=== PATIENT | female | born 1930 | race Caucasian/White ===

== ENCOUNTER 2017-02-02 17:44 | Inpatient (IN) | payer MEDICARE, OTHER ==
[~2017-02-02] VITALS: Ht 162.6 cm; Wt 68.2 kg
[~2017-02-02 17:44] MED LIST: ADV25050 INH; ALPR0.25 PO; AMLO5TAB4 PO; ATOR10TA65 PO; CHOL200035 PO; CITA20TA11 PO; CLON-379 PO; DIVA250T12 PO; EXEM25TA3 PO; HYDR-2086 PO; HYDR-762 PO; METO-448 PO; SIMV20TA2 PO; TIOT18CA IH
[2017-02-02] MEDS ORDERED: LORAZEPAM 1 MG TAB PO ONE (18:30)
[2017-02-02] MEDS ORDERED: IBUPROFEN 600 MG TAB PO ONE (18:30)
[2017-02-02] MEDS ORDERED: QUET50TA22 PO (19:27)
--- NOTE | 2017-02-02 19:38 | RADRPT ---
PROCEDURE: CT HEAD WITHOUT CONTRAST: CLINICAL INDICATION: 86-year-old female, altered mental status COMPARISON: CT head September 24, 2015 TECHNIQUE: CT of the head was performed without IV contrast. Dose information: The estimated radiation dose (CTDIvol mGy) for each series in this exam is 42 . The estimated cumulative dose (DLP mGy-cm) is 720 . FINDINGS: Parenchyma: There is chronic encephalomalacia in the left frontal lobe with ex vacuo dilatation of t he frontal horn of the left lateral ventricle that is unchanged from prior exam. Old right basal chan glia, right thalamic and cerebellar lacunar infarcts are unchanged. There are nonspecific patchy lo w density changes in the supratentorial deep white matter that are nonspecific that are unchanged fr om prior exam. Moderate diffuse cerebral tissue loss. Intracranial atherosclerosis. Negative for acu te intracranial hemorrhage, significant mass effect or midline shift. Ventricles and extra-axial spaces: Prominence of the ventricles proportionate to the sulci in keepin g with moderate cerebral tissue loss that is similar to prior exam. Visualized paranasal sinuses: Clear. Mastoid air cells: Clear. 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 There is also hyperostosis along the right greater sphenoid wing that is unchanged. Additional comment: Benign calcified scleral plaques bilateral orbits are unchanged. IMPRESSION: 1. No acute intracranial hemorrhage or significant mass effect. 2. Left frontal encephalomalacia is unchanged from prior head CT performed September 14, 2015. 3. 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 4. Severe chronic microvascular ischemic changes are again noted. If there is concern for recent is chemia consider MRI brain for further evaluation. 5. <Intracranial atherosclerosis. RPTAT: HCTS Jeffrey Lincoln Physician Date Time Electronically viewed and signed by Jeffrey Lincoln Physician on 02/02/2017 19:38 CS/
--- NOTE | 2017-02-02 20:07 | RADRPT ---
PROCEDURE: XR Femur. CLINICAL INDICATION: 89-year-old female. Fall.. TECHNIQUE: AP view of the right femur. COMPARISON: None available. FINDINGS: There is a noncemented right total hip replacement. Alignment is grossly anatomic on this portable A P view. There is a periprosthetic fracture of the proximal femoral shaft involving the lateral james ex extending to the prosthesis. There is a cemented right total knee replacement that is incomplete ly imaged but grossly unremarkable in the frontal projection. Vascular calcification. Negative for significant soft tissue swelling. IMPRESSION: Periprosthetic fracture proximal right femur extending to the femoral component of a right hip repla cement.. RPTAT: HCTS Physician Karla Date Time Electronically viewed and signed by Physician Karla on 02/02/2017 20:07 CS/
[2017-02-02] MEDS ORDERED: ONDANSETRON 4 MG INJ IV STA (20:46)
[2017-02-02] MEDS ORDERED: morphine 4 MG/ML VIAL IV STA (20:46)
--- NOTE | 2017-02-02 20:52 | RADRPT ---
PROCEDURE: XR Chest 1 View. CLINICAL INDICATION: Chest pain TECHNIQUE: AP view of the chest was obtained. COMPARISON: September 29, 2015 FINDINGS: The heart size is within normal limits. Calcified atherosclerosis is noted in the aorta. Median va rnotomy wires and surgical clips overlie the heart. Chronic mild interstitial prominence is seen thr oughout both lungs. No consolidations are identified. No pneumothorax is seen. The osseous structu res are osteopenic, but intact. Degenerative changes are seen in the shoulders. Surgical clips are identified in the bilateral axilla. IMPRESSION: Calcified atherosclerosis in the aorta. Chronic interstitial prominence in both lungs. RPTAT: AA .Paul Schmidt MD, MD Date Time Electronically viewed and signed by .Paul Schmidt MD, on 02/02/2017 20:51 .P/
--- NOTE | 2017-02-02 21:18 | ERA ---
ER Documentation Chief Complaint Date/Time DATE: 02/02/17 TIME: 21:14 Chief Complaint Fall with leg pain HPI Patient is a 6-year-old female with dementia who presents with a fall. She had a trip and fall today prior to arrival. The patient was complaining of right leg pain. Please note the history and physical exam is limited given the patient's dementia at baseline. Upon review of old medical records she has multiple visits to the ER since 2006. Her primary doctor is Dr. Torres. ROS All systems reviewed and are negative except as per history of present illness. Medications Home Meds Reported Medications Quetiapine Fumarate* (Quetiapine Fumarate*) 50 Mg Tablet, 50 MG PO HS, TAB 02/02/17 Atorvastatin Calcium (Atorvastatin Calcium) 10 Mg Tablet, 10 MG PO QHS, #30 TAB 09/24/15 Metoprolol Tartrate* (Lopressor*) 25 Mg Tab, 25 MG PO DAILY, TAB 02/06/15 Alprazolam* (Xanax*) 0.25 Mg Tablet, 0.25 MG PO BID Y for ANXIETY TAKE 2TAB-QAM AND 1 TAB-QHS 09/13/13 Citalopram Hydrobromide* (Celexa*) 20 Mg Tablet, 20 MG PO DAILY 09/13/13 Discontinued Reported Medications Divalproex Sodium* (Divalproex ER*) 250 Mg Tab.er.24h, 250 MG PO DAILY, #30 TAB.SA 09/24/15 Hydrocodone Bit-Acetaminophen* (Vicodin*) 5-300 Tab, 1 EACH PO Q4H Y for PAIN, TAB 02/06/15 Simvastatin (Simvastatin) 20 Mg Tablet, 20 MG PO DAILY 09/13/13 Cholecalciferol (Vitamin D3) 2,000 Unit Capsule, 2000 UNIT PO DAILY 09/13/13 Tiotropium Sallis* (Spiriva*) 18 Mcg Cap.w.dev, 18 MCG IH DAILY 09/13/13 Exemestane* (Aromasin*) 25 Mg Tablet, 25 MG PO DAILY 09/13/13 Salmeterol Xinaf/Fluticasone* (Advair*) 1 Inh Inha, 14 INH INH Y for SHORTNESS OF BREATH 09/13/13 Discontinued Scripts Hydrocodone Bit-Acetaminophen* ([place]*) 10-325 Mg Tablet, 1 TAB PO Q6 Y for PAIN , #10 TAB Prov:YUMIKO WHITEHEAD PA-C 11/22/15 Clonidine Hcl* (Clonidine Hcl*) 0.1 Mg Tab, 0.1 MG PO BID for 1 Day, TAB 1 Refill Prov:YADIRA TORRES MD 10/01/15 Amlodipine Besylate* (Norvasc*) 5 Mg Tab, 5 MG PO BID, #60 TAB Prov:YADIRA TORRES MD 10/01/15 Allergies Allergies: Coded Allergies: Penicillins (Verified Allergy, Severe, ANAPHYLAXIS, 02/02/17) ALSO SEVER amoxicillin (Verified Allergy, Severe, ANAPHYLAXIS, 02/02/17) donepezil (Verified Allergy, Intermediate, 02/02/17) rabeprazole (Verified Allergy, Unknown, 02/02/17) PMhx/Soc Positive for dementia Medical and Surgical Hx: Unable to obtain History of Surgery: No Anesthesia Reaction: No Hx Neurological Disorder: No Hx Respiratory Disorders: No Hx Cardiac Disorders: No Hx Psychiatric Problems: No Hx Miscellaneous Medical Probl: No Hx Alcohol Use: No Hx Substance Use: No Hx Tobacco Use: No Smoking Status: Unknown if ever smoked FmHx Unable to obtain Physical Exam Vitals Vital Signs Date Time Temp Pulse Resp B/P Pulse Ox O2 Delivery O2 Flow Rate FiO2 02/02/17 18:01 98.0 59 17 165/78 98 Physical Exam Const: Demented Head: Atraumatic Eyes: Normal Conjunctiva ENT: Normal External Ears, Nose and Mouth. Neck: Full range of motion..~ No meningismus. Resp: Clear to auscultation bilaterally Cardio: Regular rate and rhythm, no murmurs Abd: Soft, non tender, non distended. Normal bowel sounds Skin: No petechiae or rashes Back: No midline or flank tenderness Ext: Right hip pain with passive range of motion of the right leg Neur: Awake but demented at baseline Results 24 hrs Current Medications Medications (Trade) Dose Ordered Sig/Collin Route PRN Reason Start Time Stop Time Status Last Admin Dose Admin Ibuprofen (Motrin) 600 mg ONCE ONCE PO 02/02/17 18:30 02/02/17 18:31 DC 02/02/17 18:11 Lorazepam (Ativan) 1 mg ONCE ONCE PO 02/02/17 18:30 02/02/17 18:31 DC 02/02/17 18:11 Morphine Sulfate (morphine) 4 mg ONCE STAT IV 02/02/17 20:46 02/02/17 20:47 DC Ondansetron HCl (Zofran Inj) 4 mg ONCE STAT IV 02/02/17 20:46 02/02/17 20:47 DC Ondansetron HCl (Zofran Inj) 4 mg BRIDGE ORDER PRN IV NAUSEA AND/OR VOMITING 02/02/17 21:30 02/03/17 21:29 Acetaminophen (Tylenol Tab) 650 mg ER BRIDGE PRN PO MILD PAIN/FEVER 02/02/17 21:30 02/03/17 21:29 Procedures/MDM EKG read by me: Rate/Rhythm: Regular rate and rhythm at a rate of 65 Intervals: Normal Impression: No evidence of ischemia or arrhythmia Right femur x-ray shows a hip fracture per radiology with a previous hip replacement. CT scan of the brain shows no intracranial hemorrhage per radiology. Chest x-ray shows no pneumonia or pneumothorax per radiology. Patient is a 86-year-old female presents with a trip and fall. She has a right hip fracture. The patient will be admitted to the care of Dr. Torres her primary doctor. Dr. Torres will consult orthopedic surgery to see the patient for consultation. At this point I do not think she needs emergent surgery. Departure Diagnosis: Primary Impression: Hip fracture Qualified Code: S72.001A - Hip fracture, right, closed, initial encounter Additional Impression: Fall Qualified Code: W19.XXXA - Fall, initial encounter Condition: MALICK Robledo MD Feb 02, 2017 21:18
[2017-02-02 21:20] LABS: BASOPHILS % 0.2 % (0.0-2.0); EOSINOPHILS # 0.1 10^3/ul (0.0-0.5); EOSINOPHILS % 1.3 % (0.0-7.0); HEMATOCRIT 38.1 % (37.0-47.0); HEMOGLOBIN 12.2 g/dl (12.0-16.0); LYMPHOCYTES # 1.5 10^3/ul (0.8-2.9); LYMPHOCYTES % 17.1 % (15.0-51.0); MEAN CORPUSCULAR HEMOGLOBIN 28.1 pg (29.0-33.0); MEAN CORPUSCULAR VOLUME 87.8 fl (82.0-101.0); MEAN PLATELET VOLUME 10.2 fl (7.4-10.4); MONOCYTE # 0.6 10^3/ul (0.3-0.9); MONOCYTES % 7.3 % (0.0-11.0); NEUTROPHIL # 6.5 10^3/ul (1.6-7.5); NEUTROPHILS % 73.9 % (39.0-77.0); PLATELET COUNT 151 10^3/UL (140-415); RED BLOOD COUNT 4.34 10^6/ul (4.20-5.40); RED CELL DISTRIBUTION WIDTH 14.4 % (11.5-14.5); WHITE BLOOD COUNT 8.8 10^3/ul (4.8-10.8)
[2017-02-02] MEDS ORDERED: ONDANSETRON 4 MG INJ IV PRN ×2 (21:30→22:00)
[2017-02-02] MEDS ORDERED: ALPRAZOLAM 0.25 MG TAB PO PRN (21:30)
[2017-02-02] MEDS ORDERED: ACETAMINOPHEN 325 MG TAB PO PRN ×2 (21:30→22:00)
[2017-02-02 21:35] LABS: INR 0.93; PROTIME 12.5 Sec (12.2-14.2)
[2017-02-02 21:36] LABS: PARTIAL THROMBOPLASTIN TIME 31.3 Sec (25.0-35.0)
[2017-02-02 21:38] LABS: ANION GAP 16 (8-16); BLOOD UREA NITROGEN 16 mg/dl (7-20); CALCIUM 9.1 mg/dl (8.4-10.2); CARBON DIOXIDE 29 mmol/L (21-31); CHLORIDE 99 mmol/L (97-110); CREATININE 0.73 mg/dl (0.44-1.00); GLUCOSE 87 mg/dl (70-220); POTASSIUM 4.1 mmol/L (3.5-5.1); SODIUM 140 mmol/L (135-144)
[2017-02-02 21:51] LABS: TROPONIN-I < 0.012 ng/ml (0.00-0.12)
[2017-02-02] MEDS ORDERED: DOCUSATE SODIUM 100 MG CAP PO PRN (22:00)
[2017-02-02] MEDS ORDERED: NACL 0.9% 3 ML SYG IV SCH (22:00)
[2017-02-02] MEDS ORDERED: MAGNESIUM HYDROXIDE 30ML CUP PO PRN (22:00)
[2017-02-02] MEDS: SOD CHLORIDE 0.9% 1,000 ML IV SCH (23:12)
[2017-02-02] MEDS: QUETIAPINE 25 MG TAB PO SCH (23:37)
[2017-02-03] MEDS: morphine 2 MG INJ IV PRN (05:15)
[2017-02-03 05:38] VITALS: TEMP 98
[2017-02-03 06:04] LABS: BASOPHILS % 0.4 % (0.0-2.0); EOSINOPHILS # 0.2 10^3/ul (0.0-0.5); EOSINOPHILS % 3.2 % (0.0-7.0); HEMATOCRIT 36.9 % (37.0-47.0); HEMOGLOBIN 11.7 g/dl (12.0-16.0); LYMPHOCYTES # 1.3 10^3/ul (0.8-2.9); LYMPHOCYTES % 25.6 % (15.0-51.0); MEAN CORPUSCULAR HEMOGLOBIN 28.1 pg (29.0-33.0); MEAN CORPUSCULAR HGB CONC 31.7 g/dl (32.0-37.0); MEAN CORPUSCULAR VOLUME 88.7 fl (82.0-101.0); MONOCYTE # 0.5 10^3/ul (0.3-0.9); MONOCYTES % 9.1 % (0.0-11.0); NEUTROPHIL # 3.1 10^3/ul (1.6-7.5); NEUTROPHILS % 61.5 % (39.0-77.0); PLATELET COUNT 147 10^3/UL (140-415); RED BLOOD COUNT 4.16 10^6/ul (4.20-5.40); RED CELL DISTRIBUTION WIDTH 14.4 % (11.5-14.5)
[2017-02-03 06:50] LABS: ALBUMIN 3.4 g/dl (3.3-4.9); ALBUMIN/GLOBULIN RATIO 1.25; BILIRUBIN,INDIRECT 0.5 mg/dl (0-1.1); BILIRUBIN,TOTAL 0.5 mg/dl (0.2-1.3); CALCIUM 8.6 mg/dl (8.4-10.2); CREATININE 0.75 mg/dl (0.44-1.00); POTASSIUM 3.9 mmol/L (3.5-5.1); TOTAL PROTEIN 6.1 g/dl (6.1-8.1)
[2017-02-03 06:52] LABS: PHOSPHORUS 3.8 mg/dl (2.5-4.9)
[2017-02-03 07:38] VITALS: Ht 162.6 cm; Wt 68.2 kg
[2017-02-03 07:43] VITALS: BP 174/74; PULSE 62; RESP 20
[2017-02-03] MEDS ORDERED: METOPROLOL 25 MG TAB PO SCH (09:00)
--- NOTE | 2017-02-03 09:42 | HP ---
DATE OF ADMISSION: 02/03/2017 IDENTIFYING DATA: The patient is an 86-year-old female, admitted to the hospital after a fall approximately 12 hours ago resulted in a fracture of the right hip. HISTORICAL EVENTS: According to the patient's family, it was late last evening when she inadvertently turned rather quickly that she inadvertently lost balance, split against the wall, ultimately striking the ground with then notable pain involving her right hip. Importantly, there was no loss of consciousness. There was no antecedent shortness of breath, chest pain, nausea, vomiting, abdominal pain, or focal neurologic symptoms. She was brought to [facility] ER and a fracture of the right hip was noted. She presently denies cough, wheezing, shortness of breath, nausea, vomiting, abdominal or chest pain. Has moderate right hip pain. MEDICATIONS: Include Sinequan 50 mg at night. Xanax 0.25 b.i.d. p.r.n. Celexa 20 mg per day. Atorvastatin 10 mg per day. Metoprolol 25 mg per day. PAST MEDICAL HISTORY: Includes: 1. Repeat hospitalizations for pneumonia and/or bronchitis. 2. Surgery for melanoma involving the left leg, 1972. 3. History of breast cancer, left, having lumpectomy and radiation therapy, remote, with recurrent disease requiring a left modified radical mastectomy in April 2010, having been maintained on Aromasin for approximately 5 years. 4. History of arthroscopic knee surgery bilaterally with repeat left knee surgery in 2002 involving the left knee and right in 2005. 5. Hypertension. 6. Hyperlipidemia. 7. No history of [place], diabetes, or phlebitis. 8. History of sleep apnea, using CPAP device at home. 9. History of peptic ulcer disease. 10. Chronic obstructive pulmonary disease, having stopped smoking in 2001. 11. Known coronary disease, undergoing CABS x2 vessels at the [facility] in July 2010 with a large thoracic aneurysm, being followed by Cardiology. 12. Right hip replacement in 2008. 13. Resection of a thoracic aneurysm in July 2010 and aortic valve repair with aneurysm remaining as noted above. 14. 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 Venous studies at that time of the lower extremities were normal, having been maintained on Xarelto until she developed a left frontal hemorrhage in February 2015 without evidence of tumor or aneurysm, having modest aphagia postoperatively and IVC filter has been placed and it was thought that no continued anticoagulation therapy appropriate. 15. 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 ALLERGIES: INCLUDE PENICILLIN, ACIPHEX, AUGMENTIN, EXELON AND ARICEPT. 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 FAMILY HISTORY: Positive for colon cancer and hypertension. PHYSICAL EXAMINATION: GENERAL APPEARANCE: Reveals an elderly female, no acute distress. VITAL SIGNS: BP 116/80, pulse 70, respirations of 20, she was afebrile. HEENT: Eyes, extraocular muscles were full. Nose, mouth, and throat were normal. NECK: Supple without jugular venous distention, thyroid enlargement, adenopathy. LUNGS: Clear. HEART: Rhythm regular. 1/6 systolic murmur. No 3rd or 4th sound. ABDOMEN: Nontender. Liver and spleen were not palpable. No mass or tenderness were noted. EXTREMITIES: No edema. Calves nontender. Pulses reduced. There was tenderness. NEUROLOGIC: Revealed no lateralizing motor weakness. She was not oriented to person, place, and time, as well as to recent events, but clearly recognized me. MUSCULOSKELETAL: Revealed right hip tenderness. IMPRESSION: 1. Traumatic fracture of the right hip. 2. History of coronary disease and thoracic aneurysm. 3. Impaired cognition, chronic. PLAN: Ortho to see and make recommendation. Cardiology to see preoperatively. Aspirin can be used postoperatively. Calf pumps will be provided now given SAP MOBILITY [employer]CHIT[employer] hemorrhage. Lovenox or equivalent would again not be appropriate at this time. Dictated By: Chet Xiao MD /marianne/troy /Document#: [id number]
[2017-02-03] MEDS: CITALOPRAM 20 MG TAB PO SCH (09:45)
[2017-02-03] MEDS: FAMOTIDINE 20 MG TAB PO SCH ×2 (09:45→22:29)
[2017-02-03] MEDS: METOPROLOL 25 MG TAB PO SCH ×2 (09:47→22:29)
[2017-02-03] MEDS: AMLODIPINE 2.5 MG TAB PO SCH ×2 (09:47→21:00)
[2017-02-03] MEDS: HYDROCODONE/APAP (5/325) TAB PO PRN (09:48)
[2017-02-03 09:53] VITALS: BP 148/73; PULSE 62; RESP 20
--- NOTE | 2017-02-03 11:49 | RADRPT ---
PROCEDURE: CT right hip without contrast. CLINICAL INDICATION: Fall, evaluate right hip pain TECHNIQUE: CT scan of the right hip was performed on a multi -slice scanner. No IV contrast was a dministered. Coronal and sagittal reformatted images were obtained from the axial source images. T he total exam DLP equals 425 mGy-cm. The CDTI volume was 13 mGy. Images were reviewed on a high-reso [employer] PACS workstation. One or more of the following dose reduction techniques were used: Automated exposure control Adjustment of the mA and/or kV according to patient size. Use of iterative reconstruction technique. COMPARISON: Radiographs from 02/02/2017 FINDINGS: As seen on the prior radiographs, there is a minimally displaced fracture of the lateral proximal fe mur involving the greater trochanter and extending into the subtrochanteric region adjacent to the l ateral femoral component of the right total hip prosthesis. The fracture extends from the lateral/po sterolateral cortex along the greater trochanter/subtrochanteric region to the anterolateral cortex of the subtrochanteric region. It does not extend to the medial cortex or lesser trochanter. The n oncemented total hip prosthesis is otherwise intact. There is no evidence of loosening or dislocatio n. There is mild osseous spurring along the lateral acetabulum without a definite fracture. The bones are diffusely osteopenic. The metallic artifact limits evaluation for joint effusions although no s ignificant joint effusion is visualized. There is mild soft tissue stranding within the subcutaneous soft tissues of the lateral right hip/pr oximal femur. There is no large hematoma or fluid collection. There is thickening of the hamstring origin tendons with enthesophytes within the ischial tuberosity which may be from tendinosis. There is minimal fatty marbling of the muscles around the hip. The visualized right sacroiliac joint is intact with osseous spurring. There are several diverticula within the visualized sigmoid colon. RPTAT: ZZ IMPRESSION: 1. Minimally displaced periprosthetic fracture of the proximal femur involving the greater trochant er and lateral subtrochanteric region adjacent to the lateral femoral component of the total hip pro sthesis. 2. The hip prosthesis is otherwise intact. .Awilda Fuller MD, MD Date Time Electronically viewed and signed by .Awilda Fuller MD, MD on 02/03/2017 11:48 .T/
[2017-02-03] MEDS: SOD CHLORIDE 0.9% 1,000 ML IV SCH (12:24)
--- NOTE | 2017-02-03 12:37 | HP ---
DATE OF ADMISSION: 02/03/2017 REFERRING PHYSICIAN: Dr. Chet Xiao HISTORY OF PRESENT ILLNESS: The patient is an 86-year-old female who is well known to me. She has previously had a right hip and right knee replacement performed by me. Patient is very confused at the present time and I cannot get a very clear history from her. She took a fall at home yesterday, she was taken to [facility] Emergency room. X-rays of the right hip showed a "fractured hip." She was admitted during the night for further evaluation and treatment. The patient was seen briefly before obtaining further imaging. Her pain was restricted to the right groin. The pain is aggravated by movement of the right hip. Plain x-rays obtained in the emergency room overnight (1 view) showed what appeared to be a nondisplaced fracture around the proximal shaft of the femoral component of the right hip replacement. A CT scan obtained today shows that there is indeed a circular oblique fracture around the femur at about the junction of the middle and proximal thirds. The fracture is not displaced. DIAGNOSIS: Undisplaced periprosthetic fracture of the right hip. MANAGEMENT: The patient will be started on partial weightbearing ambulation tomorrow. No surgery is needed. I will contact the family to discuss this with them. She will be transferred to the acute rehab unit for full care for a week or 2. [address] scan was reviewed with the radiologist. All this was discussed on the phone with Dr. Chet Xiao. Dictated By: Alexander Peña MD /marianne/gaye /Document#: [id number]
[2017-02-03 13:53] VITALS: BP 146/83; PULSE 75; RESP 14
--- NOTE | 2017-02-03 16:47 | RADRPT ---
PROCEDURE: XR Hip. CLINICAL INDICATION: 86-year-old female . Prostatic hip fracture. TECHNIQUE: Two views of the right hip. COMPARISON: None available. FINDINGS: There is a noncemented right total hip replacement. There is a mildly displaced acute fracture thro ugh the lateral proximal right femur that extends to the femoral stem. Negative for abnormal soft t issue swelling. Bones are osteopenic. IMPRESSION: Acute mildly displaced periprosthetic fracture proximal right femur.. RPTAT: HCTS Physician Karla Date Time Electronically viewed and signed by Jeffrey Lincoln Physician on 02/03/2017 16:47 CS/
--- NOTE | 2017-02-03 16:50 | RADRPT ---
PROCEDURE: XR Knee. CLINICAL INDICATION: 86-year-old female . Anjelica-prosthetic distal femur fracture TECHNIQUE: 3 views of the right knee. COMPARISON: None available FINDINGS: There is a cemented total knee replacement with the expected appearance. Negative for evidence of a cute fracture. Normal alignment. Negative for joint effusion. Vascular calcification. IMPRESSION: Right total knee replacement without complications. Negative for evidence of acute fracture. RPTAT: HCTS Physician Karla Date Time Electronically viewed and signed by Physician Karla on 02/03/2017 16:49 CS/
[2017-02-03] MEDS ORDERED: ASPIRIN 81 MG TAB PO SCH (17:30)
[2017-02-03 17:50] VITALS: BP 115/56; RESP 18
[2017-02-03] MEDS: ASPIRIN (EC) 81 MG TAB PO SCH (19:49)
[2017-02-03 20:50] VITALS: BP 117/57; RESP 18
[2017-02-03] MEDS: QUETIAPINE 25 MG TAB PO SCH (22:29)
[2017-02-03] MEDS: ATORVASTATIN 10 MG TAB PO SCH (22:29)
--- NOTE | 2017-02-03 22:34 | CONS ---
Date/Time of Note Date/Time of Note DATE: 02/03/17 TIME: 22:19 Assessment/Plan Assessment/Plan Chief Complaint/Hosp Course - s/p fall with R hip fxr non displaced, - Preop cv exam- given hx pt is at least intermediate cardiac risk for intermediate risk ortho surgery. given no cardiac symptoms, ok to proceed to surgery if needed. however, per ortho medical mgmt at this time. 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 pt with residual proximal arch 5.8 cm pt evaluated for elective repair however given location of aneurysm, surgery was not recommended. - h/o of PE 2/2 hypercoag d/o previously on anticoag- now off /2 CVA/ICH 2014. s/p IVC filter, unable to removed / need for chronic angicoag - HTN- controlled - h/o of CAD stable, s/p CABG during surgery 2010. no cp - PVD - Dementia Recommendations - cont metoprolol 25mg po bid - cont asa/statin - cont amlodipine for bp control - surgery eval as above f/u as outpt Problems: Consultation Date/Type/Reason Admit Date/Time Feb 03, 2017 at 07:32 Date of Consultation: Feb 03, 2017 Type of Consultation: Cardiology Reason for Consultation Preop CV Exam Referring Provider: YADIRA TORRES MD Hx of Present Illness Ms. Spring is a 86 y.o. woman with h/o of CAD s/p CABG, TAA, PE with h/o IVC filter placement 2014, ICH on angicoag. Pt with accidental ground level fall. Fell on R hip now with non displaced fxr of L hip prosthesis. Pt evaluated by ortho, injury felt not to require surgery and will be medically managed. pt denies any cp/sob/palp/dizziness/syncope prior to fall, family is at bedside and witnessed fall, confirms accidental nature at baseline ambulatory without cp/sob dizziness. no other recent sig fall. denies pnd, orthop, edema. denies tearing chest pain or scapular/back pain. Constitutional: no complaints Eyes: no complaints ENT: no complaints Respiratory: no complaints Cardiovascular: no complaints Gastrointestinal: no complaints Genitourinary: no complaints Musculoskeletal: bone/joint pain Skin: no complaints Neurologic: no complaints Psychological: no complaints Immunologic: no complaints Past Medical History 3-vessel CAD (414.00) (I25.10) - CABG and Asc dissec repair 07/06.... poss occ CHAVEZ on CT of Chest in f/up of residual Transverse Aortic aneurysm. Intracranial hemorrahge on xarelto 01/2015 Aneurysm of thoracic aorta (441.2) (I71.2) - 5.[address] chest Aortic regurgitation (424.1) (I35.1) Breast cancer (174.9) (C50.919) - Lt lump and Rad '00 recurrenceLt mastectomy10 Carotid artery stenosis (433.10) (I65.29) - heavily calcified nonobstructive plaquing in bilateral common carotid arteries and proximal internal carotid arteries less than 50%, 50-99% external carotid artery plaquing and patent vertebral arteries bilaterally on duplex 05/08 and 07/10 Chronic obstructive pulmonary disease (496) (J44.9) Dementia (294.20) (F03.90) Essential hypertension (401.9) (I10) History of pulmonary embolism (V12.55) (Z86.711) 08/07 - no on anticoag given ICH Hypercholesterolemia (272.0) (E78.0) Obstructive sleep apnea (327.23) (G47.33) Osteoarthritis (715.90) (M19.90) Past Surgical History History of Asc Aortic Aneurysm Repair W/ Graft, Aortic Root Replacement -dissection with asc root graft and CABGx2 CHAVEZ-LAD SVG-OM 07/06 History of Breast Surgery Mastectomy History of Cataract Surgery History of Hip Replacement History of Knee Replacement Family History Significant Family History: other (no sig heart disease) Social History Alcohol Use: none Smoking Status: Former smoker Drug Use: none Smoking Status: Never smoker Exam/Review of Systems Vital Signs Vitals Vital Signs Date Time Temp Pulse Resp B/P Pulse Ox O2 Delivery O2 Flow Rate FiO2 02/03/17 20:50 99.7 72 18 117/57 97 02/03/17 18:00 Nasal Cannula 2.0 02/03/17 03:00 28 Exam Constitutional: alert, oriented, other (dementia) Psych: no complaints Head: normocephalic Eyes: nl conjunctiva ENMT: nl external ears & nose Neck: supple, non-tender, No jvd Respiratory: clear in all jimenez Cardiovascular: regular rate and rhythm, nl pulses, systolic murmur, No S3, No S4 Gastrointestinal: soft, non-tender Musculoskeletal: legs in imobilizer Extremities: normal pulses Neurological: SOCIAL WORK THERAPIST II-XII intact Skin: nl turgor Results Result Diagram: 02/03/17 0543 02/03/17 0543 Results 24 hrs Laboratory Tests Test 02/03/17 05:43 White Blood Count 5.0 # Red Blood Count 4.16 L Hemoglobin 11.7 L Hematocrit 36.9 L Mean Corpuscular Volume 88.7 Mean Corpuscular Hemoglobin 28.1 L Mean Corpuscular Hemoglobin Concent 31.7 L Red Cell Distribution Width 14.4 Platelet Count 147 Mean Platelet Volume 10.0 Neutrophils % 61.5 Lymphocytes % 25.6 Monocytes % 9.1 Eosinophils % 3.2 Basophils % 0.4 Nucleated Red Blood Cells % 0.0 Neutrophils # 3.1 Lymphocytes # 1.3 Monocytes # 0.5 Eosinophils # 0.2 Basophils # 0.0 Nucleated Red Blood Cells # 0.0 Sodium Level 142 Potassium Level 3.9 Chloride Level 101 Carbon Dioxide Level 30 Anion Gap 15 Blood Urea Nitrogen 14 Creatinine 0.75 Glucose Level 71 Calcium Level 8.6 Phosphorus Level 3.8 Magnesium Level 2.0 Total Bilirubin 0.5 Direct Bilirubin 0.00 Indirect Bilirubin 0.5 Aspartate Amino Transf (AST/SGOT) 16 Alanine Aminotransferase (ALT/SGPT) 28 Alkaline Phosphatase 58 Total Protein 6.1 Albumin 3.4 Globulin 2.70 Albumin/Globulin Ratio 1.25 Medications Medications Current Medications Atorvastatin Calcium (Lipitor) 10 mg QHS PO ; Start 02/03/17 at 21:00 Citalopram Hydrobromide (Celexa) 20 mg DAILY PO Last administered on 02/03/17 09:45; Admin Dose 20 MG; Start 02/03/17 at 09:00 Quetiapine Fumarate 50 mg 50 mg QHS PO Last administered on 02/02/17 23:37; Admin Dose 50 MG; Start 02/02/17 at 22:30 Sodium Chloride (NS) 1,000 ml @ 70 mls/hr [id number] IV Last administered on 02/03 12:24; Admin Dose 70 MLS/HR; Start 02/02/17 at 21:36 Ondansetron HCl (Zofran Inj) 4 mg Q6H PRN IV NAUSEA AND/OR VOMITING Last administered on 02/03/17 05:14; Admin Dose 4 MG; Start 02/02/17 at 22:00 Acetaminophen (Tylenol Tab) 650 mg Q6H PRN PO PAIN LEVEL 1-3 OR FEVER; Start at 22:00 Acetaminophen/ Hydrocodone Bitart ([place] (5/325)) 1 tab Q6H PRN PO MODERATE PAIN LEVEL 4-6 Last administered on 02/03/17 09:48; Admin Dose 1 TAB; Start 04/11 at 22:00 Morphine Sulfate (morphine) 1 mg Q6H PRN IV SEVERE PAIN LEVEL 7-10 Last administered on 02/03/17 05:15; Admin Dose 1 MG; Start 02/02/17 at 22:00 Docusate Sodium (Colace) 100 mg Q12H PRN PO CONSTIPATION; Start 02/02/17 at 22: 00 Magnesium Hydroxide (Milk Of Mag) 30 ml DAILY PRN PO CONSTIPATION; Start at 22:00 Famotidine (Pepcid) 20 mg QHS PO Last administered on 02/03/17 09:45; Admin Dose 20 MG; Start 02/03/17 at 09:00 Metoprolol Tartrate (Lopressor) 25 mg BID PO Last administered on 02/03/17 09: 47; Admin Dose 25 MG; Start 02/03/17 at 09:00 Amlodipine Besylate (Norvasc) 2.5 mg BID PO Last administered on 02/03/17 09: 47; Admin Dose 2.5 MG; Start 02/03/17 at 09:00 Alprazolam (Xanax) 0.25 mg TID PRN PO ANXIETY; Start 02/03/17 at 21:00 Aspirin (Halfprin) 81 mg DAILY PO Last administered on 02/03/17 19:49; Admin Dose 81 MG; Start 02/03/17 at 17:30 MIGUEL SIN Feb 03, 2017 22:30
--- NOTE | 2017-02-03 22:38 | RADRPT ---
Echocardiogram Report Patient Name: COREEN GUAN Gender: Female Date: 1930 Study Date: 03-Feb-2017 [place] Department Worker: Koki Willoughby [facility] Location: 3301 Ref. Physician: BYRON ARMSTRONG Quality: Adequate Procedures: Transthoracic echocardiogram with complete 2D, M-Mode, and doppler examination. Indications: Pre-op. 2D/M Mode Doppler Measurement Value Normal Ranges Measurement Value Normal Ranges LVIDd 2D 3.9 3.5 - 5.6 cm AV Peak Pablo 1.4 m/sec LVIDs 2D 2.5 2.1 - 4.1 cm AV Peak PG 8.0 mmHg FS 2D 37.6 % AI Peak PG 45.0 mmHg LVPWd 2D 1.4 0.6 - 1.1 cm AI Peak Pablo 3.3 m/sec IVSd 2D 1.6 0.6 - 1.1 cm AI PHT 512.0 msec IVS/LVPW 2D 1.1 LVOT Peak Pablo 1.0 m/sec AoR Diam 2D 3.2 2.0 - 3.7 cm LVOT Peak PG 4.0 mmHg LA/Ao 2D 1 0 - 1 MV E Peak Pablo 0.7 m/sec EDV 2D 61.2 cm3 MV A Peak Pablo 1.0 m/sec ESV 2D 14.9 cm3 MV E/A 0.7 LA Dimen 2D 4.2 2.3 - 4.0 cm MV Decel Time 250 msec MV E/A 0.7 TR Peak Pablo 2.0 m/sec TR Peak PG 16.0 mmHg RVSP 19.0 mmHg Findings Left Ventricle: Normal left ventricular systolic function. Normal left ventricular cavity size. Moderate asymmetric septal hypertrophy. Mild concentric left ventricular hypertrophy. Ejection fraction is visually estimated at 60 %. Tissue Doppler/Mitral Doppler indices are consistent with impaired relaxation (Stage I diastolic dysfunction). These segments of the LV are hypokinetic inferior base segment. Right Ventricle: Normal right ventricular size. Normal right ventricular systolic function. Left Atrium: There is mild enlargement of left atrium. Right Atrium: The right atrium is normal in size. Mitral Valve: Moderate mitral annular calcification. Trace mitral regurgitation. Aortic Valve: No hemodynamically significant aortic stenosis by doppler. Aortic cusps appear mildly calcified. Trileaflet aortic valve. Mild aortic valve regurgitation. Tricuspid Valve: Tricuspid valve not well visualized. Unable to obtain RVSP due to minimal presence of tricuspid regurgitation. There is trace tricuspid regurgitation. Pulmonic Valve: Pulmonic valve not well visualized. Pericardium: Normal pericardium with no significant pericardial effusion. Aorta: Normal aortic root. IVC: Normal size and no respiratory collapse consistent with elevated right atrial pressure. Conclusions Normal left ventricular systolic function. Normal left ventricular cavity size. Moderate asymmetric septal hypertrophy. Mild concentric left ventricular hypertrophy. Ejection fraction is visually estimated at 60 %. Tissue Doppler/Mitral Doppler indices are consistent with impaired relaxation (Stage I diastolic dysfunction). These segments of the LV are hypokinetic inferior base segment. Normal right ventricular size. Normal right ventricular systolic function. There is mild enlargement of left atrium. Tricuspid valve not well visualized. Unable to obtain RVSP due to minimal presence of tricuspid regurgitation. There is trace tricuspid regurgitation. No hemodynamically significant aortic stenosis by doppler. Aortic cusps appear mildly calcified. Trileaflet aortic valve. Mild aortic valve regurgitation. Normal size and no respiratory collapse consistent with elevated right atrial pressure. Normal pericardium with no significant pericardial effusion. No Vegetation, masses, or thrombi seen. Electronically Signed By: Byron Armstrong 03-Feb-2017 22:38:21 -0700 Patient Name: COREEN GUAN Study Date: 03-Feb-[id number]
[2017-02-04] MEDS: SOD CHLORIDE 0.9% 1,000 ML IV SCH ×2 (00:49→14:33)
[2017-02-04] MEDS ORDERED: LORAZEPAM 2 MG INJ IV ONE (01:00)
[2017-02-04 03:00] VITALS: BP 116/58; PULSE 62; RESP 20
[2017-02-04 07:36] VITALS: BP 125/59; RESP 20
[2017-02-04] MEDS: AMLODIPINE 2.5 MG TAB PO SCH ×2 (08:10→20:32)
[2017-02-04] MEDS: METOPROLOL 25 MG TAB PO SCH ×2 (08:33→20:32)
[2017-02-04] MEDS: ASPIRIN (EC) 81 MG TAB PO SCH (08:33)
[2017-02-04] MEDS: CITALOPRAM 20 MG TAB PO SCH (08:33)
[2017-02-04 09:55] LABS: BASOPHILS % 0.3 % (0.0-2.0); EOSINOPHILS # 0.2 10^3/ul (0.0-0.5); EOSINOPHILS % 3.2 % (0.0-7.0); HEMATOCRIT 32.9 % (37.0-47.0); HEMOGLOBIN 10.3 g/dl (12.0-16.0); LYMPHOCYTES % 17.4 % (15.0-51.0); MEAN CORPUSCULAR HEMOGLOBIN 28.1 pg (29.0-33.0); MEAN CORPUSCULAR HGB CONC 31.3 g/dl (32.0-37.0); MEAN CORPUSCULAR VOLUME 89.6 fl (82.0-101.0); MEAN PLATELET VOLUME 10.6 fl (7.4-10.4); MONOCYTE # 0.6 10^3/ul (0.3-0.9); MONOCYTES % 9.4 % (0.0-11.0); NEUTROPHIL # 4.1 10^3/ul (1.6-7.5); NEUTROPHILS % 69.4 % (39.0-77.0); PLATELET COUNT 130 10^3/UL (140-415); RED BLOOD COUNT 3.67 10^6/ul (4.20-5.40); RED CELL DISTRIBUTION WIDTH 14.7 % (11.5-14.5); WHITE BLOOD COUNT 5.9 10^3/ul (4.8-10.8)
[2017-02-04 10:15] LABS: CALCIUM 8.1 mg/dl (8.4-10.2); CREATININE 0.72 mg/dl (0.44-1.00); PHOSPHORUS 2.9 mg/dl (2.5-4.9)
--- NOTE | 2017-02-04 13:10 | PN ---
Date/Time of Note Date/Time of Note DATE: 02/04/17 TIME: 13:08 Assessment/Plan VTE Prophylaxis VTE Prophylaxis Intervention: anti-embolic stocking Lines/Catheters IV Catheter Type (from Nrsg): Peripheral IV Urinary Cath still in place: Yes Reason Cath still needed: terminal illness/intractable pain Assessment/Plan Chief Complaint/Hosp Course 1. Traumatic fracture of the right hip; no displaced, no operable -will need rehab PT, recommend SNF for continued rehab, consider [facility] bone healing 2. History of coronary disease and thoracic aneurysm. 3. Impaired cognition, chronic.- pleasantly confused coverage for Dr. Xiao Problems: Subjective 24 Hr Interval Summary Constitutional: no complaints Respiratory: no complaints Cardiovascular: no complaints Musculoskeletal: bone/joint pain Exam/Review of Systems Vital Signs Vitals Vital Signs Date Time Temp Pulse Resp B/P Pulse Ox O2 Delivery O2 Flow Rate FiO2 02/04/17 09:00 Nasal Cannula 3.0 02/04/17 07:36 98.2 65 20 125/59 96 02/03/17 03:00 28 Intake and Output 02/03/17 02/03/17 02/04/17 14:59 22:59 06:59 Intake Total 450 ml 1480 ml Output Total 1000 ml 800 ml Balance -550 ml 680 ml Exam Constitutional: alert, No oriented Psych: no complaints Head: atraumatic, normocephalic Respiratory: clear to auscultation Cardiovascular: regular rate and rhythm Gastrointestinal: nl liver, spleen, non-tender, soft Neurological: MIXED SIGNAL DESIGN ENGINEER II-XII intact Skin: nl turgor Results Result Diagram: 02/04/1740 02/04/17 0940 Results 24 hrs Laboratory Tests Test 02/04/17 09:40 White Blood Count 5.9 Red Blood Count 3.67 L Hemoglobin 10.3 L Hematocrit 32.9 L Mean Corpuscular Volume 89.6 Mean Corpuscular Hemoglobin 28.1 L Mean Corpuscular Hemoglobin Concent 31.3 L Red Cell Distribution Width 14.7 H Platelet Count 130 L Mean Platelet Volume 10.6 H Neutrophils % 69.4 Lymphocytes % 17.4 Monocytes % 9.4 Eosinophils % 3.2 Basophils % 0.3 Nucleated Red Blood Cells % 0.0 Neutrophils # 4.1 Lymphocytes # 1.0 Monocytes # 0.6 Eosinophils # 0.2 Basophils # 0.0 Nucleated Red Blood Cells # 0.0 Sodium Level 138 Potassium Level 4.0 Chloride Level 106 Carbon Dioxide Level 26 Anion Gap 10 # Blood Urea Nitrogen 15 Creatinine 0.72 Glucose Level 92 Calcium Level 8.1 L Phosphorus Level 2.9 Magnesium Level 2.0 Medications Medications Current Medications Atorvastatin Calcium (Lipitor) 10 mg QHS PO Last administered on 02/03/17 22: 29; Admin Dose 10 MG; Start 02/03/17 at 21:00 Citalopram Hydrobromide (Celexa) 20 mg DAILY PO Last administered on 02/04/17 08:33; Admin Dose 20 MG; Start 02/03/17 at 09:00 Quetiapine Fumarate 50 mg 50 mg QHS PO Last administered on 02/03/17 22:29; Admin Dose 50 MG; Start 02/02/17 at 22:30 Sodium Chloride (NS) 1,000 ml @ 70 mls/hr [id number] IV Last administered on 02/04 00:49; Admin Dose 70 MLS/HR; Start 02/02/17 at 21:36 Ondansetron HCl (Zofran Inj) 4 mg Q6H PRN IV NAUSEA AND/OR VOMITING Last administered on 02/03/17 05:14; Admin Dose 4 MG; Start 02/02/17 at 22:00 Acetaminophen (Tylenol Tab) 650 mg Q6H PRN PO PAIN LEVEL 1-3 OR FEVER; Start at 22:00 Acetaminophen/ Hydrocodone Bitart ([place] (5/325)) 1 tab Q6H PRN PO MODERATE PAIN LEVEL 4-6 Last administered on 02/03/17 09:48; Admin Dose 1 TAB; Start 04/11 at 22:00 Morphine Sulfate (morphine) 1 mg Q6H PRN IV SEVERE PAIN LEVEL 7-10 Last administered on 02/03/17 05:15; Admin Dose 1 MG; Start 02/02/17 at 22:00 Docusate Sodium (Colace) 100 mg Q12H PRN PO CONSTIPATION; Start 02/02/17 at 22: 00 Magnesium Hydroxide (Milk Of Mag) 30 ml DAILY PRN PO CONSTIPATION; Start at 22:00 Famotidine (Pepcid) 20 mg QHS PO Last administered on 02/03/17 22:29; Admin Dose 20 MG; Start 02/03/17 at 09:00 Metoprolol Tartrate (Lopressor) 25 mg BID PO Last administered on 02/04/17 08: 33; Admin Dose 25 MG; Start 02/03/17 at 09:00 Amlodipine Besylate (Norvasc) 2.5 mg BID PO Last administered on 02/03/17 09: 47; Admin Dose 2.5 MG; Start 02/03/17 at 09:00 Alprazolam (Xanax) 0.25 mg TID PRN PO ANXIETY; Start 02/03/17 at 21:00 Aspirin (Halfprin) 81 mg DAILY PO Last administered on 02/04/17 08:33; Admin Dose 81 MG; Start 02/03/17 at 17:30 HECTOR CHERRY MD Feb 04, 2017 13:10
[2017-02-04] MEDS: HYDROCODONE/APAP (5/325) TAB PO PRN (14:50)
[2017-02-04] MEDS: ALPRAZOLAM 0.25 MG TAB PO PRN (15:55)
[2017-02-04 15:58] VITALS: RESP 20
[2017-02-04] MEDS ORDERED: ALPRAZOLAM 0.25 MG TAB PO STA (17:08)
[2017-02-04] MEDS ORDERED: traMADol 50 MG TAB NGT PRN (17:30)
[2017-02-04] MEDS: FAMOTIDINE 20 MG TAB PO SCH (20:31)
[2017-02-04] MEDS: ATORVASTATIN 10 MG TAB PO SCH (20:31)
[2017-02-04] MEDS: QUETIAPINE 25 MG TAB PO SCH (20:31)
[2017-02-04 21:05] VITALS: BP 121/61; RESP 16
[2017-02-05 03:02] VITALS: BP 123/63; RESP 16
[2017-02-05] MEDS: SOD CHLORIDE 0.9% 1,000 ML IV SCH ×2 (05:04→17:27)
[2017-02-05] MEDS: ALPRAZOLAM 0.25 MG TAB PO PRN ×3 (05:07→19:30)
[2017-02-05] MEDS: traMADol 50 MG TAB PO PRN ×2 (06:08→19:31)
[2017-02-05] MEDS: AMLODIPINE 2.5 MG TAB PO SCH ×2 (08:00→20:44)
[2017-02-05 08:08] VITALS: BP 118/58; RESP 20
[2017-02-05] MEDS: ASPIRIN (EC) 81 MG TAB PO SCH (08:11)
[2017-02-05] MEDS: CITALOPRAM 20 MG TAB PO SCH (08:12)
[2017-02-05] MEDS: METOPROLOL 25 MG TAB PO SCH ×2 (08:12→20:44)
--- NOTE | 2017-02-05 13:10 | PN ---
Date/Time of Note Date/Time of Note DATE: 02/05/17 TIME: 13:06 Assessment/Plan VTE Prophylaxis VTE Prophylaxis Intervention: LMWH Lines/Catheters IV Catheter Type (from Nrsg): Peripheral IV Urinary Cath still in place: Yes Reason Cath still needed: urinary retention, other (indicate) (limited mobility ) Assessment/Plan Chief Complaint/Hosp Course 1. Traumatic fracture of the right hip; no displaced, no operable -will need rehab PT, recommend SNF for continued rehab, consider [facility] bone healing -continue current rehab evaluation 2. History of coronary disease and thoracic aneurysm. 3. Impaired cognition, chronic.- pleasantly confused coverage for Dr. Xiao Problems: Subjective 24 Hr Interval Summary Constitutional: improved, No no complaints ENT: no complaints Respiratory: no complaints Cardiovascular: No chest pain, No lightheadedness Gastrointestinal: pain Psychological: anxiety Exam/Review of Systems Vital Signs Vitals Vital Signs Date Time Temp Pulse Resp B/P Pulse Ox O2 Delivery O2 Flow Rate FiO2 02/05/17 08:08 98.5 90 20 118/58 97 02/05/17 07:24 Nasal Cannula 3.0 02/03/17 03:00 28 Intake and Output 02/04/17 02/04/17 02/05/17 14:59 22:59 06:59 Intake Total 720 ml 1595 ml 520 ml Output Total 500 ml 600 ml Balance 720 ml 1095 ml -80 ml Exam Constitutional: alert, oriented Head: normocephalic Eyes: nl conjunctiva Neck: non-tender, supple Respiratory: clear to auscultation, normal air movement Cardiovascular: regular rate and rhythm Gastrointestinal: nl liver, spleen, soft Neurological: SPACE AND MISSILE DEFENSE OPERATIONS II-XII intact, nl mental status Skin: nl turgor Results Result Diagram: 02/04/1740 02/04/17 0940 Medications Medications Current Medications Atorvastatin Calcium (Lipitor) 10 mg QHS PO Last administered on 02/04/17 20: 31; Admin Dose 10 MG; Start 02/03/17 at 21:00 Citalopram Hydrobromide (Celexa) 20 mg DAILY PO Last administered on 02/05/17 08:12; Admin Dose 20 MG; Start 02/03/17 at 09:00 Quetiapine Fumarate 50 mg 50 mg QHS PO Last administered on 02/04/17 20:31; Admin Dose 50 MG; Start 02/02/17 at 22:30 Sodium Chloride (NS) 1,000 ml @ 70 mls/hr [id number] IV Last administered on 02/05 05:04; Admin Dose 70 MLS/HR; Start 02/02/17 at 21:36 Ondansetron HCl (Zofran Inj) 4 mg Q6H PRN IV NAUSEA AND/OR VOMITING Last administered on 02/03/17 05:14; Admin Dose 4 MG; Start 02/02/17 at 22:00 Acetaminophen (Tylenol Tab) 650 mg Q6H PRN PO PAIN LEVEL 1-3 OR FEVER; Start at 22:00 Morphine Sulfate (morphine) 1 mg Q6H PRN IV SEVERE PAIN LEVEL 7-10 Last administered on 02/03/17 05:15; Admin Dose 1 MG; Start 02/02/17 at 22:00 Docusate Sodium (Colace) 100 mg Q12H PRN PO CONSTIPATION; Start 02/02/17 at 22: 00 Magnesium Hydroxide (Milk Of Mag) 30 ml DAILY PRN PO CONSTIPATION; Start at 22:00 Famotidine (Pepcid) 20 mg QHS PO Last administered on 02/04/17 20:31; Admin Dose 20 MG; Start 02/03/17 at 09:00 Metoprolol Tartrate (Lopressor) 25 mg BID PO Last administered on 02/05/17 08: 12; Admin Dose 25 MG; Start 02/03/17 at 09:00 Amlodipine Besylate (Norvasc) 2.5 mg BID PO Last administered on 02/04/17 20: 32; Admin Dose 2.5 MG; Start 02/03/17 at 09:00 Alprazolam (Xanax) 0.25 mg TID PRN PO ANXIETY Last administered on 02/05/17 11 :35; Admin Dose 0.25 MG; Start 02/03/17 at 21:00 Aspirin (Halfprin) 81 mg DAILY PO Last administered on 02/05/17 08:11; Admin Dose 81 MG; Start 02/03/17 at 17:30 Tramadol HCl (Ultram) 50 mg Q6H PRN PO PAIN Last administered on 02/05/17 06: 08; Admin Dose 50 MG; Start 02/04/17 at 17:30 HECTOR CHERRY MD Feb 05, 2017 13:10
[2017-02-05] MEDS ORDERED: ENOXAPARIN 40 MG/0.4 ML SYG SC SCH (13:30)
[2017-02-05] MEDS: QUETIAPINE 25 MG TAB PO SCH ×2 (14:32→20:44)
[2017-02-05 14:53] VITALS: BP 132/82; RESP 18
[2017-02-05 19:44] VITALS: BP 141/65; RESP 18
[2017-02-05] MEDS: ATORVASTATIN 10 MG TAB PO SCH (20:43)
[2017-02-05] MEDS: FAMOTIDINE 20 MG TAB PO SCH (20:44)
[2017-02-06] MEDS: traMADol 50 MG TAB PO PRN (06:26)
[2017-02-06] MEDS: ALPRAZOLAM 0.25 MG TAB PO PRN ×2 (06:35→10:36)
--- NOTE | 2017-02-06 07:28 | PN ---
Date/Time of Note Date/Time of Note DATE: 02/06/17 TIME: 07:22 Assessment/Plan VTE Prophylaxis VTE Prophylaxis Intervention: ambulation, LMWH Lines/Catheters IV Catheter Type (from Nrs): Peripheral IV Urinary Cath still in place: Yes Reason Cath still needed: other (indicate) (We will defer to home care manager in regards to catheter placement.) Assessment/Plan Assessment/Plan * Continue ongoing monitoring with Dr. Xiao * Continue physical therapy to the right hip. Goal is to have patient partially weightbearing with use of front wheeled walker. * From an orthopedic standpoint, she will likely undergo transfer to acute rehabilitation unit * Patient does appear to be slightly confused on exam. Subjective 24 Hr Interval Summary Free Text/Dictation 86-year-old female was on her third day as inpatient after periprosthetic fracture to the right hip. Hip is nonoperable, per Dr. Peña due to stability. She denies any pain to the right hip. Has been undergoing physical therapy but she has been having trouble with weightbearing. Difficulty with touchdown weightbearing as well as partial weightbearing with front wheeled walker. Denies any calf pain, chest tightness or chest pain. Currently resting comfortably in bed. Important to note, while obtaining history that does seem to be slight confusion. She does respond to questions and response is adequate to the question that is being asked. Exam/Review of Systems Vital Signs Vitals Vital Signs Date Time Temp Pulse Resp B/P Pulse Ox O2 Delivery O2 Flow Rate FiO2 02/05/17 19:44 98.9 57 18 141/65 97 02/05/17 07:24 Nasal Cannula 3.0 02/03/17 03:00 28 Intake and Output 02/05/17 02/05/17 02/06/17 15:00 23:00 07:00 Intake Total 1210 ml 1340 ml Output Total 360 ml 900 ml Balance 850 ml 440 ml Exam * No tenderness to palpation around region of periprosthetic fracture as well as to the rest of the right lower extremity. * Normal sensory examination to light touch on exam. * Negative Homans sign. * Toes freely movable. * 2+ pedal pulses. * Difficulty and patient performing flexion/range of motion while in bed. * Patient does appear to be slightly confused. Constitutional: alert, frail Results Result Diagram: 02/04/17 0940 02/04/17 0940 Medications Medications Current Medications Atorvastatin Calcium (Lipitor) 10 mg QHS PO Last administered on 02/05/17 20: 43; Admin Dose 10 MG; Start 02/03/17 at 21:00 Citalopram Hydrobromide (Celexa) 20 mg DAILY PO Last administered on 02/05/17 08:12; Admin Dose 20 MG; Start 02/03/17 at 09:00 Quetiapine Fumarate 50 mg 50 mg QHS PO Last administered on 02/05/17 20:44; Admin Dose 50 MG; Start 02/02/17 at 22:30 Sodium Chloride (NS) 1,000 ml @ 70 mls/hr [id number] IV Last administered on 02/05 17:27; Admin Dose 70 MLS/HR; Start 02/02/17 at 21:36 Ondansetron HCl (Zofran Inj) 4 mg Q6H PRN IV NAUSEA AND/OR VOMITING Last administered on 02/03/17 05:14; Admin Dose 4 MG; Start 02/02/17 at 22:00 Acetaminophen (Tylenol Tab) 650 mg Q6H PRN PO PAIN LEVEL 1-3 OR FEVER; Start at 22:00 Morphine Sulfate (morphine) 1 mg Q6H PRN IV SEVERE PAIN LEVEL 7-10 Last administered on 02/03/17 05:15; Admin Dose 1 MG; Start 02/02/17 at 22:00 Docusate Sodium (Colace) 100 mg Q12H PRN PO CONSTIPATION; Start 02/02/17 at 22: 00 Magnesium Hydroxide (Milk Of Mag) 30 ml DAILY PRN PO CONSTIPATION; Start at 22:00 Famotidine (Pepcid) 20 mg QHS PO Last administered on 02/05/17 20:44; Admin Dose 20 MG; Start 02/03/17 at 09:00 Metoprolol Tartrate (Lopressor) 25 mg BID PO Last administered on 02/05/17 20: 44; Admin Dose 25 MG; Start 02/03/17 at 09:00 Amlodipine Besylate (Norvasc) 2.5 mg BID PO Last administered on 02/05/17 20: 44; Admin Dose 2.5 MG; Start 02/03/17 at 09:00 Alprazolam (Xanax) 0.25 mg TID PRN PO ANXIETY Last administered on 02/06/17 06 :35; Admin Dose 0.25 MG; Start 02/03/17 at 21:00 Aspirin (Halfprin) 81 mg DAILY PO Last administered on 02/05/17 08:11; Admin Dose 81 MG; Start 02/03/17 at 17:30 Tramadol HCl (Ultram) 50 mg Q6H PRN PO PAIN Last administered on 02/06/17 06: 26; Admin Dose 50 MG; Start 02/04/17 at 17:30 Enoxaparin Sodium (Lovenox) 40 mg DAILY SC Last administered on 02/05/17 14:37 ; Admin Dose 40 MG; Start 02/05/17 at 13:30 Quetiapine Fumarate (Seroquel) 12.5 mg DAILY PO Last administered on 02/05/17 14:32; Admin Dose 12.5 MG; Start 02/05/17 at 13:30 BEN MERCADO PA-C Feb 06, 2017 07:28
[2017-02-06] MEDS ORDERED: HYDROCODONE/APAP (5/325) TAB PO PRN (08:00)
--- NOTE | 2017-02-06 08:20 | PN ---
Date/Time of Note Date/Time of Note DATE: 02/06/17 TIME: : Assessment/Plan VTE Prophylaxis VTE Prophylaxis Intervention: other Lines/Catheters IV Catheter Type (from Nrs): Peripheral IV Urinary Cath still in place: Yes Reason Cath still needed: urinary retention Assessment/Plan Assessment/Plan 1. Non-dispalced right hip rx not requiring surgery but will need PT, aware Case management eval and rec 2. Hx PE and [employer] bleed, will dc lovenox, IVC filter is in place, cont ASA and eval for DVT. 3. Inability to void related to bed rest, will leave weathers in place for now, urine cult ordered. 4. HBP, controlled. 5. Known CAD and Aortic Valve replacement, stable. Subjective 24 Hr Interval Summary Cardiovascular: No chest pain Gastrointestinal: no complaints Genitourinary: no complaints Musculoskeletal: no complaints Neurologic: other (confused regarding recent events) Exam/Review of Systems Vital Signs Vitals Vital Signs Date Time Temp Pulse Resp B/P Pulse Ox O2 Delivery O2 Flow Rate FiO2 02/05/17 19:44 98.9 57 18 141/65 97 02/05/17 07:24 Nasal Cannula 3.0 02/03/17 03:00 28 Intake and Output 02/05/17 02/05/17 02/06/17 15:00 23:00 07:00 Intake Total 1210 ml 1340 ml Output Total 360 ml 900 ml Balance 850 ml 440 ml Exam Neck: No jvd Respiratory: clear to auscultation Cardiovascular: regular rate and rhythm Gastrointestinal: soft Extremities: No edema (and no calf tend) Results Result Diagram: 02/04/17 0940 02/04/17 0940 Medications Medications Current Medications Atorvastatin Calcium (Lipitor) 10 mg QHS PO Last administered on 02/05/17 20: 43; Admin Dose 10 MG; Start 02/03/17 at 21:00 Citalopram Hydrobromide (Celexa) 20 mg DAILY PO Last administered on 02/05/17 08:12; Admin Dose 20 MG; Start 02/03/17 at 09:00 Quetiapine Fumarate 50 mg 50 mg QHS PO Last administered on 02/05/17 20:44; Admin Dose 50 MG; Start 02/02/17 at 22:30 Sodium Chloride (NS) 1,000 ml @ 70 mls/hr [id number] IV Last administered on 02/05 17:27; Admin Dose 70 MLS/HR; Start 02/02/17 at 21:36 Ondansetron HCl (Zofran Inj) 4 mg Q6H PRN IV NAUSEA AND/OR VOMITING Last administered on 02/03/17 05:14; Admin Dose 4 MG; Start 02/02/17 at 22:00 Acetaminophen (Tylenol Tab) 650 mg Q6H PRN PO PAIN LEVEL 1-3 OR FEVER; Start at 22:00 Morphine Sulfate (morphine) 1 mg Q6H PRN IV SEVERE PAIN LEVEL 7-10 Last administered on 02/03/17 05:15; Admin Dose 1 MG; Start 02/02/17 at 22:00 Docusate Sodium (Colace) 100 mg Q12H PRN PO CONSTIPATION; Start 02/02/17 at 22: 00 Magnesium Hydroxide (Milk Of Mag) 30 ml DAILY PRN PO CONSTIPATION; Start at 22:00 Famotidine (Pepcid) 20 mg QHS PO Last administered on 02/05/17 20:44; Admin Dose 20 MG; Start 02/03/17 at 09:00 Metoprolol Tartrate (Lopressor) 25 mg BID PO Last administered on 02/05/17 20: 44; Admin Dose 25 MG; Start 02/03/17 at 09:00 Amlodipine Besylate (Norvasc) 2.5 mg BID PO Last administered on 02/05/17 20: 44; Admin Dose 2.5 MG; Start 02/03/17 at 09:00 Alprazolam (Xanax) 0.25 mg TID PRN PO ANXIETY Last administered on 02/06/17 06 :35; Admin Dose 0.25 MG; Start 02/03/17 at 21:00 Aspirin (Halfprin) 81 mg DAILY PO Last administered on 02/05/17 08:11; Admin Dose 81 MG; Start 02/03/17 at 17:30 Tramadol HCl (Ultram) 50 mg Q6H PRN PO PAIN Last administered on 02/06/17 06: 26; Admin Dose 50 MG; Start 02/04/17 at 17:30 Enoxaparin Sodium (Lovenox) 40 mg DAILY SC Last administered on 02/05/17 14:37 ; Admin Dose 40 MG; Start 02/05/17 at 13:30 Quetiapine Fumarate (Seroquel) 12.5 mg DAILY PO Last administered on 02/05/17 14:32; Admin Dose 12.5 MG; Start 02/05/17 at 13:30 YADIRA TORRES MD Feb 06, 2017 08:20
[2017-02-06 08:37] VITALS: BP 143/67; RESP 16
--- NOTE | 2017-02-06 09:41 | RADRPT ---
PROCEDURE: Ultrasound of the bilateral lower extremity venous system. CLINICAL INDICATION: History of a right hip fracture. TECHNIQUE: Stern scale with and without compression, color doppler, spectral doppler of the venous system of the bilateral lower extremities was performed. Venous augmentation maneuvers were utilized . COMPARISON: No prior studies are available for comparison. FINDINGS: RIGHT: Common femoral vein:Patent and compressible. Femoral vein:Patent and compressible. Popliteal vein:Patent and compressible. Visualized calf veins:Patent and compressible. Soft tissues:Normal LEFT: Common femoral vein:Patent and compressible. Femoral vein:Patent and compressible. Popliteal vein:Patent and compressible. Visualized calf veins:Patent and compressible. Soft tissues:Normal IMPRESSION: 1. No evidence of deep vein thrombosis. RPTAT: [facility] Physician Humera Date Time Electronically viewed and signed by Physician Humera on 02/06/2017 09:41 /
[2017-02-06] MEDS: QUETIAPINE 25 MG TAB PO SCH ×2 (09:50→20:28)
[2017-02-06] MEDS: CITALOPRAM 20 MG TAB PO SCH (09:53)
[2017-02-06] MEDS: ASPIRIN (EC) 81 MG TAB PO SCH (09:53)
[2017-02-06] MEDS: AMLODIPINE 2.5 MG TAB PO SCH ×2 (09:54→20:28)
[2017-02-06] MEDS: METOPROLOL 25 MG TAB PO SCH ×2 (09:54→20:29)
[2017-02-06 10:53] LABS: ADD UMIC YES; UR ASCORBIC ACID NEGATIVE (NEGATIVE); UR BILIRUBIN (Dip) NEGATIVE (NEGATIVE); UR BLOOD (Dip) 2+ mg/dL (NEGATIVE); UR CLARITY CLEAR (CLEAR); UR COLOR YELLOW (YELLOW); UR GLUCOSE (Dip) NEGATIVE (NEGATIVE); UR KETONES (Dip) NEGATIVE (NEGATIVE); UR LEUKOCYTE ESTERASE (Dip) TRACE Leu/ul (NEGATIVE); UR MUCUS FEW /HPF (NONE SEEN); UR NITRITE (Dip) NEGATIVE (NEGATIVE); UR RBC 7 /HPF (0-5); UR SPECIFIC GRAVITY (Dip) 1.008 (1.003-1.030); UR TOTAL PROTEIN (Dip) NEGATIVE (NEGATIVE); UR UROBILINOGEN (Dip) NEGATIVE (NEGATIVE)
[2017-02-06 11:53] LABS: BASOPHILS % 0.7 % (0.0-2.0); EOSINOPHILS # 0.2 10^3/ul (0.0-0.5); EOSINOPHILS % 4.3 % (0.0-7.0); HEMATOCRIT 34.7 % (37.0-47.0); HEMOGLOBIN 10.8 g/dl (12.0-16.0); LYMPHOCYTES # 1.1 10^3/ul (0.8-2.9); LYMPHOCYTES % 19.4 % (15.0-51.0); MEAN CORPUSCULAR HEMOGLOBIN 27.9 pg (29.0-33.0); MEAN CORPUSCULAR HGB CONC 31.1 g/dl (32.0-37.0); MEAN CORPUSCULAR VOLUME 89.7 fl (82.0-101.0); MEAN PLATELET VOLUME 10.6 fl (7.4-10.4); MONOCYTE # 0.5 10^3/ul (0.3-0.9); MONOCYTES % 9.2 % (0.0-11.0); NEUTROPHIL # 3.7 10^3/ul (1.6-7.5); PLATELET COUNT 141 10^3/UL (140-415); RED BLOOD COUNT 3.87 10^6/ul (4.20-5.40); RED CELL DISTRIBUTION WIDTH 14.6 % (11.5-14.5); WHITE BLOOD COUNT 5.6 10^3/ul (4.8-10.8)
[2017-02-06 12:17] LABS: ALBUMIN 2.9 g/dl (3.3-4.9); ALBUMIN/GLOBULIN RATIO 1.07; BILIRUBIN,INDIRECT 0.5 mg/dl (0-1.1); BILIRUBIN,TOTAL 0.5 mg/dl (0.2-1.3); CALCIUM 8.2 mg/dl (8.4-10.2); CREATININE 0.56 mg/dl (0.44-1.00); PHOSPHORUS 2.9 mg/dl (2.5-4.9); TOTAL PROTEIN 5.6 g/dl (6.1-8.1)
[2017-02-06 20:19] VITALS: BP 147/71; RESP 16
[2017-02-06] MEDS: FAMOTIDINE 20 MG TAB PO SCH (20:28)
[2017-02-06] MEDS: ATORVASTATIN 10 MG TAB PO SCH (20:28)
[2017-02-07] MEDS: ALPRAZOLAM 0.25 MG TAB PO PRN ×2 (00:15→13:15)
[2017-02-07 02:10] VITALS: BP 152/67; RESP 16
[2017-02-07] MEDS: morphine 2 MG INJ IV PRN (03:18)
--- NOTE | 2017-02-07 07:10 | PN ---
Date/Time of Note Date/Time of Note DATE: 02/07/17 TIME: 07:05 Assessment/Plan VTE Prophylaxis VTE Prophylaxis Intervention: ambulation, LMWH Lines/Catheters IV Catheter Type (from Nrsg): Saline Lock Urinary Cath still in place: Yes Reason Cath still needed: urinary retention Assessment/Plan Assessment/Plan * Discussed with Dr. Peña and she is cleared to be transferred to ARU from ortho standpoint. Focus in ARU is weightbearing as tolerated with gait training and improved ROM * Continue monitoring with [employer] as she has slight confusion and weathers catheter is still in place. * Pain meds prn. Subjective 24 Hr Interval Summary Free Text/Dictation 86 y/o female with right periprosthetic fx of the right hip. Denies any pain to the right hip. Continues to work with PT but has difficulty with weight bearing. Continues with confusion but does not seem to be worsening. Exam/Review of Systems Vital Signs Vitals Vital Signs Date Time Temp Pulse Resp B/P Pulse Ox O2 Delivery O2 Flow Rate FiO2 02/07/17 02:10 98.0 56 16 152/67 93 02/06/17 20:00 Nasal Cannula 3.0 Intake and Output 02/06/17 02/06/17 02/07/17 15:00 23:00 07:00 Intake Total 200 ml 650 ml 400 ml Output Total 1150 ml 1800 ml Balance 200 ml -500 ml -1400 ml Exam No tenderness to palpation. Limited active ROM. No pain response with passive ROM. Results Result Diagram: 02/06/17 1055 02/06/17 1055 Results 24 hrs Laboratory Tests Test 02/06/17 10:15 02/06/17 10:55 Urine Color YELLOW Urine Clarity CLEAR Urine pH 5.0 Urine Specific [place] 1.008 Urine Ketones NEGATIVE Urine Nitrite NEGATIVE Urine Bilirubin NEGATIVE Urine Urobilinogen NEGATIVE Urine Leukocyte Esterase TRACE A Urine Microscopic RBC 7 H Urine Microscopic WBC 2 Urine Mucus FEW A Urine Hemoglobin 2+ H Urine Glucose NEGATIVE Urine Total Protein NEGATIVE White Blood Count 5.6 Red Blood Count 3.87 L Hemoglobin 10.8 L Hematocrit 34.7 L Mean Corpuscular Volume 89.7 Mean Corpuscular Hemoglobin 27.9 L Mean Corpuscular Hemoglobin Concent 31.1 L Red Cell Distribution Width 14.6 H Platelet Count 141 Mean Platelet Volume 10.6 H Neutrophils % 66.0 Lymphocytes % 19.4 Monocytes % 9.2 Eosinophils % 4.3 Basophils % 0.7 Nucleated Red Blood Cells % 0.0 Neutrophils # 3.7 Lymphocytes # 1.1 Monocytes # 0.5 Eosinophils # 0.2 Basophils # 0.0 Nucleated Red Blood Cells # 0.0 Sodium Level 140 Potassium Level 4.0 Chloride Level 104 Carbon Dioxide Level 27 Anion Gap 13 Blood Urea Nitrogen 11 Creatinine 0.56 Glucose Level 81 Calcium Level 8.2 L Phosphorus Level 2.9 Magnesium Level 2.0 Total Bilirubin 0.5 Direct Bilirubin 0.00 Indirect Bilirubin 0.5 Aspartate Amino Transf (AST/SGOT) 14 L Alanine Aminotransferase (ALT/SGPT) 29 Alkaline Phosphatase 53 B-Type Natriuretic Peptide 3580 H Total Protein 5.6 L Albumin 2.9 L Globulin 2.70 Albumin/Globulin Ratio 1.07 Medications Medications Current Medications Atorvastatin Calcium (Lipitor) 10 mg QHS PO Last administered on 02/06/17 20: 28; Admin Dose 10 MG; Start 02/03/17 at 21:00 Citalopram Hydrobromide (Celexa) 20 mg DAILY PO Last administered on 02/06/17 09:53; Admin Dose 20 MG; Start 02/03/17 at 09:00 Quetiapine Fumarate (Seroquel) 50 mg QHS PO Last administered on 02/06/17 20: 28; Admin Dose 50 MG; Start 02/02/17 at 22:30 Ondansetron HCl (Zofran Inj) 4 mg Q6H PRN IV NAUSEA AND/OR VOMITING Last administered on 02/03/17 05:14; Admin Dose 4 MG; Start 02/02/17 at 22:00 Acetaminophen (Tylenol Tab) 650 mg Q6H PRN PO PAIN LEVEL 1-3 OR FEVER; Start at 22:00 Morphine Sulfate (morphine) 1 mg Q6H PRN IV SEVERE PAIN LEVEL 7-10 Last administered on 02/07/17 03:18; Admin Dose 1 MG; Start 02/02/17 at 22:00 Docusate Sodium (Colace) 100 mg Q12H PRN PO CONSTIPATION; Start 02/02/17 at 22: 00 Magnesium Hydroxide (Milk Of Mag) 30 ml DAILY PRN PO CONSTIPATION; Start at 22:00 Famotidine (Pepcid) 20 mg QHS PO Last administered on 02/06/17 20:28; Admin Dose 20 MG; Start 02/03/17 at 09:00 Metoprolol Tartrate (Lopressor) 25 mg BID PO Last administered on 02/06/17 20: 29; Admin Dose 25 MG; Start 02/03/17 at 09:00 Amlodipine Besylate (Norvasc) 2.5 mg BID PO Last administered on 02/06/17 20: 28; Admin Dose 2.5 MG; Start 02/03/17 at 09:00 Aspirin (Halfprin) 81 mg DAILY PO Last administered on 02/06/17 09:53; Admin Dose 81 MG; Start 02/03/17 at 17:30 Tramadol HCl (Ultram) 50 mg Q6H PRN PO PAIN Last administered on 02/06/17 06: 26; Admin Dose 50 MG; Start 02/04/17 at 17:30 Quetiapine Fumarate (Seroquel) 12.5 mg DAILY PO Last administered on 02/06/17 09:50; Admin Dose 12.5 MG; Start 02/05/17 at 13:30 Acetaminophen/ Hydrocodone Bitart ([place] (5/325)) 1 tab TID PRN PO PAIN LEVEL 1 -5; Start 02/06/17 at 08:00 Alprazolam (Xanax) 0.25 mg Q6H PRN PO ANXIETY Last administered on 02/07/17 00 :15; Admin Dose 0.25 MG; Start 02/06/17 at 16:00 BEN MERCADO PA-C Feb 07, 2017 07:10
--- NOTE | 2017-02-07 08:03 | PN ---
Date/Time of Note Date/Time of Note DATE: 02/07/17 TIME: 07:57 Assessment/Plan VTE Prophylaxis VTE Prophylaxis Intervention: other Lines/Catheters IV [facility] Saline Lock Urinary Cath still in place: Yes Reason Cath still needed: urinary retention Assessment/Plan Assessment/Plan 1. Status post fall related to right hip fracture that is nondisplaced. 2. Known coronary disease and aortic valve replacement stable. 3. Await case management evaluation for hopeful transfer to acute rehab at [facility]. 4. 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 5. Known coagulopathy, status post placement of a IVC filter, having continued only aspirin therapy as the as the intracerebral bleed occurred while she was on Xarelto. Number 6. I plan to remove the Chang catheter once the patient is more ambulatory, urine culture is pending. Subjective 24 Hr Interval Summary Free Text/Dictation The patient denies shortness of breath or chest pain. She denies nausea vomiting or abdominal pain. At rest she denies right hip pain. Exam/Review of Systems Vital Signs Vitals Vital Signs Date Time Temp Pulse Resp B/P Pulse Ox O2 Delivery O2 Flow Rate FiO2 02/07/17 02:10 98.0 56 16 152/67 93 02/06/17 20:00 Nasal Cannula 3.0 Intake and Output 02/06/17 02/06/17 02/07/17 15:00 23:00 07:00 Intake Total 200 ml 650 ml 400 ml Output Total 1150 ml 1800 ml Balance 200 ml -500 ml -1400 ml Exam Neck: No jvd Respiratory: clear to auscultation Cardiovascular: regular rate and rhythm Gastrointestinal: soft Extremities: No edema, No tenderness (bilateral) Results Result Diagram: 02/06/17 1055 02/06/17 1055 Results 24 hrs Laboratory Tests Test 02/06/17 10:15 02/06/17 10:55 Urine Color YELLOW Urine Clarity CLEAR Urine pH 5.0 Urine Specific [place] 1.008 Urine Ketones NEGATIVE Urine Nitrite NEGATIVE Urine Bilirubin NEGATIVE Urine Urobilinogen NEGATIVE Urine Leukocyte Esterase TRACE A Urine Microscopic RBC 7 H Urine Microscopic WBC 2 Urine Mucus FEW A Urine Hemoglobin 2+ H Urine Glucose NEGATIVE Urine Total Protein NEGATIVE White Blood Count 5.6 Red Blood Count 3.87 L Hemoglobin 10.8 L Hematocrit 34.7 L Mean Corpuscular Volume 89.7 Mean Corpuscular Hemoglobin 27.9 L Mean Corpuscular Hemoglobin Concent 31.1 L Red Cell Distribution Width 14.6 H Platelet Count 141 Mean Platelet Volume 10.6 H Neutrophils % 66.0 Lymphocytes % 19.4 Monocytes % 9.2 Eosinophils % 4.3 Basophils % 0.7 Nucleated Red Blood Cells % 0.0 Neutrophils # 3.7 Lymphocytes # 1.1 Monocytes # 0.5 Eosinophils # 0.2 Basophils # 0.0 Nucleated Red Blood Cells # 0.0 Sodium Level 140 Potassium Level 4.0 Chloride Level 104 Carbon Dioxide Level 27 Anion Gap 13 Blood Urea Nitrogen 11 Creatinine 0.56 Glucose Level 81 Calcium Level 8.2 L Phosphorus Level 2.9 Magnesium Level 2.0 Total Bilirubin 0.5 Direct Bilirubin 0.00 Indirect Bilirubin 0.5 Aspartate Amino Transf (AST/SGOT) 14 L Alanine Aminotransferase (ALT/SGPT) 29 Alkaline Phosphatase 53 B-Type Natriuretic Peptide 3580 H Total Protein 5.6 L Albumin 2.9 L Globulin 2.70 Albumin/Globulin Ratio 1.07 Medications Medications Current Medications Atorvastatin Calcium (Lipitor) 10 mg QHS PO Last administered on 02/06/17 20: 28; Admin Dose 10 MG; Start 02/03/17 at 21:00 Citalopram Hydrobromide (Celexa) 20 mg DAILY PO Last administered on 02/06/17 09:53; Admin Dose 20 MG; Start 02/03/17 at 09:00 Quetiapine Fumarate (Seroquel) 50 mg QHS PO Last administered on 02/06/17 20: 28; Admin Dose 50 MG; Start 02/02/17 at 22:30 Ondansetron HCl (Zofran Inj) 4 mg Q6H PRN IV NAUSEA AND/OR VOMITING Last administered on 02/03/17 05:14; Admin Dose 4 MG; Start 02/02/17 at 22:00 Acetaminophen (Tylenol Tab) 650 mg Q6H PRN PO PAIN LEVEL 1-3 OR FEVER; Start at 22:00 Morphine Sulfate (morphine) 1 mg Q6H PRN IV SEVERE PAIN LEVEL 7-10 Last administered on 02/07/17 03:18; Admin Dose 1 MG; Start 02/02/17 at 22:00 Docusate Sodium (Colace) 100 mg Q12H PRN PO CONSTIPATION; Start 02/02/17 at 22: 00 Magnesium Hydroxide (Milk Of Mag) 30 ml DAILY PRN PO CONSTIPATION; Start at 22:00 Famotidine (Pepcid) 20 mg QHS PO Last administered on 02/06/17 20:28; Admin Dose 20 MG; Start 02/03/17 at 09:00 Metoprolol Tartrate (Lopressor) 25 mg BID PO Last administered on 02/06/17 20: 29; Admin Dose 25 MG; Start 02/03/17 at 09:00 Amlodipine Besylate (Norvasc) 2.5 mg BID PO Last administered on 02/06/17 20: 28; Admin Dose 2.5 MG; Start 02/03/17 at 09:00 Aspirin (Halfprin) 81 mg DAILY PO Last administered on 02/06/17 09:53; Admin Dose 81 MG; Start 02/03/17 at 17:30 Tramadol HCl (Ultram) 50 mg Q6H PRN PO PAIN Last administered on 02/06/17 06: 26; Admin Dose 50 MG; Start 02/04/17 at 17:30 Quetiapine Fumarate (Seroquel) 12.5 mg DAILY PO Last administered on 02/06/17 09:50; Admin Dose 12.5 MG; Start 02/05/17 at 13:30 Acetaminophen/ Hydrocodone Bitart ([place] (5/325)) 1 tab TID PRN PO PAIN LEVEL 1 -5; Start 02/06/17 at 08:00 Alprazolam (Xanax) 0.25 mg Q6H PRN PO ANXIETY Last administered on 02/07/17 00 :15; Admin Dose 0.25 MG; Start 02/06/17 at 16:00 YADIRA TORRES MD Feb 07, 2017 08:03
[2017-02-07 08:17] VITALS: BP 136/94; RESP 18
[2017-02-07] MEDS: AMLODIPINE 2.5 MG TAB PO SCH (08:26)
[2017-02-07] MEDS: CITALOPRAM 20 MG TAB PO SCH (08:26)
[2017-02-07] MEDS: ASPIRIN (EC) 81 MG TAB PO SCH (08:26)
[2017-02-07] MEDS: METOPROLOL 25 MG TAB PO SCH (08:27)
[2017-02-07] MEDS: QUETIAPINE 25 MG TAB PO SCH (08:28)
[2017-02-07 16:12] VITALS: BP 148/70; RESP 16
[2017-02-08 08:10] VITALS: BP 150/70; RESP 20
== END 2017-02-07 19:15 | DRG 560 ==
LOC: E/R 17:44 → MS3 02-03 07:32 → MS1 02-03 17:34 → UNDODISIN 02-07 19:00
PROVIDERS: ADMIT Internal Medicine; ATTEND Internal Medicine
DX: M97.01XA Periprosthetic fracture around internal prosthetic right hip joint, initial encounter (principal); D68.9 Coagulation defect, unspecified; F03.90 Unspecified dementia, unspecified severity, without behavioral disturbance, psychotic disturbance, mood disturbance, and anxiety; J44.9 Chronic obstructive pulmonary disease, unspecified; I71.2 Thoracic aortic aneurysm, without rupture; E78.00 Pure hypercholesterolemia, unspecified; G47.33 Obstructive sleep apnea (adult) (pediatric); I25.10 Atherosclerotic heart disease of native coronary artery without angina pectoris; I73.9 Peripheral vascular disease, unspecified; I10 Essential (primary) hypertension; Z88.0 Allergy status to penicillin; Z85.820 Personal history of malignant melanoma of skin; Z85.3 Personal history of malignant neoplasm of breast; Z92.3 Personal history of irradiation; Z95.2 Presence of prosthetic heart valve; Z90.12 Acquired absence of left breast and nipple; Z87.891 Personal history of nicotine dependence; Z95.1 Presence of aortocoronary bypass graft; Z96.641 Presence of right artificial hip joint; Z86.711 Personal history of pulmonary embolism; Z96.651 Presence of right artificial knee joint; W18.39XA Other fall on same level, initial encounter; Y92.009 Unspecified place in unspecified non-institutional (private) residence as the place of occurrence of the external cause
CPT/HCPCS: 36415; 70450; 71010; 73510; 73550; 73560; 73700; 80048; 80053; 81001; 83735; 83880; 84100; 84484; 85025; 85610; 85730; 87086; 93005; 93306; 93970; 96374; 96375; 96376; 97110; 97164; 97530; J1650; J2060; J2270; J2405; J7030

== ENCOUNTER 2017-02-07 17:22 | Inpatient (IN) | payer MEDICARE, OTHER ==
[~2017-02-07] VITALS: Ht 162.6 cm; Wt 68.0 kg
[~2017-02-07 17:22] MED LIST changes: -ADV25050 INH; -AMLO5TAB4 PO; -CHOL200035 PO; -CLON-379 PO; -DIVA250T12 PO; -EXEM25TA3 PO; -HYDR-2086 PO; -HYDR-762 PO; +QUET50TA22 PO; -SIMV20TA2 PO; -TIOT18CA IH
[2017-02-07 20:00] VITALS: BP 157/67; RESP 18
[2017-02-07] MEDS ORDERED: NACL 0.9% 3 ML SYG IV SCH (21:00)
[2017-02-07] MEDS ORDERED: ONDANSETRON 4 MG INJ IV PRN (21:00)
[2017-02-07] MEDS ORDERED: AMLODIPINE 2.5 MG TAB PO SCH (21:00)
[2017-02-07] MEDS ORDERED: DOCUSATE SODIUM 100 MG CAP PO PRN (21:00)
[2017-02-07] MEDS ORDERED: morphine 2 MG INJ IV PRN (21:00)
[2017-02-07] MEDS: QUETIAPINE 25 MG TAB PO SCH (22:57)
[2017-02-07] MEDS: ALPRAZOLAM 0.25 MG TAB PO PRN (22:57)
[2017-02-07] MEDS: FAMOTIDINE 20 MG TAB PO SCH (22:58)
[2017-02-07] MEDS: ATORVASTATIN 10 MG TAB PO SCH (22:58)
[2017-02-07] MEDS: METOPROLOL 25 MG TAB PO SCH (22:58)
[2017-02-07 23:06] LABS: ADD UMIC YES; UR ASCORBIC ACID NEGATIVE (NEGATIVE); UR BILIRUBIN (Dip) NEGATIVE (NEGATIVE); UR BLOOD (Dip) 3+ mg/dL (NEGATIVE); UR CLARITY CLEAR (CLEAR); UR COLOR YELLOW (YELLOW); UR GLUCOSE (Dip) NEGATIVE (NEGATIVE); UR KETONES (Dip) NEGATIVE (NEGATIVE); UR LEUKOCYTE ESTERASE (Dip) NEGATIVE Leu/ul (NEGATIVE); UR MUCUS FEW /HPF (NONE SEEN); UR NITRITE (Dip) NEGATIVE (NEGATIVE); UR RBC > 182 /HPF (0-5); UR SPECIFIC GRAVITY (Dip) 1.013 (1.003-1.030); UR SQUAMOUS EPITHELIAL CELL FEW /HPF (FEW); UR TOTAL PROTEIN (Dip) 1+ mg/dl (NEGATIVE); UR UROBILINOGEN (Dip) NEGATIVE (NEGATIVE)
[2017-02-08 01:06] VITALS: Ht 162.6 cm; Wt 68.0 kg
[2017-02-08 02:00] VITALS: BP 136/68; RESP 18
[2017-02-08] MEDS: MAGNESIUM HYDROXIDE 30ML CUP PO PRN (06:12)
[2017-02-08 06:56] LABS: BASOPHILS % 0.7 % (0.0-2.0); EOSINOPHILS # 0.2 10^3/ul (0.0-0.5); EOSINOPHILS % 5.2 % (0.0-7.0); HEMATOCRIT 32.6 % (37.0-47.0); HEMOGLOBIN 10.8 g/dl (12.0-16.0); LYMPHOCYTES # 1.2 10^3/ul (0.8-2.9); LYMPHOCYTES % 26.7 % (15.0-51.0); MEAN CORPUSCULAR HEMOGLOBIN 28.7 pg (29.0-33.0); MEAN CORPUSCULAR HGB CONC 33.1 g/dl (32.0-37.0); MEAN CORPUSCULAR VOLUME 86.7 fl (82.0-101.0); MEAN PLATELET VOLUME 10.3 fl (7.4-10.4); MONOCYTE # 0.6 10^3/ul (0.3-0.9); MONOCYTES % 12.8 % (0.0-11.0); NEUTROPHILS % 54.4 % (39.0-77.0); PLATELET COUNT 168 10^3/UL (140-415); RED BLOOD COUNT 3.76 10^6/ul (4.20-5.40); RED CELL DISTRIBUTION WIDTH 14.2 % (11.5-14.5); WHITE BLOOD COUNT 4.5 10^3/ul (4.8-10.8)
[2017-02-08 07:27] LABS: ALBUMIN/GLOBULIN RATIO 1.2; BILIRUBIN,INDIRECT 0.5 mg/dl (0-1.1); BILIRUBIN,TOTAL 0.5 mg/dl (0.2-1.3); CALCIUM 8.4 mg/dl (8.4-10.2); CREATININE 0.61 mg/dl (0.44-1.00); POTASSIUM 3.5 mmol/L (3.5-5.1); TOTAL PROTEIN 5.5 g/dl (6.1-8.1)
[2017-02-08 07:29] VITALS: BP 164/72; RESP 18
[2017-02-08] MEDS: CITALOPRAM 20 MG TAB PO SCH (08:11)
[2017-02-08] MEDS: ASPIRIN (EC) 81 MG TAB PO SCH (08:11)
[2017-02-08] MEDS: METOPROLOL 25 MG TAB PO SCH ×2 (08:11→20:31)
[2017-02-08] MEDS: DOCUSATE SODIUM 100 MG CAP PO SCH ×2 (08:12→20:31)
[2017-02-08] MEDS: HYDROCODONE/APAP (5/325) TAB PO PRN ×2 (08:12→20:33)
--- NOTE | 2017-02-08 08:17 | CONS ---
Date/Time of Note Date/Time of Note DATE: 02/08/17 TIME: 08:12 Assessment/Plan Assessment/Plan Additional Assessment/Plan 1. Status post fall related right hip fracture that is nondisplaced not requiring surgery now in acute rehab and will undergo aggressive physical therapy and occupational therapy. 2. History of hypertension with BP slightly elevated today we will increase amlodipine to 5 mg twice daily. 3. Known coagulopathy with a history of intracerebral bleed having having been maintained on aspirin only for DVT prophylaxis and a calf compression pumps. 4. Known coronary disease presently asymptomatic as well as repair of aortic valve also asymptomatic. 5. 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 6. Difficulty voiding on admission requiring Chang catheter once patient is more ambulatory will DC Chang catheter. Urine culture is negative. Consultation Date/Type/Reason Admit Date/Time Feb 07, 2017 at 19:57 Initial Consult Date 24 HR Interval Summary Free Text/Dictation The patient denies cough shortness of breath nausea vomiting or abdominal pain. She denies any right hip or inguinal pain. She denies substernal chest pain radiating neck arm or jaw discomfort. Exam/Review of Systems Vital Signs Vitals Vital Signs Date Time Temp Pulse Resp B/P Pulse Ox O2 Delivery O2 Flow Rate FiO2 02/08/17 07:29 98.0 62 18 164/72 96 02/08/17 01:32 Nasal Cannula 2.0 Intake and Output 02/07/17 02/07/17 02/08/17 15:00 23:00 07:00 Intake Total 300 ml Balance 300 ml Exam Neck: No jvd Respiratory: clear to auscultation Cardiovascular: regular rate and rhythm Gastrointestinal: soft Extremities: No edema (and no calf tend bilat) Results Result Diagram: 02/08/17 0619 02/08/17618 Results 24 hrs Laboratory Tests Test 02/07/17 21:45 02/08/17 06:19 Urine Color YELLOW Urine Clarity CLEAR Urine pH 6.0 Urine Specific [place] 1.013 Urine Ketones NEGATIVE Urine Nitrite NEGATIVE Urine Bilirubin NEGATIVE Urine Urobilinogen NEGATIVE Urine Leukocyte Esterase NEGATIVE Urine Microscopic RBC > 182 H Urine Microscopic WBC 4 Urine Squamous Epithelial Cells FEW Urine Mucus FEW A Urine Hemoglobin 3+ H Urine Glucose NEGATIVE Urine Total Protein 1+ H White Blood Count 4.5 L Red Blood Count 3.76 L Hemoglobin 10.8 L Hematocrit 32.6 L Mean Corpuscular Volume 86.7 Mean Corpuscular Hemoglobin 28.7 L Mean Corpuscular Hemoglobin Concent 33.1 Red Cell Distribution Width 14.2 Platelet Count 168 Mean Platelet Volume 10.3 Neutrophils % 54.4 Lymphocytes % 26.7 Monocytes % 12.8 H Eosinophils % 5.2 Basophils % 0.7 Nucleated Red Blood Cells % 0.0 Neutrophils # (Manual) 2.4 Lymphocytes # 1.2 Monocytes # 0.6 Eosinophils # 0.2 Basophils # 0.0 Nucleated Red Blood Cells # 0.0 Sodium Level 140 Potassium Level 3.5 Chloride Level 107 Carbon Dioxide Level 28 Anion Gap 9 Blood Urea Nitrogen 10 Creatinine 0.61 Glucose Level 79 Calcium Level 8.4 Total Bilirubin 0.5 Direct Bilirubin 0.00 Indirect Bilirubin 0.5 Aspartate Amino Transf (AST/SGOT) 12 L Alanine Aminotransferase (ALT/SGPT) 26 Alkaline Phosphatase 54 Total Protein 5.5 L Albumin 3.0 L Globulin 2.50 Albumin/Globulin Ratio 1.20 Medications Medications Current Medications Acetaminophen (Tylenol Tab) 650 mg Q6H PRN PO PAIN LEVEL 1-3 OR FEVER; Start at 21:00 Alprazolam (Xanax) 0.25 mg Q6H PRN PO ANXIETY Last administered on 02/07/17 22 :57; Admin Dose 0.25 MG; Start 02/07/17 at 21:00 Amlodipine Besylate (Norvasc) 2.5 mg BID PO Last administered on 02/07/17 22: 57; Admin Dose 2.5 MG; Start 02/07/17 at 21:00 Aspirin (Halfprin) 81 mg DAILY PO ; Start 02/08/17 at 09:00 Atorvastatin Calcium (Lipitor) 10 mg QHS PO Last administered on 02/07/17 22: 58; Admin Dose 10 MG; Start 02/07/17 at 21:00 Citalopram Hydrobromide (Celexa) 20 mg DAILY PO ; Start 02/08/17 at 09:00 Docusate Sodium (Colace) 100 mg Q12H PRN PO CONSTIPATION; Start 02/07/17 at 21: 00 Famotidine (Pepcid) 20 mg QHS PO Last administered on 02/07/17 22:58; Admin Dose 20 MG; Start 02/07/17 at 21:00 Acetaminophen/ Hydrocodone Bitart ([place] (5/325)) 1 tab TID PRN PO PAIN LEVEL 1 -5; Start 02/07/17 at 21:00 Magnesium Hydroxide (Milk Of Mag) 30 ml DAILY PRN PO CONSTIPATION Last administered on 02/08/17 06:12; Admin Dose 30 ML; Start 02/07/17 at 21:00 Metoprolol Tartrate (Lopressor) 25 mg BID PO Last administered on 02/07/17 22: 58; Admin Dose 25 MG; Start 02/07/17 at 21:00 Morphine Sulfate (morphine) 1 mg Q6H PRN IV SEVERE PAIN LEVEL 7-10; Start 02/07 at 21:00 Ondansetron HCl (Zofran Inj) 4 mg Q6H PRN IV NAUSEA AND/OR VOMITING; Start at 21:00 Quetiapine Fumarate (Seroquel) 50 mg QHS PO Last administered on 02/07/17 22: 57; Admin Dose 50 MG; Start 02/07/17 at 21:00 Quetiapine Fumarate (Seroquel) 12.5 mg DAILY PO ; Start 02/08/17 at 09:00 Tramadol HCl (Ultram) 50 mg Q6H PRN PO PAIN; Start 02/07/17 at 21:00 Docusate Sodium (Colace) 100 mg BID PO ; Start 02/08/17 at 09:00 Senna (Senokot) 1 tab HS PO ; Start 02/08/17 at 21:00 Bisacodyl (Dulcolax Supp) 10 mg DAILY PRN [place] CONSTIPATION; Start 02/07/17 at 21 :30 YADIRA TORRES MD Feb 08, 2017 08:17
[2017-02-08] MEDS ORDERED: POTASSIUM CHLORIDE (SR) 10 MEQ TAB PO ONE (08:30)
[2017-02-08] MEDS ORDERED: AMLODIPINE 2.5 MG TAB PO SCH (09:00)
[2017-02-08] MEDS ORDERED: QUETIAPINE 25 MG TAB PO SCH (09:00)
[2017-02-08] MEDS: AMLODIPINE 5 MG TAB PO SCH ×2 (09:39→20:31)
[2017-02-08] MEDS: BISACODYL 10 MG SUPP PR PRN (14:22)
[2017-02-08] MEDS: ALPRAZOLAM 0.25 MG TAB PO PRN ×2 (15:13→21:10)
[2017-02-08 20:00] VITALS: BP 139/63; RESP 18
[2017-02-08] MEDS: ATORVASTATIN 10 MG TAB PO SCH (20:31)
[2017-02-08] MEDS: FAMOTIDINE 20 MG TAB PO SCH (20:31)
[2017-02-08] MEDS: QUETIAPINE 25 MG TAB PO SCH (20:32)
[2017-02-08] MEDS: SENNA TAB PO SCH (20:33)
[2017-02-09 02:00] VITALS: BP 135/70; RESP 18
[2017-02-09 07:30] VITALS: BP 151/70; RESP 20
--- NOTE | 2017-02-09 07:59 | CONS ---
Date/Time of Note Date/Time of Note DATE: 02/09/17 TIME: 07:57 Assessment/Plan Assessment/Plan Additional Assessment/Plan 1. Status post fall related right hip fracture that is nondisplaced not requiring surgery now in acute rehab and will undergo aggressive physical therapy and occupational therapy. 2. History of hypertension with BP slightly elevated today we will increase amlodipine to 5 mg twice daily, with now excellent control 3. Known coagulopathy with a history of intracerebral bleed having having been maintained on aspirin only for DVT prophylaxis and a calf compression pumps. 4. Known coronary disease presently asymptomatic as well as repair of aortic valve also asymptomatic. 5. 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 6. Difficulty voiding on admission requiring Weathers catheter once patient is more ambulatory will DC Weathers catheter. Urine culture was negative prior to transfer to rehab and and will repeat and dc weathers as per rehab staff pt is more mobile. 7. Labs will be obtained tom Consultation Date/Type/Reason Admit Date/Time Feb 07, 2017 at 19:57 Detailed Summary Respiratory: No cough, No shortness of breath Cardiovascular: No chest pain Gastrointestinal: no complaints Genitourinary: other (wetahers is in place) Musculoskeletal: bone/joint pain (has no right hip pain) Exam/Review of Systems Vital Signs Vitals Vital Signs Date Time Temp Pulse Resp B/P Pulse Ox O2 Delivery O2 Flow Rate FiO2 02/09/17 02:00 98.5 69 18 135/70 97 02/08/17 22:14 Nasal Cannula 2.0 Intake and Output 02/08/17 02/08/17 02/09/17 15:00 23:00 07:00 Intake Total 800 ml 980 ml Output Total 1400 ml Balance -600 ml 980 ml Exam Neck: No jvd Respiratory: clear to auscultation Cardiovascular: regular rate and rhythm Gastrointestinal: soft Extremities: No edema (and no calf tend) Results Result Diagram: 02/08/1719 02/08/17618 Medications Medications Current Medications Acetaminophen (Tylenol Tab) 650 mg Q6H PRN PO PAIN LEVEL 1-3 OR FEVER; Start at 21:00 Alprazolam (Xanax) 0.25 mg Q6H PRN PO ANXIETY Last administered on 02/08/17t 21 :10; Admin Dose 0.25 MG; Start 02/07/17 at 21:00 Aspirin (Halfprin) 81 mg DAILY PO Last administered on 02/08/17 08:11; Admin Dose 81 MG; Start 02/08/17 at 09:00 Atorvastatin Calcium (Lipitor) 10 mg QHS PO Last administered on 02/08/17 20: 31; Admin Dose 10 MG; Start 02/07/17 at 21:00 Citalopram Hydrobromide (Celexa) 20 mg DAILY PO Last administered on 02/08/17 08:11; Admin Dose 20 MG; Start 02/08/17 at 09:00 Docusate Sodium (Colace) 100 mg Q12H PRN PO CONSTIPATION; Start 02/07/17 at 21: 00 Famotidine (Pepcid) 20 mg QHS PO Last administered on 02/08/17 20:31; Admin Dose 20 MG; Start 02/07/17 at 21:00 Acetaminophen/ Hydrocodone Bitart ([place] (5/325)) 1 tab TID PRN PO PAIN LEVEL 1 -5 Last administered on 02/08/17 20:33; Admin Dose 1 TAB; Start 02/07/17 at 21: 00 Magnesium Hydroxide (Milk Of Mag) 30 ml DAILY PRN PO CONSTIPATION Last administered on 02/08/17 06:12; Admin Dose 30 ML; Start 02/07/17 at 21:00 Metoprolol Tartrate (Lopressor) 25 mg BID PO Last administered on 02/08/17 20: 31; Admin Dose 25 MG; Start 02/07/17 at 21:00 Morphine Sulfate (morphine) 1 mg Q6H PRN IV SEVERE PAIN LEVEL 7-10; Start 02/07 at 21:00 Ondansetron HCl (Zofran Inj) 4 mg Q6H PRN IV NAUSEA AND/OR VOMITING; Start at 21:00 Quetiapine Fumarate (Seroquel) 50 mg QHS PO Last administered on 02/08/17 20: 32; Admin Dose 50 MG; Start 02/07/17 at 21:00 Tramadol HCl (Ultram) 50 mg Q6H PRN PO PAIN; Start 02/07/17 at 21:00 Docusate Sodium (Colace) 100 mg BID PO Last administered on 8/16/17at 20:31; Admin Dose 100 MG; Start 02/08/17 at 09:00 Senna (Senokot) 1 tab HS PO Last administered on 02/08/17 20:33; Admin Dose 1 TAB; Start 02/08/17 at 21:00 Bisacodyl (Dulcolax Supp) 10 mg DAILY PRN [place] CONSTIPATION Last administered on 02/08/17 14:22; Admin Dose 10 MG; Start 02/07/17 at 21:30 Amlodipine Besylate (Norvasc) 5 mg BID PO Last administered on 02/08/17 20:31 ; Admin Dose 5 MG; Start 02/08/17 at 09:00 YADIRA TORRES MD Feb 09, 2017 07:59
[2017-02-09] MEDS: HYDROCODONE/APAP (5/325) TAB PO PRN ×2 (08:29→18:12)
[2017-02-09] MEDS: DOCUSATE SODIUM 100 MG CAP PO SCH ×2 (08:29→21:31)
[2017-02-09] MEDS: ASPIRIN (EC) 81 MG TAB PO SCH (08:29)
[2017-02-09] MEDS: METOPROLOL 25 MG TAB PO SCH ×2 (08:29→21:31)
[2017-02-09] MEDS: CITALOPRAM 20 MG TAB PO SCH (08:29)
[2017-02-09] MEDS: ALPRAZOLAM 0.25 MG TAB PO PRN ×2 (08:30→18:12)
[2017-02-09] MEDS: AMLODIPINE 5 MG TAB PO SCH ×2 (08:30→21:31)
--- NOTE | 2017-02-09 09:57 | CONS ---
DATE OF ADMISSION: 02/07/2017 DATE OF CONSULTATION: 02/08/2017 REHABILITATION POST ADMISSION PHYSICIAN EVALUATION REHABILITATION IMPAIRMENT CATEGORY: Right periprosthetic femoral fracture. ACTIVE COMORBIDITIES: 1. Acute pain syndrome. 2. Osteoarthritis with decreased range of motion in the shoulders. 3. Coronary artery disease. 4. History of AVR. 5. History of coagulopathy. 6. History of IVC filter placement. 7. History of intracerebral hemorrhage with good functional recovery. 8. Hypercholesterolemia. 9. Sleep apnea. 10. Impairments in self-care, mobility and cognition. HISTORY OF PRESENT ILLNESS: Patient is a pleasant 86-year-old female with a history of multiple medical comorbidities who is status post a mechanical fall with resultant right hip pain. Workup did reveal a right periprosthetic proximal femoral fracture. She was evaluated by Orthopedic Surgery and felt to not require surgery at this time. Patient was made partial weightbearing to the right lower extremity. Patient has significant impairments in self-care and mobility as compared to baseline and has been cleared to transfer to the rehabilitation unit for comprehensive interdisciplinary rehab care. FUNCTIONAL HISTORY: Prior to recent events, patient was supervised to min assist for self-care and mobility tasks. Currently patient requires maximal assist for self-care and mobility tasks. I have reviewed the preadmission screen, and patient's current functional status is consistent with the preadmission screen. PAST MEDICAL HISTORY: 1. Osteoarthritis affecting multiple joints. 2. Coronary artery disease. 3. Aortic valve replacement. 4. History of intracerebral hemorrhage. 5. History of aortic aneurysm with repair. 6. History of breast cancer. 7. History of pulmonary embolism and IVC filter placement. 8. History of hypercholesterolemia. 9. History of sleep apnea. CURRENT MEDICATIONS: 1. Xanax 0.25 mg p.o. q.6 hours p.r.n. 2. Norvasc 2.5 mg p.o. b.i.d. 3. Aspirin 81 mg p.o. q. day. 4. Lipitor 10 mg p.o. nightly. 5. Celexa 20 mg p.o. q. day. 6. Colace 100 mg p.o. b.i.d. 7. Pepcid 20 mg p.o. nightly. 8. [place] p.r.n. 9. Lopressor 25 mg p.o. b.i.d. 10. Seroquel q. day. 11. Ultram 50 mg p.o. q.6 hours p.r.n. ALLERGIES: PENICILLIN. AMOXICILLIN. ARICEPT. PHYSICAL EXAMINATION: VITAL SIGNS: Patient is currently afebrile with stable vital signs. HEENT: Extraocular motion intact. Oropharynx clear. NECK: Supple. LUNGS: Clear anteriorly. CARDIAC: S1, S2. ABDOMEN: Soft, nontender. Positive bowel sounds. NEUROLOGIC: She is awake and alert. She is oriented to person only. She demonstrates good distal upper extremity strength. She does have decreased range of motion in shoulders with decreased forward flexion and abduction. She has antigravity strength in the left lower extremity. PLAN: Patient has been admitted for comprehensive interdisciplinary acute rehab and is anticipated to tolerate 3 hours of daily therapy in divided doses for at least 5 out of 7 days a week. The treatment plan will include: 1. Physical therapy to focus on bed mobility, transfers and wheelchair mobility with goal to have patient reach standby assist level. 2. Occupational therapy to focus on hygiene, grooming, dressing, bathing and toileting activities with goal to have patient reach min assist level. 3. Rehabilitation nursing for carryover of therapeutic interventions with goal of continent of bowel and bladder and the goal of patient and family education with regards to the aforementioned issues. 4. Speech therapy for full cognitive assessment and retraining in additional to dysphagia assessment with the goal of having patient return to baseline cognition and meet nutritional needs by mouth. ESTIMATED LENGTH OF STAY: Of 14 days. DISPOSITION GOAL: Home. REHABILITATION BARRIER: Pain INTERVENTION TO BARRIER: Interdisciplinary rehab I acknowledge I performed a full physical examination on this patient within 24 hours of admission to the rehabilitation unit and believe the patient is a good candidate for comprehensive interdisciplinary rehab care and is anticipate to make reasonable goals in a reasonable period of time as outlined above. Dictated By: Jayden Lawrence MD /[email or web address]/[email or web address] /Document#: [id number] ISIDRO
[2017-02-09 10:42] LABS: ADD UMIC YES; UR ASCORBIC ACID NEGATIVE (NEGATIVE); UR BILIRUBIN (Dip) NEGATIVE (NEGATIVE); UR BLOOD (Dip) 1+ mg/dL (NEGATIVE); UR CLARITY CLEAR (CLEAR); UR COLOR STRAW (YELLOW); UR GLUCOSE (Dip) NEGATIVE (NEGATIVE); UR KETONES (Dip) NEGATIVE (NEGATIVE); UR LEUKOCYTE ESTERASE (Dip) NEGATIVE Leu/ul (NEGATIVE); UR NITRITE (Dip) NEGATIVE (NEGATIVE); UR RBC 8 /HPF (0-5); UR TOTAL PROTEIN (Dip) NEGATIVE (NEGATIVE); UR UROBILINOGEN (Dip) NEGATIVE (NEGATIVE)
--- NOTE | 2017-02-09 13:21 | CONS ---
Date/Time of Note Date/Time of Note DATE: 02/09/17 TIME: 13:21 Consult Date/Type/Reason Admit Date/Time Feb 07, 2017 at 19:57 Initial Consult Date Subjective Still with pain Objective pulm-ct abd-soft mod/max Vital Signs Date Time Temp Pulse Resp B/P Pulse Ox O2 Delivery O2 Flow Rate FiO2 02/09/17 07:30 97.7 59 20 151/70 98 02/08/17 22:14 Nasal Cannula 2.0 Intake and Output 02/08/17 02/08/17 02/09/17 15:00 23:00 07:00 Intake Total 800 ml 980 ml Output Total 1400 ml Balance -600 ml 980 ml Results/Medications Result Diagram: 02/08/1761802/08/17618 Results 24 hrs Laboratory Tests Test 02/09/17 09:00 Urine Color STRAW Urine Clarity CLEAR Urine pH 8.0 Urine Specific [place] 1.010 Urine Ketones NEGATIVE Urine Nitrite NEGATIVE Urine Bilirubin NEGATIVE Urine Urobilinogen NEGATIVE Urine Leukocyte Esterase NEGATIVE Urine Microscopic RBC 8 H Urine Microscopic WBC 0 Urine Hemoglobin 1+ H Urine Glucose NEGATIVE Urine Total Protein NEGATIVE Medications Current Medications Acetaminophen (Tylenol Tab) 650 mg Q6H PRN PO PAIN LEVEL 1-3 OR FEVER; Start at 21:00 Alprazolam (Xanax) 0.25 mg Q6H PRN PO ANXIETY Last administered on 02/09/17 08 :30; Admin Dose 0.25 MG; Start 02/07/17 at 21:00 Aspirin (Halfprin) 81 mg DAILY PO Last administered on 02/09/17 08:29; Admin Dose 81 MG; Start 02/08/17 at 09:00 Atorvastatin Calcium (Lipitor) 10 mg QHS PO Last administered on 02/08/17 20: 31; Admin Dose 10 MG; Start 02/07/17 at 21:00 Citalopram Hydrobromide (Celexa) 20 mg DAILY PO Last administered on 02/09/17 08:29; Admin Dose 20 MG; Start 02/08/17 at 09:00 Docusate Sodium (Colace) 100 mg Q12H PRN PO CONSTIPATION; Start 02/07/17 at 21: 00 Famotidine (Pepcid) 20 mg QHS PO Last administered on 02/08/17 20:31; Admin Dose 20 MG; Start 02/07/17 at 21:00 Acetaminophen/ Hydrocodone Bitart ([place] (5/325)) 1 tab TID PRN PO PAIN LEVEL 1 -5 Last administered on 02/09/17 08:29; Admin Dose 1 TAB; Start 02/07/17 at 21: 00 Magnesium Hydroxide (Milk Of Mag) 30 ml DAILY PRN PO CONSTIPATION Last administered on 02/08/17 06:12; Admin Dose 30 ML; Start 02/07/17 at 21:00 Metoprolol Tartrate (Lopressor) 25 mg BID PO Last administered on 02/09/17 08: 29; Admin Dose 25 MG; Start 02/07/17 at 21:00 Morphine Sulfate (morphine) 1 mg Q6H PRN IV SEVERE PAIN LEVEL 7-10; Start 02/07 at 21:00 Ondansetron HCl (Zofran Inj) 4 mg Q6H PRN IV NAUSEA AND/OR VOMITING; Start at 21:00 Quetiapine Fumarate (Seroquel) 50 mg QHS PO Last administered on 02/08/17 20: 32; Admin Dose 50 MG; Start 02/07/17 at 21:00 Tramadol HCl (Ultram) 50 mg Q6H PRN PO PAIN; Start 02/07/17 at 21:00 Docusate Sodium (Colace) 100 mg BID PO Last administered on 02/09/17 08:29; Admin Dose 100 MG; Start 02/08/17 at 09:00 Senna (Senokot) 1 tab HS PO Last administered on 02/08/17 20:33; Admin Dose 1 TAB; Start 02/08/17 at 21:00 Bisacodyl (Dulcolax Supp) 10 mg DAILY PRN [place] CONSTIPATION Last administered on 02/08/17 14:22; Admin Dose 10 MG; Start 02/07/17 at 21:30 Amlodipine Besylate (Norvasc) 5 mg BID PO Last administered on 02/09/17 08:30 ; Admin Dose 5 MG; Start 02/08/17 at 09:00 Assessment/Plan Additional Assessment/Plan Rehab- Right periprosthetic femoral fracture; Osteoarthritis with decreased range of motion in the shoulders. Increase activiites as tolerated Acute pain syndrome-continue current management Coronary artery disease. History of AVR. History of coagulopathy. History of IVC filter placement. History of intracerebral hemorrhage Hypercholesterolemia. Sleep apnea. MIKEL LEDEZMA MD Feb 09, 2017 13:21
[2017-02-09 14:00] VITALS: BP 125/60; RESP 20
[2017-02-09 19:28] VITALS: BP 155/72; RESP 20
[2017-02-09] MEDS: FAMOTIDINE 20 MG TAB PO SCH (21:31)
[2017-02-09] MEDS: SENNA TAB PO SCH (21:31)
[2017-02-09] MEDS: QUETIAPINE 25 MG TAB PO SCH (21:31)
[2017-02-09] MEDS: ATORVASTATIN 10 MG TAB PO SCH (21:31)
[2017-02-10 01:58] VITALS: BP 165/73; RESP 20
[2017-02-10 06:52] LABS: CALCIUM 8.8 mg/dl (8.4-10.2); CREATININE 0.63 mg/dl (0.44-1.00); MAGNESIUM 2.2 mg/dl (1.7-2.5); PHOSPHORUS 3.9 mg/dl (2.5-4.9); POTASSIUM 4.2 mmol/L (3.5-5.1)
[2017-02-10 07:30] VITALS: BP 140/70; RESP 20
[2017-02-10 07:35] LABS: BASOPHILS % 0.4 % (0.0-2.0); EOSINOPHILS # 0.3 10^3/ul (0.0-0.5); EOSINOPHILS % 5.3 % (0.0-7.0); HEMOGLOBIN 12.4 g/dl (12.0-16.0); LYMPHOCYTES # 1.5 10^3/ul (0.8-2.9); LYMPHOCYTES % 29.4 % (15.0-51.0); MEAN CORPUSCULAR HGB CONC 31.8 g/dl (32.0-37.0); MEAN PLATELET VOLUME 11.2 fl (7.4-10.4); MONOCYTE # 0.5 10^3/ul (0.3-0.9); MONOCYTES % 9.7 % (0.0-11.0); NEUTROPHILS % 54.8 % (39.0-77.0); PLATELET COUNT 205 10^3/UL (140-415); RED BLOOD COUNT 4.43 10^6/ul (4.20-5.40); RED CELL DISTRIBUTION WIDTH 14.5 % (11.5-14.5); WHITE BLOOD COUNT 5.2 10^3/ul (4.8-10.8)
[2017-02-10] MEDS: traMADol 50 MG TAB PO PRN (07:47)
[2017-02-10] MEDS: CITALOPRAM 20 MG TAB PO SCH (08:34)
[2017-02-10] MEDS: ASPIRIN (EC) 81 MG TAB PO SCH (08:35)
[2017-02-10] MEDS: DOCUSATE SODIUM 100 MG CAP PO SCH ×2 (08:35→20:18)
[2017-02-10] MEDS: METOPROLOL 25 MG TAB PO SCH ×2 (08:35→20:17)
[2017-02-10] MEDS: AMLODIPINE 5 MG TAB PO SCH ×2 (08:35→20:17)
--- NOTE | 2017-02-10 09:26 | CONS ---
Date/Time of Note Date/Time of Note DATE: 02/10/17 TIME: 09:23 Consult Date/Type/Reason Admit Date/Time Feb 07, 2017 at 19:57 Subjective Follows commands Objective pulm-cta mod/max assist Vital Signs Date Time Temp Pulse Resp B/P Pulse Ox O2 Delivery O2 Flow Rate FiO2 02/10/17 07:30 97.9 65 20 140/70 96 02/09/17 20:18 Nasal Cannula 2.0 Intake and Output 02/09/17 02/09/17 02/10/17 15:00 23:00 07:00 Intake Total 450 ml 560 ml 240 ml Output Total 400 ml 1000 ml Balance 450 ml 160 ml -760 ml Results/Medications Result Diagram: 02/10/17 0557 02/10/17 0557 Results 24 hrs Laboratory Tests Test 02/10/17 05:57 White Blood Count 5.2 Red Blood Count 4.43 Hemoglobin 12.4 Hematocrit 39.0 Mean Corpuscular Volume 88.0 Mean Corpuscular Hemoglobin 28.0 L Mean Corpuscular Hemoglobin Concent 31.8 L Red Cell Distribution Width 14.5 Platelet Count 205 # Mean Platelet Volume 11.2 H Neutrophils % 54.8 Lymphocytes % 29.4 Monocytes % 9.7 Eosinophils % 5.3 Basophils % 0.4 Nucleated Red Blood Cells % 0.0 Neutrophils # (Manual) 3 Lymphocytes # 1.5 Monocytes # 0.5 Eosinophils # 0.3 Basophils # 0.0 Nucleated Red Blood Cells # 0.0 Sodium Level 140 Potassium Level 4.2 Chloride Level 103 Carbon Dioxide Level 30 Anion Gap 11 Blood Urea Nitrogen 13 Creatinine 0.63 Glucose Level 78 Calcium Level 8.8 Phosphorus Level 3.9 Magnesium Level 2.2 Medications Current Medications Acetaminophen (Tylenol Tab) 650 mg Q6H PRN PO PAIN LEVEL 1-3 OR FEVER; Start at 21:00 Alprazolam (Xanax) 0.25 mg Q6H PRN PO ANXIETY Last administered on 02/09/17 18 :12; Admin Dose 0.25 MG; Start 02/07/17 at 21:00 Aspirin (Halfprin) 81 mg DAILY PO Last administered on 02/10/17 08:35; Admin Dose 81 MG; Start 02/08/17 at 09:00 Atorvastatin Calcium (Lipitor) 10 mg QHS PO Last administered on 02/09/17 21: 31; Admin Dose 10 MG; Start 02/07/17 at 21:00 Citalopram Hydrobromide (Celexa) 20 mg DAILY PO Last administered on 02/10/17 08:34; Admin Dose 20 MG; Start 02/08/17 at 09:00 Docusate Sodium (Colace) 100 mg Q12H PRN PO CONSTIPATION; Start 02/07/17 at 21: 00 Famotidine (Pepcid) 20 mg QHS PO Last administered on 02/09/17 21:31; Admin Dose 20 MG; Start 02/07/17 at 21:00 Acetaminophen/ Hydrocodone Bitart ([place] (5/325)) 1 tab TID PRN PO PAIN LEVEL 1 -5 Last administered on 02/09/17 18:12; Admin Dose 1 TAB; Start 02/07/17 at 21: 00 Magnesium Hydroxide (Milk Of Mag) 30 ml DAILY PRN PO CONSTIPATION Last administered on 02/08/17 06:12; Admin Dose 30 ML; Start 02/07/17 at 21:00 Metoprolol Tartrate (Lopressor) 25 mg BID PO Last administered on 02/10/17 08: 35; Admin Dose 25 MG; Start 02/07/17 at 21:00 Morphine Sulfate (morphine) 1 mg Q6H PRN IV SEVERE PAIN LEVEL 7-10; Start 02/07 at 21:00 Ondansetron HCl (Zofran Inj) 4 mg Q6H PRN IV NAUSEA AND/OR VOMITING; Start at 21:00 Quetiapine Fumarate (Seroquel) 50 mg QHS PO Last administered on 02/09/17 21: 31; Admin Dose 50 MG; Start 02/07/17 at 21:00 Tramadol HCl (Ultram) 50 mg Q6H PRN PO PAIN Last administered on 02/10/17 07: 47; Admin Dose 50 MG; Start 02/07/17 at 21:00 Docusate Sodium (Colace) 100 mg BID PO Last administered on 02/10/17 08:35; Admin Dose 100 MG; Start 02/08/17 at 09:00 Senna (Senokot) 1 tab HS PO Last administered on 02/09/17 21:31; Admin Dose 1 TAB; Start 02/08/17 at 21:00 Bisacodyl (Dulcolax Supp) 10 mg DAILY PRN [place] CONSTIPATION Last administered on 02/08/17 14:22; Admin Dose 10 MG; Start 02/07/17 at 21:30 Amlodipine Besylate (Norvasc) 5 mg BID PO Last administered on 02/10/17 08:35 ; Admin Dose 5 MG; Start 02/08/17 at 09:00 Assessment/Plan Additional Assessment/Plan Rehab- Right periprosthetic femoral fracture; Osteoarthritis with decreased range of motion in the shoulders. Continue rehab program Acute pain syndrome-continue current management Coronary artery disease. History of AVR. History of coagulopathy. History of IVC filter placement. History of intracerebral hemorrhage Hypercholesterolemia. Sleep apnea. MIKEL LEDEZMA MD Feb 10, 2017 09:26
--- NOTE | 2017-02-10 10:04 | CONS ---
Date/Time of Note Date/Time of Note DATE: 02/10/17 TIME: 10:00 Assessment/Plan Assessment/Plan Chief Complaint/Hosp Course 1. Status post fall related right hip fracture that is nondisplaced not requiring surgery now in acute rehab and will undergo aggressive physical therapy and occupational therapy. She is now on the Acute Rehab Unit . 2. History of hypertension with BP slightly elevated today we will increase amlodipine to 5 mg twice daily, with now excellent control 3. Known coagulopathy with a history of intracerebral bleed having having been maintained on aspirin only for DVT prophylaxis and a calf compression pumps. 4. Known coronary disease presently asymptomatic as well as repair of aortic valve also asymptomatic. 5. 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 6. Difficulty voiding on admission requiring Weather[place] catheter once patient is more ambulatory will DC Weather[place] catheter. Urine culture was negative prior to transfer to rehab and and will repeat and dc weathers as per rehab staff pt is more mobile. 7. Labs for today are acceptable . Problems: Consultation Date/Type/Reason Admit Date/Time Feb 07, 2017 at 19:57 Initial Consult Date 24 HR Interval Summary Free Text/Dictation She is sitting up in a wheelchair . She does recognize me . Constitutional: no complaints Exam/Review of Systems Vital Signs Vitals Vital Signs Date Time Temp Pulse Resp B/P Pulse Ox O2 Delivery O2 Flow Rate FiO2 02/10/17 07:30 97.9 65 20 140/70 96 02/09/17 20:18 Nasal Cannula 2.0 Intake and Output 02/09/17 02/09/17 02/10/17 15:00 23:00 07:00 Intake Total 450 ml 560 ml 240 ml Output Total 400 ml 1000 ml Balance 450 ml 160 ml -760 ml Exam Constitutional: alert Psych: confusion Respiratory: clear to auscultation, normal air movement Cardiovascular: regular rate and rhythm Gastrointestinal: non-tender, soft Musculoskeletal: nl extremities to inspection Results Result Diagram: 02/10/17 0557 02/10/17 0557 Results 24 hrs Laboratory Tests Test 02/10/17 05:57 White Blood Count 5.2 Red Blood Count 4.43 Hemoglobin 12.4 Hematocrit 39.0 Mean Corpuscular Volume 88.0 Mean Corpuscular Hemoglobin 28.0 L Mean Corpuscular Hemoglobin Concent 31.8 L Red Cell Distribution Width 14.5 Platelet Count 205 # Mean Platelet Volume 11.2 H Neutrophils % 54.8 Lymphocytes % 29.4 Monocytes % 9.7 Eosinophils % 5.3 Basophils % 0.4 Nucleated Red Blood Cells % 0.0 Neutrophils # (Manual) 3 Lymphocytes # 1.5 Monocytes # 0.5 Eosinophils # 0.3 Basophils # 0.0 Nucleated Red Blood Cells # 0.0 Sodium Level 140 Potassium Level 4.2 Chloride Level 103 Carbon Dioxide Level 30 Anion Gap 11 Blood Urea Nitrogen 13 Creatinine 0.63 Glucose Level 78 Calcium Level 8.8 Phosphorus Level 3.9 Magnesium Level 2.2 Medications Medications Current Medications Acetaminophen (Tylenol Tab) 650 mg Q6H PRN PO PAIN LEVEL 1-3 OR FEVER; Start at 21:00 Alprazolam (Xanax) 0.25 mg Q6H PRN PO ANXIETY Last administered on 02/09/17 18 :12; Admin Dose 0.25 MG; Start 02/07/17 at 21:00 Aspirin (Halfprin) 81 mg DAILY PO Last administered on 02/10/17 08:35; Admin Dose 81 MG; Start 02/08/17 at 09:00 Atorvastatin Calcium (Lipitor) 10 mg QHS PO Last administered on 02/09/17 21: 31; Admin Dose 10 MG; Start 02/07/17 at 21:00 Citalopram Hydrobromide (Celexa) 20 mg DAILY PO Last administered on 02/10/17 08:34; Admin Dose 20 MG; Start 02/08/17 at 09:00 Docusate Sodium (Colace) 100 mg Q12H PRN PO CONSTIPATION; Start 02/07/17 at 21: 00 Famotidine (Pepcid) 20 mg QHS PO Last administered on 02/09/17 21:31; Admin Dose 20 MG; Start 02/07/17 at 21:00 Acetaminophen/ Hydrocodone Bitart ([place] (5/325)) 1 tab TID PRN PO PAIN LEVEL 1 -5 Last administered on 02/09/17 18:12; Admin Dose 1 TAB; Start 02/07/17 at 21: 00 Magnesium Hydroxide (Milk Of Mag) 30 ml DAILY PRN PO CONSTIPATION Last administered on 02/08/17 06:12; Admin Dose 30 ML; Start 02/07/17 at 21:00 Metoprolol Tartrate (Lopressor) 25 mg BID PO Last administered on 02/10/17 08: 35; Admin Dose 25 MG; Start 02/07/17 at 21:00 Morphine Sulfate (morphine) 1 mg Q6H PRN IV SEVERE PAIN LEVEL 7-10; Start 02/07 at 21:00 Ondansetron HCl (Zofran Inj) 4 mg Q6H PRN IV NAUSEA AND/OR VOMITING; Start at 21:00 Quetiapine Fumarate (Seroquel) 50 mg QHS PO Last administered on 02/09/17 21: 31; Admin Dose 50 MG; Start 02/07/17 at 21:00 Tramadol HCl (Ultram) 50 mg Q6H PRN PO PAIN Last administered on 02/10/17 07: 47; Admin Dose 50 MG; Start 02/07/17 at 21:00 Docusate Sodium (Colace) 100 mg BID PO Last administered on 02/10/17 08:35; Admin Dose 100 MG; Start 02/08/17 at 09:00 Senna (Senokot) 1 tab HS PO Last administered on 02/09/17 21:31; Admin Dose 1 TAB; Start 02/08/17 at 21:00 Bisacodyl (Dulcolax Supp) 10 mg DAILY PRN [place] CONSTIPATION Last administered on 02/08/17 14:22; Admin Dose 10 MG; Start 02/07/17 at 21:30 Amlodipine Besylate (Norvasc) 5 mg BID PO Last administered on 02/10/17 08:35 ; Admin Dose 5 MG; Start 02/08/17 at 09:00 MINI CANTU MD Feb 10, 2017 10:04
[2017-02-10 14:00] VITALS: BP 115/57; RESP 20
[2017-02-10] MEDS: ALPRAZOLAM 0.25 MG TAB PO PRN (14:35)
[2017-02-10] MEDS: ACETAMINOPHEN 325 MG TAB PO PRN (18:46)
[2017-02-10] MEDS ORDERED: VITAMIN A & D 5 GM OINT PACKET TOP ONE (19:01)
[2017-02-10 19:59] VITALS: BP 117/63; RESP 19
[2017-02-10] MEDS: QUETIAPINE 25 MG TAB PO SCH (20:17)
[2017-02-10] MEDS: FAMOTIDINE 20 MG TAB PO SCH (20:18)
[2017-02-10] MEDS: SENNA TAB PO SCH (20:18)
[2017-02-10] MEDS: ATORVASTATIN 10 MG TAB PO SCH (20:18)
[2017-02-11 02:00] VITALS: BP 134/72; RESP 18
[2017-02-11 03:45] VITALS: BP 134/72
[2017-02-11 08:00] VITALS: BP 160/75; RESP 18
[2017-02-11] MEDS: HYDROCODONE/APAP (5/325) TAB PO PRN ×2 (08:32→17:10)
[2017-02-11] MEDS: DOCUSATE SODIUM 100 MG CAP PO SCH ×2 (08:33→20:29)
[2017-02-11] MEDS: METOPROLOL 25 MG TAB PO SCH ×2 (08:33→20:29)
[2017-02-11] MEDS: ASPIRIN (EC) 81 MG TAB PO SCH (08:33)
[2017-02-11] MEDS: AMLODIPINE 5 MG TAB PO SCH ×2 (08:34→20:28)
[2017-02-11] MEDS: CITALOPRAM 20 MG TAB PO SCH ×2 (08:34→13:55)
[2017-02-11 08:36] VITALS: BP 159/65; PULSE 66; RESP 16
--- NOTE | 2017-02-11 11:17 | CONS ---
Date/Time of Note Date/Time of Note DATE: 02/11/17 TIME: 11:16 Consult Date/Type/Reason Admit Date/Time Feb 07, 2017 at 19:57 Subjective Comfortable Objective pulm-cta abd-soft Vital Signs Date Time Temp Pulse Resp B/P Pulse Ox O2 Delivery O2 Flow Rate FiO2 02/11/17 08:36 66 16 159/65 95 Nasal Cannula 2.0 02/11/17 08:00 98.3 Intake and Output 02/10/17 02/10/17 02/11/17 15:00 23:00 07:00 Intake Total 380 ml 240 ml Output Total 400 ml 700 ml Balance -20 ml -460 ml Results/Medications Result Diagram: 02/10/17 0557 02/10/17 0557 Medications Current Medications Acetaminophen (Tylenol Tab) 650 mg Q6H PRN PO PAIN LEVEL 1-3 OR FEVER Last administered on 02/10/17 18:46; Admin Dose 650 MG; Start 02/07/17 at 21:00 Alprazolam (Xanax) 0.25 mg Q6H PRN PO ANXIETY Last administered on 02/10/17 14 :35; Admin Dose 0.25 MG; Start 02/07/17 at 21:00 Aspirin (Halfprin) 81 mg DAILY PO Last administered on 02/11/17 08:33; Admin Dose 81 MG; Start 02/08/17 at 09:00 Atorvastatin Calcium (Lipitor) 10 mg QHS PO Last administered on 02/10/17 20: 18; Admin Dose 10 MG; Start 02/07/17 at 21:00 Citalopram Hydrobromide (Celexa) 20 mg DAILY PO Last administered on 02/10/17 08:34; Admin Dose 20 MG; Start 02/08/17 at 09:00 Docusate Sodium (Colace) 100 mg Q12H PRN PO CONSTIPATION; Start 02/07/17 at 21: 00 Famotidine (Pepcid) 20 mg QHS PO Last administered on 02/10/17 20:18; Admin Dose 20 MG; Start 02/07/17 at 21:00 Acetaminophen/ Hydrocodone Bitart ([place] (5/325)) 1 tab TID PRN PO PAIN LEVEL 1 -5 Last administered on 02/11/17 08:32; Admin Dose 1 TAB; Start 02/07/17 at 21: 00 Magnesium Hydroxide (Milk Of Mag) 30 ml DAILY PRN PO CONSTIPATION Last administered on 02/08/17 06:12; Admin Dose 30 ML; Start 02/07/17 at 21:00 Metoprolol Tartrate (Lopressor) 25 mg BID PO Last administered on 02/11/17 08: 33; Admin Dose 25 MG; Start 02/07/17 at 21:00 Morphine Sulfate (morphine) 1 mg Q6H PRN IV SEVERE PAIN LEVEL 7-10; Start 02/07 at 21:00 Ondansetron HCl (Zofran Inj) 4 mg Q6H PRN IV NAUSEA AND/OR VOMITING; Start at 21:00 Quetiapine Fumarate (Seroquel) 50 mg QHS PO Last administered on 02/10/17 20: 17; Admin Dose 50 MG; Start 02/07/17 at 21:00 Tramadol HCl (Ultram) 50 mg Q6H PRN PO PAIN Last administered on 02/10/17 07: 47; Admin Dose 50 MG; Start 02/07/17 at 21:00 Docusate Sodium (Colace) 100 mg BID PO Last administered on 02/11/17 08:33; Admin Dose 100 MG; Start 02/08/17 at 09:00 Senna (Senokot) 1 tab HS PO Last administered on 02/10/17 20:18; Admin Dose 1 TAB; Start 02/08/17 at 21:00 Bisacodyl (Dulcolax Supp) 10 mg DAILY PRN [place] CONSTIPATION Last administered on 02/08/17 14:22; Admin Dose 10 MG; Start 02/07/17 at 21:30 Amlodipine Besylate (Norvasc) 5 mg BID PO Last administered on 02/11/17 08:34 ; Admin Dose 5 MG; Start 02/08/17 at 09:00 Assessment/Plan Additional Assessment/Plan Rehab- Right periprosthetic femoral fracture; Osteoarthritis with decreased range of motion in the shoulders. Continue rehab therapies Acute pain syndrome-continue current management Coronary artery disease. History of AVR. History of coagulopathy. History of IVC filter placement. History of intracerebral hemorrhage Hypercholesterolemia. Sleep apnea. MIKEL LEDEZMA MD Feb 11, 2017 11:17
--- NOTE | 2017-02-11 14:08 | CONS ---
Date/Time of Note Date/Time of Note DATE: 02/11/17 TIME: 14:05 Assessment/Plan Assessment/Plan Chief Complaint/Hosp Course 1. Status post fall related right hip fracture that is nondisplaced not requiring surgery now in acute rehab and will undergo aggressive physical therapy and occupational therapy. She is now on the Acute Rehab Unit . 2. History of hypertension with BP slightly elevated today we will increase amlodipine to 5 mg twice daily, with now excellent control 3. Known coagulopathy with a history of intracerebral bleed having having been maintained on aspirin only for DVT prophylaxis and a calf compression pumps. 4. Known coronary disease presently asymptomatic as well as repair of aortic valve also asymptomatic. 5. 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 6. Difficulty voiding on admission requiring Weathers catheter once patient is more ambulatory will DC Weathers catheter. Urine culture was negative prior to transfer to rehab and and will repeat and dc weathers as per rehab staff pt is more mobile. Her latest urine culture is growing coag negative staph aureus greater than 100,000 colonies sensitive to doxycycline. I will treat her with a short course of doxycycline. 7. Labs for today are acceptable . Problems: Consultation Date/Type/Reason Admit Date/Time Feb 07, 2017 at 19:57 24 HR Interval Summary Free Text/Dictation She is sitting up in a chair. She seems comfortable. She is not complaining of any pain. Constitutional: no complaints Exam/Review of Systems Vital Signs Vitals Vital Signs Date Time Temp Pulse Resp B/P Pulse Ox O2 Delivery O2 Flow Rate FiO2 02/11/17 08:36 66 16 159/65 95 Nasal Cannula 2.0 02/11/17 08:00 98.3 Intake and Output 02/10/17 02/10/17 02/11/17 15:00 23:00 07:00 Intake Total 380 ml 240 ml Output Total 400 ml 700 ml Balance -20 ml -460 ml Exam Constitutional: alert, frail Psych: confusion Respiratory: clear to auscultation, diminished breath sounds Cardiovascular: regular rate and rhythm Gastrointestinal: soft Musculoskeletal: nl extremities to inspection Results Result Diagram: 02/10/17 0557 02/10/17 0557 Medications Medications Current Medications Acetaminophen (Tylenol Tab) 650 mg Q6H PRN PO PAIN LEVEL 1-3 OR FEVER Last administered on 02/10/17 18:46; Admin Dose 650 MG; Start 02/07/17 at 21:00 Alprazolam (Xanax) 0.25 mg Q6H PRN PO ANXIETY Last administered on 02/10/17 14 :35; Admin Dose 0.25 MG; Start 02/07/17 at 21:00 Aspirin (Halfprin) 81 mg DAILY PO Last administered on 02/11/17 08:33; Admin Dose 81 MG; Start 02/08/17 at 09:00 Atorvastatin Calcium (Lipitor) 10 mg QHS PO Last administered on 02/10/17 20: 18; Admin Dose 10 MG; Start 02/07/17 at 21:00 Citalopram Hydrobromide (Celexa) 20 mg DAILY PO Last administered on 02/11/17 13:55; Admin Dose 20 MG; Start 02/08/17 at 09:00 Docusate Sodium (Colace) 100 mg Q12H PRN PO CONSTIPATION; Start 02/07/17 at 21: 00 Famotidine (Pepcid) 20 mg QHS PO Last administered on 02/10/17 20:18; Admin Dose 20 MG; Start 02/07/17 at 21:00 Acetaminophen/ Hydrocodone Bitart ([place] (5/325)) 1 tab TID PRN PO PAIN LEVEL 1 -5 Last administered on 02/11/17 08:32; Admin Dose 1 TAB; Start 02/07/17 at 21: 00 Magnesium Hydroxide (Milk Of Mag) 30 ml DAILY PRN PO CONSTIPATION Last administered on 02/08/17 06:12; Admin Dose 30 ML; Start 02/07/17 at 21:00 Metoprolol Tartrate (Lopressor) 25 mg BID PO Last administered on 02/11/17 08: 33; Admin Dose 25 MG; Start 02/07/17 at 21:00 Morphine Sulfate (morphine) 1 mg Q6H PRN IV SEVERE PAIN LEVEL 7-10; Start 02/07 at 21:00 Ondansetron HCl (Zofran Inj) 4 mg Q6H PRN IV NAUSEA AND/OR VOMITING; Start at 21:00 Quetiapine Fumarate (Seroquel) 50 mg QHS PO Last administered on 02/10/17 20: 17; Admin Dose 50 MG; Start 02/07/17 at 21:00 Tramadol HCl (Ultram) 50 mg Q6H PRN PO PAIN Last administered on 02/10/17 07: 47; Admin Dose 50 MG; Start 02/07/17 at 21:00 Docusate Sodium (Colace) 100 mg BID PO Last administered on 02/11/17 08:33; Admin Dose 100 MG; Start 02/08/17 at 09:00 Senna (Senokot) 1 tab HS PO Last administered on 02/10/17 20:18; Admin Dose 1 TAB; Start 02/08/17 at 21:00 Bisacodyl (Dulcolax Supp) 10 mg DAILY PRN [place] CONSTIPATION Last administered on 02/08/17 14:22; Admin Dose 10 MG; Start 02/07/17 at 21:30 Amlodipine Besylate (Norvasc) 5 mg BID PO Last administered on 02/11/17 08:34 ; Admin Dose 5 MG; Start 02/08/17 at 09:00 MINI CANTU MD Feb 11, 2017 14:07
[2017-02-11] MEDS: ALPRAZOLAM 0.25 MG TAB PO PRN (15:25)
[2017-02-11] MEDS: DOXYCYCLINE 100 MG TAB PO SCH ×2 (15:25→22:54)
[2017-02-11 20:00] VITALS: BP 140/65; RESP 18
[2017-02-11] MEDS: ATORVASTATIN 10 MG TAB PO SCH (20:28)
[2017-02-11] MEDS: FAMOTIDINE 20 MG TAB PO SCH (20:29)
[2017-02-11] MEDS: SENNA TAB PO SCH (20:29)
[2017-02-11] MEDS: QUETIAPINE 25 MG TAB PO SCH (20:29)
[2017-02-12 02:00] VITALS: BP 148/69; RESP 18
[2017-02-12 07:45] VITALS: BP 142/67; PULSE 72; RESP 18
[2017-02-12] MEDS: DOXYCYCLINE 100 MG TAB PO SCH ×2 (08:40→20:39)
[2017-02-12] MEDS: ASPIRIN (EC) 81 MG TAB PO SCH (08:40)
[2017-02-12] MEDS: DOCUSATE SODIUM 100 MG CAP PO SCH ×2 (08:40→20:39)
[2017-02-12] MEDS: CITALOPRAM 20 MG TAB PO SCH (08:40)
[2017-02-12] MEDS: METOPROLOL 25 MG TAB PO SCH ×2 (08:41→20:44)
[2017-02-12] MEDS: ALPRAZOLAM 0.25 MG TAB PO PRN ×2 (08:41→18:26)
[2017-02-12] MEDS: AMLODIPINE 5 MG TAB PO SCH ×2 (08:41→20:44)
[2017-02-12] MEDS: QUETIAPINE 25 MG TAB PO SCH ×2 (09:41→20:40)
--- NOTE | 2017-02-12 13:14 | CONS ---
Date/Time of Note Date/Time of Note DATE: 02/12/17 TIME: 13:11 Assessment/Plan Assessment/Plan Chief Complaint/Hosp Course 1. Status post fall related right hip fracture that is nondisplaced not requiring surgery now in acute rehab and will undergo aggressive physical therapy and occupational therapy. She is now on the Acute Rehab Unit . She has dementia and is intermittently confused. She was agitated this morning and received the medication and now is much calmer. 2. History of hypertension with BP slightly elevated today we will increase amlodipine to 5 mg twice daily, with now excellent control 3. Known coagulopathy with a history of intracerebral bleed having having been maintained on aspirin only for DVT prophylaxis and a calf compression pumps. 4. Known coronary disease presently asymptomatic as well as repair of aortic valve also asymptomatic. 5. 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 6. Difficulty voiding on admission requiring Weathers catheter once patient is more ambulatory will DC Weathers catheter. Urine culture was negative prior to transfer to rehab and and will repeat and dc weathers as per rehab staff pt is more mobile. Her latest urine culture is growing coag negative staph aureus greater than 100,000 colonies sensitive to doxycycline. I will treat her with a short course of doxycycline. 7. COPD. Problems: Consultation Date/Type/Reason Admit Date/Time Feb 07, 2017 at 19:57 24 HR Interval Summary Free Text/Dictation She was agitated earlier this morning and did receive Xanax and Seroquel. She is now in bed resting. She does arouse easily to verbal stimuli. She complains of some burning when she passes her water. Exam/Review of Systems Vital Signs Vitals Vital Signs Date Time Temp Pulse Resp B/P Pulse Ox O2 Delivery O2 Flow Rate FiO2 02/12/17 02:00 98.7 70 18 148/69 97 02/11/17 22:26 Nasal Cannula 2.0 Intake and Output 02/11/17 02/11/17 02/12/17 15:00 23:00 07:00 Intake Total 1350 ml 500 ml 1240 ml Output Total 800 ml 250 ml 950 ml Balance 550 ml 250 ml 290 ml Exam Constitutional: alert Psych: confusion Respiratory: clear to auscultation, normal air movement Cardiovascular: regular rate and rhythm Gastrointestinal: soft Musculoskeletal: nl extremities to inspection Results Result Diagram: 02/10/17 0557 02/10/17 0557 Medications Medications Current Medications Acetaminophen (Tylenol Tab) 650 mg Q6H PRN PO PAIN LEVEL 1-3 OR FEVER Last administered on 02/10/17 18:46; Admin Dose 650 MG; Start 02/07/17 at 21:00 Alprazolam (Xanax) 0.25 mg Q6H PRN PO ANXIETY Last administered on 02/12/17 08 :41; Admin Dose 0.25 MG; Start 02/07/17 at 21:00 Aspirin (Halfprin) 81 mg DAILY PO Last administered on 02/12/17 08:40; Admin Dose 81 MG; Start 02/08/17 at 09:00 Atorvastatin Calcium (Lipitor) 10 mg QHS PO Last administered on 02/11/17 20: 28; Admin Dose 10 MG; Start 02/07/17 at 21:00 Citalopram Hydrobromide (Celexa) 20 mg DAILY PO Last administered on 02/12/17 08:40; Admin Dose 20 MG; Start 02/08/17 at 09:00 Docusate Sodium (Colace) 100 mg Q12H PRN PO CONSTIPATION; Start 02/07/17 at 21: 00 Famotidine (Pepcid) 20 mg QHS PO Last administered on 02/11/17 20:29; Admin Dose 20 MG; Start 02/07/17 at 21:00 Acetaminophen/ Hydrocodone Bitart ([place] (5/325)) 1 tab TID PRN PO PAIN LEVEL 1 -5 Last administered on 02/11/17 17:10; Admin Dose 1 TAB; Start 02/07/17 at 21: 00 Magnesium Hydroxide (Milk Of Mag) 30 ml DAILY PRN PO CONSTIPATION Last administered on 02/08/17 06:12; Admin Dose 30 ML; Start 02/07/17 at 21:00 Metoprolol Tartrate (Lopressor) 25 mg BID PO Last administered on 02/12/17 08: 41; Admin Dose 25 MG; Start 02/07/17 at 21:00 Morphine Sulfate (morphine) 1 mg Q6H PRN IV SEVERE PAIN LEVEL 7-10; Start 02/07 at 21:00 Ondansetron HCl (Zofran Inj) 4 mg Q6H PRN IV NAUSEA AND/OR VOMITING; Start at 21:00 Quetiapine Fumarate (Seroquel) 50 mg QHS PO Last administered on 02/11/17 20: 29; Admin Dose 50 MG; Start 02/07/17 at 21:00 Tramadol HCl (Ultram) 50 mg Q6H PRN PO PAIN Last administered on 02/10/17 07: 47; Admin Dose 50 MG; Start 02/07/17 at 21:00 Docusate Sodium (Colace) 100 mg BID PO Last administered on 02/12/17 08:40; Admin Dose 100 MG; Start 02/08/17 at 09:00 Senna (Senokot) 1 tab HS PO Last administered on 02/11/17 20:29; Admin Dose 1 TAB; Start 02/08/17 at 21:00 Bisacodyl (Dulcolax Supp) 10 mg DAILY PRN [place] CONSTIPATION Last administered on 02/08/17 14:22; Admin Dose 10 MG; Start 02/07/17 at 21:30 Amlodipine Besylate (Norvasc) 5 mg BID PO Last administered on 02/12/17 08:41 ; Admin Dose 5 MG; Start 02/08/17 at 09:00 Doxycycline Hyclate (Vibramycin) 100 mg BID PO Last administered on 02/12/17 08:40; Admin Dose 100 MG; Start 02/11/17 at 15:00; Stop 02/16/17 at 14:59 Quetiapine Fumarate (Seroquel) 25 mg DAILY PO Last administered on 02/12/17 09 :41; Admin Dose 25 MG; Start 02/12/17 at 09:30 MINI CANTU MD Feb 12, 2017 13:13
[2017-02-12 14:05] VITALS: BP 141/66; PULSE 76; RESP 18
[2017-02-12 20:00] VITALS: BP 163/71; RESP 18
[2017-02-12] MEDS: SENNA TAB PO SCH (20:39)
[2017-02-12] MEDS: FAMOTIDINE 20 MG TAB PO SCH (20:39)
[2017-02-12] MEDS: ATORVASTATIN 10 MG TAB PO SCH (20:39)
[2017-02-12] MEDS: HYDROCODONE/APAP (5/325) TAB PO PRN (20:49)
[2017-02-13 02:00] VITALS: BP 126/61; RESP 18
[2017-02-13] MEDS: MAGNESIUM HYDROXIDE 30ML CUP PO PRN (07:22)
[2017-02-13 07:30] VITALS: BP 168/74; RESP 20
--- NOTE | 2017-02-13 09:21 | CONS ---
Date/Time of Note Date/Time of Note DATE: 02/13/17 TIME: :21 Consult Date/Type/Reason Admit Date/Time Feb 07, 2017 at 19:57 Objective Vital Signs Date Time Temp Pulse Resp B/P Pulse Ox O2 Delivery O2 Flow Rate FiO2 02/13/17 08:58 Nasal Cannula 2.0 02/13/17 07:30 97.7 71 20 168/74 94 Intake and Output 02/12/17 02/12/17 02/13/17 15:00 23:00 07:00 Intake Total 300 ml 300 ml Output Total 400 ml 450 ml Balance -100 ml -150 ml Exam INTERDISCIPLINARY TEAM CONFERENCE BOWEL- Cont BLADDER-Cont SKIN- intact OT- DRESSING-minimal assist BATHING-minimal assist TOILETING-minimal assist PT- BED MOBILITY-min mod TRANSFERS-min mod AMBULATION-min mod 20 feet SPEECH- COGNITION-maximal assist A/P- Interdisciplinary team conference held today. Please see interdisciplinary sheet. Working toward d.c. on 02/17 with post discharge follow up of physical therapy, occupational therapy. Results/Medications Result Diagram: 02/10/17 0557 02/10/17 0557 Medications Current Medications Acetaminophen (Tylenol Tab) 650 mg Q6H PRN PO PAIN LEVEL 1-3 OR FEVER Last administered on 02/10/17 18:46; Admin Dose 650 MG; Start 02/07/17 at 21:00 Alprazolam (Xanax) 0.25 mg Q6H PRN PO ANXIETY Last administered on 02/12/17 18 :26; Admin Dose 0.25 MG; Start 02/07/17 at 21:00 Aspirin (Halfprin) 81 mg DAILY PO Last administered on 02/12/17 08:40; Admin Dose 81 MG; Start 02/08/17 at 09:00 Atorvastatin Calcium (Lipitor) 10 mg QHS PO Last administered on 02/12/17 20: 39; Admin Dose 10 MG; Start 02/07/17 at 21:00 Citalopram Hydrobromide (Celexa) 20 mg DAILY PO Last administered on 02/12/17 08:40; Admin Dose 20 MG; Start 02/08/17 at 09:00 Docusate Sodium (Colace) 100 mg Q12H PRN PO CONSTIPATION; Start 02/07/17 at 21: 00 Famotidine (Pepcid) 20 mg QHS PO Last administered on 02/12/17 20:39; Admin Dose 20 MG; Start 02/07/17 at 21:00 Acetaminophen/ Hydrocodone Bitart ([place] (5/325)) 1 tab TID PRN PO PAIN LEVEL 1 -5 Last administered on 02/12/17 20:49; Admin Dose 1 TAB; Start 02/07/17 at 21: 00 Magnesium Hydroxide (Milk Of Mag) 30 ml DAILY PRN PO CONSTIPATION Last administered on 02/13/17 07:22; Admin Dose 30 ML; Start 02/07/17 at 21:00 Metoprolol Tartrate (Lopressor) 25 mg BID PO Last administered on 02/12/17 20: 44; Admin Dose 25 MG; Start 02/07/17 at 21:00 Morphine Sulfate (morphine) 1 mg Q6H PRN IV SEVERE PAIN LEVEL 7-10; Start 02/07 at 21:00 Ondansetron HCl (Zofran Inj) 4 mg Q6H PRN IV NAUSEA AND/OR VOMITING; Start at 21:00 Quetiapine Fumarate (Seroquel) 50 mg QHS PO Last administered on 02/12/17 20: 40; Admin Dose 50 MG; Start 02/07/17 at 21:00 Tramadol HCl (Ultram) 50 mg Q6H PRN PO PAIN Last administered on 02/10/17 07: 47; Admin Dose 50 MG; Start 02/07/17 at 21:00 Docusate Sodium (Colace) 100 mg BID PO Last administered on 02/12/17 20:39; Admin Dose 100 MG; Start 02/08/17 at 09:00 Senna (Senokot) 1 tab HS PO Last administered on 02/12/17 20:39; Admin Dose 1 TAB; Start 02/08/17 at 21:00 Bisacodyl (Dulcolax Supp) 10 mg DAILY PRN [place] CONSTIPATION Last administered on 02/08/17 14:22; Admin Dose 10 MG; Start 02/07/17 at 21:30 Amlodipine Besylate (Norvasc) 5 mg BID PO Last administered on 02/12/17 20:44 ; Admin Dose 5 MG; Start 02/08/17 at 09:00 Doxycycline Hyclate (Vibramycin) 100 mg BID PO Last administered on 02/12/17 20:39; Admin Dose 100 MG; Start 02/11/17 at 15:00; Stop 02/16/17 at 14:59 Quetiapine Fumarate (Seroquel) 25 mg DAILY PO Last administered on 02/12/17 09 :41; Admin Dose 25 MG; Start 02/12/17 at 09:30 MIKEL LEDEZMA MD Feb 13, 2017 09:21
[2017-02-13] MEDS: DOXYCYCLINE 100 MG TAB PO SCH ×2 (09:23→20:32)
[2017-02-13] MEDS: AMLODIPINE 5 MG TAB PO SCH ×2 (09:23→20:35)
[2017-02-13] MEDS: DOCUSATE SODIUM 100 MG CAP PO SCH ×2 (09:23→20:32)
[2017-02-13] MEDS: CITALOPRAM 20 MG TAB PO SCH (09:23)
[2017-02-13] MEDS: QUETIAPINE 25 MG TAB PO SCH ×2 (09:23→20:34)
[2017-02-13] MEDS: METOPROLOL 25 MG TAB PO SCH ×2 (09:24→20:34)
[2017-02-13] MEDS: ASPIRIN (EC) 81 MG TAB PO SCH (09:27)
[2017-02-13] MEDS: ALPRAZOLAM 0.25 MG TAB PO PRN ×2 (09:56→19:13)
--- NOTE | 2017-02-13 11:06 | CONS ---
Date/Time of Note Date/Time of Note DATE: 02/13/17 TIME: 11:04 Assessment/Plan Assessment/Plan Chief Complaint/Hosp Course 1. Status post fall related right hip fracture that is nondisplaced not requiring surgery now in acute rehab and will undergo aggressive physical therapy and occupational therapy. She is now on the Acute Rehab Unit . She has dementia and is intermittently confused. She is less agitated today. She seems more comfortable at this time. 2. History of hypertension with BP slightly elevated today we will increase amlodipine to 5 mg twice daily . 3. Known coagulopathy with a history of intracerebral bleed having having been maintained on aspirin only for DVT prophylaxis and a calf compression pumps. 4. Known coronary disease presently asymptomatic as well as repair of aortic valve also asymptomatic. 5. 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 6. Difficulty voiding on admission requiring Weathers catheter once patient is more ambulatory will DC Weathers catheter. Urine culture was negative prior to transfer to rehab and and will repeat and dc weathers as per rehab staff pt is more mobile. Her latest urine culture is growing coag negative staph aureus greater than 100,000 colonies sensitive to doxycycline. I will treat her with a short course of doxycycline. She is not complaining of any urinary symptoms at this time. 7. COPD. This seems adequately compensated. Problems: Consultation Date/Type/Reason Admit Date/Time Feb 07, 2017 at 19:57 24 HR Interval Summary Free Text/Dictation She is sitting up in a wheelchair in the hallway. She has no complaints. She says that she is not having pain. Constitutional: improved, no complaints Exam/Review of Systems Vital Signs Vitals Vital Signs Date Time Temp Pulse Resp B/P Pulse Ox O2 Delivery O2 Flow Rate FiO2 02/13/17 08:58 Nasal Cannula 2.0 02/13/17 07:30 97.7 71 20 168/74 94 Intake and Output 02/12/17 02/12/17 02/13/17 15:00 23:00 07:00 Intake Total 300 ml 300 ml Output Total 400 ml 450 ml Balance -100 ml -150 ml Exam Constitutional: alert, frail Psych: confusion Respiratory: clear to auscultation, normal air movement Cardiovascular: regular rate and rhythm Musculoskeletal: nl extremities to inspection Results Result Diagram: 02/10/17 0557 02/10/17 0557 Medications Medications Current Medications Acetaminophen (Tylenol Tab) 650 mg Q6H PRN PO PAIN LEVEL 1-3 OR FEVER Last administered on 02/10/17 18:46; Admin Dose 650 MG; Start 02/07/17 at 21:00 Alprazolam (Xanax) 0.25 mg Q6H PRN PO ANXIETY Last administered on 02/13/17 09 :56; Admin Dose 0.25 MG; Start 02/07/17 at 21:00 Aspirin (Halfprin) 81 mg DAILY PO Last administered on 02/13/17 09:27; Admin Dose 81 MG; Start 02/08/17 at 09:00 Atorvastatin Calcium (Lipitor) 10 mg QHS PO Last administered on 02/12/17 20: 39; Admin Dose 10 MG; Start 02/07/17 at 21:00 Citalopram Hydrobromide (Celexa) 20 mg DAILY PO Last administered on 02/13/17 09:23; Admin Dose 20 MG; Start 02/08/17 at 09:00 Docusate Sodium (Colace) 100 mg Q12H PRN PO CONSTIPATION; Start 02/07/17 at 21: 00 Famotidine (Pepcid) 20 mg QHS PO Last administered on 02/12/17 20:39; Admin Dose 20 MG; Start 02/07/17 at 21:00 Acetaminophen/ Hydrocodone Bitart ([place] (5/325)) 1 tab TID PRN PO PAIN LEVEL 1 -5 Last administered on 02/12/17 20:49; Admin Dose 1 TAB; Start 02/07/17 at 21: 00 Magnesium Hydroxide (Milk Of Mag) 30 ml DAILY PRN PO CONSTIPATION Last administered on 02/13/17 07:22; Admin Dose 30 ML; Start 02/07/17 at 21:00 Metoprolol Tartrate (Lopressor) 25 mg BID PO Last administered on 02/13/17 09: 24; Admin Dose 25 MG; Start 02/07/17 at 21:00 Morphine Sulfate (morphine) 1 mg Q6H PRN IV SEVERE PAIN LEVEL 7-10; Start 02/07 at 21:00 Ondansetron HCl (Zofran Inj) 4 mg Q6H PRN IV NAUSEA AND/OR VOMITING; Start at 21:00 Quetiapine Fumarate (Seroquel) 50 mg QHS PO Last administered on 02/12/17 20: 40; Admin Dose 50 MG; Start 02/07/17 at 21:00 Tramadol HCl (Ultram) 50 mg Q6H PRN PO PAIN Last administered on 02/10/17 07: 47; Admin Dose 50 MG; Start 02/07/17 at 21:00 Docusate Sodium (Colace) 100 mg BID PO Last administered on 02/13/17 09:23; Admin Dose 100 MG; Start 02/08/17 at 09:00 Senna (Senokot) 1 tab HS PO Last administered on 02/12/17 20:39; Admin Dose 1 TAB; Start 02/08/17 at 21:00 Bisacodyl (Dulcolax Supp) 10 mg DAILY PRN [place] CONSTIPATION Last administered on 02/08/17 14:22; Admin Dose 10 MG; Start 02/07/17 at 21:30 Amlodipine Besylate (Norvasc) 5 mg BID PO Last administered on 02/13/17 09:23 ; Admin Dose 5 MG; Start 02/08/17 at 09:00 Doxycycline Hyclate (Vibramycin) 100 mg BID PO Last administered on 02/13/17 09:23; Admin Dose 100 MG; Start 02/11/17 at 15:00; Stop 02/16/17 at 14:59 Quetiapine Fumarate (Seroquel) 25 mg DAILY PO Last administered on 02/13/17 09 :23; Admin Dose 25 MG; Start 02/12/17 at 09:30 MINI CANTU MD Feb 13, 2017 11:06
[2017-02-13 14:00] VITALS: BP 141/65; RESP 18
[2017-02-13] MEDS: HYDROCODONE/APAP (5/325) TAB PO PRN (19:13)
[2017-02-13 20:00] VITALS: BP 157/67; RESP 18
[2017-02-13] MEDS: SENNA TAB PO SCH (20:34)
[2017-02-13] MEDS: FAMOTIDINE 20 MG TAB PO SCH (20:34)
[2017-02-13] MEDS: ATORVASTATIN 10 MG TAB PO SCH (20:35)
[2017-02-14 02:00] VITALS: BP 142/70; RESP 18
[2017-02-14] MEDS: ALPRAZOLAM 0.25 MG TAB PO PRN ×2 (07:53→12:50)
[2017-02-14] MEDS: HYDROCODONE/APAP (5/325) TAB PO PRN ×3 (08:01→18:21)
[2017-02-14 08:03] LABS: BASOPHILS % 0.4 % (0.0-2.0); EOSINOPHILS # 0.2 10^3/ul (0.0-0.5); EOSINOPHILS % 4.3 % (0.0-7.0); HEMATOCRIT 34.1 % (37.0-47.0); HEMOGLOBIN 11.1 g/dl (12.0-16.0); LYMPHOCYTES # 1.7 10^3/ul (0.8-2.9); LYMPHOCYTES % 30.5 % (15.0-51.0); MEAN CORPUSCULAR HEMOGLOBIN 28.7 pg (29.0-33.0); MEAN CORPUSCULAR HGB CONC 32.6 g/dl (32.0-37.0); MEAN CORPUSCULAR VOLUME 88.1 fl (82.0-101.0); MONOCYTE # 0.7 10^3/ul (0.3-0.9); MONOCYTES % 12.7 % (0.0-11.0); NEUTROPHILS % 51.7 % (39.0-77.0); PLATELET COUNT 257 10^3/UL (140-415); RED BLOOD COUNT 3.87 10^6/ul (4.20-5.40); RED CELL DISTRIBUTION WIDTH 14.5 % (11.5-14.5); WHITE BLOOD COUNT 5.6 10^3/ul (4.8-10.8)
--- NOTE | 2017-02-14 08:21 | CONS ---
Date/Time of Note Date/Time of Note DATE: 02/14/17 TIME: 08:18 Assessment/Plan Assessment/Plan Additional Assessment/Plan 1. Non-displaced right hip fx, PT and OT in progress. 2. Variable post void increased residuals part at night, as much as 900cc, will stop abx as likley organism is not a pathogen and will urology to see. 3. BP sl inc, will add valsartan. 4. Chronic impaired cognition sec to antecedent stroke, small vessel dz, [employer] hemorrhage while on xarelto. 5. Labs rev Consultation Date/Type/Reason Admit Date/Time Feb 07, 2017 at 19:57 Detailed Summary Respiratory: No shortness of breath Cardiovascular: No chest pain, No lightheadedness Gastrointestinal: no complaints Genitourinary: no complaints Musculoskeletal: bone/joint pain (right hip pain, mild, intermittent) Exam/Review of Systems Vital Signs Vitals Vital Signs Date Time Temp Pulse Resp B/P Pulse Ox O2 Delivery O2 Flow Rate FiO2 02/14/17 02:00 98.3 68 18 142/70 95 02/13/17 19:32 Nasal Cannula 2.0 Intake and Output 02/13/17 02/13/17 02/14/17 15:00 23:00 07:00 Intake Total 300 ml Output Total 379 ml 400 ml Balance -379 ml -100 ml Exam Neck: No jvd Respiratory: clear to auscultation Cardiovascular: regular rate and rhythm Gastrointestinal: soft Extremities: No edema (and no calf tend) Neurological: other (confused to recent events) Results Result Diagram: 02/14/17 0640 02/10/17 0557 Results 24 hrs Laboratory Tests Test 02/14/17 06:40 White Blood Count 5.6 Red Blood Count 3.87 L Hemoglobin 11.1 L Hematocrit 34.1 L Mean Corpuscular Volume 88.1 Mean Corpuscular Hemoglobin 28.7 L Mean Corpuscular Hemoglobin Concent 32.6 Red Cell Distribution Width 14.5 Platelet Count 257 # Mean Platelet Volume 10.0 Neutrophils % 51.7 Lymphocytes % 30.5 Monocytes % 12.7 H Eosinophils % 4.3 Basophils % 0.4 Nucleated Red Blood Cells % 0.0 Neutrophils # (Manual) 3 Lymphocytes # 1.7 Monocytes # 0.7 Eosinophils # 0.2 Basophils # 0.0 Nucleated Red Blood Cells # 0.0 Medications Medications Current Medications Acetaminophen (Tylenol Tab) 650 mg Q6H PRN PO PAIN LEVEL 1-3 OR FEVER Last administered on 02/10/17 18:46; Admin Dose 650 MG; Start 02/07/17 at 21:00 Alprazolam (Xanax) 0.25 mg Q6H PRN PO ANXIETY Last administered on 02/14/17 07 :53; Admin Dose 0.25 MG; Start 02/07/17 at 21:00 Aspirin (Halfprin) 81 mg DAILY PO Last administered on 02/13/17 09:27; Admin Dose 81 MG; Start 02/08/17 at 09:00 Atorvastatin Calcium (Lipitor) 10 mg QHS PO Last administered on 02/13/17 20: 35; Admin Dose 10 MG; Start 02/07/17 at 21:00 Citalopram Hydrobromide (Celexa) 20 mg DAILY PO Last administered on 02/13/17 09:23; Admin Dose 20 MG; Start 02/08/17 at 09:00 Docusate Sodium (Colace) 100 mg Q12H PRN PO CONSTIPATION; Start 02/07/17 at 21: 00 Famotidine (Pepcid) 20 mg QHS PO Last administered on 02/13/17 20:34; Admin Dose 20 MG; Start 02/07/17 at 21:00 Acetaminophen/ Hydrocodone Bitart ([place] (5/325)) 1 tab TID PRN PO PAIN LEVEL 1 -5 Last administered on 02/14/17 08:01; Admin Dose 1 TAB; Start 02/07/17 at 21: 00 Magnesium Hydroxide (Milk Of Mag) 30 ml DAILY PRN PO CONSTIPATION Last administered on 02/13/17 07:22; Admin Dose 30 ML; Start 02/07/17 at 21:00 Metoprolol Tartrate (Lopressor) 25 mg BID PO Last administered on 02/13/17 20: 34; Admin Dose 25 MG; Start 02/07/17 at 21:00 Morphine Sulfate (morphine) 1 mg Q6H PRN IV SEVERE PAIN LEVEL 7-10; Start 02/07 at 21:00 Ondansetron HCl (Zofran Inj) 4 mg Q6H PRN IV NAUSEA AND/OR VOMITING; Start at 21:00 Quetiapine Fumarate (Seroquel) 50 mg QHS PO Last administered on 02/13/17 20: 34; Admin Dose 50 MG; Start 02/07/17 at 21:00 Tramadol HCl (Ultram) 50 mg Q6H PRN PO PAIN Last administered on 02/10/17 07: 47; Admin Dose 50 MG; Start 02/07/17 at 21:00 Docusate Sodium (Colace) 100 mg BID PO Last administered on 02/13/17 20:32; Admin Dose 100 MG; Start 02/08/17 at 09:00 Senna (Senokot) 1 tab HS PO Last administered on 02/13/17 20:34; Admin Dose 1 TAB; Start 02/08/17 at 21:00 Bisacodyl (Dulcolax Supp) 10 mg DAILY PRN [place] CONSTIPATION Last administered on 02/08/17 14:22; Admin Dose 10 MG; Start 02/07/17 at 21:30 Amlodipine Besylate (Norvasc) 5 mg BID PO Last administered on 02/13/17 20:35 ; Admin Dose 5 MG; Start 02/08/17 at 09:00 Doxycycline Hyclate (Vibramycin) 100 mg BID PO Last administered on 02/13/17 20:32; Admin Dose 100 MG; Start 02/11/17 at 15:00; Stop 02/16/17 at 14:59 Quetiapine Fumarate (Seroquel) 25 mg DAILY PO Last administered on 02/13/17 09 :23; Admin Dose 25 MG; Start 02/12/17 at 09:30 YADIRA TORRES MD Feb 14, 2017 08:20
[2017-02-14 08:25] LABS: ALBUMIN 3.2 g/dl (3.3-4.9); ALBUMIN/GLOBULIN RATIO 1.33; BILIRUBIN,INDIRECT 0.2 mg/dl (0-1.1); BILIRUBIN,TOTAL 0.2 mg/dl (0.2-1.3); CALCIUM 9.1 mg/dl (8.4-10.2); CREATININE 0.66 mg/dl (0.44-1.00); MAGNESIUM 2.2 mg/dl (1.7-2.5); PHOSPHORUS 4.2 mg/dl (2.5-4.9); POTASSIUM 4.3 mmol/L (3.5-5.1); TOTAL PROTEIN 5.6 g/dl (6.1-8.1)
[2017-02-14] MEDS: AMLODIPINE 5 MG TAB PO SCH ×2 (08:33→21:00)
[2017-02-14] MEDS: DOCUSATE SODIUM 100 MG CAP PO SCH ×2 (08:33→21:05)
[2017-02-14] MEDS: ASPIRIN (EC) 81 MG TAB PO SCH (08:34)
[2017-02-14] MEDS: CITALOPRAM 20 MG TAB PO SCH (08:34)
[2017-02-14] MEDS: QUETIAPINE 25 MG TAB PO SCH (08:34)
[2017-02-14] MEDS: METOPROLOL 25 MG TAB PO SCH ×2 (08:39→21:00)
[2017-02-14] MEDS: VALSARTAN 80 MG TAB PO SCH (08:39)
--- NOTE | 2017-02-14 11:55 | CONS ---
Date/Time of Note Date/Time of Note DATE: 02/14/17 TIME: 11:55 Consult Date/Type/Reason Admit Date/Time Feb 07, 2017 at 19:57 Subjective Calm her today Objective Lungs clear abdomen soft Minimal assist ambulation Vital Signs Date Time Temp Pulse Resp B/P Pulse Ox O2 Delivery O2 Flow Rate FiO2 02/14/17 08:00 Nasal Cannula 2.0 02/14/17 02:00 98.3 68 18 142/70 95 Intake and Output 02/13/17 02/13/17 02/14/17 15:00 23:00 07:00 Intake Total 300 ml Output Total 379 ml 400 ml Balance -379 ml -100 ml Results/Medications Result Diagram: 02/14/17 0640 02/14/17 0639 Results 24 hrs Laboratory Tests Test 02/14/17 06:39 02/14/17 06:40 Sodium Level 144 Potassium Level 4.3 Chloride Level 103 Carbon Dioxide Level 29 Anion Gap 16 Blood Urea Nitrogen 21 H Creatinine 0.66 Glucose Level 72 Calcium Level 9.1 Phosphorus Level 4.2 Magnesium Level 2.2 Total Bilirubin 0.2 Direct Bilirubin 0.00 Indirect Bilirubin 0.2 Aspartate Amino Transf (AST/SGOT) 16 Alanine Aminotransferase (ALT/SGPT) 29 Alkaline Phosphatase 74 Total Protein 5.6 L Albumin 3.2 L Globulin 2.40 Albumin/Globulin Ratio 1.33 White Blood Count 5.6 Red Blood Count 3.87 L Hemoglobin 11.1 L Hematocrit 34.1 L Mean Corpuscular Volume 88.1 Mean Corpuscular Hemoglobin 28.7 L Mean Corpuscular Hemoglobin Concent 32.6 Red Cell Distribution Width 14.5 Platelet Count 257 # Mean Platelet Volume 10.0 Neutrophils % 51.7 Lymphocytes % 30.5 Monocytes % 12.7 H Eosinophils % 4.3 Basophils % 0.4 Nucleated Red Blood Cells % 0.0 Neutrophils # (Manual) 3 Lymphocytes # 1.7 Monocytes # 0.7 Eosinophils # 0.2 Basophils # 0.0 Nucleated Red Blood Cells # 0.0 Medications Current Medications Acetaminophen (Tylenol Tab) 650 mg Q6H PRN PO PAIN LEVEL 1-3 OR FEVER Last administered on 02/10/17t 18:46; Admin Dose 650 MG; Start 02/07/17 at 21:00 Alprazolam (Xanax) 0.25 mg Q6H PRN PO ANXIETY Last administered on 02/14/17 07 :53; Admin Dose 0.25 MG; Start 02/07/17 at 21:00; Stop 02/14/17 at 15:00 Aspirin (Halfprin) 81 mg DAILY PO Last administered on 02/14/17 08:34; Admin Dose 81 MG; Start 02/08/17 at 09:00 Atorvastatin Calcium (Lipitor) 10 mg QHS PO Last administered on 02/13/17 20: 35; Admin Dose 10 MG; Start 02/07/17 at 21:00 Citalopram Hydrobromide (Celexa) 20 mg DAILY PO Last administered on 02/14/17 08:34; Admin Dose 20 MG; Start 02/08/17 at 09:00 Docusate Sodium (Colace) 100 mg Q12H PRN PO CONSTIPATION; Start 02/07/17 at 21: 00 Famotidine (Pepcid) 20 mg QHS PO Last administered on 02/13/17 20:34; Admin Dose 20 MG; Start 02/07/17 at 21:00 Acetaminophen/ Hydrocodone Bitart ([place] (5/325)) 1 tab TID PRN PO PAIN LEVEL 1 -5 Last administered on 02/14/17 08:01; Admin Dose 1 TAB; Start 02/07/17 at 21: 00 Magnesium Hydroxide (Milk Of Mag) 30 ml DAILY PRN PO CONSTIPATION Last administered on 02/13/17 07:22; Admin Dose 30 ML; Start 02/07/17 at 21:00 Metoprolol Tartrate (Lopressor) 25 mg BID PO Last administered on 02/13/17 20: 34; Admin Dose 25 MG; Start 02/07/17 at 21:00 Morphine Sulfate (morphine) 1 mg Q6H PRN IV SEVERE PAIN LEVEL 7-10; Start 02/07 at 21:00 Ondansetron HCl (Zofran Inj) 4 mg Q6H PRN IV NAUSEA AND/OR VOMITING; Start at 21:00 Quetiapine Fumarate (Seroquel) 50 mg QHS PO Last administered on 02/13/17 20: 34; Admin Dose 50 MG; Start 02/07/17 at 21:00 Tramadol HCl (Ultram) 50 mg Q6H PRN PO PAIN Last administered on 02/10/17 07: 47; Admin Dose 50 MG; Start 02/07/17 at 21:00 Docusate Sodium (Colace) 100 mg BID PO Last administered on 02/14/17 08:33; Admin Dose 100 MG; Start 02/08/17 at 09:00 Senna (Senokot) 1 tab HS PO Last administered on 02/13/17 20:34; Admin Dose 1 TAB; Start 02/08/17 at 21:00 Bisacodyl (Dulcolax Supp) 10 mg DAILY PRN [place] CONSTIPATION Last administered on 02/08/17 14:22; Admin Dose 10 MG; Start 02/07/17 at 21:30 Amlodipine Besylate (Norvasc) 5 mg BID PO Last administered on 02/14/17 08:33 ; Admin Dose 5 MG; Start 02/08/17 at 09:00 Quetiapine Fumarate (Seroquel) 25 mg DAILY PO Last administered on 02/14/17 08 :34; Admin Dose 25 MG; Start 02/12/17 at 09:30 Valsartan (Diovan) 80 mg DAILY PO ; Start 02/14/17 at 09:00 Alprazolam (Xanax) 0.25 mg Q6H PO ; Start 02/14/17 at 15:00 Assessment/Plan Additional Assessment/Plan Rehab- Right periprosthetic femoral fracture; Osteoarthritis with decreased range of motion in the shoulders. Continue rehab therapies, and family training with goal of discharge home at the end of the week Acute pain syndrome-continue current management Coronary artery disease. History of AVR. History of coagulopathy. History of IVC filter placement. History of intracerebral hemorrhage Hypercholesterolemia. Sleep apnea. MIKEL LEDEZMA MD Feb 14, 2017 11:55
[2017-02-14] MEDS: ALPRAZOLAM 0.25 MG TAB PO SCH ×2 (15:00→21:06)
--- NOTE | 2017-02-14 18:49 | CONS ---
Date/Time of Note Date/Time of Note DATE: 02/14/17 TIME: 18:31 Assessment/Plan Assessment/Plan Chief Complaint/Hosp Course 86-year-old female status post undisplaced fracture of the right hip that did not require any surgical intervention. The patient has been having difficulty urinating mostly at night, however during the day as she is ambulating and taken to the bathroom she has been able to urinate with a small postvoid residual The patient has dementia and confusion. Her medication list have been reviewed she is getting 50 mg of Seroquel at bedtime and that may be making her more sleepy and may be contributing to her retention at night. Therefore we could try to stop it and see if she does void and we may continue her daily dose of 25 mg. Also the nurses will try to get her up to the bathroom during the night and see if that helps as well Problems: Consultation Date/Type/Reason Admit Date/Time Feb 07, 2017 at 19:57 Date of Consultation: Feb 14, 2017 Type of Consultation: Urology Reason for Consultation Urinary retention Referring Provider: YADIRA TORRES MD Hx of Present Illness 86-year-old female status post fracture of the right hip, fracture was not displaced and therefore she did not need any surgery. At the time of admission there was difficulty inserting a Chang catheter but eventually the nurse was able to insert the catheter for her. Patient was transferred to the rehab unit for rehabilitation. It appears that during the day when the patient is ambulating and taken to the bathroom she is able to urinate on her own. However at night she seems to have retention and not able to urinate therefore a urological consultation was requested. Subjective hx not possible: other (Patient has dementia) Constitutional: improved, no complaints Eyes: no complaints ENT: no complaints Respiratory: no complaints, No shortness of breath Cardiovascular: No chest pain, No lightheadedness Gastrointestinal: no complaints Genitourinary: no complaints, other (Urinary retention at night) Musculoskeletal: bone/joint pain (right hip pain, mild, intermittent), no complaints Endocrine: no complaints Lymphatic: no complaints Psychological: anxiety, confusion Past Medical History 1. Repeat hospitalizations for pneumonia and/or bronchitis. 2. Hypertension. 3. Hyperlipidemia. 4. No history of VT, diabetes, or phlebitis. 5. History of sleep apnea, using CPAP device at home. 6. History of peptic ulcer disease. 7. Chronic obstructive pulmonary disease, having stopped smoking in 2001. 8. Known coronary disease, undergoing CABS x2 vessels at the [facility] in July 2010 with a large thoracic aneurysm, being followed by Cardiology. 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 Venous studies at that time of the lower extremities were normal, having been maintained on Xarelto until she developed a left frontal hemorrhage in February 2015 without evidence of tumor or aneurysm, having modest aphagia postoperatively and IVC filter has been placed and it was thought that no continued anticoagulation therapy appropriate. 10. 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 Past Surgical History 1. Surgery for melanoma involving the left leg, 1972. 2. History of breast cancer, left, having lumpectomy and radiation therapy, remote, with recurrent disease requiring a left modified radical mastectomy in April 2010, having been maintained on Aromasin for approximately 5 years. 3. History of arthroscopic knee surgery bilaterally with repeat left knee surgery in 2002 involving the left knee and right in 2005. 4. Known coronary disease, undergoing CABS x2 vessels at the [facility] in July 2010 with a large thoracic aneurysm, being followed by Cardiology. 5. Right hip replacement in 2008. 6. Resection of a thoracic aneurysm in July 2010 and aortic valve repair with aneurysm remaining as noted above. 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 Venous studies at that time of the lower extremities were normal, having been maintained on Xarelto until she developed a left frontal hemorrhage in February 2015 without evidence of tumor or aneurysm, having modest aphagia postoperatively and IVC filter has been placed and it was thought that no continued anticoagulation therapy appropriate. Family History Significant Family History: no pertinent family hx Social History Smoking Status: Former smoker Exam/Review of Systems Vital Signs Vitals Vital Signs Date Time Temp Pulse Resp B/P Pulse Ox O2 Delivery O2 Flow Rate FiO2 02/14/17 08:00 Nasal Cannula 2.0 02/14/17 02:00 98.3 68 18 142/70 95 Intake and Output 02/13/17 02/13/17 02/14/17 15:00 23:00 07:00 Intake Total 300 ml Output Total 379 ml 400 ml Balance -379 ml -100 ml Exam Constitutional: alert, No oriented Psych: anxiety, confusion Head: normocephalic Eyes: nl conjunctiva ENMT: nl external ears & nose Neck: supple Respiratory: normal air movement Cardiovascular: No edema Gastrointestinal: soft, No mass, No tender Genitourinary - Female: No CVA tenderness Extremities: other (Scars on both knees and right hip fracture undisplaced) Skin: nl turgor Results Result Diagram: 02/14/17 0640 02/14/17 0639 Results 24 hrs Laboratory Tests Test 02/14/17 06:39 02/14/17 06:40 Sodium Level 144 Potassium Level 4.3 Chloride Level 103 Carbon Dioxide Level 29 Anion Gap 16 Blood Urea Nitrogen 21 H Creatinine 0.66 Glucose Level 72 Calcium Level 9.1 Phosphorus Level 4.2 Magnesium Level 2.2 Total Bilirubin 0.2 Direct Bilirubin 0.00 Indirect Bilirubin 0.2 Aspartate Amino Transf (AST/SGOT) 16 Alanine Aminotransferase (ALT/SGPT) 29 Alkaline Phosphatase 74 Total Protein 5.6 L Albumin 3.2 L Globulin 2.40 Albumin/Globulin Ratio 1.33 White Blood Count 5.6 Red Blood Count 3.87 L Hemoglobin 11.1 L Hematocrit 34.1 L Mean Corpuscular Volume 88.1 Mean Corpuscular Hemoglobin 28.7 L Mean Corpuscular Hemoglobin Concent 32.6 Red Cell Distribution Width 14.5 Platelet Count 257 # Mean Platelet Volume 10.0 Neutrophils % 51.7 Lymphocytes % 30.5 Monocytes % 12.7 H Eosinophils % 4.3 Basophils % 0.4 Nucleated Red Blood Cells % 0.0 Neutrophils # (Manual) 3 Lymphocytes # 1.7 Monocytes # 0.7 Eosinophils # 0.2 Basophils # 0.0 Nucleated Red Blood Cells # 0.0 Medications Medications Current Medications Acetaminophen (Tylenol Tab) 650 mg Q6H PRN PO PAIN LEVEL 1-3 OR FEVER Last administered on 02/10/17 18:46; Admin Dose 650 MG; Start 02/07/17 at 21:00 Aspirin (Halfprin) 81 mg DAILY PO Last administered on 02/14/17 08:34; Admin Dose 81 MG; Start 02/08/17 at 09:00 Atorvastatin Calcium (Lipitor) 10 mg QHS PO Last administered on 02/13/17 20: 35; Admin Dose 10 MG; Start 02/07/17 at 21:00 Citalopram Hydrobromide (Celexa) 20 mg DAILY PO Last administered on 02/14/17 08:34; Admin Dose 20 MG; Start 02/08/17 at 09:00 Docusate Sodium (Colace) 100 mg Q12H PRN PO CONSTIPATION; Start 02/07/17 at 21: 00 Famotidine (Pepcid) 20 mg QHS PO Last administered on 02/13/17 20:34; Admin Dose 20 MG; Start 02/07/17 at 21:00 Acetaminophen/ Hydrocodone Bitart ([place] (5/325)) 1 tab TID PRN PO PAIN LEVEL 1 -5 Last administered on 02/14/17 18:21; Admin Dose 1 TAB; Start 02/07/17 at 21: 00 Magnesium Hydroxide (Milk Of Mag) 30 ml DAILY PRN PO CONSTIPATION Last administered on 02/13/17 07:22; Admin Dose 30 ML; Start 02/07/17 at 21:00 Metoprolol Tartrate (Lopressor) 25 mg BID PO Last administered on 02/13/17 20: 34; Admin Dose 25 MG; Start 02/07/17 at 21:00 Morphine Sulfate (morphine) 1 mg Q6H PRN IV SEVERE PAIN LEVEL 7-10; Start 02/07 at 21:00 Ondansetron HCl (Zofran Inj) 4 mg Q6H PRN IV NAUSEA AND/OR VOMITING; Start at 21:00 Tramadol HCl (Ultram) 50 mg Q6H PRN PO PAIN Last administered on 02/10/17 07: 47; Admin Dose 50 MG; Start 02/07/17 at 21:00 Docusate Sodium (Colace) 100 mg BID PO Last administered on 02/14/17 08:33; Admin Dose 100 MG; Start 02/08/17 at 09:00 Senna (Senokot) 1 tab HS PO Last administered on 02/13/17 20:34; Admin Dose 1 TAB; Start 02/08/17 at 21:00 Bisacodyl (Dulcolax Supp) 10 mg DAILY PRN [place] CONSTIPATION Last administered on 02/08/17 14:22; Admin Dose 10 MG; Start 02/07/17 at 21:30 Amlodipine Besylate (Norvasc) 5 mg BID PO Last administered on 02/14/17 08:33 ; Admin Dose 5 MG; Start 02/08/17 at 09:00 Quetiapine Fumarate (Seroquel) 25 mg DAILY PO Last administered on 02/14/17t 08 :34; Admin Dose 25 MG; Start 02/12/17 at 09:30 Valsartan (Diovan) 80 mg DAILY PO ; Start 02/14/17 at 09:00 Alprazolam (Xanax) 0.25 mg Q6H PO ; Start 02/14/17 at 15:00 CHARANJIT MILLARD MD Feb 14, 2017 18:43
[2017-02-14 20:00] VITALS: BP 107/53; RESP 20
[2017-02-14] MEDS: SENNA TAB PO SCH (21:05)
[2017-02-14] MEDS: FAMOTIDINE 20 MG TAB PO SCH (21:05)
[2017-02-14] MEDS: ATORVASTATIN 10 MG TAB PO SCH (21:05)
[2017-02-15 02:00] VITALS: BP 126/70; RESP 18
[2017-02-15] MEDS: ALPRAZOLAM 0.25 MG TAB PO SCH ×3 (03:00→20:22)
[2017-02-15] MEDS ORDERED: ALPRAZOLAM 0.25 MG TAB PO SCH ×2 (06:00→09:00)
[2017-02-15 08:00] VITALS: BP 152/65; RESP 18
[2017-02-15] MEDS: VALSARTAN 80 MG TAB PO SCH (08:22)
[2017-02-15] MEDS: ASPIRIN (EC) 81 MG TAB PO SCH (08:23)
[2017-02-15] MEDS: AMLODIPINE 5 MG TAB PO SCH ×2 (08:23→20:23)
[2017-02-15] MEDS: DOCUSATE SODIUM 100 MG CAP PO SCH ×2 (08:23→20:21)
[2017-02-15] MEDS: CITALOPRAM 20 MG TAB PO SCH (08:23)
[2017-02-15] MEDS: QUETIAPINE 25 MG TAB PO SCH (08:23)
[2017-02-15] MEDS: METOPROLOL 25 MG TAB PO SCH ×2 (08:23→20:23)
--- NOTE | 2017-02-15 08:28 | CONS ---
Date/Time of Note Date/Time of Note DATE: 02/15/17 TIME: 08:24 Assessment/Plan Assessment/Plan Additional Assessment/Plan 1. Status post right hip fracture that is nondisplaced and that did not require surgery. 2. Post void residual at times in excess of 400 undergoing urologic evaluation by Dr. Mcqueen. He thought oversedation at night might be contributing to significant post void residuals at night and reduced Seroquel to 25 mg daily. Additionally recently reduced her Xanax from 4 times daily to 3 times daily. 3. Blood pressure remains still slightly elevated will observe for 1 more day and if continued to be elevated will increase Diovan. 4. Will continue aggressive physical therapy and Occupational Therapy. Consultation Date/Type/Reason Admit Date/Time Feb 07, 2017 at 19:57 Type of Consultation: Urology Referring Provider: YADIRA TORRES MD 24 HR Interval Summary Free Text/Dictation The patient denies shortness of breath or chest pain. She denies nausea vomiting or abdominal pain. She has some mild right hip pain when attempting to get out of bed and walking. She denies dysuria flank pain fever chills or blood in her urine. Exam/Review of Systems Vital Signs Vitals Vital Signs Date Time Temp Pulse Resp B/P Pulse Ox O2 Delivery O2 Flow Rate FiO2 02/15/17 08:00 97.9 73 18 152/65 96 02/14/17 19:38 Nasal Cannula 2.0 Intake and Output 02/14/17 02/14/17 02/15/17 15:00 23:00 07:00 Intake Total 800 ml 500 ml 320 ml Output Total 1150 ml 500 ml 600 ml Balance -350 ml 0 ml -280 ml Exam Exam Neck there is no jugular venous distention. Lungs are clear to auscultation and percussion. Heart rhythm is regular there is a 1/6 systolic murmur. Abdomen liver and spleen not enlarged there is no tenderness. Extremities there is no edema or calf tenderness. Neurologic reveals no lateralizing motor weakness. Results Result Diagram: 02/14/17 0640 02/14/17 0639 Medications Medications Current Medications Acetaminophen (Tylenol Tab) 650 mg Q6H PRN PO PAIN LEVEL 1-3 OR FEVER Last administered on 02/10/17t 18:46; Admin Dose 650 MG; Start 02/07/17 at 21:00 Aspirin (Halfprin) 81 mg DAILY PO Last administered on 02/14/17 08:34; Admin Dose 81 MG; Start 02/08/17 at 09:00 Atorvastatin Calcium (Lipitor) 10 mg QHS PO Last administered on 02/14/17 21: 05; Admin Dose 10 MG; Start 02/07/17 at 21:00 Citalopram Hydrobromide (Celexa) 20 mg DAILY PO Last administered on 02/14/17 08:34; Admin Dose 20 MG; Start 02/08/17 at 09:00 Docusate Sodium (Colace) 100 mg Q12H PRN PO CONSTIPATION; Start 02/07/17 at 21: 00 Famotidine (Pepcid) 20 mg QHS PO Last administered on 02/14/17 21:05; Admin Dose 20 MG; Start 02/07/17 at 21:00 Acetaminophen/ Hydrocodone Bitart ([place] (5/325)) 1 tab TID PRN PO PAIN LEVEL 1 -5 Last administered on 02/14/17 18:21; Admin Dose 1 TAB; Start 02/07/17 at 21: 00 Magnesium Hydroxide (Milk Of Mag) 30 ml DAILY PRN PO CONSTIPATION Last administered on 02/13/17 07:22; Admin Dose 30 ML; Start 02/07/17 at 21:00 Metoprolol Tartrate (Lopressor) 25 mg BID PO Last administered on 02/13/17 20: 34; Admin Dose 25 MG; Start 02/07/17 at 21:00 Morphine Sulfate (morphine) 1 mg Q6H PRN IV SEVERE PAIN LEVEL 7-10; Start 02/07 at 21:00 Ondansetron HCl (Zofran Inj) 4 mg Q6H PRN IV NAUSEA AND/OR VOMITING; Start at 21:00 Tramadol HCl (Ultram) 50 mg Q6H PRN PO PAIN Last administered on 02/10/17 07: 47; Admin Dose 50 MG; Start 02/07/17 at 21:00 Docusate Sodium (Colace) 100 mg BID PO Last administered on 02/14/17 21:05; Admin Dose 100 MG; Start 02/08/17 at 09:00 Senna (Senokot) 1 tab HS PO Last administered on 02/14/17 21:05; Admin Dose 1 TAB; Start 02/08/17 at 21:00 Bisacodyl (Dulcolax Supp) 10 mg DAILY PRN [place] CONSTIPATION Last administered on 02/08/17 14:22; Admin Dose 10 MG; Start 02/07/17 at 21:30 Amlodipine Besylate (Norvasc) 5 mg BID PO Last administered on 02/14/17 08:33 ; Admin Dose 5 MG; Start 02/08/17 at 09:00 Quetiapine Fumarate (Seroquel) 25 mg DAILY PO Last administered on 02/14/17 08 :34; Admin Dose 25 MG; Start 02/12/17 at 09:30 Valsartan (Diovan) 80 mg DAILY PO ; Start 02/14/17 at 09:00 Alprazolam (Xanax) 0.25 mg Q6H PO Last administered on 02/15/17 05:37; Admin Dose 0.25 MG; Start 02/15/17 at 06:00 YADIRA TORRES MD Feb 15, 2017 08:27
--- NOTE | 2017-02-15 12:19 | CONS ---
Date/Time of Note Date/Time of Note DATE: 02/15/17 TIME: 12:19 Consult Date/Type/Reason Admit Date/Time Feb 07, 2017 at 19:57 Type of Consultation: Urology Ordering Provider: YADIRA TORRES MD Subjective Comfortable Objective Lungs clear Abdomen soft Min assist 30 feet Vital Signs Date Time Temp Pulse Resp B/P Pulse Ox O2 Delivery O2 Flow Rate FiO2 02/15/17 08:10 Nasal Cannula 2.0 02/15/17 08:00 97.9 73 18 152/65 96 Intake and Output 02/14/17 02/14/17 02/15/17 15:00 23:00 07:00 Intake Total 800 ml 500 ml 320 ml Output Total 1150 ml 500 ml 600 ml Balance -350 ml 0 ml -280 ml Results/Medications Result Diagram: 02/14/17 0640 02/14/17 0639 Medications Current Medications Acetaminophen (Tylenol Tab) 650 mg Q6H PRN PO PAIN LEVEL 1-3 OR FEVER Last administered on 02/10/17 18:46; Admin Dose 650 MG; Start 02/07/17 at 21:00 Aspirin (Halfprin) 81 mg DAILY PO Last administered on 02/15/17 08:23; Admin Dose 81 MG; Start 02/08/17 at 09:00 Atorvastatin Calcium (Lipitor) 10 mg QHS PO Last administered on 02/14/17 21: 05; Admin Dose 10 MG; Start 02/07/17 at 21:00 Citalopram Hydrobromide (Celexa) 20 mg DAILY PO Last administered on 02/15/17 08:23; Admin Dose 20 MG; Start 02/08/17 at 09:00 Docusate Sodium (Colace) 100 mg Q12H PRN PO CONSTIPATION; Start 02/07/17 at 21: 00 Famotidine (Pepcid) 20 mg QHS PO Last administered on 02/14/17 21:05; Admin Dose 20 MG; Start 02/07/17 at 21:00 Acetaminophen/ Hydrocodone Bitart ([place] (5/325)) 1 tab TID PRN PO PAIN LEVEL 1 -5 Last administered on 02/14/17 18:21; Admin Dose 1 TAB; Start 02/07/17 at 21: 00 Magnesium Hydroxide (Milk Of Mag) 30 ml DAILY PRN PO CONSTIPATION Last administered on 02/13/17 07:22; Admin Dose 30 ML; Start 02/07/17 at 21:00 Metoprolol Tartrate (Lopressor) 25 mg BID PO Last administered on 02/15/17 08: 23; Admin Dose 25 MG; Start 02/07/17 at 21:00 Morphine Sulfate (morphine) 1 mg Q6H PRN IV SEVERE PAIN LEVEL 7-10; Start 02/07 at 21:00 Ondansetron HCl (Zofran Inj) 4 mg Q6H PRN IV NAUSEA AND/OR VOMITING; Start at 21:00 Tramadol HCl (Ultram) 50 mg Q6H PRN PO PAIN Last administered on 02/10/17 07: 47; Admin Dose 50 MG; Start 02/07/17 at 21:00 Docusate Sodium (Colace) 100 mg BID PO Last administered on 02/15/17 08:23; Admin Dose 100 MG; Start 02/08/17 at 09:00 Senna (Senokot) 1 tab HS PO Last administered on 02/14/17 21:05; Admin Dose 1 TAB; Start 02/08/17 at 21:00 Bisacodyl (Dulcolax Supp) 10 mg DAILY PRN [place] CONSTIPATION Last administered on 02/08/17 14:22; Admin Dose 10 MG; Start 02/07/17 at 21:30 Amlodipine Besylate (Norvasc) 5 mg BID PO Last administered on 02/15/17 08:23 ; Admin Dose 5 MG; Start 02/08/17 at 09:00 Quetiapine Fumarate (Seroquel) 25 mg DAILY PO Last administered on 02/15/17 08 :23; Admin Dose 25 MG; Start 02/12/17 at 09:30 Valsartan (Diovan) 80 mg DAILY PO Last administered on 02/15/17 08:22; Admin Dose 80 MG; Start 02/14/17 at 09:00 Alprazolam (Xanax) 0.25 mg TID PO ; Start 02/15/17 at 13:00 Assessment/Plan Additional Assessment/Plan Rehab- Right periprosthetic femoral fracture; Osteoarthritis with decreased range of motion in the shoulders. Continue current treatment plan Acute pain syndrome-continue current management Coronary artery disease. History of AVR. History of coagulopathy. History of IVC filter placement. History of intracerebral hemorrhage Hypercholesterolemia. Sleep apnea. MIKEL LEDEZMA MD Feb 15, 2017 12:19
[2017-02-15 13:01] VITALS: BP 132/62; PULSE 68
--- NOTE | 2017-02-15 18:09 | PN ---
Date/Time of Note Date/Time of Note DATE: 02/15/17 TIME: 18:03 Assessment/Plan VTE Prophylaxis VTE Prophylaxis Intervention: ambulation Lines/Catheters IV Catheter Type (from [facility]): Sal[facility] Urinary Cath still in place: No Assessment/Plan Chief Complaint/Hosp Course 86-year-old female status post undisplaced fracture of the right hip that did not require any surgical intervention. The patient has been having difficulty urinating mostly at night, however during the day as she is ambulating and taken to the bathroom she has been able to urinate with a small postvoid residual The patient has dementia and confusion. she was getting 50 mg of Seroquel at bedtime and that may have been making her more sleepy and may be contributing to her retention at night. Therefore I stopped it yesterday and since then she has been voiding and have more postvoid residual. Since then she has been voiding well and has small postvoid residual. Will continue to monitor her postvoid residual and keep her off the Seroquel the evening. Problems: Subjective 24 Hr Interval Summary Constitutional: no complaints Eyes: no complaints ENT: no complaints Respiratory: no complaints Cardiovascular: no complaints Gastrointestinal: passing stool, No nausea, No vomiting Genitourinary: other (Has been voiding since yesterday night she did 700 mL then 400 and later this afternoon 50 and she is on the toilet right now trying to urinate) Musculoskeletal: bone/joint pain Skin: no complaints Neurologic: no complaints Endocrine: no complaints Psychological: confusion, no complaints Exam/Review of Systems Vital Signs Vitals Vital Signs Date Time Temp Pulse Resp B/P Pulse Ox O2 Delivery O2 Flow Rate FiO2 02/15/17 13:01 68 132/62 02/15/17 08:10 Nasal Cannula 2.0 02/15/17 08:00 97.9 18 96 Intake and Output 02/14/17 02/14/17 02/15/17 15:00 23:00 07:00 Intake Total 800 ml 500 ml 320 ml Output Total 1150 ml 500 ml 600 ml Balance -350 ml 0 ml -280 ml Exam Constitutional: alert Psych: confusion Head: normocephalic Eyes: nl conjunctiva ENMT: nl external ears & nose Neck: supple Respiratory: normal air movement Cardiovascular: No edema Gastrointestinal: soft Genitourinary - Female: other (Voiding on her own especially when she is taken to the bathroom and sitting on the toilet her postvoid residual has been 96 mL, 70 mL, and 30 mL), No CVA tenderness Musculoskeletal: nl extremities to inspection Extremities: No calf tenderness, No edema Results Result Diagram: 02/14/1740 02/14/17 0639 Medications Medications Current Medications Acetaminophen (Tylenol Tab) 650 mg Q6H PRN PO PAIN LEVEL 1-3 OR FEVER Last administered on 02/10/17 18:46; Admin Dose 650 MG; Start 02/07/17 at 21:00 Aspirin (Halfprin) 81 mg DAILY PO Last administered on 02/15/17 08:23; Admin Dose 81 MG; Start 02/08/17 at 09:00 Atorvastatin Calcium (Lipitor) 10 mg QHS PO Last administered on 02/14/17 21: 05; Admin Dose 10 MG; Start 02/07/17 at 21:00 Citalopram Hydrobromide (Celexa) 20 mg DAILY PO Last administered on 02/15/17 08:23; Admin Dose 20 MG; Start 02/08/17 at 09:00 Docusate Sodium (Colace) 100 mg Q12H PRN PO CONSTIPATION; Start 02/07/17 at 21: 00 Famotidine (Pepcid) 20 mg QHS PO Last administered on 02/14/17 21:05; Admin Dose 20 MG; Start 02/07/17 at 21:00 Acetaminophen/ Hydrocodone Bitart ([place] (5/325)) 1 tab TID PRN PO PAIN LEVEL 1 -5 Last administered on 02/14/17 18:21; Admin Dose 1 TAB; Start 02/07/17 at 21: 00 Magnesium Hydroxide (Milk Of Mag) 30 ml DAILY PRN PO CONSTIPATION Last administered on 02/13/17 07:22; Admin Dose 30 ML; Start 02/07/17 at 21:00 Metoprolol Tartrate (Lopressor) 25 mg BID PO Last administered on 02/15/17 08: 23; Admin Dose 25 MG; Start 02/07/17 at 21:00 Morphine Sulfate (morphine) 1 mg Q6H PRN IV SEVERE PAIN LEVEL 7-10; Start 02/07 at 21:00 Ondansetron HCl (Zofran Inj) 4 mg Q6H PRN IV NAUSEA AND/OR VOMITING; Start at 21:00 Tramadol HCl (Ultram) 50 mg Q6H PRN PO PAIN Last administered on 02/10/17 07: 47; Admin Dose 50 MG; Start 02/07/17 at 21:00 Docusate Sodium (Colace) 100 mg BID PO Last administered on 02/15/17 08:23; Admin Dose 100 MG; Start 02/08/17 at 09:00 Senna (Senokot) 1 tab HS PO Last administered on 02/14/17 21:05; Admin Dose 1 TAB; Start 02/08/17 at 21:00 Bisacodyl (Dulcolax Supp) 10 mg DAILY PRN [place] CONSTIPATION Last administered on 02/08/17 14:22; Admin Dose 10 MG; Start 02/07/17 at 21:30 Amlodipine Besylate (Norvasc) 5 mg BID PO Last administered on 02/15/17 08:23 ; Admin Dose 5 MG; Start 02/08/17 at 09:00 Quetiapine Fumarate (Seroquel) 25 mg DAILY PO Last administered on 02/15/17 08 :23; Admin Dose 25 MG; Start 02/12/17 at 09:30 Valsartan (Diovan) 80 mg DAILY PO Last administered on 02/15/17 08:22; Admin Dose 80 MG; Start 02/14/17 at 09:00 Alprazolam (Xanax) 0.25 mg TID PO Last administered on 02/15/17 12:57; Admin Dose 0.25 MG; Start 02/15/17 at 13:00 CHARANJIT MILLARD MD Feb 15, 2017 18:09
[2017-02-15] MEDS: HYDROCODONE/APAP (5/325) TAB PO PRN (18:42)
[2017-02-15] MEDS: SENNA TAB PO SCH (20:21)
[2017-02-15] MEDS: FAMOTIDINE 20 MG TAB PO SCH (20:21)
[2017-02-15] MEDS: ATORVASTATIN 10 MG TAB PO SCH (20:22)
[2017-02-15 21:51] VITALS: BP 110/58; RESP 18
[2017-02-16 02:00] VITALS: BP 124/68; RESP 18
[2017-02-16 07:30] VITALS: BP 152/69; RESP 20
--- NOTE | 2017-02-16 07:42 | CONS ---
Date/Time of Note Date/Time of Note DATE: 02/16/17 TIME: 07:39 Assessment/Plan Assessment/Plan Additional Assessment/Plan 1. She is not ambulating very much, unclear if this is related to pain, will ask ortho to reeval. 2. Post void residuals are less than 150, and asx 3. BP control is better, labs ordered tomm. 4. Known COPD, will check room air oxygen sat at rest and with ambulation. Will not add bronchodilators yet. Consultation Date/Type/Reason Admit Date/Time Feb 07, 2017 at 19:57 Type of Consultation: Urology Referring Provider: YADIRA TORRES MD Detailed Summary Respiratory: No cough, No shortness of breath Cardiovascular: chest pain Gastrointestinal: no complaints Genitourinary: no complaints Musculoskeletal: bone/joint pain (right hip pain) Exam/Review of Systems Vital Signs Vitals Vital Signs Date Time Temp Pulse Resp B/P Pulse Ox O2 Delivery O2 Flow Rate FiO2 02/16/17 02:00 98.7 68 18 124/68 93 02/15/17 19:56 Nasal Cannula 2.0 Intake and Output 02/15/17 02/15/17 02/16/17 15:00 23:00 07:00 Intake Total 800 ml 400 ml 790 ml Output Total 1150 ml 550 ml Balance -350 ml -150 ml 790 ml Exam Neck: No jvd Respiratory: clear to auscultation Cardiovascular: regular rate and rhythm Gastrointestinal: soft Extremities: No edema (and no calf tend bilat) Results Result Diagram: 02/14/17 0640 02/14/17 0639 Medications Medications Current Medications Acetaminophen (Tylenol Tab) 650 mg Q6H PRN PO PAIN LEVEL 1-3 OR FEVER Last administered on 02/10/17 18:46; Admin Dose 650 MG; Start 02/07/17 at 21:00 Aspirin (Halfprin) 81 mg DAILY PO Last administered on 02/15/17 08:23; Admin Dose 81 MG; Start 02/08/17 at 09:00 Atorvastatin Calcium (Lipitor) 10 mg QHS PO Last administered on 02/15/17 20: 22; Admin Dose 10 MG; Start 02/07/17 at 21:00 Citalopram Hydrobromide (Celexa) 20 mg DAILY PO Last administered on 02/15/17 08:23; Admin Dose 20 MG; Start 02/08/17 at 09:00 Docusate Sodium (Colace) 100 mg Q12H PRN PO CONSTIPATION; Start 02/07/17 at 21: 00 Famotidine (Pepcid) 20 mg QHS PO Last administered on 02/15/17 20:21; Admin Dose 20 MG; Start 02/07/17 at 21:00 Acetaminophen/ Hydrocodone Bitart ([place] (5/325)) 1 tab TID PRN PO PAIN LEVEL 1 -5 Last administered on 02/15/17 18:42; Admin Dose 1 TAB; Start 02/07/17 at 21: 00 Magnesium Hydroxide (Milk Of Mag) 30 ml DAILY PRN PO CONSTIPATION Last administered on 02/13/17 07:22; Admin Dose 30 ML; Start 02/07/17 at 21:00 Metoprolol Tartrate (Lopressor) 25 mg BID PO Last administered on 02/15/17 20: 23; Admin Dose 25 MG; Start 02/07/17 at 21:00 Morphine Sulfate (morphine) 1 mg Q6H PRN IV SEVERE PAIN LEVEL 7-10; Start 02/07 at 21:00 Ondansetron HCl (Zofran Inj) 4 mg Q6H PRN IV NAUSEA AND/OR VOMITING; Start at 21:00 Tramadol HCl (Ultram) 50 mg Q6H PRN PO PAIN Last administered on 02/10/17 07: 47; Admin Dose 50 MG; Start 02/07/17 at 21:00 Docusate Sodium (Colace) 100 mg BID PO Last administered on 02/15/17 20:21; Admin Dose 100 MG; Start 02/08/17 at 09:00 Senna (Senokot) 1 tab HS PO Last administered on 02/15/17 20:21; Admin Dose 1 TAB; Start 02/08/17 at 21:00 Bisacodyl (Dulcolax Supp) 10 mg DAILY PRN [place] CONSTIPATION Last administered on 02/08/17 14:22; Admin Dose 10 MG; Start 02/07/17 at 21:30 Amlodipine Besylate (Norvasc) 5 mg BID PO Last administered on 02/15/17 08:23 ; Admin Dose 5 MG; Start 02/08/17 at 09:00 Quetiapine Fumarate (Seroquel) 25 mg DAILY PO Last administered on 02/15/17 08 :23; Admin Dose 25 MG; Start 02/12/17 at 09:30 Valsartan (Diovan) 80 mg DAILY PO Last administered on 02/15/17 08:22; Admin Dose 80 MG; Start 02/14/17 at 09:00 Alprazolam (Xanax) 0.25 mg TID PO Last administered on 02/15/17 20:22; Admin Dose 0.25 MG; Start 02/15/17 at 13:00 YADIRA TORRES MD Feb 16, 2017 07:41
[2017-02-16] MEDS: ALPRAZOLAM 0.25 MG TAB PO SCH ×3 (08:13→19:44)
[2017-02-16] MEDS: QUETIAPINE 25 MG TAB PO SCH (08:15)
[2017-02-16] MEDS: METOPROLOL 25 MG TAB PO SCH ×2 (08:15→19:49)
[2017-02-16] MEDS: AMLODIPINE 5 MG TAB PO SCH ×2 (08:16→19:44)
[2017-02-16] MEDS: CITALOPRAM 20 MG TAB PO SCH (08:17)
[2017-02-16] MEDS: VALSARTAN 80 MG TAB PO SCH (08:17)
[2017-02-16] MEDS: ASPIRIN (EC) 81 MG TAB PO SCH (08:18)
[2017-02-16] MEDS: DOCUSATE SODIUM 100 MG CAP PO SCH ×2 (08:18→19:43)
--- NOTE | 2017-02-16 12:40 | CONS ---
Date/Time of Note Date/Time of Note DATE: 02/16/17 TIME: 12:39 Consult Date/Type/Reason Admit Date/Time Feb 07, 2017 at 19:57 Type of Consultation: Urology Ordering Provider: YADIRA TORRES MD Objective Lungs clear abdomen soft Min assist 35 feet Vital Signs Date Time Temp Pulse Resp B/P Pulse Ox O2 Delivery O2 Flow Rate FiO2 02/16/17 08:00 Nasal Cannula 2.0 02/16/17 07:30 97.8 55 20 152/69 94 Intake and Output 02/15/17 02/15/17 02/16/17 15:00 23:00 07:00 Intake Total 800 ml 400 ml 790 ml Output Total 1150 ml 550 ml Balance -350 ml -150 ml 790 ml Results/Medications Result Diagram: 02/14/17 0640 02/14/17 0639 Medications Current Medications Acetaminophen (Tylenol Tab) 650 mg Q6H PRN PO PAIN LEVEL 1-3 OR FEVER Last administered on 02/10/17 18:46; Admin Dose 650 MG; Start 02/07/17 at 21:00 Aspirin (Halfprin) 81 mg DAILY PO Last administered on 02/16/17 08:18; Admin Dose 81 MG; Start 02/08/17 at 09:00 Atorvastatin Calcium (Lipitor) 10 mg QHS PO Last administered on 02/15/17 20: 22; Admin Dose 10 MG; Start 02/07/17 at 21:00 Citalopram Hydrobromide (Celexa) 20 mg DAILY PO Last administered on 02/16/17 08:17; Admin Dose 20 MG; Start 02/08/17 at 09:00 Docusate Sodium (Colace) 100 mg Q12H PRN PO CONSTIPATION; Start 02/07/17 at 21: 00 Famotidine (Pepcid) 20 mg QHS PO Last administered on 02/15/17 20:21; Admin Dose 20 MG; Start 02/07/17 at 21:00 Acetaminophen/ Hydrocodone Bitart ([place] (5/325)) 1 tab TID PRN PO PAIN LEVEL 1 -5 Last administered on 02/15/17 18:42; Admin Dose 1 TAB; Start 02/07/17 at 21: 00 Magnesium Hydroxide (Milk Of Mag) 30 ml DAILY PRN PO CONSTIPATION Last administered on 02/13/17 07:22; Admin Dose 30 ML; Start 02/07/17 at 21:00 Metoprolol Tartrate (Lopressor) 25 mg BID PO Last administered on 02/16/17 08: 15; Admin Dose 25 MG; Start 02/07/17 at 21:00 Morphine Sulfate (morphine) 1 mg Q6H PRN IV SEVERE PAIN LEVEL 7-10; Start 02/07 at 21:00 Ondansetron HCl (Zofran Inj) 4 mg Q6H PRN IV NAUSEA AND/OR VOMITING; Start at 21:00 Tramadol HCl (Ultram) 50 mg Q6H PRN PO PAIN Last administered on 02/10/17 07: 47; Admin Dose 50 MG; Start 02/07/17 at 21:00 Docusate Sodium (Colace) 100 mg BID PO Last administered on 02/16/17 08:18; Admin Dose 100 MG; Start 02/08/17 at 09:00 Senna (Senokot) 1 tab HS PO Last administered on 02/15/17 20:21; Admin Dose 1 TAB; Start 02/08/17 at 21:00 Bisacodyl (Dulcolax Supp) 10 mg DAILY PRN [place] CONSTIPATION Last administered on 02/08/17 14:22; Admin Dose 10 MG; Start 02/07/17 at 21:30 Amlodipine Besylate (Norvasc) 5 mg BID PO Last administered on 02/16/17 08:16 ; Admin Dose 5 MG; Start 02/08/17 at 09:00 Quetiapine Fumarate (Seroquel) 25 mg DAILY PO Last administered on 02/16/17 08 :15; Admin Dose 25 MG; Start 02/12/17 at 09:30 Valsartan (Diovan) 80 mg DAILY PO Last administered on 02/16/17 08:17; Admin Dose 80 MG; Start 02/14/17 at 09:00 Alprazolam (Xanax) 0.25 mg TID PO Last administered on 02/16/17 12:37; Admin Dose 0.25 MG; Start 02/15/17 at 13:00 Assessment/Plan Additional Assessment/Plan Rehab- Right periprosthetic femoral fracture; Osteoarthritis with decreased range of motion in the shoulders. Patient is made excellent functional gains. Anticipate discharge home tomorrow with family Acute pain syndrome-continue current management Coronary artery disease. History of AVR. History of coagulopathy. History of IVC filter placement. History of intracerebral hemorrhage Hypercholesterolemia. Sleep apnea. MIKEL LEDEZMA MD Feb 16, 2017 12:40
--- NOTE | 2017-02-16 15:55 | PN ---
Date/Time of Note Date/Time of Note DATE: 02/16/17 TIME: 15:50 Assessment/Plan VTE Prophylaxis VTE Prophylaxis Intervention: ambulation Lines/Catheters [facility] Saline Lock Urinary Cath still in place: No Assessment/Plan Problems: (1) Periprosthetic fracture around internal prosthetic hip joint Assessment/Plan * Patient is pretty coherent during exam today. Answer to questions that are asked to make sense in her applicable. No signs of confusion on today's exam. * Patient was made aware that she will be discharged home after approval from momd teacher. When she is discharged it was discussed there be no prolonged weightbearing but weightbearing is allowed for transfer and going to the bathroom. Other than that it is recommended no weightbearing for an additional 6 weeks making it a total of 8 weeks status post injury. After 8 weeks, patient continues to do well with no discomfort she may weight-bear as tolerated likely with front wheeled walker. Precautions are had in regards to limited weightbearing secondary to patient's ongoing confusion, age with significant weakness to avoid potential repeat injury in regards to fall. Patient states understanding today and actually repeats the precautions back to me on exam. * From an orthopedic standpoint, patient is cleared to be discharged home with home health with weightbearing instructions. Weightbearing instructions were also discussed with physical therapist directly. Subjective 24 Hr Interval Summary Free Text/Dictation 86-year-old female who experienced a fall and suffered periprosthetic fracture to the right hip. After CT scan fracture is stable with no compromise to prosthesis. Consultation was had with orthopedic surgeon, Dr. Peña and surgery was not indicated at this time given presentation of fracture without complication. Patient has been in acute rehab unit since 02/07/2017 and continues to progress. She does have ongoing confusion secondary to dementia. Patient has been weightbearing with monitoring using front wheeled walker while performing physical therapy. Likely patient will be discharged from acute rehab facility soon. Exam/Review of Systems Vital Signs Vitals Vital Signs Date Time Temp Pulse Resp B/P Pulse Ox O2 Delivery O2 Flow Rate FiO2 02/16/17 08:00 Nasal Cannula 2.0 02/16/17 07:30 97.8 55 20 152/69 94 Intake and Output 02/15/17 02/15/17 02/16/17 15:00 23:00 07:00 Intake Total 800 ml 400 ml 790 ml Output Total 1150 ml 550 ml Balance -350 ml -150 ml 790 ml Exam * Patient is experiencing mild tenderness to palpation to the right hip. * Patient can fully extend and actively flex up to about 40-45. No pain with range of motion on exam today. Toes freely movable. * Normal sensory examination to light touch. * 2+ pedal pulses. * 4+/5 strength * Negative Homans sign Results Result Diagram: 02/14/17 0640 02/14/17 0639 Medications Medications Current Medications Acetaminophen (Tylenol Tab) 650 mg Q6H PRN PO PAIN LEVEL 1-3 OR FEVER Last administered on 02/10/17 18:46; Admin Dose 650 MG; Start 02/07/17 at 21:00 Aspirin (Halfprin) 81 mg DAILY PO Last administered on 02/16/17 08:18; Admin Dose 81 MG; Start 02/08/17 at 09:00 Atorvastatin Calcium (Lipitor) 10 mg QHS PO Last administered on 02/15/17 20: 22; Admin Dose 10 MG; Start 02/07/17 at 21:00 Citalopram Hydrobromide (Celexa) 20 mg DAILY PO Last administered on 02/16/17 08:17; Admin Dose 20 MG; Start 02/08/17 at 09:00 Docusate Sodium (Colace) 100 mg Q12H PRN PO CONSTIPATION; Start 02/07/17 at 21: 00 Famotidine (Pepcid) 20 mg QHS PO Last administered on 02/15/17 20:21; Admin Dose 20 MG; Start 02/07/17 at 21:00 Acetaminophen/ Hydrocodone Bitart ([place] (5/325)) 1 tab TID PRN PO PAIN LEVEL 1 -5 Last administered on 02/15/17 18:42; Admin Dose 1 TAB; Start 02/07/17 at 21: 00 Magnesium Hydroxide (Milk Of Mag) 30 ml DAILY PRN PO CONSTIPATION Last administered on 02/13/17 07:22; Admin Dose 30 ML; Start 02/07/17 at 21:00 Metoprolol Tartrate (Lopressor) 25 mg BID PO Last administered on 02/16/17 08: 15; Admin Dose 25 MG; Start 02/07/17 at 21:00 Morphine Sulfate (morphine) 1 mg Q6H PRN IV SEVERE PAIN LEVEL 7-10; Start 02/07 at 21:00 Ondansetron HCl (Zofran Inj) 4 mg Q6H PRN IV NAUSEA AND/OR VOMITING; Start at 21:00 Tramadol HCl (Ultram) 50 mg Q6H PRN PO PAIN Last administered on 02/10/17 07: 47; Admin Dose 50 MG; Start 02/07/17 at 21:00 Docusate Sodium (Colace) 100 mg BID PO Last administered on 02/16/17 08:18; Admin Dose 100 MG; Start 02/08/17 at 09:00 Senna (Senokot) 1 tab HS PO Last administered on 02/15/17 20:21; Admin Dose 1 TAB; Start 02/08/17 at 21:00 Bisacodyl (Dulcolax Supp) 10 mg DAILY PRN [place] CONSTIPATION Last administered on 02/08/17 14:22; Admin Dose 10 MG; Start 02/07/17 at 21:30 Amlodipine Besylate (Norvasc) 5 mg BID PO Last administered on 02/16/17 08:16 ; Admin Dose 5 MG; Start 02/08/17 at 09:00 Quetiapine Fumarate (Seroquel) 25 mg DAILY PO Last administered on 02/16/17 08 :15; Admin Dose 25 MG; Start 02/12/17 at 09:30 Valsartan (Diovan) 80 mg DAILY PO Last administered on 02/16/17 08:17; Admin Dose 80 MG; Start 02/14/17 at 09:00 Alprazolam (Xanax) 0.25 mg TID PO Last administered on 02/16/17 12:37; Admin Dose 0.25 MG; Start 02/15/17 at 13:00 BEN MERCADO PA-C Feb 16, 2017 15:54
--- NOTE | 2017-02-16 19:16 | PN ---
Date/Time of Note Date/Time of Note DATE: 02/16/17 TIME: 19:10 Assessment/Plan VTE Prophylaxis VTE Prophylaxis Intervention: ambulation Lines/Catheters IV [facility] Saline Lock Urinary Cath still in place: No Assessment/Plan Chief Complaint/Hosp Course 86-year-old female status post undisplaced fracture of the right hip that did not require any surgical intervention. The patient was having difficulty urinating mostly at night, however during the day she has been able to urinate with a small postvoid residual The patient has dementia and confusion. she was on 50 mg of Seroquel at bedtime and that may have been making her more sleepy and may have contributed to her retention at night. Therefore I stopped it and since then she has been voiding and have less postvoid residual. Will continue to monitor her postvoid residual and keep her off the Seroquel in the evening. Problems: Subjective 24 Hr Interval Summary Constitutional: no complaints Eyes: no complaints ENT: no complaints Respiratory: no complaints Cardiovascular: No chest pain Gastrointestinal: no complaints Genitourinary: other (voiding on her own), No bleeding Musculoskeletal: no complaints Skin: no complaints Neurologic: no complaints Endocrine: no complaints Exam/Review of Systems Vital Signs Vitals Vital Signs Date Time Temp Pulse Resp B/P Pulse Ox O2 Delivery O2 Flow Rate FiO2 02/16/17 08:00 Nasal Cannula 2.0 02/16/17 07:30 97.8 55 20 152/69 94 Intake and Output 02/15/17 02/15/17 02/16/17 15:00 23:00 07:00 Intake Total 800 ml 400 ml 790 ml Output Total 1150 ml 550 ml Balance -350 ml -150 ml 790 ml Exam Constitutional: alert Psych: anxiety, confusion Head: normocephalic Eyes: nl conjunctiva ENMT: nl external ears & nose Neck: supple Respiratory: normal air movement Cardiovascular: No edema Gastrointestinal: soft Genitourinary - Female: other (PVR by bladder scan:181ml,120ml,30ml....No retention) Musculoskeletal: nl extremities to inspection Extremities: No calf tenderness, No edema Results Result Diagram: 02/14/17 0640 02/14/17 0639 Medications Medications Current Medications Acetaminophen (Tylenol Tab) 650 mg Q6H PRN PO PAIN LEVEL 1-3 OR FEVER Last administered on 02/10/17 18:46; Admin Dose 650 MG; Start 02/07/17 at 21:00 Aspirin (Halfprin) 81 mg DAILY PO Last administered on 02/16/17 08:18; Admin Dose 81 MG; Start 02/08/17 at 09:00 Atorvastatin Calcium (Lipitor) 10 mg QHS PO Last administered on 02/15/17 20: 22; Admin Dose 10 MG; Start 02/07/17 at 21:00 Citalopram Hydrobromide (Celexa) 20 mg DAILY PO Last administered on 02/16/17 08:17; Admin Dose 20 MG; Start 02/08/17 at 09:00 Docusate Sodium (Colace) 100 mg Q12H PRN PO CONSTIPATION; Start 02/07/17 at 21: 00 Famotidine (Pepcid) 20 mg QHS PO Last administered on 02/15/17 20:21; Admin Dose 20 MG; Start 02/07/17 at 21:00 Acetaminophen/ Hydrocodone Bitart ([place] (5/325)) 1 tab TID PRN PO PAIN LEVEL 1 -5 Last administered on 02/15/17 18:42; Admin Dose 1 TAB; Start 02/07/17 at 21: 00 Magnesium Hydroxide (Milk Of Mag) 30 ml DAILY PRN PO CONSTIPATION Last administered on 02/13/17 07:22; Admin Dose 30 ML; Start 02/07/17 at 21:00 Metoprolol Tartrate (Lopressor) 25 mg BID PO Last administered on 02/16/17 08: 15; Admin Dose 25 MG; Start 02/07/17 at 21:00 Morphine Sulfate (morphine) 1 mg Q6H PRN IV SEVERE PAIN LEVEL 7-10; Start 02/07 at 21:00 Ondansetron HCl (Zofran Inj) 4 mg Q6H PRN IV NAUSEA AND/OR VOMITING; Start at 21:00 Tramadol HCl (Ultram) 50 mg Q6H PRN PO PAIN Last administered on 02/10/17 07: 47; Admin Dose 50 MG; Start 02/07/17 at 21:00 Docusate Sodium (Colace) 100 mg BID PO Last administered on 02/16/17 08:18; Admin Dose 100 MG; Start 02/08/17 at 09:00 Senna (Senokot) 1 tab HS PO Last administered on 02/15/17 20:21; Admin Dose 1 TAB; Start 02/08/17 at 21:00 Bisacodyl (Dulcolax Supp) 10 mg DAILY PRN [place] CONSTIPATION Last administered on 02/08/17 14:22; Admin Dose 10 MG; Start 02/07/17 at 21:30 Amlodipine Besylate (Norvasc) 5 mg BID PO Last administered on 02/16/17 08:16 ; Admin Dose 5 MG; Start 02/08/17 at 09:00 Quetiapine Fumarate (Seroquel) 25 mg DAILY PO Last administered on 02/16/17 08 :15; Admin Dose 25 MG; Start 02/12/17 at 09:30 Valsartan (Diovan) 80 mg DAILY PO Last administered on 02/16/17 08:17; Admin Dose 80 MG; Start 02/14/17 at 09:00 Alprazolam (Xanax) 0.25 mg TID PO Last administered on 02/16/17 12:37; Admin Dose 0.25 MG; Start 02/15/17 at 13:00 CHARANJIT MILLARD MD Feb 16, 2017 19:16
[2017-02-16] MEDS: ATORVASTATIN 10 MG TAB PO SCH (19:44)
[2017-02-16] MEDS: SENNA TAB PO SCH (19:44)
[2017-02-16] MEDS: traMADol 50 MG TAB PO PRN (19:44)
[2017-02-16 19:49] VITALS: BP 134/63; PULSE 71; RESP 16
[2017-02-16] MEDS: FAMOTIDINE 20 MG TAB PO SCH (19:49)
[2017-02-16 20:00] VITALS: BP 124/62; RESP 18
[2017-02-17 01:35] VITALS: BP 135/68; PULSE 70; RESP 16
[2017-02-17 02:00] VITALS: BP 135/68; RESP 18
[2017-02-17 06:50] LABS: BASOPHILS % 0.5 % (0.0-2.0); EOSINOPHILS # 0.2 10^3/ul (0.0-0.5); EOSINOPHILS % 2.4 % (0.0-7.0); HEMATOCRIT 36.6 % (37.0-47.0); HEMOGLOBIN 11.2 g/dl (12.0-16.0); LYMPHOCYTES # 1.4 10^3/ul (0.8-2.9); LYMPHOCYTES % 18.4 % (15.0-51.0); MEAN CORPUSCULAR HEMOGLOBIN 27.5 pg (29.0-33.0); MEAN CORPUSCULAR HGB CONC 30.6 g/dl (32.0-37.0); MEAN CORPUSCULAR VOLUME 89.7 fl (82.0-101.0); MEAN PLATELET VOLUME 10.1 fl (7.4-10.4); MONOCYTE # 0.7 10^3/ul (0.3-0.9); MONOCYTES % 8.3 % (0.0-11.0); NEUTROPHILS % 69.9 % (39.0-77.0); PLATELET COUNT 269 10^3/UL (140-415); RED BLOOD COUNT 4.08 10^6/ul (4.20-5.40); RED CELL DISTRIBUTION WIDTH 14.6 % (11.5-14.5); WHITE BLOOD COUNT 7.8 10^3/ul (4.8-10.8)
[2017-02-17 07:30] LABS: CALCIUM 9.2 mg/dl (8.4-10.2); CREATININE 0.69 mg/dl (0.44-1.00); MAGNESIUM 2.2 mg/dl (1.7-2.5); POTASSIUM 4.8 mmol/L (3.5-5.1)
[2017-02-17 08:00] VITALS: BP 140/69; RESP 18
--- NOTE | 2017-02-17 08:18 | CONS ---
Date/Time of Note Date/Time of Note DATE: 02/17/17 TIME: 08:13 Assessment/Plan Assessment/Plan Additional Assessment/Plan 1. Pt had a fall last night and now inc right hip pain. Xray was ordered and will rev with ortho whether surgical intervention is reasonable to get her mobile (weight baring) quicker although her post op course will be difficult to manage given her dementia and risk of surgery is not insignificant. 2. Her anxiety and confusion remain problematic. Seroquel was resumed as this has been beneficial in the past and will add klonopin bid and xanax prn. 3. Known CAD, HBP, coagulopathy, all quiescent. 4. COPD, with now few wheezes, bronchodilator rx started and will obtain cxr and check o2 sat. Consultation Date/Type/Reason Admit Date/Time Feb 07, 2017 at 19:57 Type of Consultation: Urology Referring Provider: YADIRA TORRES MD Detailed Summary Respiratory: cough (is mild and not productive) Cardiovascular: No chest pain Gastrointestinal: no complaints Genitourinary: no complaints Musculoskeletal: bone/joint pain (c/o inc right hip pain) Exam/Review of Systems Vital Signs Vitals Vital Signs Date Time Temp Pulse Resp B/P Pulse Ox O2 Delivery O2 Flow Rate FiO2 02/17/17 08:00 98.9 69 18 140/69 94 02/17/17 01:35 Nasal Cannula 2.0 Intake and Output 02/16/17 02/16/17 02/17/17 15:00 23:00 07:00 Intake Total 1000 ml 750 ml Balance 1000 ml 750 ml Exam Neck: No jvd Respiratory: other (few wheezes noted ant without rales) Cardiovascular: regular rate and rhythm Gastrointestinal: soft Extremities: edema (and no calf tend bilat) Results Result Diagram: 02/17/17 0613 02/17/17 0613 Results 24 hrs Laboratory Tests Test 02/17/17 06:13 White Blood Count 7.8 # Red Blood Count 4.08 L Hemoglobin 11.2 L Hematocrit 36.6 L Mean Corpuscular Volume 89.7 Mean Corpuscular Hemoglobin 27.5 L Mean Corpuscular Hemoglobin Concent 30.6 L Red Cell Distribution Width 14.6 H Platelet Count 269 Mean Platelet Volume 10.1 Neutrophils % 69.9 Lymphocytes % 18.4 Monocytes % 8.3 Eosinophils % 2.4 Basophils % 0.5 Nucleated Red Blood Cells % 0.0 Neutrophils # (Manual) 5.4 Lymphocytes # 1.4 Monocytes # 0.7 Eosinophils # 0.2 Basophils # 0.0 Nucleated Red Blood Cells # 0.0 Sodium Level 137 Potassium Level 4.8 Chloride Level 102 Carbon Dioxide Level 25 Anion Gap 15 Blood Urea Nitrogen 28 H Creatinine 0.69 Glucose Level 82 Calcium Level 9.2 Phosphorus Level 4.0 Magnesium Level 2.2 Medications Medications Current Medications Acetaminophen (Tylenol Tab) 650 mg Q6H PRN PO PAIN LEVEL 1-3 OR FEVER Last administered on 02/10/17 18:46; Admin Dose 650 MG; Start 02/07/17 at 21:00 Aspirin (Halfprin) 81 mg DAILY PO Last administered on 02/16/17 08:18; Admin Dose 81 MG; Start 02/08/17 at 09:00 Atorvastatin Calcium (Lipitor) 10 mg QHS PO Last administered on 02/16/17 19: 44; Admin Dose 10 MG; Start 02/07/17 at 21:00 Citalopram Hydrobromide (Celexa) 20 mg DAILY PO Last administered on 02/16/17 08:17; Admin Dose 20 MG; Start 02/08/17 at 09:00 Docusate Sodium (Colace) 100 mg Q12H PRN PO CONSTIPATION; Start 02/07/17 at 21: 00 Famotidine (Pepcid) 20 mg QHS PO Last administered on 02/16/17 19:49; Admin Dose 20 MG; Start 02/07/17 at 21:00 Acetaminophen/ Hydrocodone Bitart ([place] (5/325)) 1 tab TID PRN PO PAIN LEVEL 1 -5 Last administered on 02/15/17 18:42; Admin Dose 1 TAB; Start 02/07/17 at 21: 00 Magnesium Hydroxide (Milk Of Mag) 30 ml DAILY PRN PO CONSTIPATION Last administered on 02/13/17 07:22; Admin Dose 30 ML; Start 02/07/17 at 21:00 Metoprolol Tartrate (Lopressor) 25 mg BID PO Last administered on 02/16/17 19: 49; Admin Dose 25 MG; Start 02/07/17 at 21:00 Morphine Sulfate (morphine) 1 mg Q6H PRN IV SEVERE PAIN LEVEL 7-10; Start 02/07 at 21:00 Ondansetron HCl (Zofran Inj) 4 mg Q6H PRN IV NAUSEA AND/OR VOMITING; Start at 21:00 Tramadol HCl (Ultram) 50 mg Q6H PRN PO PAIN Last administered on 02/16/17 19: 44; Admin Dose 50 MG; Start 02/07/17 at 21:00 Docusate Sodium (Colace) 100 mg BID PO Last administered on 02/16/17 19:43; Admin Dose 100 MG; Start 02/08/17 at 09:00 Senna (Senokot) 1 tab HS PO Last administered on 02/16/17 19:44; Admin Dose 1 TAB; Start 02/08/17 at 21:00 Bisacodyl (Dulcolax Supp) 10 mg DAILY PRN [place] CONSTIPATION Last administered on 02/08/17 14:22; Admin Dose 10 MG; Start 02/07/17 at 21:30 Amlodipine Besylate (Norvasc) 5 mg BID PO Last administered on 02/16/17 19:44 ; Admin Dose 5 MG; Start 02/08/17 at 09:00 Valsartan (Diovan) 80 mg DAILY PO Last administered on 02/16/17 08:17; Admin Dose 80 MG; Start 02/14/17 at 09:00 Alprazolam (Xanax) 0.25 mg TID PO Last administered on 02/16/17 19:44; Admin Dose 0.25 MG; Start 02/15/17 at 13:00 Quetiapine Fumarate (Seroquel) 50 mg HS PO ; Start 02/17/17 at 21:00 YADIRA TORRES MD Feb 17, 2017 08:18
[2017-02-17] MEDS: CITALOPRAM 20 MG TAB PO SCH (08:45)
[2017-02-17] MEDS: HYDROCODONE/APAP (5/325) TAB PO PRN ×2 (08:45→15:59)
[2017-02-17] MEDS: MAGNESIUM HYDROXIDE 30ML CUP PO PRN (08:45)
[2017-02-17] MEDS: DOCUSATE SODIUM 100 MG CAP PO SCH ×2 (08:45→20:31)
[2017-02-17] MEDS: ALPRAZOLAM 0.25 MG TAB PO PRN ×2 (08:46→14:50)
[2017-02-17] MEDS: VALSARTAN 80 MG TAB PO SCH (08:46)
[2017-02-17] MEDS: AMLODIPINE 5 MG TAB PO SCH ×2 (08:46→20:32)
[2017-02-17] MEDS: ASPIRIN (EC) 81 MG TAB PO SCH (08:47)
[2017-02-17] MEDS: METOPROLOL 25 MG TAB PO SCH ×2 (08:47→20:32)
--- NOTE | 2017-02-17 09:39 | RADRPT ---
PROCEDURE: XR Hip 1 Views. CLINICAL INDICATION: Left hip pain and trauma. TECHNIQUE: AP view of the left hip was performed. COMPARISON: None. FINDINGS: Osteopenia is identified. The osseous structures appear intact. No destructive bony lesions are ob served. Severe narrowing of the left hip joint is observed. Vascular calcifications are seen in th e left pelvis. IMPRESSION: No visualized traumatic injury. Osteopenia. Severe osteoarthritis of the left hip. Vascular calcifications. If there is high clinical suspicion for traumatic injury, further evaluation with CT should be consi dered. RPTAT: AA .Paul Schmidt MD, MD Date Time Electronically viewed and signed by .Paul Schmidt MD, on 02/17/2017 09:39 .P/
[2017-02-17] MEDS: LEVALBUTEROL (NEB) 0.31 MG/3 ML AMP HHN SCH ×3 (10:00→17:16)
[2017-02-17] MEDS: IPRATROPIUM (NEB) 0.5 MG/2.5 ML AMP HHN SCH ×3 (10:54→17:15)
[2017-02-17] MEDS: clonAZEPAM 0.5 MG TAB PO SCH ×2 (11:20→20:31)
--- NOTE | 2017-02-17 11:59 | CONS ---
Date/Time of Note Date/Time of Note DATE: 02/17/17 TIME: 11:58 Consult Date/Type/Reason Admit Date/Time Feb 07, 2017 at 19:57 Type of Consultation: Urology Ordering Provider: YADIRA TORRES MD Subjective RN reports patient had an assisted fall while at commode Objective pullm-cta confused Vital Signs Date Time Temp Pulse Resp B/P Pulse Ox O2 Delivery O2 Flow Rate FiO2 02/17/17 10:56 68 18 94 Nasal Cannula 2.0 02/17/17 08:00 98.9 140/69 Intake and Output 02/16/17 02/16/17 02/17/17 15:00 23:00 07:00 Intake Total 1000 ml 750 ml Balance 1000 ml 750 ml Results/Medications Result Diagram: 02/17/17 0613 02/17/17 0613 Results 24 hrs Laboratory Tests Test 02/17/17 06:13 White Blood Count 7.8 # Red Blood Count 4.08 L Hemoglobin 11.2 L Hematocrit 36.6 L Mean Corpuscular Volume 89.7 Mean Corpuscular Hemoglobin 27.5 L Mean Corpuscular Hemoglobin Concent 30.6 L Red Cell Distribution Width 14.6 H Platelet Count 269 Mean Platelet Volume 10.1 Neutrophils % 69.9 Lymphocytes % 18.4 Monocytes % 8.3 Eosinophils % 2.4 Basophils % 0.5 Nucleated Red Blood Cells % 0.0 Neutrophils # (Manual) 5.4 Lymphocytes # 1.4 Monocytes # 0.7 Eosinophils # 0.2 Basophils # 0.0 Nucleated Red Blood Cells # 0.0 Sodium Level 137 Potassium Level 4.8 Chloride Level 102 Carbon Dioxide Level 25 Anion Gap 15 Blood Urea Nitrogen 28 H Creatinine 0.69 Glucose Level 82 Calcium Level 9.2 Phosphorus Level 4.0 Magnesium Level 2.2 Medications Current Medications Acetaminophen (Tylenol Tab) 650 mg Q6H PRN PO PAIN LEVEL 1-3 OR FEVER Last administered on 02/10/17 18:46; Admin Dose 650 MG; Start 02/07/17 at 21:00 Aspirin (Halfprin) 81 mg DAILY PO Last administered on 02/17/17 08:47; Admin Dose 81 MG; Start 02/08/17 at 09:00 Atorvastatin Calcium (Lipitor) 10 mg QHS PO Last administered on 02/16/17 19: 44; Admin Dose 10 MG; Start 02/07/17 at 21:00 Citalopram Hydrobromide (Celexa) 20 mg DAILY PO Last administered on 02/17/17 08:45; Admin Dose 20 MG; Start 02/08/17 at 09:00 Docusate Sodium (Colace) 100 mg Q12H PRN PO CONSTIPATION; Start 02/07/17 at 21: 00 Famotidine (Pepcid) 20 mg QHS PO Last administered on 02/16/17 19:49; Admin Dose 20 MG; Start 02/07/17 at 21:00 Acetaminophen/ Hydrocodone Bitart ([place] (5/325)) 1 tab TID PRN PO PAIN LEVEL 1 -5 Last administered on 02/17/17 08:45; Admin Dose 1 TAB; Start 02/07/17 at 21: 00 Magnesium Hydroxide (Milk Of Mag) 30 ml DAILY PRN PO CONSTIPATION Last administered on 02/17/17 08:45; Admin Dose 30 ML; Start 02/07/17 at 21:00 Metoprolol Tartrate (Lopressor) 25 mg BID PO Last administered on 02/17/17 08: 47; Admin Dose 25 MG; Start 02/07/17 at 21:00 Morphine Sulfate (morphine) 1 mg Q6H PRN IV SEVERE PAIN LEVEL 7-10; Start 02/07 at 21:00 Ondansetron HCl (Zofran Inj) 4 mg Q6H PRN IV NAUSEA AND/OR VOMITING; Start at 21:00 Tramadol HCl (Ultram) 50 mg Q6H PRN PO PAIN Last administered on 02/16/17 19: 44; Admin Dose 50 MG; Start 02/07/17 at 21:00 Docusate Sodium (Colace) 100 mg BID PO Last administered on 02/17/17 08:45; Admin Dose 100 MG; Start 02/08/17 at 09:00 Senna (Senokot) 1 tab HS PO Last administered on 02/16/17 19:44; Admin Dose 1 TAB; Start 02/08/17 at 21:00 Bisacodyl (Dulcolax Supp) 10 mg DAILY PRN [place] CONSTIPATION Last administered on 02/08/17 14:22; Admin Dose 10 MG; Start 02/07/17 at 21:30 Amlodipine Besylate (Norvasc) 5 mg BID PO Last administered on 02/17/17 08:46 ; Admin Dose 5 MG; Start 02/08/17 at 09:00 Valsartan (Diovan) 80 mg DAILY PO Last administered on 02/17/17 08:46; Admin Dose 80 MG; Start 02/14/17 at 09:00 Quetiapine Fumarate (Seroquel) 50 mg HS PO ; Start 02/17/17 at 21:00 Alprazolam (Xanax) 0.25 mg TID PRN PO ANXIETY Last administered on 02/17/17 08 :46; Admin Dose 0.25 MG; Start 02/17/17 at 08:30 Clonazepam (Klonopin) 0.25 mg BID PO ; Start 02/17/17 at 10:00 Assessment/Plan Additional Assessment/Plan Rehab- Right periprosthetic femoral fracture; Osteoarthritis with decreased range of motion in the shoulders, now s/p assist fall await xray. Acute pain syndrome-continue current management Coronary artery disease. History of AVR. History of coagulopathy. History of IVC filter placement. History of intracerebral hemorrhage Hypercholesterolemia. Sleep apnea. MIKEL LEDEZMA MD Feb 17, 2017 11:58
--- NOTE | 2017-02-17 14:02 | RADRPT ---
PROCEDURE: XR Chest. CLINICAL INDICATION: Chest pain and wheezing. TECHNIQUE: Single AP portable chest. COMPARISON: 02/02/2017 Chest x-ray FINDINGS: The cardiomediastinal silhouette is within normal limits of size. Sternotomy wires in place. Marked tortuosity and ectasia of the thoracic aorta. Mild chronic elevation of the right hemidiaphragm. Surgical clips in the right axillary region Atherosclerotic calcification of the aorta. The lungs a re clear without pleural effusion or focal consolidation. No pneumothorax. The osseous structures a nd soft tissues are unremarkable. IMPRESSION: 1. No evidence for active cardiopulmonary disease. RPTAT:AAJJ Physician Maikol Date Time Electronically viewed and signed by Physician Maikol on 02/17/2017 14:01 ARLENE/
--- NOTE | 2017-02-17 14:07 | RADRPT ---
PROCEDURE: XR Hip. CLINICAL INDICATION: Comparison/Monitoring of periprosthetic fractue after fall TECHNIQUE: AP and frog lateral views of the right hip were performed. COMPARISON: Comparison is made to the prior extremity CT of 02/03/2017. And right hip x-ray 2008. FINDINGS: There is a minimally displaced comminuted fracture of the greater trochanter. The age of this is unc ertain correlate with clinical history. The hip prosthesis is otherwise intact. No pelvic fracture. IMPRESSION: Comminuted minimally displaced fracture of the greater trochanter of uncertain age. Correlate with clinical history. The total hip prosthesis is otherwise intact. RPTAT:AAJJ Physician Maikol Date Time Electronically viewed and signed by Physician Maikol on 02/17/2017 14:06 ARLENE/
--- NOTE | 2017-02-17 14:16 | QN ---
Documentation Comment This is an 86-year-old female with right hip periprosthetic fracture that occurred about 2-3 weeks ago. Patient has been in [facility] rehab facility for the past 2 weeks. Patient has had improvement although it is difficult to get accurate history and description of symptoms given patient's ongoing state of confusion secondary to dementia. X-ray and CT of the hip performed when she was initially admitted showing minimally displaced periprosthetic fracture with prosthesis intact. Consultation was had with Dr. Alexander Peña who deemed surgical intervention is not necessary due to stability with limited abnormality of periprosthetic fracture. Patient has been placed on minimal weightbearing, which has improved over time. Patient was scheduled to be discharged on 02/17/2017 before experiencing incidental fall on 02/16/2017 while going to the bathroom. Patient did have complaints of pain to the hip. Repeat x-rays were ordered but error and x-rays as the left hip was performed. I ordered repeat x-rays of the right hip so that comparison with updated x-rays versus previous x-rays to show if there is been any displacement or worsening of periprosthetic fracture. Direct over the phone consultation with radiologist, Dr. Delcid, was had today and it was stated that there is no change in presentation of fracture after recent fall. This was also communicated to harbor tug captain, Dr. Xiao. Discussed with Dr. Peña who requests second opinion as well as CT scan. Stat CT scan without contrast was ordered. Second opinion with Dr. Espinosa was had in regards to imaging review. After review and patient's history he recommends touchdown weightbearing with stated abduction brace and assisted weightbearing with front wheeled walker for transferring or going to the bathroom. Original precautions are still had in regards to nonweightbearing up until 8 weeks after original injury. This was also communicated to the nurse Melanie and Dr. Xiao made aware. BEN MERCADO PA-C Feb 17, 2017 14:16
--- NOTE | 2017-02-17 16:09 | RADRPT ---
AMENDMENT: 02/25/2017 11:38:26 PM Rosalina Lincoln M.D One or more of the following dose reduction techniques were used: - Automated exposure control. - Adjustment of the mA and/or kV according to patient size. - Use of iterative reconstruction technique. PROCEDURE: CT right hip without contrast CLINICAL INDICATION: 86 years of age, female. Trauma, pain. Evaluate periprosthetic fracture TECHNIQUE: A noncontrast CT of the right hip was performed. Coronal and sagittal reformats were g enerated. CTDIvol: 65 mGy. DLP: 2772 mGy-cm. COMPARISON: Right hip x-rays from earlier the same day FINDINGS: There is a noncemented right total hip replacement that is anatomically aligned. There is an acute mildly displaced periprosthetic fracture involving the subtrochanteric femur extending to the femora l stem. Fracture involves the lateral and posterior cortex. Orthopedic hardware is intact. Bones are osteopenic. No other acute fractures are identified. There is mild heterotopic ossificat ion lateral to the right acetabular roof. Symphysis pubis osteoarthritis.. There is soft tissue swelling lateral to the right hip. Negative for a hematoma. There is vascular calcification of the right iliac and femoral vessels. Limited evaluation of the p ricky demonstrates diverticulosis. IMPRESSION: Right total hip replacement with an acute periprosthetic fracture of the subtrochanteric proximal ri ght femur extending to the femoral stem. RPTAT: HCTS Physician Karla Date Time Electronically viewed and signed by Physician Karla on 02/25/2017 23:39 /
--- NOTE | 2017-02-17 18:23 | PN ---
Date/Time of Note Date/Time of Note DATE: 02/17/17 TIME: 18:08 Assessment/Plan VTE Prophylaxis VTE Prophylaxis Intervention: ambulation, other (Aspirin) Lines/Catheters IV Catheter Type (from [facility]): [facility] Urinary Cath still in place: No Assessment/Plan Chief Complaint/Hosp Course 86-year-old female status post undisplaced fracture of the right hip that did not require any surgical intervention. The patient had a fall last night and x- rays of the hip were taken as well as a CT scan. Orthopedic reevaluation was requested by Dr. Xiao The patient has dementia and confusion. The Seroquel was renewed today. The patient has been voiding and the postvoid residual has been between 64 mL and 90 mL. Problems: Subjective 24 Hr Interval Summary Constitutional: no complaints Eyes: no complaints ENT: no complaints Respiratory: no complaints Gastrointestinal: no complaints Genitourinary: other (Voiding in the bathroom and postvoid residual is small) Musculoskeletal: other (Patient had a fall last night) Skin: No bruising Neurologic: confusion Exam/Review of Systems Vital Signs Vitals Vital Signs Date Time Temp Pulse Resp B/P Pulse Ox O2 Delivery O2 Flow Rate FiO2 02/17/17 17:16 68 18 92 21 02/17/17 10:56 Nasal Cannula 2.0 02/17/17 08:00 98.9 140/69 Intake and Output 02/16/17 02/16/17 02/17/17 15:00 23:00 07:00 Intake Total 1000 ml 750 ml Balance 1000 ml 750 ml Exam Psych: anxiety, confusion Head: atraumatic Eyes: nl conjunctiva ENMT: nl external ears & nose Neck: supple Respiratory: normal air movement Gastrointestinal: soft Genitourinary - Female: other (Patient voiding on her own and her postvoid residual has been 64 mL, 86 mL, 90 mL), No CVA tenderness Musculoskeletal: nl extremities to inspection Results Hip xray No visualized traumatic injury. Osteopenia. Severe osteoarthritis of the left hip. Vascular calcifications. If there is high clinical suspicion for traumatic injury, further evaluation with CT should be considered. Repeated Hip X Ray: IMPRESSION: Comminuted minimally displaced fracture of the greater trochanter of uncertain age. Correlate with clinical history. The total hip prosthesis is otherwise intact. RPTAT:AAJJ Physician Maikol Date Time Electronically viewed and signed by Physician Maikol on 02/17/2017 14:06 ARLENE/ CC: BEN MERCADO PA-C CT scan : FINDINGS: There is a noncemented right total hip replacement that is anatomically aligned. There is an acute mildly displaced periprosthetic fracture involving the subtrochanteric femur extending to the femoral stem. Fracture involves the lateral and posterior cortex. Orthopedic hardware is intact. Bones are osteopenic. No other acute fractures are identified. There is mild heterotopic ossification lateral to the right acetabular roof. Symphysis pubis osteoarthritis.. There is soft tissue swelling lateral to the right hip. Negative for a hematoma. There is vascular calcification of the right iliac and femoral vessels. Limited evaluation of the pelvis demonstrates diverticulosis. IMPRESSION: Right total hip replacement with an acute periprosthetic fracture of the subtrochanteric proximal right femur extending to the femoral stem. RPTAT: HCTS Physician Karla Date Time Electronically viewed and signed by Physician Karla on 02/17/2017 16: 09 CS/ Result Diagram: 02/17/17 0613 02/17/17 0613 Results 24 hrs Laboratory Tests Test 02/17/17 06:13 White Blood Count 7.8 # Red Blood Count 4.08 L Hemoglobin 11.2 L Hematocrit 36.6 L Mean Corpuscular Volume 89.7 Mean Corpuscular Hemoglobin 27.5 L Mean Corpuscular Hemoglobin Concent 30.6 L Red Cell Distribution Width 14.6 H Platelet Count 269 Mean Platelet Volume 10.1 Neutrophils % 69.9 Lymphocytes % 18.4 Monocytes % 8.3 Eosinophils % 2.4 Basophils % 0.5 Nucleated Red Blood Cells % 0.0 Neutrophils # (Manual) 5.4 Lymphocytes # 1.4 Monocytes # 0.7 Eosinophils # 0.2 Basophils # 0.0 Nucleated Red Blood Cells # 0.0 Sodium Level 137 Potassium Level 4.8 Chloride Level 102 Carbon Dioxide Level 25 Anion Gap 15 Blood Urea Nitrogen 28 H Creatinine 0.69 Glucose Level 82 Calcium Level 9.2 Phosphorus Level 4.0 Magnesium Level 2.2 Medications Medications Current Medications Acetaminophen (Tylenol Tab) 650 mg Q6H PRN PO PAIN LEVEL 1-3 OR FEVER Last administered on 02/10/17 18:46; Admin Dose 650 MG; Start 02/07/17 at 21:00 Aspirin (Halfprin) 81 mg DAILY PO Last administered on 02/17/17 08:47; Admin Dose 81 MG; Start 02/08/17 at 09:00 Atorvastatin Calcium (Lipitor) 10 mg QHS PO Last administered on 02/16/17 19: 44; Admin Dose 10 MG; Start 02/07/17 at 21:00 Citalopram Hydrobromide (Celexa) 20 mg DAILY PO Last administered on 02/17/17 08:45; Admin Dose 20 MG; Start 02/08/17 at 09:00 Docusate Sodium (Colace) 100 mg Q12H PRN PO CONSTIPATION; Start 02/07/17 at 21: 00 Famotidine (Pepcid) 20 mg QHS PO Last administered on 02/16/17 19:49; Admin Dose 20 MG; Start 02/07/17 at 21:00 Acetaminophen/ Hydrocodone Bitart ([place] (5/325)) 1 tab TID PRN PO PAIN LEVEL 1 -5 Last administered on 02/17/17 15:59; Admin Dose 1 TAB; Start 02/07/17 at 21: 00 Magnesium Hydroxide (Milk Of Mag) 30 ml DAILY PRN PO CONSTIPATION Last administered on 02/17/17 08:45; Admin Dose 30 ML; Start 02/07/17 at 21:00 Metoprolol Tartrate (Lopressor) 25 mg BID PO Last administered on 02/17/17 08: 47; Admin Dose 25 MG; Start 02/07/17 at 21:00 Morphine Sulfate (morphine) 1 mg Q6H PRN IV SEVERE PAIN LEVEL 7-10; Start 02/07 at 21:00 Ondansetron HCl (Zofran Inj) 4 mg Q6H PRN IV NAUSEA AND/OR VOMITING; Start at 21:00 Tramadol HCl (Ultram) 50 mg Q6H PRN PO PAIN Last administered on 02/16/17 19: 44; Admin Dose 50 MG; Start 02/07/17 at 21:00 Docusate Sodium (Colace) 100 mg BID PO Last administered on 02/17/17 08:45; Admin Dose 100 MG; Start 02/08/17 at 09:00 Senna (Senokot) 1 tab HS PO Last administered on 02/16/17 19:44; Admin Dose 1 TAB; Start 02/08/17 at 21:00 Bisacodyl (Dulcolax Supp) 10 mg DAILY PRN [place] CONSTIPATION Last administered on 02/08/17 14:22; Admin Dose 10 MG; Start 02/07/17 at 21:30 Amlodipine Besylate (Norvasc) 5 mg BID PO Last administered on 02/17/17 08:46 ; Admin Dose 5 MG; Start 02/08/17 at 09:00 Valsartan (Diovan) 80 mg DAILY PO Last administered on 02/17/17 08:46; Admin Dose 80 MG; Start 02/14/17 at 09:00 Quetiapine Fumarate (Seroquel) 50 mg HS PO ; Start 02/17/17 at 21:00 Alprazolam (Xanax) 0.25 mg TID PRN PO ANXIETY Last administered on 02/17/17 14 :50; Admin Dose 0.25 MG; Start 02/17/17 at 08:30 Clonazepam (Klonopin) 0.25 mg BID PO ; Start 02/17/17 at 10:00 CHARANJIT MILLARD MD Feb 17, 2017 18:21
[2017-02-17 20:00] VITALS: BP 134/68; RESP 18
[2017-02-17] MEDS: ATORVASTATIN 10 MG TAB PO SCH (20:31)
[2017-02-17] MEDS: QUETIAPINE 25 MG TAB PO SCH (20:31)
[2017-02-17] MEDS: SENNA TAB PO SCH (20:31)
[2017-02-17] MEDS: FAMOTIDINE 20 MG TAB PO SCH (20:33)
[2017-02-17] MEDS: BISACODYL 10 MG SUPP PR PRN (20:33)
[2017-02-18 07:30] VITALS: BP 152/70; RESP 20
[2017-02-18] MEDS: LEVALBUTEROL (NEB) 0.31 MG/3 ML AMP HHN SCH ×2 (08:29→13:00)
[2017-02-18] MEDS: IPRATROPIUM (NEB) 0.5 MG/2.5 ML AMP HHN SCH ×2 (08:29→13:00)
[2017-02-18] MEDS: DOCUSATE SODIUM 100 MG CAP PO SCH ×2 (09:34→20:27)
[2017-02-18] MEDS: ASPIRIN (EC) 81 MG TAB PO SCH (09:34)
[2017-02-18] MEDS: CITALOPRAM 20 MG TAB PO SCH (09:34)
[2017-02-18] MEDS: VALSARTAN 80 MG TAB PO SCH (09:35)
[2017-02-18] MEDS: AMLODIPINE 5 MG TAB PO SCH ×2 (09:35→20:28)
[2017-02-18] MEDS: METOPROLOL 25 MG TAB PO SCH ×2 (09:35→20:29)
[2017-02-18] MEDS: clonAZEPAM 0.5 MG TAB PO SCH ×2 (09:36→20:27)
--- NOTE | 2017-02-18 09:39 | CONS ---
Date/Time of Note Date/Time of Note DATE: 02/18/17 TIME: 09:37 Assessment/Plan Assessment/Plan Additional Assessment/Plan 1. Right hip fx, cont pt, dr lane to reeval monday, repeat xray following fall was unchanged. 2. Pul status is stable with nl exam today. 3. BP adequately controlled. 4. Agitation improved. Consultation Date/Type/Reason Admit Date/Time Feb 07, 2017 at 19:57 Type of Consultation: Urology Referring Provider: YADIRA TORRES MD Detailed Summary Respiratory: No cough Cardiovascular: No chest pain, No orthopenea Gastrointestinal: no complaints Genitourinary: no complaints Musculoskeletal: no complaints (sitting) Exam/Review of Systems Vital Signs Vitals Vital Signs Date Time Temp Pulse Resp B/P Pulse Ox O2 Delivery O2 Flow Rate FiO2 02/18/17 09:00 Nasal Cannula 2.0 02/18/17 08:29 74 20 96 02/18/17 07:30 98.6 152/70 02/17/17 17:16 21 Intake and Output 02/17/17 02/17/17 02/18/17 15:00 23:00 07:00 Intake Total 400 ml Output Total 600 ml Balance -200 ml Exam Neck: No jvd Respiratory: clear to auscultation Cardiovascular: regular rate and rhythm Gastrointestinal: soft Extremities: No edema (and no calf tend) Results Result Diagram: 02/17/1761202/17/17612 Medications Medications Current Medications Acetaminophen (Tylenol Tab) 650 mg Q6H PRN PO PAIN LEVEL 1-3 OR FEVER Last administered on 02/10/17 18:46; Admin Dose 650 MG; Start 02/07/17 at 21:00 Aspirin (Halfprin) 81 mg DAILY PO Last administered on 02/18/17 09:34; Admin Dose 81 MG; Start 02/08/17 at 09:00 Atorvastatin Calcium (Lipitor) 10 mg QHS PO Last administered on 02/17/17 20: 31; Admin Dose 10 MG; Start 02/07/17 at 21:00 Citalopram Hydrobromide (Celexa) 20 mg DAILY PO Last administered on 02/18/17 09:34; Admin Dose 20 MG; Start 02/08/17 at 09:00 Docusate Sodium (Colace) 100 mg Q12H PRN PO CONSTIPATION; Start 02/07/17 at 21: 00 Famotidine (Pepcid) 20 mg QHS PO Last administered on 02/17/17 20:33; Admin Dose 20 MG; Start 02/07/17 at 21:00 Acetaminophen/ Hydrocodone Bitart ([place] (5/325)) 1 tab TID PRN PO PAIN LEVEL 1 -5 Last administered on 02/17/17 15:59; Admin Dose 1 TAB; Start 02/07/17 at 21: 00 Magnesium Hydroxide (Milk Of Mag) 30 ml DAILY PRN PO CONSTIPATION Last administered on 02/17/17 08:45; Admin Dose 30 ML; Start 02/07/17 at 21:00 Metoprolol Tartrate (Lopressor) 25 mg BID PO Last administered on 02/18/17 09: 35; Admin Dose 25 MG; Start 02/07/17 at 21:00 Morphine Sulfate (morphine) 1 mg Q6H PRN IV SEVERE PAIN LEVEL 7-10; Start 02/07 at 21:00 Ondansetron HCl (Zofran Inj) 4 mg Q6H PRN IV NAUSEA AND/OR VOMITING; Start at 21:00 Tramadol HCl (Ultram) 50 mg Q6H PRN PO PAIN Last administered on 02/16/17 19: 44; Admin Dose 50 MG; Start 02/07/17 at 21:00 Docusate Sodium (Colace) 100 mg BID PO Last administered on 02/18/17 09:34; Admin Dose 100 MG; Start 02/08/17 at 09:00 Senna (Senokot) 1 tab HS PO Last administered on 02/17/17 20:31; Admin Dose 1 TAB; Start 02/08/17 at 21:00 Bisacodyl (Dulcolax Supp) 10 mg DAILY PRN [place] CONSTIPATION Last administered on 02/17/17 20:33; Admin Dose 10 MG; Start 02/07/17 at 21:30 Amlodipine Besylate (Norvasc) 5 mg BID PO Last administered on 02/18/17 09:35 ; Admin Dose 5 MG; Start 02/08/17 at 09:00 Valsartan (Diovan) 80 mg DAILY PO Last administered on 02/18/17 09:35; Admin Dose 80 MG; Start 02/14/17 at 09:00 Quetiapine Fumarate (Seroquel) 50 mg HS PO Last administered on 02/17/17 20:31 ; Admin Dose 50 MG; Start 02/17/17 at 21:00 Alprazolam (Xanax) 0.25 mg TID PRN PO ANXIETY Last administered on 02/17/17 14 :50; Admin Dose 0.25 MG; Start 02/17/17 at 08:30 Clonazepam (Klonopin) 0.25 mg BID PO Last administered on 02/18/17 09:36; Admin Dose 0.25 MG; Start 02/17/17 at 10:00 YADIRA TORRES MD Feb 18, 2017 09:39
--- NOTE | 2017-02-18 10:43 | CONS ---
Date/Time of Note Date/Time of Note DATE: 02/18/17 TIME: 10:41 Consult Date/Type/Reason Admit Date/Time Feb 07, 2017 at 19:57 Type of Consultation: Urology Ordering Provider: YADIRA TORRES MD Objective pulm-cta Vital Signs Date Time Temp Pulse Resp B/P Pulse Ox O2 Delivery O2 Flow Rate FiO2 02/18/17 09:00 Nasal Cannula 2.0 02/18/17 08:29 74 20 96 02/18/17 07:30 98.6 152/70 02/17/17 17:16 21 Intake and Output 02/17/17 02/17/17 02/18/17 15:00 23:00 07:00 Intake Total 400 ml Output Total 600 ml Balance -200 ml Results/Medications Result Diagram: 02/17/1761202/17/17 0613 Medications Current Medications Acetaminophen (Tylenol Tab) 650 mg Q6H PRN PO PAIN LEVEL 1-3 OR FEVER Last administered on 02/10/17 18:46; Admin Dose 650 MG; Start 02/07/17 at 21:00 Aspirin (Halfprin) 81 mg DAILY PO Last administered on 02/18/17 09:34; Admin Dose 81 MG; Start 02/08/17 at 09:00 Atorvastatin Calcium (Lipitor) 10 mg QHS PO Last administered on 02/17/17 20: 31; Admin Dose 10 MG; Start 02/07/17 at 21:00 Citalopram Hydrobromide (Celexa) 20 mg DAILY PO Last administered on 02/18/17 09:34; Admin Dose 20 MG; Start 02/08/17 at 09:00 Docusate Sodium (Colace) 100 mg Q12H PRN PO CONSTIPATION; Start 02/07/17 at 21: 00 Famotidine (Pepcid) 20 mg QHS PO Last administered on 02/17/17 20:33; Admin Dose 20 MG; Start 02/07/17 at 21:00 Acetaminophen/ Hydrocodone Bitart ([place] (5/325)) 1 tab TID PRN PO PAIN LEVEL 1 -5 Last administered on 02/17/17 15:59; Admin Dose 1 TAB; Start 02/07/17 at 21: 00 Magnesium Hydroxide (Milk Of Mag) 30 ml DAILY PRN PO CONSTIPATION Last administered on 02/17/17 08:45; Admin Dose 30 ML; Start 02/07/17 at 21:00 Metoprolol Tartrate (Lopressor) 25 mg BID PO Last administered on 02/18/17 09: 35; Admin Dose 25 MG; Start 02/07/17 at 21:00 Morphine Sulfate (morphine) 1 mg Q6H PRN IV SEVERE PAIN LEVEL 7-10; Start 02/07 at 21:00 Ondansetron HCl (Zofran Inj) 4 mg Q6H PRN IV NAUSEA AND/OR VOMITING; Start at 21:00 Tramadol HCl (Ultram) 50 mg Q6H PRN PO PAIN Last administered on 02/16/17 19: 44; Admin Dose 50 MG; Start 02/07/17 at 21:00 Docusate Sodium (Colace) 100 mg BID PO Last administered on 02/18/17 09:34; Admin Dose 100 MG; Start 02/08/17 at 09:00 Senna (Senokot) 1 tab HS PO Last administered on 02/17/17 20:31; Admin Dose 1 TAB; Start 02/08/17 at 21:00 Bisacodyl (Dulcolax Supp) 10 mg DAILY PRN [place] CONSTIPATION Last administered on 02/17/17 20:33; Admin Dose 10 MG; Start 02/07/17 at 21:30 Amlodipine Besylate (Norvasc) 5 mg BID PO Last administered on 02/18/17 09:35 ; Admin Dose 5 MG; Start 02/08/17 at 09:00 Valsartan (Diovan) 80 mg DAILY PO Last administered on 02/18/17 09:35; Admin Dose 80 MG; Start 02/14/17 at 09:00 Quetiapine Fumarate (Seroquel) 50 mg HS PO Last administered on 02/17/17 20:31 ; Admin Dose 50 MG; Start 02/17/17 at 21:00 Alprazolam (Xanax) 0.25 mg TID PRN PO ANXIETY Last administered on 02/17/17 14 :50; Admin Dose 0.25 MG; Start 02/17/17 at 08:30 Clonazepam (Klonopin) 0.25 mg BID PO Last administered on 02/18/17 09:36; Admin Dose 0.25 MG; Start 02/17/17 at 10:00 Assessment/Plan Additional Assessment/Plan Rehab- Right periprosthetic femoral fracture; Osteoarthritis with decreased range of motion in the shoulders. s/p assisted fall-no change on CT of hip Followed closely by ortho. Activities as tolerated with TTWB. DC held. Acute pain syndrome-continue current management Cognition- seroquel resumed, and patient calmer Coronary artery disease. History of AVR. History of coagulopathy. History of IVC filter placement. History of intracerebral hemorrhage Hypercholesterolemia. Sleep apnea. MIKEL LEDEZMA MD Feb 18, 2017 10:43
[2017-02-18] MEDS: ALPRAZOLAM 0.25 MG TAB PO PRN ×2 (12:33→18:20)
[2017-02-18 14:00] VITALS: BP 140/60; RESP 20
[2017-02-18 19:43] VITALS: BP 139/65; RESP 18
[2017-02-18] MEDS: SENNA TAB PO SCH (20:27)
[2017-02-18] MEDS: QUETIAPINE 25 MG TAB PO SCH (20:27)
[2017-02-18] MEDS: ATORVASTATIN 10 MG TAB PO SCH (20:27)
[2017-02-18] MEDS: FAMOTIDINE 20 MG TAB PO SCH (20:27)
[2017-02-19] MEDS: ALPRAZOLAM 0.25 MG TAB PO PRN ×2 (05:30→17:50)
[2017-02-19] MEDS: IPRATROPIUM (NEB) 0.5 MG/2.5 ML AMP HHN SCH ×3 (07:49→15:26)
[2017-02-19] MEDS: DOCUSATE SODIUM 100 MG CAP PO SCH ×2 (09:21→21:47)
[2017-02-19] MEDS: CITALOPRAM 20 MG TAB PO SCH (09:21)
[2017-02-19] MEDS: clonAZEPAM 0.5 MG TAB PO SCH ×2 (09:22→21:49)
[2017-02-19] MEDS: VALSARTAN 80 MG TAB PO SCH (09:22)
[2017-02-19] MEDS: ASPIRIN (EC) 81 MG TAB PO SCH (09:22)
[2017-02-19] MEDS: METOPROLOL 25 MG TAB PO SCH ×2 (09:23→21:00)
[2017-02-19] MEDS: AMLODIPINE 5 MG TAB PO SCH ×2 (09:24→21:00)
--- NOTE | 2017-02-19 09:42 | CONS ---
Date/Time of Note Date/Time of Note DATE: 02/19/17 TIME: 09:36 Assessment/Plan Assessment/Plan Additional Assessment/Plan 1. Status post right hip fracture dislocated await orthopedic follow-up tomorrow with respect to weightbearing and ultimate discharge home. 2. HBP that is well controlled. 3. Variable post void residuals in part related to her impaired cognition. Will monitor daily during daytime hours. 4. ASHD and Aortic valve replacement, stable Consultation Date/Type/Reason Admit Date/Time Feb 07, 2017 at 19:57 Type of Consultation: Urology Referring Provider: YADIRA TORRES MD 24 HR Interval Summary Free Text/Dictation The patient denies cough shortness of breath or chest pain. She denies nausea vomiting or abdominal pain. Some mild right thigh and lateral right hip pain. [place] again she has no idea as to why she is in the hospital. Denies urinary frequency dysuria flank pain fever or chills. Exam/Review of Systems Vital Signs Vitals Vital Signs Date Time Temp Pulse Resp B/P Pulse Ox O2 Delivery O2 Flow Rate FiO2 02/19/17 07:55 73 20 93 21 02/19/17 06:05 2.0 02/18/17 22:16 Nasal Cannula 02/18/17 19:43 98.9 139/65 Intake and Output 02/18/17 02/18/17 02/19/17 15:00 23:00 07:00 Intake Total 620 ml Balance 620 ml Exam Exam: Neck: There is no jugular venous distention thyroid enlargement or adenopathy. Lungs: Air to auscultation and percussion. Cor: M is regular there is no murmur third or fourth sound and no rub. Abdomen: Liver and spleen are not enlarged there is no tenderness. Extremities: There is no edema or calf tenderness. Results Result Diagram: 02/17/1761202/17/17612 Medications Medications Current Medications Acetaminophen (Tylenol Tab) 650 mg Q6H PRN PO PAIN LEVEL 1-3 OR FEVER Last administered on 02/10/17 18:46; Admin Dose 650 MG; Start 02/07/17 at 21:00 Aspirin (Halfprin) 81 mg DAILY PO Last administered on 02/19/17 09:22; Admin Dose 81 MG; Start 02/08/17 at 09:00 Atorvastatin Calcium (Lipitor) 10 mg QHS PO Last administered on 02/18/17 20: 27; Admin Dose 10 MG; Start 02/07/17 at 21:00 Citalopram Hydrobromide (Celexa) 20 mg DAILY PO Last administered on 02/19/17 09:21; Admin Dose 20 MG; Start 02/08/17 at 09:00 Docusate Sodium (Colace) 100 mg Q12H PRN PO CONSTIPATION; Start 02/07/17 at 21: 00 Famotidine (Pepcid) 20 mg QHS PO Last administered on 02/18/17 20:27; Admin Dose 20 MG; Start 02/07/17 at 21:00 Acetaminophen/ Hydrocodone Bitart ([place] (5/325)) 1 tab TID PRN PO PAIN LEVEL 1 -5 Last administered on 02/17/17 15:59; Admin Dose 1 TAB; Start 02/07/17 at 21: 00 Magnesium Hydroxide (Milk Of Mag) 30 ml DAILY PRN PO CONSTIPATION Last administered on 02/17/17 08:45; Admin Dose 30 ML; Start 02/07/17 at 21:00 Metoprolol Tartrate (Lopressor) 25 mg BID PO Last administered on 02/19/17 09: 23; Admin Dose 25 MG; Start 02/07/17 at 21:00 Morphine Sulfate (morphine) 1 mg Q6H PRN IV SEVERE PAIN LEVEL 7-10; Start 02/07 at 21:00 Ondansetron HCl (Zofran Inj) 4 mg Q6H PRN IV NAUSEA AND/OR VOMITING; Start at 21:00 Tramadol HCl (Ultram) 50 mg Q6H PRN PO PAIN Last administered on 02/16/17 19: 44; Admin Dose 50 MG; Start 02/07/17 at 21:00 Docusate Sodium (Colace) 100 mg BID PO Last administered on 02/19/17 09:21; Admin Dose 100 MG; Start 02/08/17 at 09:00 Senna (Senokot) 1 tab HS PO Last administered on 02/18/17 20:27; Admin Dose 1 TAB; Start 02/08/17 at 21:00 Bisacodyl (Dulcolax Supp) 10 mg DAILY PRN [place] CONSTIPATION Last administered on 02/17/17 20:33; Admin Dose 10 MG; Start 02/07/17 at 21:30 Amlodipine Besylate (Norvasc) 5 mg BID PO Last administered on 02/19/17 09:24 ; Admin Dose 5 MG; Start 02/08/17 at 09:00 Valsartan (Diovan) 80 mg DAILY PO Last administered on 02/19/17 09:22; Admin Dose 80 MG; Start 02/14/17 at 09:00 Quetiapine Fumarate (Seroquel) 50 mg HS PO Last administered on 02/18/17 20:27 ; Admin Dose 50 MG; Start 02/17/17 at 21:00 Alprazolam (Xanax) 0.25 mg TID PRN PO ANXIETY Last administered on 02/19/17 05 :30; Admin Dose 0.25 MG; Start 02/17/17 at 08:30 Clonazepam (Klonopin) 0.25 mg BID PO Last administered on 02/19/17 09:22; Admin Dose 0.25 MG; Start 02/17/17 at 10:00 YADIRA TORRES MD Feb 19, 2017 09:42
[2017-02-19] MEDS: LEVALBUTEROL (NEB) 0.31 MG/3 ML AMP HHN SCH ×2 (11:49→15:27)
[2017-02-19] MEDS: HYDROCODONE/APAP (5/325) TAB PO PRN (13:45)
[2017-02-19 19:20] VITALS: BP 108/59; RESP 14
[2017-02-19] MEDS: ATORVASTATIN 10 MG TAB PO SCH (21:47)
[2017-02-19] MEDS: SENNA TAB PO SCH (21:47)
[2017-02-19] MEDS: QUETIAPINE 25 MG TAB PO SCH (21:49)
[2017-02-19] MEDS: FAMOTIDINE 20 MG TAB PO SCH (21:49)
[2017-02-20 01:56] VITALS: BP 106/56; RESP 16
[2017-02-20 07:24] VITALS: BP 125/60; RESP 14
[2017-02-20 07:30] VITALS: BP 136/68; RESP 20
[2017-02-20] MEDS: IPRATROPIUM (NEB) 0.5 MG/2.5 ML AMP HHN SCH ×3 (08:22→16:49)
[2017-02-20] MEDS: LEVALBUTEROL (NEB) 0.31 MG/3 ML AMP HHN SCH ×3 (08:22→16:49)
--- NOTE | 2017-02-20 08:23 | CONS ---
Date/Time of Note Date/Time of Note DATE: 02/20/17 TIME: 08:17 Assessment/Plan Assessment/Plan Additional Assessment/Plan 1. Stable with non-displaced right hip fx, await ortho follow up regarding hopeful dc tomm 2. BP is now well controlled. 3. Anxiety and agitation is less on present regimen 4. Hx ASHD and Aortic Valve replacement Consultation Date/Type/Reason Admit Date/Time Feb 07, 2017 at 19:57 Type of Consultation: Urology Referring Provider: YADIRA TORRES MD Detailed Summary Respiratory: No cough, No shortness of breath Cardiovascular: No chest pain Gastrointestinal: no complaints Genitourinary: no complaints Musculoskeletal: bone/joint pain (mild right pian) Exam/Review of Systems Vital Signs Vitals Vital Signs Date Time Temp Pulse Resp B/P Pulse Ox O2 Delivery O2 Flow Rate FiO2 02/20/17 07:24 98.6 75 14 125/60 91 02/20/17 01:40 2.0 02/19/17 22:27 Nasal Cannula 02/19/17 11:57 21 Intake and Output 02/19/17 02/19/17 02/20/17 15:00 23:00 07:00 Intake Total 1740 ml 340 ml Output Total 1150 ml 400 ml Balance 590 ml -60 ml Exam Neck: No jvd Respiratory: clear to auscultation Cardiovascular: regular rate and rhythm Gastrointestinal: soft Musculoskeletal: joint tenderness (no local tenderness right hip) Extremities: No edema (and no calf tend) Results Result Diagram: 02/17/1761202/17/1713 Medications Medications Current Medications Acetaminophen (Tylenol Tab) 650 mg Q6H PRN PO PAIN LEVEL 1-3 OR FEVER Last administered on 02/10/17 18:46; Admin Dose 650 MG; Start 02/07/17 at 21:00 Aspirin (Halfprin) 81 mg DAILY PO Last administered on 02/19/17 09:22; Admin Dose 81 MG; Start 02/08/17 at 09:00 Atorvastatin Calcium (Lipitor) 10 mg QHS PO Last administered on 02/19/17 21: 47; Admin Dose 10 MG; Start 02/07/17 at 21:00 Citalopram Hydrobromide (Celexa) 20 mg DAILY PO Last administered on 02/19/17 09:21; Admin Dose 20 MG; Start 02/08/17 at 09:00 Docusate Sodium (Colace) 100 mg Q12H PRN PO CONSTIPATION; Start 02/07/17 at 21: 00 Famotidine (Pepcid) 20 mg QHS PO Last administered on 02/19/17 21:49; Admin Dose 20 MG; Start 02/07/17 at 21:00 Acetaminophen/ Hydrocodone Bitart ([place] (5/325)) 1 tab TID PRN PO PAIN LEVEL 1 -5 Last administered on 02/19/17 13:45; Admin Dose 1 TAB; Start 02/07/17 at 21: 00 Magnesium Hydroxide (Milk Of Mag) 30 ml DAILY PRN PO CONSTIPATION Last administered on 02/17/17 08:45; Admin Dose 30 ML; Start 02/07/17 at 21:00 Metoprolol Tartrate (Lopressor) 25 mg BID PO Last administered on 02/19/17 09: 23; Admin Dose 25 MG; Start 02/07/17 at 21:00 Morphine Sulfate (morphine) 1 mg Q6H PRN IV SEVERE PAIN LEVEL 7-10; Start 02/07 at 21:00 Ondansetron HCl (Zofran Inj) 4 mg Q6H PRN IV NAUSEA AND/OR VOMITING; Start at 21:00 Tramadol HCl (Ultram) 50 mg Q6H PRN PO PAIN Last administered on 02/16/17 19: 44; Admin Dose 50 MG; Start 02/07/17 at 21:00 Docusate Sodium (Colace) 100 mg BID PO Last administered on 02/19/17 21:47; Admin Dose 100 MG; Start 02/08/17 at 09:00 Senna (Senokot) 1 tab HS PO Last administered on 02/19/17 21:47; Admin Dose 1 TAB; Start 02/08/17 at 21:00 Bisacodyl (Dulcolax Supp) 10 mg DAILY PRN [place] CONSTIPATION Last administered on 02/17/17 20:33; Admin Dose 10 MG; Start 02/07/17 at 21:30 Amlodipine Besylate (Norvasc) 5 mg BID PO Last administered on 02/19/17 09:24 ; Admin Dose 5 MG; Start 02/08/17 at 09:00 Valsartan (Diovan) 80 mg DAILY PO Last administered on 02/19/17 09:22; Admin Dose 80 MG; Start 02/14/17 at 09:00 Quetiapine Fumarate (Seroquel) 50 mg HS PO Last administered on 02/19/17 21:49 ; Admin Dose 50 MG; Start 02/17/17 at 21:00 Alprazolam (Xanax) 0.25 mg TID PRN PO ANXIETY Last administered on 02/19/17 17 :50; Admin Dose 0.25 MG; Start 02/17/17 at 08:30 Clonazepam (Klonopin) 0.25 mg BID PO Last administered on 02/19/17 21:49; Admin Dose 0.25 MG; Start 02/17/17 at 10:00 YADIRA TORRES MD Feb 20, 2017 08:23
[2017-02-20] MEDS: AMLODIPINE 5 MG TAB PO SCH ×2 (09:00→20:51)
[2017-02-20] MEDS: clonAZEPAM 0.5 MG TAB PO SCH ×2 (09:16→20:41)
[2017-02-20] MEDS: CITALOPRAM 20 MG TAB PO SCH (09:17)
[2017-02-20] MEDS: DOCUSATE SODIUM 100 MG CAP PO SCH ×2 (09:17→20:44)
[2017-02-20] MEDS: METOPROLOL 25 MG TAB PO SCH ×2 (09:17→20:52)
[2017-02-20] MEDS: VALSARTAN 80 MG TAB PO SCH (09:17)
[2017-02-20] MEDS: HYDROCODONE/APAP (5/325) TAB PO PRN (09:18)
[2017-02-20] MEDS: ASPIRIN (EC) 81 MG TAB PO SCH (09:18)
--- NOTE | 2017-02-20 11:30 | CONS ---
Date/Time of Note Date/Time of Note DATE: 02/20/17 TIME: 11:27 Consult Date/Type/Reason Admit Date/Time Feb 07, 2017 at 19:57 Type of Consultation: Urology Ordering Provider: YADIRA TORRES MD Subjective Confused, will follow commands Objective Vital Signs Date Time Temp Pulse Resp B/P Pulse Ox O2 Delivery O2 Flow Rate FiO2 02/20/17 08:22 68 18 93 21 02/20/17 07:30 98.4 136/68 02/20/17 01:40 2.0 02/19/17 22:27 Nasal Cannula Intake and Output 02/19/17 02/19/17 02/20/17 15:00 23:00 07:00 Intake Total 1740 ml 340 ml Output Total 1150 ml 400 ml Balance 590 ml -60 ml Interdisciplinary Team Conference: Bowel-continent/incontinent Bladder-continent/incontinent Integument-improving OT- Dressing-standby contact-guard/moderate Bathing-min/ Toileting-moderate PT Bed mobility-minimal Transfers-minimal Wheelchair mobility-minimal Interdisciplinary team conference held today please see note. Team is working towards discharge on 02/21 with physical therapy and Occupational Therapy follow- up. Results/Medications Result Diagram: 02/17/1761202/17/17612 Medications Current Medications Acetaminophen (Tylenol Tab) 650 mg Q6H PRN PO PAIN LEVEL 1-3 OR FEVER Last administered on 02/10/17 18:46; Admin Dose 650 MG; Start 02/07/17 at 21:00 Aspirin (Halfprin) 81 mg DAILY PO Last administered on 02/20/17 09:18; Admin Dose 81 MG; Start 02/08/17 at 09:00 Atorvastatin Calcium (Lipitor) 10 mg QHS PO Last administered on 02/19/17 21: 47; Admin Dose 10 MG; Start 02/07/17 at 21:00 Citalopram Hydrobromide (Celexa) 20 mg DAILY PO Last administered on 02/20/17 09:17; Admin Dose 20 MG; Start 02/08/17 at 09:00 Docusate Sodium (Colace) 100 mg Q12H PRN PO CONSTIPATION; Start 02/07/17 at 21: 00 Famotidine (Pepcid) 20 mg QHS PO Last administered on 02/19/17 21:49; Admin Dose 20 MG; Start 02/07/17 at 21:00 Acetaminophen/ Hydrocodone Bitart ([employer] (5/325)) 1 tab TID PRN PO PAIN LEVEL 1 -5 Last administered on 02/20/17 09:18; Admin Dose 1 TAB; Start 02/07/17 at 21: 00 Magnesium Hydroxide (Milk Of Mag) 30 ml DAILY PRN PO CONSTIPATION Last administered on 02/17/17 08:45; Admin Dose 30 ML; Start 02/07/17 at 21:00 Metoprolol Tartrate (Lopressor) 25 mg BID PO Last administered on 02/20/17 09: 17; Admin Dose 25 MG; Start 02/07/17 at 21:00 Morphine Sulfate (morphine) 1 mg Q6H PRN IV SEVERE PAIN LEVEL 7-10; Start 02/07 at 21:00 Ondansetron HCl (Zofran Inj) 4 mg Q6H PRN IV NAUSEA AND/OR VOMITING; Start at 21:00 Tramadol HCl (Ultram) 50 mg Q6H PRN PO PAIN Last administered on 02/16/17 19: 44; Admin Dose 50 MG; Start 02/07/17 at 21:00 Docusate Sodium (Colace) 100 mg BID PO Last administered on 02/20/17 09:17; Admin Dose 100 MG; Start 02/08/17 at 09:00 Senna (Senokot) 1 tab HS PO Last administered on 02/19/17 21:47; Admin Dose 1 TAB; Start 02/08/17 at 21:00 Bisacodyl (Dulcolax Supp) 10 mg DAILY PRN [place] CONSTIPATION Last administered on 02/17/17 20:33; Admin Dose 10 MG; Start 02/07/17 at 21:30 Amlodipine Besylate (Norvasc) 5 mg BID PO Last administered on 02/19/17 09:24 ; Admin Dose 5 MG; Start 02/08/17 at 09:00 Valsartan (Diovan) 80 mg DAILY PO Last administered on 02/20/17 09:17; Admin Dose 80 MG; Start 02/14/17 at 09:00 Quetiapine Fumarate (Seroquel) 50 mg HS PO Last administered on 02/19/17 21:49 ; Admin Dose 50 MG; Start 02/17/17 at 21:00 Alprazolam (Xanax) 0.25 mg TID PRN PO ANXIETY Last administered on 02/19/17 17 :50; Admin Dose 0.25 MG; Start 02/17/17 at 08:30 Clonazepam (Klonopin) 0.25 mg BID PO Last administered on 02/20/17 09:16; Admin Dose 0.25 MG; Start 02/17/17 at 10:00 MIKEL LEDEZMA MD Feb 20, 2017 11:30
[2017-02-20 14:00] VITALS: BP 88/52; RESP 20
[2017-02-20 16:05] VITALS: BP 101/55; RESP 20
[2017-02-20] MEDS: SENNA TAB PO SCH (20:41)
[2017-02-20] MEDS: ATORVASTATIN 10 MG TAB PO SCH (20:42)
[2017-02-20] MEDS: FAMOTIDINE 20 MG TAB PO SCH (20:42)
[2017-02-20] MEDS: QUETIAPINE 25 MG TAB PO SCH (20:43)
[2017-02-21 01:59] VITALS: BP 102/55; RESP 20
[2017-02-21 07:04] LABS: BASOPHILS % 0.5 % (0.0-2.0); EOSINOPHILS # 0.2 10^3/ul (0.0-0.5); EOSINOPHILS % 2.3 % (0.0-7.0); HEMATOCRIT 33.6 % (37.0-47.0); HEMOGLOBIN 10.8 g/dl (12.0-16.0); LYMPHOCYTES # 1.4 10^3/ul (0.8-2.9); LYMPHOCYTES % 15.6 % (15.0-51.0); MEAN CORPUSCULAR HEMOGLOBIN 28.2 pg (29.0-33.0); MEAN CORPUSCULAR HGB CONC 32.1 g/dl (32.0-37.0); MEAN CORPUSCULAR VOLUME 87.7 fl (82.0-101.0); MEAN PLATELET VOLUME 10.4 fl (7.4-10.4); MONOCYTE # 0.8 10^3/ul (0.3-0.9); MONOCYTES % 9.1 % (0.0-11.0); NEUTROPHILS % 72.2 % (39.0-77.0); PLATELET COUNT 276 10^3/UL (140-415); RED BLOOD COUNT 3.83 10^6/ul (4.20-5.40); RED CELL DISTRIBUTION WIDTH 14.6 % (11.5-14.5); WHITE BLOOD COUNT 8.8 10^3/ul (4.8-10.8)
[2017-02-21 07:25] LABS: CALCIUM 8.7 mg/dl (8.4-10.2); CREATININE 0.86 mg/dl (0.44-1.00); POTASSIUM 4.2 mmol/L (3.5-5.1)
--- NOTE | 2017-02-21 08:48 | CONS ---
Date/Time of Note Date/Time of Note DATE: 02/21/17 TIME: 08:46 Assessment/Plan Assessment/Plan Additional Assessment/Plan 1. Rip hip fx, non-displaced, await follow up otho eval. 2. HBP, controlled 3. ASHD and Aortic valve repair, stable 4. Dementia, stable on present regimen. 5. DC imminent Consultation Date/Type/Reason Admit Date/Time Feb 07, 2017 at 19:57 Type of Consultation: Urology Referring Provider: YADIRA TORRES MD Detailed Summary Respiratory: No shortness of breath Cardiovascular: No chest pain, No lightheadedness Gastrointestinal: no complaints Genitourinary: no complaints Musculoskeletal: bone/joint pain Exam/Review of Systems Vital Signs Vitals Vital Signs Date Time Temp Pulse Resp B/P Pulse Ox O2 Delivery O2 Flow Rate FiO2 02/21/17 05:01 2.0 02/21/17 01:59 97.5 75 20 102/55 95 02/20/17 20:20 Nasal Cannula 02/20/17 08:22 21 Intake and Output 02/20/17 02/20/17 02/21/17 15:00 23:00 07:00 Intake Total 360 ml 840 ml Output Total 400 ml Balance 360 ml 440 ml Exam Neck: No jvd Respiratory: clear to auscultation Cardiovascular: regular rate and rhythm Gastrointestinal: soft Extremities: No edema (and no calf tend) Results Result Diagram: 02/21/17 0606 02/21/17 0606 Results 24 hrs Laboratory Tests Test 02/21/17 06:06 White Blood Count 8.8 Red Blood Count 3.83 L Hemoglobin 10.8 L Hematocrit 33.6 L Mean Corpuscular Volume 87.7 Mean Corpuscular Hemoglobin 28.2 L Mean Corpuscular Hemoglobin Concent 32.1 Red Cell Distribution Width 14.6 H Platelet Count 276 Mean Platelet Volume 10.4 Neutrophils % 72.2 Lymphocytes % 15.6 Monocytes % 9.1 Eosinophils % 2.3 Basophils % 0.5 Nucleated Red Blood Cells % 0.0 Neutrophils # (Manual) 6.3 Lymphocytes # 1.4 Monocytes # 0.8 Eosinophils # 0.2 Basophils # 0.0 Nucleated Red Blood Cells # 0.0 Sodium Level 142 Potassium Level 4.2 Chloride Level 104 Carbon Dioxide Level 27 Anion Gap 15 Blood Urea Nitrogen 25 H Creatinine 0.86 Glucose Level 76 Calcium Level 8.7 Medications Medications Current Medications Acetaminophen (Tylenol Tab) 650 mg Q6H PRN PO PAIN LEVEL 1-3 OR FEVER Last administered on 02/10/17 18:46; Admin Dose 650 MG; Start 02/07/17 at 21:00 Aspirin (Halfprin) 81 mg DAILY PO Last administered on 02/20/17 09:18; Admin Dose 81 MG; Start 02/08/17 at 09:00 Atorvastatin Calcium (Lipitor) 10 mg QHS PO Last administered on 02/20/17 20: 42; Admin Dose 10 MG; Start 02/07/17 at 21:00 Citalopram Hydrobromide (Celexa) 20 mg DAILY PO Last administered on 02/20/17 09:17; Admin Dose 20 MG; Start 02/08/17 at 09:00 Docusate Sodium (Colace) 100 mg Q12H PRN PO CONSTIPATION; Start 02/07/17 at 21: 00 Famotidine (Pepcid) 20 mg QHS PO Last administered on 02/20/17 20:42; Admin Dose 20 MG; Start 02/07/17 at 21:00 Acetaminophen/ Hydrocodone Bitart ([place] (5/325)) 1 tab TID PRN PO PAIN LEVEL 1 -5 Last administered on 02/20/17 09:18; Admin Dose 1 TAB; Start 02/07/17 at 21: 00 Magnesium Hydroxide (Milk Of Mag) 30 ml DAILY PRN PO CONSTIPATION Last administered on 02/17/17 08:45; Admin Dose 30 ML; Start 02/07/17 at 21:00 Metoprolol Tartrate (Lopressor) 25 mg BID PO Last administered on 02/20/17 09: 17; Admin Dose 25 MG; Start 02/07/17 at 21:00 Morphine Sulfate (morphine) 1 mg Q6H PRN IV SEVERE PAIN LEVEL 7-10; Start 02/07 at 21:00 Ondansetron HCl (Zofran Inj) 4 mg Q6H PRN IV NAUSEA AND/OR VOMITING; Start at 21:00 Tramadol HCl (Ultram) 50 mg Q6H PRN PO PAIN Last administered on 02/16/17 19: 44; Admin Dose 50 MG; Start 02/07/17 at 21:00 Docusate Sodium (Colace) 100 mg BID PO Last administered on 02/20/17 20:44; Admin Dose 100 MG; Start 02/08/17 at 09:00 Senna (Senokot) 1 tab HS PO Last administered on 02/20/17 20:41; Admin Dose 1 TAB; Start 02/08/17 at 21:00 Bisacodyl (Dulcolax Supp) 10 mg DAILY PRN [place] CONSTIPATION Last administered on 02/17/17 20:33; Admin Dose 10 MG; Start 02/07/17 at 21:30 Amlodipine Besylate (Norvasc) 5 mg BID PO Last administered on 02/19/17 09:24 ; Admin Dose 5 MG; Start 02/08/17 at 09:00 Valsartan (Diovan) 80 mg DAILY PO Last administered on 02/20/17 09:17; Admin Dose 80 MG; Start 02/14/17 at 09:00 Quetiapine Fumarate (Seroquel) 50 mg HS PO Last administered on 02/20/17 20:43 ; Admin Dose 50 MG; Start 02/17/17 at 21:00 Alprazolam (Xanax) 0.25 mg TID PRN PO ANXIETY Last administered on 02/19/17 17 :50; Admin Dose 0.25 MG; Start 02/17/17 at 08:30 Clonazepam (Klonopin) 0.25 mg BID PO Last administered on 02/20/17 20:41; Admin Dose 0.25 MG; Start 02/17/17 at 10:00 YADIRA TORRES MD Feb 21, 2017 08:48
[2017-02-21] MEDS: ASPIRIN (EC) 81 MG TAB PO SCH (08:52)
[2017-02-21] MEDS: CITALOPRAM 20 MG TAB PO SCH (08:52)
[2017-02-21] MEDS: HYDROCODONE/APAP (5/325) TAB PO PRN (08:52)
[2017-02-21] MEDS: DOCUSATE SODIUM 100 MG CAP PO SCH ×2 (08:52→20:46)
[2017-02-21] MEDS: METOPROLOL 25 MG TAB PO SCH ×2 (08:56→20:49)
[2017-02-21] MEDS: AMLODIPINE 5 MG TAB PO SCH ×2 (08:56→20:49)
[2017-02-21] MEDS: LEVALBUTEROL (NEB) 0.31 MG/3 ML AMP HHN SCH ×2 (09:00→13:30)
[2017-02-21] MEDS: VALSARTAN 80 MG TAB PO SCH (09:00)
[2017-02-21] MEDS: IPRATROPIUM (NEB) 0.5 MG/2.5 ML AMP HHN SCH ×2 (09:00→13:30)
[2017-02-21] MEDS: clonAZEPAM 0.5 MG TAB PO SCH (09:01)
[2017-02-21 12:00] VITALS: BP 119/59
--- NOTE | 2017-02-21 12:17 | CONS ---
Date/Time of Note Date/Time of Note DATE: 02/21/17 TIME: 12:09 Consult Date/Type/Reason Admit Date/Time Feb 07, 2017 at 19:57 Type of Consultation: Urology Ordering Provider: YADIRA TORRES MD Objective Vital Signs Date Time Temp Pulse Resp B/P Pulse Ox O2 Delivery O2 Flow Rate FiO2 02/21/17 05:01 2.0 02/21/17 01:59 97.5 75 20 102/55 95 02/20/17 20:20 Nasal Cannula 02/20/17 08:22 21 Intake and Output 02/20/17 02/20/17 02/21/17 15:00 23:00 07:00 Intake Total 360 ml 840 ml Output Total 400 ml Balance 360 ml 440 ml Results/Medications Result Diagram: 02/21/17 0606 02/21/17 0606 Results 24 hrs Laboratory Tests Test 02/21/17 06:06 White Blood Count 8.8 Red Blood Count 3.83 L Hemoglobin 10.8 L Hematocrit 33.6 L Mean Corpuscular Volume 87.7 Mean Corpuscular Hemoglobin 28.2 L Mean Corpuscular Hemoglobin Concent 32.1 Red Cell Distribution Width 14.6 H Platelet Count 276 Mean Platelet Volume 10.4 Neutrophils % 72.2 Lymphocytes % 15.6 Monocytes % 9.1 Eosinophils % 2.3 Basophils % 0.5 Nucleated Red Blood Cells % 0.0 Neutrophils # (Manual) 6.3 Lymphocytes # 1.4 Monocytes # 0.8 Eosinophils # 0.2 Basophils # 0.0 Nucleated Red Blood Cells # 0.0 Sodium Level 142 Potassium Level 4.2 Chloride Level 104 Carbon Dioxide Level 27 Anion Gap 15 Blood Urea Nitrogen 25 H Creatinine 0.86 Glucose Level 76 Calcium Level 8.7 Medications Current Medications Acetaminophen (Tylenol Tab) 650 mg Q6H PRN PO PAIN LEVEL 1-3 OR FEVER Last administered on 02/10/17 18:46; Admin Dose 650 MG; Start 02/07/17 at 21:00 Aspirin (Halfprin) 81 mg DAILY PO Last administered on 02/21/17 08:52; Admin Dose 81 MG; Start 02/08/17 at 09:00 Atorvastatin Calcium (Lipitor) 10 mg QHS PO Last administered on 02/20/17 20: 42; Admin Dose 10 MG; Start 02/07/17 at 21:00 Citalopram Hydrobromide (Celexa) 20 mg DAILY PO Last administered on 02/21/17 08:52; Admin Dose 20 MG; Start 02/08/17 at 09:00 Docusate Sodium (Colace) 100 mg Q12H PRN PO CONSTIPATION; Start 02/07/17 at 21: 00 Famotidine (Pepcid) 20 mg QHS PO Last administered on 02/20/17 20:42; Admin Dose 20 MG; Start 02/07/17 at 21:00 Acetaminophen/ Hydrocodone Bitart ([place] (5/325)) 1 tab TID PRN PO PAIN LEVEL 1 -5 Last administered on 02/21/17 08:52; Admin Dose 1 TAB; Start 02/07/17 at 21: 00 Magnesium Hydroxide (Milk Of Mag) 30 ml DAILY PRN PO CONSTIPATION Last administered on 02/17/17 08:45; Admin Dose 30 ML; Start 02/07/17 at 21:00 Metoprolol Tartrate (Lopressor) 25 mg BID PO Last administered on 02/20/17 09: 17; Admin Dose 25 MG; Start 02/07/17 at 21:00 Morphine Sulfate (morphine) 1 mg Q6H PRN IV SEVERE PAIN LEVEL 7-10; Start 02/07 at 21:00 Ondansetron HCl (Zofran Inj) 4 mg Q6H PRN IV NAUSEA AND/OR VOMITING; Start at 21:00 Tramadol HCl (Ultram) 50 mg Q6H PRN PO PAIN Last administered on 02/16/17 19: 44; Admin Dose 50 MG; Start 02/07/17 at 21:00 Docusate Sodium (Colace) 100 mg BID PO Last administered on 02/21/17 08:52; Admin Dose 100 MG; Start 02/08/17 at 09:00 Senna (Senokot) 1 tab HS PO Last administered on 02/20/17 20:41; Admin Dose 1 TAB; Start 02/08/17 at 21:00 Bisacodyl (Dulcolax Supp) 10 mg DAILY PRN IN CONSTIPATION Last administered on 02/17/17 20:33; Admin Dose 10 MG; Start 02/07/17 at 21:30 Amlodipine Besylate (Norvasc) 5 mg BID PO Last administered on 02/19/17 09:24 ; Admin Dose 5 MG; Start 02/08/17 at 09:00 Valsartan (Diovan) 80 mg DAILY PO Last administered on 02/20/17 09:17; Admin Dose 80 MG; Start 02/14/17 at 09:00 Quetiapine Fumarate (Seroquel) 50 mg HS PO Last administered on 02/20/17 20:43 ; Admin Dose 50 MG; Start 02/17/17 at 21:00 Alprazolam (Xanax) 0.25 mg TID PRN PO ANXIETY Last administered on 02/19/17 17 :50; Admin Dose 0.25 MG; Start 02/17/17 at 08:30 Clonazepam (Klonopin) 0.25 mg BID PO Last administered on 02/21/17 09:01; Admin Dose 0.25 MG; Start 02/17/17 at 10:00; Status Future Hold Assessment/Plan Additional Assessment/Plan Rehab- Right periprosthetic femoral fracture; Osteoarthritis with decreased range of motion in the shoulders. s/p assisted fall-no change on CT of hip Followed closely by ortho. Working towards home tomorrow . BP- sl hypotensive today- adjust meds per IM Acute pain syndrome-continue current management Cognition- seems a bit drowsy today. Adjust meds per IM Coronary artery disease. History of AVR. History of coagulopathy. History of IVC filter placement. History of intracerebral hemorrhage Hypercholesterolemia. Sleep apnea. MIKEL LEDEZMA MD Feb 21, 2017 12:17
[2017-02-21] MEDS: ACETAMINOPHEN 325 MG TAB PO PRN (14:15)
[2017-02-21] MEDS: ALPRAZOLAM 0.25 MG TAB PO PRN (16:15)
[2017-02-21 20:25] VITALS: BP 113/78; RESP 19
[2017-02-21] MEDS: FAMOTIDINE 20 MG TAB PO SCH (20:46)
[2017-02-21] MEDS: SENNA TAB PO SCH (20:48)
[2017-02-21] MEDS: QUETIAPINE 25 MG TAB PO SCH (20:48)
[2017-02-21] MEDS: ATORVASTATIN 10 MG TAB PO SCH (20:48)
[2017-02-22 01:38] VITALS: BP 142/72; RESP 19
[2017-02-22] MEDS: ALPRAZOLAM 0.25 MG TAB PO PRN ×2 (03:04→13:04)
[2017-02-22 07:56] VITALS: BP 148/67; RESP 18
--- NOTE | 2017-02-22 08:39 | CONS ---
Date/Time of Note Date/Time of Note DATE: 02/22/17 TIME: 08:37 Assessment/Plan Assessment/Plan Additional Assessment/Plan 1. Doing well post right hip fx 2. BP is controlled. 3. Agitation and confusion manageable 4. OK to dc per rehab Consultation Date/Type/Reason Admit Date/Time Feb 07, 2017 at 19:57 Type of Consultation: Urology Referring Provider: YADIRA TORRES MD Detailed Summary Respiratory: No cough, No shortness of breath Cardiovascular: no complaints Gastrointestinal: no complaints Genitourinary: no complaints Musculoskeletal: bone/joint pain Exam/Review of Systems Vital Signs Vitals Vital Signs Date Time Temp Pulse Resp B/P Pulse Ox O2 Delivery O2 Flow Rate FiO2 02/22/17 07:56 98.4 77 18 148/67 96 02/22/17 06:17 2.0 02/21/17 20:10 Nasal Cannula 02/20/17 08:22 21 Intake and Output 02/21/17 02/21/17 02/22/17 15:00 23:00 07:00 Intake Total 800 ml 600 ml Output Total 400 ml Balance 400 ml 600 ml Exam Neck: No jvd Respiratory: clear to auscultation Cardiovascular: regular rate and rhythm Gastrointestinal: soft Extremities: No edema, No tenderness Results Result Diagram: 02/21/1760502/21/17 0606 Medications Medications Current Medications Acetaminophen (Tylenol Tab) 650 mg Q6H PRN PO PAIN LEVEL 1-3 OR FEVER Last administered on 02/21/17 14:15; Admin Dose 650 MG; Start 02/07/17 at 21:00 Aspirin (Halfprin) 81 mg DAILY PO Last administered on 02/21/17 08:52; Admin Dose 81 MG; Start 02/08/17 at 09:00 Atorvastatin Calcium (Lipitor) 10 mg QHS PO Last administered on 02/21/17 20: 48; Admin Dose 10 MG; Start 02/07/17 at 21:00 Citalopram Hydrobromide (Celexa) 20 mg DAILY PO Last administered on 02/21/17 08:52; Admin Dose 20 MG; Start 02/08/17 at 09:00 Docusate Sodium (Colace) 100 mg Q12H PRN PO CONSTIPATION; Start 02/07/17 at 21: 00 Famotidine (Pepcid) 20 mg QHS PO Last administered on 02/21/17 20:46; Admin Dose 20 MG; Start 02/07/17 at 21:00 Acetaminophen/ Hydrocodone Bitart ([place] (5/325)) 1 tab TID PRN PO PAIN LEVEL 1 -5 Last administered on 02/21/17 08:52; Admin Dose 1 TAB; Start 02/07/17 at 21: 00 Magnesium Hydroxide (Milk Of Mag) 30 ml DAILY PRN PO CONSTIPATION Last administered on 02/17/17 08:45; Admin Dose 30 ML; Start 02/07/17 at 21:00 Metoprolol Tartrate (Lopressor) 25 mg BID PO Last administered on 02/21/17 20: 49; Admin Dose 25 MG; Start 02/07/17 at 21:00 Morphine Sulfate (morphine) 1 mg Q6H PRN IV SEVERE PAIN LEVEL 7-10; Start 02/07 at 21:00 Ondansetron HCl (Zofran Inj) 4 mg Q6H PRN IV NAUSEA AND/OR VOMITING; Start at 21:00 Tramadol HCl (Ultram) 50 mg Q6H PRN PO PAIN Last administered on 02/16/17 19: 44; Admin Dose 50 MG; Start 02/07/17 at 21:00 Docusate Sodium (Colace) 100 mg BID PO Last administered on 02/21/17 20:46; Admin Dose 100 MG; Start 02/08/17 at 09:00 Senna (Senokot) 1 tab HS PO Last administered on 02/21/17 20:48; Admin Dose 1 TAB; Start 02/08/17 at 21:00 Bisacodyl (Dulcolax Supp) 10 mg DAILY PRN [place] CONSTIPATION Last administered on 02/17/17 20:33; Admin Dose 10 MG; Start 02/07/17 at 21:30 Amlodipine Besylate (Norvasc) 5 mg BID PO Last administered on 02/19/17 09:24 ; Admin Dose 5 MG; Start 02/08/17 at 09:00 Valsartan (Diovan) 80 mg DAILY PO Last administered on 02/20/17 09:17; Admin Dose 80 MG; Start 02/14/17 at 09:00 Quetiapine Fumarate (Seroquel) 50 mg HS PO Last administered on 02/21/17 20:48 ; Admin Dose 50 MG; Start 02/17/17 at 21:00 Alprazolam (Xanax) 0.25 mg TID PRN PO ANXIETY Last administered on 02/22/17 03 :04; Admin Dose 0.25 MG; Start 02/17/17 at 08:30 YADIRA TORRES MD Feb 22, 2017 08:39
[2017-02-22] MEDS: VALSARTAN 80 MG TAB PO SCH (08:46)
[2017-02-22] MEDS: METOPROLOL 25 MG TAB PO SCH (08:46)
[2017-02-22] MEDS: CITALOPRAM 20 MG TAB PO SCH (08:46)
[2017-02-22] MEDS: AMLODIPINE 5 MG TAB PO SCH (08:46)
[2017-02-22] MEDS: ASPIRIN (EC) 81 MG TAB PO SCH (08:46)
[2017-02-22] MEDS: DOCUSATE SODIUM 100 MG CAP PO SCH (08:46)
[2017-02-22] MEDS: LEVALBUTEROL (NEB) 0.31 MG/3 ML AMP HHN SCH (09:26)
[2017-02-22] MEDS: IPRATROPIUM (NEB) 0.5 MG/2.5 ML AMP HHN SCH (09:26)
--- NOTE | 2017-02-23 05:06 | PN ---
DATE: 02/22/2017 PSYCHOLOGY -- INDIVIDUAL SESSION -- [id number]: This is a follow-up on a patient who was seen last week. The patient was sitting up in her wheelchair. The patient is prepared to be discharged from the program today. The patient reports that she feels better in that she is prepared to leave the hospital and is feeling happy about this. The patient is still very confused but has made progress in being able to handle herself while she has been in the program. I worked with her supportively to try to help continue to see that she has the ability to do things for herself in a positive way. The patient was receptive to this. Dictated By: Raoul Guardado, PHD /marianne/karlee /Document#: [id number]
--- NOTE | 2017-02-28 10:17 | DS ---
Date/Time of Note Date/Time of Note DATE: 02/28/17 TIME: 10:16 Discharge Summary Admission/Discharge Info Admit Date/Time Feb 07, 2017 at 19:57 Discharge Date/Time Feb 22, 2017 at 13:30 Discharge Diagnosis 1. Right periprosthetic femoral fracture. 2. Osteoarthritis with decreased range of motion in the shoulders. 3. Coronary artery disease. 4. History of AVR. 5. History of coagulopathy. 6. History of IVC filter placement. 7. History of intracerebral hemorrhage with good functional recovery, but notable cognitive deficits 8. Hypercholesterolemia. 9. Sleep apnea. 10. Improvements in self-care, mobility and cognition. Patient Condition: Good Hospital Course 86-year-old female status post undisplaced fracture of the right hip that did not require any surgical intervention. Patient was admitted for comprehensive interdisciplinary acute rehabilitation. Patient made steady functional gains and improved from a max level to a Min assist level for self care and mobility, including ambulating over 35 feet with the use of a front wheeled walker and maintaining weightbearing precautions. During course of stay patient had an assisted fall while in the bathroom. She had reported some pain of the right hip , so xrays were ordered. No notable changes were noted on xray, and a CT was also ordered, which was negative for new changes. The xrays and CT were reviewed by Dr. Peña's web production assistant, and a second opinion was also obtained by Dr. Bustamante. After review and patient's history he recommends touchdown weightbearing with stated abduction brace and assisted weightbearing with front wheeled walker for transferring or going to the bathroom. Patient is being discharged home with recommendations for home health PT and OT follow up. DME recommendations: FWW; BSC; Shower Chair Patient will follow up with PMD and Ortho upon DC. Home Meds Reported Medications Quetiapine Fumarate* (Quetiapine Fumarate*) 50 Mg Tablet, 50 MG PO HS, TAB 02/02/17 Atorvastatin Calcium (Atorvastatin Calcium) 10 Mg Tablet, 10 MG PO QHS, #30 TAB 09/24/15 Metoprolol Tartrate* (Lopressor*) 25 Mg Tab, 25 MG PO DAILY, TAB 02/06/15 Alprazolam* (Xanax*) 0.25 Mg Tablet, 0.25 MG PO BID Y for ANXIETY TAKE 2TAB-QAM AND 1 TAB-QHS 09/13/13 Citalopram Hydrobromide* (Celexa*) 20 Mg Tablet, 20 MG PO DAILY 09/13/13 Primary Care Provider MD DARIEN Solomon LIVA L. MD Feb 28, 2017 10:17
== END 2017-02-22 13:30 | disposition home health service (06) | DRG 560 ==
LOC: VRC 19:57
PROVIDERS: ADMIT Physical Medicine & Rehabilitation; ATTEND Internal Medicine
DX: S72.114D Nondisplaced fracture of greater trochanter of right femur, subsequent encounter for closed fracture with routine healing (principal); N39.0 Urinary tract infection, site not specified; J44.9 Chronic obstructive pulmonary disease, unspecified; F03.90 Unspecified dementia, unspecified severity, without behavioral disturbance, psychotic disturbance, mood disturbance, and anxiety; M97.01XD Periprosthetic fracture around internal prosthetic right hip joint, subsequent encounter; I69.318 Other symptoms and signs involving cognitive functions following cerebral infarction; B95.7 Other staphylococcus as the cause of diseases classified elsewhere; Z74.09 Other reduced mobility; I10 Essential (primary) hypertension; E78.00 Pure hypercholesterolemia, unspecified; G47.30 Sleep apnea, unspecified; G31.84 Mild cognitive impairment of uncertain or unknown etiology; I25.10 Atherosclerotic heart disease of native coronary artery without angina pectoris; M19.012 Primary osteoarthritis, left shoulder; M19.011 Primary osteoarthritis, right shoulder; R39.198 Other difficulties with micturition; R33.9 Retention of urine, unspecified; W01.0XXD Fall on same level from slipping, tripping and stumbling without subsequent striking against object, subsequent encounter; Z87.891 Personal history of nicotine dependence; Z86.711 Personal history of pulmonary embolism; Z95.818 Presence of other cardiac implants and grafts
CPT/HCPCS: 71010; 73500; 73510; 73700; 80048; 80053; 81001; 83735; 84100; 85025; 87081; 87086; 92507; 92523; 92610; 94640; 94664; 97110; 97112; 97116; 97150; 97163; 97167; 97530; 97535; 97542; A4310; J2405; L1680; L2520; L2624; L2780; L2830

== ENCOUNTER 2017-04-07 10:19 | Emergency (ER) | payer MEDICARE, OTHER ==
[~2017-04-07] VITALS: Ht 152.4 cm; Wt 60.0 kg
[2017-04-07] MEDS ORDERED: LORAZEPAM 1 MG TAB PO ONE (10:30)
[2017-04-07 10:35] VITALS: Ht 152.4 cm; Wt 60.0 kg
[2017-04-07] MEDS ORDERED: ALPR0.5T PO (11:24)
[2017-04-07 12:52] VITALS: BP 160/79; PULSE 75; RESP 16; TEMP 98.1
--- NOTE | 2017-04-07 13:38 | ERD ---
ER Documentation Chief Complaint Date/Time DATE: 04/07/17 TIME: 13:36 Chief Complaint pt bib RA from home with c/o facial pain HPI Patient is an 87-year-old female with dementia who presents with facial pain. Please note the history and physical exam is limited secondary to the patient's dementia. The patient was brought in by ambulance. The chief complaint by paramedics was facial pain however the patient is unable to tell me where her pain is. She said that she was having whole body pain. She is extremely anxious and tearful. Upon review of old medical records the patient has multiple visits to the ER for various complaints. She said that she forgot the name of her primary doctor. ROS All systems reviewed and are negative except as per history of present illness. Medications Home Meds Active Scripts Alprazolam* (Xanax*) 0.5 Mg Tab, 0.5 MG PO Q8H Y for ANXIETY, #6 TAB Prov:MALICK CEVALLOS MD 04/07/17 Reported Medications Quetiapine Fumarate* (Quetiapine Fumarate*) 50 Mg Tablet, 50 MG PO HS, TAB 02/02/17 Atorvastatin Calcium (Atorvastatin Calcium) 10 Mg Tablet, 10 MG PO QHS, #30 TAB 09/24/15 Metoprolol Tartrate* (Lopressor*) 25 Mg Tab, 25 MG PO DAILY, TAB 02/06/15 Alprazolam* (Xanax*) 0.25 Mg Tablet, 0.25 MG PO BID Y for ANXIETY TAKE 2TAB-QAM AND 1 TAB-QHS 09/13/13 Citalopram Hydrobromide* (Celexa*) 20 Mg Tablet, 20 MG PO DAILY 09/13/13 Allergies Allergies: Coded Allergies: Penicillins (Verified Allergy, Severe, ANAPHYLAXIS, 02/02/17) ALSO SEVER amoxicillin (Verified Allergy, Severe, ANAPHYLAXIS, 02/02/17) donepezil (Verified Allergy, Intermediate, 02/02/17) rabeprazole (Verified Allergy, Unknown, 02/02/17) PMhx/Soc History of Surgery: Yes (aortic valve repair, Rt THR, Rt TKR) Anesthesia Reaction: No Hx Neurological Disorder: No Hx Respiratory Disorders: Yes (wears CPAP at night) Hx Cardiac Disorders: Yes (HTN,CAD) Hx Psychiatric Problems: No Hx Miscellaneous Medical Probl: Yes (CAD, HTN, PV) Hx Alcohol Use: No Hx Substance Use: No Hx Tobacco Use: Yes (quit 2001) Smoking Status: Never smoker FmHx Unable to obtain Physical Exam Vitals Vital Signs Date Time Temp Pulse Resp B/P Pulse Ox O2 Delivery O2 Flow Rate FiO2 04/07/17 12:52 98.1 75 16 160/79 98 Room Air 04/07/17 10:35 98.3 69 18 164/86 97 Physical Exam Const: Anxious Head: Atraumatic Eyes: Normal Conjunctiva ENT: Normal External Ears, Nose and Mouth. Neck: Full range of motion..~ No meningismus. Resp: Clear to auscultation bilaterally Cardio: Regular rate and rhythm, no murmurs Abd: Soft, non tender, non distended. Normal bowel sounds Skin: No petechiae or rashes Back: No midline or flank tenderness Ext: No cyanosis, or edema Neur: Awake but demented at baseline and confused Psych: Anxious and tearful Results 24 hrs Current Medications Medications (Trade) Dose Ordered Sig/Collin Route PRN Reason Start Time Stop Time Status Last Admin Dose Admin Lorazepam (Ativan) 1 mg ONCE ONCE PO 04/07/17 10:30 04/07/17 10:31 DC 04/07/17 10:50 Procedures/MDM Patient is a 87-year-old female presents with facial pain and body pain. The patient was given Ativan and has improved. I believe most of her symptoms are related to anxiety and not true serious etiology. I see no signs of stroke, infection, or trauma. The patient will be discharged home and will need to follow-up with her primary doctor within 24-48 hours. She will be given a short course of Xanax for anxiety. She can return for any worsening symptoms. Departure Diagnosis: Primary Impression: Facial pain Additional Impressions: Anxiety Head and face pain Condition: Fair Patient Instructions: Anxiety Reaction Additional Instructions: Call your primary care doctor TOMORROW for an appointment during the next 1-2 days.See the doctor sooner or return here if your condition worsens before your appointment time. MALICK CEVALLOS MD Apr 07, 2017 13:38
== END 2017-04-07 13:12 | disposition home or self-care (01) ==
LOC: E/R 10:19
DX: R51 Headache (principal); F41.9 Anxiety disorder, unspecified; I10 Essential (primary) hypertension; I25.10 Atherosclerotic heart disease of native coronary artery without angina pectoris; F17.210 Nicotine dependence, cigarettes, uncomplicated
CPT/HCPCS: 99283

== ENCOUNTER 2017-10-17 19:44 | Inpatient (IN) | END 2017-10-23 18:00 | disposition short-term general hospital (02) | DRG 469 ==

== ENCOUNTER 2017-10-23 18:32 | Inpatient (IN) | END 2017-11-04 15:00 | disposition home health service (06) | DRG 561 ==

== ENCOUNTER 2018-12-25 16:11 | Inpatient (IN) | payer MEDICARE, OTHER, BC ==
[~2018-12-25] VITALS: Ht 157.5 cm; Wt 65.8 kg
[~2018-12-25 16:11] MED LIST changes: -ALPR0.25 PO; +ALPR0.254 PO; -CITA20TA11 PO; +CITA20TA8 PO; -METO-448 PO; +QUET25TA33 PO
[2018-12-25] MEDS ORDERED: ONDANSETRON 4 MG INJ IV STA (17:25)
[2018-12-25] MEDS ORDERED: SOD CHLORIDE 0.9% 1,000 ML IV STA (17:29)
[2018-12-25] MEDS ORDERED: ALPR0.5T PO (17:33)
[2018-12-25] MEDS ORDERED: QUET50TA22 PO (17:34)
[2018-12-25] MEDS ORDERED: QUET25TA33 PO (17:34)
--- NOTE | 2018-12-25 17:49 | ERD ---
ER Documentation Chief Complaint Chief Complaint n/v today only w/ AP, hx of hernia HPI This is an 88-year-old woman with a long history of periumbilical hernia presenting with 1 day of multiple episodes of clear nonbloody nonbilious emesis. Patient has been feeling weak and suspects dehydration as well. She has not eaten anything today, denies blood per rectum or melena, no weight loss, no fevers or chills, no chest pain or shortness of breath. ROS All systems reviewed and are negative except as per history of present illness. Medications Home Meds Reported Medications Quetiapine Fumarate* (Quetiapine Fumarate*) 50 Mg Tablet, 50 MG PO HS, TAB 12/25/18 Quetiapine Fumarate* (Quetiapine Fumarate*) 25 Mg Tablet, 25 MG PO QAM, TAB 12/25/18 Alprazolam* (Xanax*) 0.5 Mg Tab, 0.5 MG PO Q8H PRN for ANXIETY, TAB 12/25/18 Discontinued Reported Medications Citalopram Hydrobromide* (Citalopram Hydrobromide*) 20 Mg Tablet, 20 MG PO DAILY, #30 TAB 10/17/17 Quetiapine Fumarate* (Quetiapine Fumarate*) 50 Mg Tablet, 50 MG PO HS, TAB 10/17/17 Quetiapine Fumarate* (Quetiapine Fumarate*) 25 Mg Tablet, 25 MG PO QAM, TAB 10/17/17 Atorvastatin Calcium (Atorvastatin Calcium) 10 Mg Tablet, 10 MG PO QHS, #30 TAB 10/17/17 Alprazolam* (Alprazolam*) 0.25 Mg Tablet, 0.25 MG PO BID PRN for ANXIETY, TAB 10/17/17 Allergies Allergies: Coded Allergies: Penicillins (Verified Allergy, Severe, ANAPHYLAXIS, 12/25/18) ALSO SEVER amoxicillin (Verified Allergy, Severe, ANAPHYLAXIS, 12/25/18) donepezil (Verified Allergy, Intermediate, 12/25/18) rabeprazole (Verified Allergy, Unknown, 12/25/18) PMhx/Soc Anxiety, dyslipidemia, umbilical hernia History of Surgery: Yes (Lt hip hemiarthroplasty) Anesthesia Reaction: No Hx Neurological Disorder: No Hx Respiratory Disorders: Yes (copd) Hx Cardiac Disorders: Yes (cad,HTN) Hx Psychiatric Problems: Yes (DEMENTIA) Hx Miscellaneous Medical Probl: Yes (advanced dementia, UTI, mild hypernatremia, PNA, bronchitis, melonoma) Hx Alcohol Use: No Hx Substance Use: No Hx Tobacco Use: No FmHx Family History: No diabetes Physical Exam Vitals Vital Signs Date Temp Pulse Resp B/P (MAP) Pulse Ox O2 O2 Flow FiO2 Time Delivery Rate 12/25/18 87 14 129/67 98 Nasal 2.0 23:00 (87) Cannula 12/25/18 101 22 127/74 98 Nasal 2.0 22:06 (91) Cannula 12/25/18 102 14 154/84 95 Nasal 2.0 20:30 (107) Cannula 12/25/18 94 14 199/112 93 Room Air 18:23 (141) 12/25/18 98.9 90 18 120/73 97 16:14 (89) Physical Exam GENERAL: Well-developed, appears dehydrated, nauseous, afebrile HEENT: dry mucous membranes, pink conjunctiva, no cervical spine tenderness or step-off deformities, no goiter, no jaundice or icterus, extraocular movements intact without pain. No submandibular induration, and no pharyngeal erythema CARDIAC: Regular rate and rhythm, no murmurs rubs or gallops LUNGS: Clear bilaterally no wheezing crackles or stridor ABDOMEN: Large periumbilical hernia tender to touch, no rigidity SKIN: Warm and dry to touch, no abrasions, contusions, or hematomas, no lacerations, no ecchymosis, no target lesions, and without ulcers EXTREMITIES: No clubbing cyanosis or edema, calves are bilaterally symmetrical, no Homans sign, no popliteal cord sign. Distal pulses equal and bilateral PSYCH: Appears anxious Result Diagram: 12/25/18 1736 12/25/18 1736 Results 24 hrs Laboratory Tests Test 12/25/18 17:36 12/25/18 18:18 White Blood Count 11.6 10^3/ul Red Blood Count 5.66 10^6/ul Hemoglobin 15.8 g/dl Hematocrit 49.0 % Mean Corpuscular Volume 86.6 fl Mean Corpuscular Hemoglobin 27.9 pg Mean Corpuscular Hemoglobin Concent 32.2 g/dl Red Cell Distribution Width 14.1 % Platelet Count 220 10^3/UL Mean Platelet Volume 9.8 fl Immature Granulocytes % 0.300 % Neutrophils % 80.5 % Lymphocytes % 13.3 % Monocytes % 4.9 % Eosinophils % 0.6 % Basophils % 0.4 % Nucleated Red Blood Cells % 0.0 /100WBC Immature Granulocytes # 0.040 10^3/ul Neutrophils # 9.3 10^3/ul Lymphocytes # 1.5 10^3/ul Monocytes # 0.6 10^3/ul Eosinophils # 0.1 10^3/ul Basophils # 0.1 10^3/ul Nucleated Red Blood Cells # 0.0 10^3/ul Prothrombin Time 12.1 Sec Prothrombin Time Ratio 0.9 INR International Normalized Ratio 0.89 Activated Partial Thromboplast Time 26.8 Sec Sodium Level 143 mmol/L Potassium Level 4.5 mmol/L Chloride Level 102 mmol/L Carbon Dioxide Level 28 mmol/L Anion Gap 13 Blood Urea Nitrogen 20 mg/dl Creatinine 0.86 mg/dl Est Glomerular Filtrat Rate mL/min mL/min Glucose Level 139 mg/dl Calcium Level 10.0 mg/dl Total Bilirubin 0.7 mg/dl Direct Bilirubin 0.00 mg/dl Indirect Bilirubin 0.7 mg/dl Aspartate Amino Transf (AST/SGOT) 24 IU/L Alanine Aminotransferase (ALT/SGPT) 18 IU/L Alkaline Phosphatase 89 IU/L Troponin I < 0.012 ng/ml Total Protein 8.3 g/dl Albumin 4.6 g/dl Globulin 3.70 g/dl Albumin/Globulin Ratio 1.24 Lipase 85 U/L Bedside Urine pH (LAB) 7.0 Bedside Urine Protein (LAB) 1+ Bedside Urine Glucose (UA) Negative Bedside Urine Ketones (LAB) Negative Bedside Urine Blood Negative Bedside Urine Nitrite (LAB) Negative Bedside Urine Leukocyte Esterase (L Negative Current Medications Medications Dose Sig/Collin Start Time Status Last (Trade) Ordered Route PRN Stop Time Admin Dose Reason Admin Ondansetron 4 mg ONCE STAT 12/25/18 DC 12/25/18 HCl (Zofran IV 17:25 12/25/18 17:52 Inj) 17:26 Sodium 1,000 ml @ Q1H STAT 12/25/18 DC 12/25/18 Chloride 1,000 mls/hr IV 17:29 12/25/18 17:52 18:28 Lorazepam 0.5 mg ONCE ONCE 12/25/18 DC 12/25/18 (Ativan) IV 18:00 12/25/18 18:00 18:01 Clonidine 0.1 mg ONCE ONCE 12/25/18 DC (Catapres) PO 20:30 12/25/18 20:31 Sodium 1,000 ml @ [id number] IV 12/25/18 12/25/18 Chloride 70 mls/hr 21:51 22:26 IV Flush 3 ml PER 12/25/18 (NS 3 ml) PROTOCOL IV 22:00 Hydralazine 10 mg Q6H PRN 12/25/18 HCl IV 22:00 (Apresoline) HYPERTENSION Clonidine 1 patch ONCE ONCE 12/25/18 DC 12/25/18 HCl TRANSDERM 22:00 12/25/18 22:48 (Catapres-Tts 22:05 1 Patch) Lorazepam 0.5 mg Q6H PRN 12/25/18 (Ativan) IV AGITATION 22:30 Procedures/MDM IV line was established patient was placed on construction foreman rhythm strip revealed a sinus rhythm at about 80 bpm with upright P and T waves. Patient was afebrile EKG performed, read by me revealed a normal sinus rhythm 86 bpm, right axis deviation, right bundle branch block, prolonged QT of 504 ms, no concerning ST elevations or depressions noted I administered 1 L normal saline IV and Zofran 4 mg IV. Chang catheter was placed. CT scan of the abdomen pelvis was performed,IMPRESSION: Post left mastectomy. Question blastic metastatic involvement L2. Consider correlation bone scan if clinically indicated. Long segment moderately distended fluid filled small bowel with air-fluid levels. Question obstruction paraumbilical hernia. Consider small-bowel follow- through. Mild ground-glass interstitial density lung bases compatible with mild interstitial edema. Hiatal hernia. Hepatic cysts. Cholelithiasis. 10 mm well-demarcated hyperdense nodule anterior mid pole left kidney not present on prior study. This most likely represents a hyperdense cyst, however, solid mass cannot be ruled out. Correlation with ultrasound is suggested. Status post bilateral hip replacement. Vascular calcifications. 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 No evidence of urolithiasis, obstructive uropathy, diverticulitis or appendicitis. Diverticulosis. Repeat EKG performed, read by me revealed a sinus tachycardia at 101 bpm, left axis deviation, right bundle branch block, no concerning ST elevations or depressions noted CBC revealed a white count of 12, electrolytes revealed dehydration, liver function tests normal, urine analysis negative for infection, troponin negative NG tube was attempted multiple times but placement was unsuccessful and at the bedside the patient refused further attempts I spoke to the patient's surgeon regarding the presentation, symptomatology, CT scan findings. He recommended admission and will consult the patient in the a.m. Patient admitted to [facility] under Dr. Xiao Departure Diagnosis: Primary Impression: SBO (small bowel obstruction) Additional Impressions: Periumbilical hernia Hypertension Hypertension type: essential hypertension Qualified Codes: I10 - Essential (primary) hypertension Ruled Out: Anxiety Condition: TANESHA Gaytan MD Dec 25, 2018 17:48
[2018-12-25] MEDS ORDERED: LORAZEPAM 2 MG INJ IV ONE (18:00)
[2018-12-25] MEDS ORDERED: NACL 0.9% 3 ML SYG IV SCH (22:00)
[2018-12-25] MEDS ORDERED: CLONIDINE 0.1 MG/24 HR PATCH TRANSDERM ONE (22:00)
[2018-12-25] MEDS ORDERED: hydrALAzine 20 MG INJ IV PRN (22:00)
[2018-12-25] MEDS: SOD CHLORIDE 0.9% 1,000 ML IV SCH (22:26)
[2018-12-25 23:39] VITALS: Ht 157.5 cm; Wt 65.8 kg
[2018-12-26 00:10] VITALS: BP 134/76; PULSE 79; RESP 18
[2018-12-26] MEDS: LORAZEPAM 2 MG INJ IV PRN ×3 (00:54→22:05)
[2018-12-26 02:28] VITALS: BP 137/65; PULSE 80; RESP 18
[2018-12-26 07:51] VITALS: BP 134/61; PULSE 72; RESP 16
--- NOTE | 2018-12-26 08:16 | HP ---
Date/Time of Note Date/Time of Note DATE: 12/26/18 TIME: 08:12 Assessment/Plan VTE Prophylaxis Pharmacological prophylaxis: NA/contraindicated Pharm contraindication: other (surgery pending) Lines/Catheters IV Catheter Type (from Nrsg): Saline Lock Urinary Cath still in place: Yes Reason Cath still needed: urinary retention Assessment/Plan Assessment/Plan H and P dict 1- Admit with SBO and symptomatic umbilical hernia, surg to see, unable to place ng tube, now comfortable, NPO 2- Known CAD, Thoracic aneurysm and A valve replacement, cards to see 3- Known coagulopathy (MTHFR +) with Hx PE, IVC filter in place 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 Result Diagram: 12/26/18 0559 12/26/18 0559 Results 24hrs Laboratory Tests Test 12/25/18 17:36 12/25/18 18:18 12/26/18 05:59 White Blood Count 11.6 #H 9.8 Red Blood Count 5.66 #H 4.74 Hemoglobin 15.8 # 13.5 Hematocrit 49.0 #H 40.6 Mean Corpuscular Volume 86.6 85.7 Mean Corpuscular Hemoglobin 27.9 L 28.5 L Mean Corpuscular Hemoglobin Concent 32.2 33.3 Red Cell Distribution Width 14.1 14.4 Platelet Count 220 # 217 Mean Platelet Volume 9.8 10.3 Immature Granulocytes % 0.300 0.200 Neutrophils % 80.5 H 77.8 H Lymphocytes % 13.3 L 13.8 L Monocytes % 4.9 7.6 Eosinophils % 0.6 0.4 Basophils % 0.4 0.2 Nucleated Red Blood Cells % 0.0 0.0 Immature Granulocytes # 0.040 H 0.020 Neutrophils # 9.3 H 7.6 H Lymphocytes # 1.5 1.4 Monocytes # 0.6 0.8 Eosinophils # 0.1 0.0 Basophils # 0.1 0.0 Nucleated Red Blood Cells # 0.0 0.0 Prothrombin Time 12.1 Prothrombin Time Ratio 0.9 INR International Normalized Ratio 0.89 Activated Partial Thromboplast Time 26.8 Sodium Level 143 143 Potassium Level 4.5 4.7 Chloride Level 102 108 Carbon Dioxide Level 28 27 Anion Gap 13 8 Blood Urea Nitrogen 20 24 H Creatinine 0.86 0.80 Est Glomerular Filtrat Rate mL/min Glucose Level 139 105 Calcium Level 10.0 9.0 Total Bilirubin 0.7 Direct Bilirubin 0.00 Indirect Bilirubin 0.7 Aspartate Amino Transf (AST/SGOT) 24 Alanine Aminotransferase (ALT/SGPT) 18 Alkaline Phosphatase 89 Troponin I < 0.012 Total Protein 8.3 H Albumin 4.6 Globulin 3.70 H Albumin/Globulin Ratio 1.24 Lipase 85 Bedside Urine pH (LAB) 7.0 Bedside Urine Protein (LAB) 1+ H Bedside Urine Glucose (UA) Negative Bedside Urine Ketones (LAB) Negative Bedside Urine Blood Negative Bedside Urine Nitrite (LAB) Negative Bedside Urine Leukocyte Esterase (L Negative Hemoglobin A1c 4.7 Phosphorus Level 4.4 Magnesium Level 2.2 Thyroid Stimulating Hormone (TSH) 1.870 HPI/ROS Admit Date/Time Admit Date/Time Dec 25, 2018 at 20:19 PMH/Family/Social Past Medical History Medications Current Medications Sodium Chloride 1,000 ml @ 70 mls/hr [id number] IV Last administered on 12/25/18at 22:26; Admin Dose 70 MLS/HR; Start 12/25/18 at 21:51 IV Flush (NS 3 ml) 3 ml PER PROTOCOL IV ; Start 12/25/18 at 22:00 Hydralazine HCl (Apresoline) 10 mg Q6H PRN IV HYPERTENSION; Start 12/25/18 at 2 2:00 Lorazepam (Ativan) 0.5 mg Q6H PRN IV AGITATION Last administered on 12/26/18at 00:54; Admin Dose 0.5 MG; Start 12/25/18 at 22:30 Coded Allergies: Penicillins (Verified Allergy, Severe, ANAPHYLAXIS, 12/25/18) ALSO SEVER amoxicillin (Verified Allergy, Severe, ANAPHYLAXIS, 12/25/18) donepezil (Verified Allergy, Intermediate, 12/25/18) clavulanic acid (Verified Allergy, Unknown, 12/26/18) FROM ALLERGY TO AUMENTIN rabeprazole (Verified Allergy, Unknown, 12/25/18) Family History Significant Family History: no pertinent family hx Social History Smoking Status: Former smoker Exam/Review of Systems Vital Signs Vitals Vital Signs Date Temp Pulse Resp B/P (MAP) Pulse Ox O2 O2 Flow FiO2 Time Delivery Rate 12/26/18 98.2 72 16 134/61 95 07:51 (85) 12/25/18 Nasal 2.0 23:39 Cannula Intake and Output 12/25/18 12/25/18 12/26/18 1515:00 23:00 07:00 IntakeIntake Total 455 ml OutputOutput Total 350 ml BalanceBalance 105 ml YADIRA TORRES MD Dec 26, 2018 08:16
--- NOTE | 2018-12-26 09:36 | HP ---
DATE OF ADMISSION: 12/25/2018 IDENTIFYING DATA: The patient is an 88-year-old female admitted to the hospital with abdominal pain and vomiting. HISTORICAL EVENTS: Importantly, the patient was evaluated by Dr. Ford Eaton about 6 weeks ago wh en she had evidence of a moderately symptomatic umbilical hernia. At that time it was felt, as best as I can recall that no surgical intervention was needed. She was evaluated in the ER with vomiting, nausea and abdominal pain of 24 to 36 hours' duration and because of CAT scan evidence of a small-natalie wel obstruction she was admitted. She presently denies shortness of breath, chest pain, has no abdom inal pain and has not vomited since admission. PAST MEDICAL HISTORY: 1. Recurrent admissions here for pneumonia and bronchitis. 2. History of melanoma involving the left leg. 3. History of breast cancer, undergoing lumpectomy and radiation therapy, remote, with recurrent dis ease in 04/2010 treated with surgery and Aromasin x5 years. 4. History of hypertension. 5. Hyperlipidemia. 6. History of sleep apnea. 7. Chronic obstructive pulmonary disease. 8. Known large thoracic aortic aneurysm. 9. Admitted here with a left frontal hemorrhage while on anticoagulation therapy. 10. Repair of a thoracic aneurysm and aortic valve replacement in 07/2010. 11. History of pulmonary embolism with underlying coagulopathy being MTHFR positive. 12. IVC filter is in place. 13. Progressive impaired cognition secondary to small vessel intracranial disease and her antecedent hemorrhage. MEDICATIONS: Prior to admission include; 1. Xanax 0.5 every 8 hours p.r.n. 2. Seroquel 25 mg in the morning and 50 mg at night. SOCIAL HISTORY: She presently does not smoke and is being cared for by her daughter. ALLERGIES: 1. PENICILLIN. 2. ACIPHEX. 3. AUGMENTIN. 4. EXELON. 5. ARICEPT. PHYSICAL EXAMINATION: VITAL SIGNS: Blood pressure 134/76, pulse 95, respirations were 18. She was afebrile. EYES: Extraocular muscles were full. NOSE, MOUTH, AND THROAT: Normal. NECK: No JVD. LUNGS: Clear. HEART: Rhythm regular, I/ systolic murmur. No third or fourth sound. BREASTS: Left breast was absent. ABDOMEN: No organomegaly. Umbilical hernia was tender. Bowel sounds were present. She was not dis tended. EXTREMITIES: No edema. Reduced peripheral pulses. NEUROLOGIC: No lateralizing motor weakness. IMPRESSION AND PLAN: 1. Small-bowel obstruction in the setting of symptomatic umbilical hernia, surgery consultation has been requested. Suspect she will need surgical intervention. 2. Valvular heart disease and a large thoracic aneurysm that has been stable. Cardiology will follo w up. 3. We will need deep vein thrombosis prophylaxis. 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 We will review with Cardiology. IVC filter in place should give some protection. Dictated By: YADIRA TORRES MD MR/NTS Conf#: [id number] DID#: [id number] CC: YADIRA TORRES MD;*EndCC*
[2018-12-26] MEDS: SOD CHLORIDE 0.9% 1,000 ML IV SCH (11:31)
--- NOTE | 2018-12-26 11:41 | CONS ---
Assessment/Plan Assessment/Plan Hospital Course (Demo Recall) - Preop cv exam- given hx pt is at least intermediate cardiac risk for intermediate risk ortho surgery. given no cardiac symptoms and stable ekg and relatively urgent type surgery. ok to proceed to surgery without further cardiac workup. 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 s/p IVC filter, unable to removed / need for chronic angicoag - HTN- - h/o of CAD stable, s/p CABG during surgery 2010. no cp - PVD - Dementia Recommendations - preop exam as above: ok to proceed without further cardiac workup - consider restart low dose bb/statin when able to take po Consultation Date/Type/Reason Admit Date/Time Dec 25, 2018 at 20:19 Date of Consultation: Dec 26, 2018 Type of Consult CARDIOLOGY Reason for Consultation PREOP CV EXAM Requesting Provider: YADIRA TORRES MD Date/Time of Note DATE: 12/26/18 TIME: 11:29 Hx of Present Illness Ms. Spring is a 88 y.o. woman with h/o of CAD s/p CABG, TAA, PE with h/o IVC filter placement 2014, ICH on angicoag. Pt has dementia and unable to provide thorough history. per chart and discussion with md/nursing. denies any current chest pain, palpitations, dizziness. At baseline pt without cp/sob dizziness. no other recent sig fall. denies pnd, orthop, edema. denies tearing chest pain or scapular/back pain. pt admitted for n/v. found to SBO. has had difficulty placing NG tube. has umbilical hernia which may need repair. denies any cp/sob. hd stable. all other systems reviewed and negative, Past Medical History 3-vessel CAD (414.00) (I25.10) - CABG and Asc dissec repair 07/06.... poss occ CHAVEZ on CT of Chest in f/up of residual Transverse Aortic aneurysm. Intracranial hemorrhage was on xarelto 01/2015, now off anticoag Aneurysm of thoracic aorta (441.2) (I71.2) - 5.[address] chest Aortic regurgitation (424.1) (I35.1) Breast cancer (174.9) (C50.919) - Lt lump and Rad '00 recurrenceLt mastectomy'10 Carotid artery stenosis (433.10) (I65.29) Chronic obstructive pulmonary disease (496) (J44.9) Dementia (294.20) (F03.90) Essential hypertension (401.9) (I10) History of pulmonary embolism (V12.55) (Z86.711) 08/07 - no on anticoag given ICH Hypercholesterolemia (272.0) (E78.0) Obstructive sleep apnea (327.23) (G47.33) Osteoarthritis (715.90) (M19.90) Past Surgical History History of Asc Aortic Aneurysm Repair W/ Graft, Aortic Root Replacement -dissection with asc root graft and CABGx2 CHAVEZ-LAD SVG-OM 07/06 History of Breast Surgery Mastectomy History of Cataract Surgery History of Hip Replacement History of Knee Replacement Family History Significant Family History: other (no sig heart disease) Social History Alcohol Use: none Smoking Status: Former smoker Drug Use: none Smoking Status: Never smoker Social History Smoking Status: Former smoker Home Meds Reported Medications Quetiapine Fumarate* (Quetiapine Fumarate*) 50 Mg Tablet, 50 MG PO HS, TAB 12/25/18 Quetiapine Fumarate* (Quetiapine Fumarate*) 25 Mg Tablet, 25 MG PO QAM, TAB 12/25/18 Alprazolam* (Xanax*) 0.5 Mg Tab, 0.5 MG PO Q8H PRN for ANXIETY, TAB 12/25/18 Discontinued Reported Medications Citalopram Hydrobromide* (Citalopram Hydrobromide*) 20 Mg Tablet, 20 MG PO DAILY, #30 TAB 10/17/17 Quetiapine Fumarate* (Quetiapine Fumarate*) 50 Mg Tablet, 50 MG PO HS, TAB 10/17/17 Quetiapine Fumarate* (Quetiapine Fumarate*) 25 Mg Tablet, 25 MG PO QAM, TAB 10/17/17 Atorvastatin Calcium (Atorvastatin Calcium) 10 Mg Tablet, 10 MG PO QHS, #30 TAB 10/17/17 Alprazolam* (Alprazolam*) 0.25 Mg Tablet, 0.25 MG PO BID PRN for ANXIETY, TAB 10/17/17 Medications Current Medications Sodium Chloride 1,000 ml @ 70 mls/hr [id number] IV Last administered on 12/25/18at 22:26; Admin Dose 70 MLS/HR; Start 12/25/18 at 21:51 IV Flush (NS 3 ml) 3 ml PER PROTOCOL IV ; Start 12/25/18 at 22:00 Hydralazine HCl (Apresoline) 10 mg Q6H PRN IV HYPERTENSION; Start 12/25/18 at 22:00 Lorazepam (Ativan) 0.5 mg Q6H PRN IV AGITATION Last administered on 12/26/18at 11:08; Admin Dose 0.5 MG; Start 12/25/18 at 22:30 Allergies: Coded Allergies: Penicillins (Verified Allergy, Severe, ANAPHYLAXIS, 12/25/18) ALSO SEVER amoxicillin (Verified Allergy, Severe, ANAPHYLAXIS, 12/25/18) donepezil (Verified Allergy, Intermediate, 12/25/18) clavulanic acid (Verified Allergy, Unknown, 12/26/18) FROM ALLERGY TO AUMENTIN rabeprazole (Verified Allergy, Unknown, 12/25/18) Social History Smoking Status: Former smoker Exam/Review of Systems Exam Vitals Vital Signs Date Temp Pulse Resp B/P (MAP) Pulse Ox O2 O2 Flow FiO2 Time Delivery Rate 12/26/18 Nasal 2.0 08:45 Cannula 12/26/18 98.2 72 16 134/61 95 07:51 (85) Intake and Output 12/25/18 12/25/18 12/26/18 1515:00 23:00 07:00 IntakeIntake Total 455 ml OutputOutput Total 350 ml BalanceBalance 105 ml Exam Constitutional: alert, oriented, other (dementia) Psych: no complaints Head: normocephalic Eyes: nl conjunctiva ENMT: nl external ears & nose Neck: supple, non-tender, No jvd Respiratory: clear in all jimenez Cardiovascular: regular rate and rhythm, nl pulses, systolic murmur, No S3, No S4 Gastrointestinal: soft, non-tender + umbilical hernia. 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 Skin: nl turgor Results Result Diagram: 12/26/18 0559 12/26/18 0559 Results 24hrs Laboratory Tests Test 12/25/18 17:36 12/25/18 18:18 12/26/18 05:59 White Blood Count 11.6 #H 9.8 Red Blood Count 5.66 #H 4.74 Hemoglobin 15.8 # 13.5 Hematocrit 49.0 #H 40.6 Mean Corpuscular Volume 86.6 85.7 Mean Corpuscular Hemoglobin 27.9 L 28.5 L Mean Corpuscular Hemoglobin Concent 32.2 33.3 Red Cell Distribution Width 14.1 14.4 Platelet Count 220 # 217 Mean Platelet Volume 9.8 10.3 Immature Granulocytes % 0.300 0.200 Neutrophils % 80.5 H 77.8 H Lymphocytes % 13.3 L 13.8 L Monocytes % 4.9 7.6 Eosinophils % 0.6 0.4 Basophils % 0.4 0.2 Nucleated Red Blood Cells % 0.0 0.0 Immature Granulocytes # 0.040 H 0.020 Neutrophils # 9.3 H 7.6 H Lymphocytes # 1.5 1.4 Monocytes # 0.6 0.8 Eosinophils # 0.1 0.0 Basophils # 0.1 0.0 Nucleated Red Blood Cells # 0.0 0.0 Prothrombin Time 12.1 Prothrombin Time Ratio 0.9 INR International Normalized Ratio 0.89 Activated Partial Thromboplast Time 26.8 Sodium Level 143 143 Potassium Level 4.5 4.7 Chloride Level 102 108 Carbon Dioxide Level 28 27 Anion Gap 13 8 Blood Urea Nitrogen 20 24 H Creatinine 0.86 0.80 Est Glomerular Filtrat Rate mL/min Glucose Level 139 105 Calcium Level 10.0 9.0 Total Bilirubin 0.7 Direct Bilirubin 0.00 Indirect Bilirubin 0.7 Aspartate Amino Transf (AST/SGOT) 24 Alanine Aminotransferase (ALT/SGPT) 18 Alkaline Phosphatase 89 Troponin I < 0.012 Total Protein 8.3 H Albumin 4.6 Globulin 3.70 H Albumin/Globulin Ratio 1.24 Lipase 85 Bedside Urine pH (LAB) 7.0 Bedside Urine Protein (LAB) 1+ H Bedside Urine Glucose (UA) Negative Bedside Urine Ketones (LAB) Negative Bedside Urine Blood Negative Bedside Urine Nitrite (LAB) Negative Bedside Urine Leukocyte Esterase (L Negative Hemoglobin A1c 4.7 Phosphorus Level 4.4 Magnesium Level 2.2 Thyroid Stimulating Hormone (TSH) 1.870 Imaging Imaging abd xray report reviewed ekg reivewed: sinus vinay with rbbb Medications Medication Current Medications Sodium Chloride 1,000 ml @ 70 mls/hr [id number] IV Last administered on 12/25/18at 22:26; Admin Dose 70 MLS/HR; Start 12/25/18 at 21:51 IV Flush (NS 3 ml) 3 ml PER PROTOCOL IV ; Start 12/25/18 at 22:00 Hydralazine HCl (Apresoline) 10 mg Q6H PRN IV HYPERTENSION; Start 12/25/18 at 22:00 Lorazepam (Ativan) 0.5 mg Q6H PRN IV AGITATION Last administered on 12/26/18at 11:08; Admin Dose 0.5 MG; Start 12/25/18 at 22:30 MIGUEL SIN Dec 26, 2018 11:40
[2018-12-26] MEDS ORDERED: DIATR MEGLU/DIATRIZOATE SODIUM 120 ML BTL PO ONE (12:30)
--- NOTE | 2018-12-26 12:37 | CONS ---
Assessment/Plan Assessment/Plan Hospital Course (Demo Recall) 1. Abdominal pain with possible SBO per CT; recent abdominal x-ray noted with unremarkable bowel gas pattern -SBFT -Pain management 2. Symptomatic ventral hernia: Notably, patient was seen prior to hospitalization and family at that time did not want surgical intervention -We will reach out to family to revisit the possibility of hernia repair -Pain management -Abdominal binder 3. Valvular heart disease with Thoracic aneurysm status post partial repair; cardiology consult noted -Cardiac optimization 4.Atherosclerosis -Med management 5. Left kidney hyperdense nodule: -Per medical team 6. Mild leukocytosis: Resolved Thank you. Patient seen and examined in collaboration with Dr. Ford Eaton. Consultation Date/Type/Reason Admit Date/Time Dec 25, 2018 at 20:19 Date of Consultation: Dec 26, 2018 Type of Consult Surgical Reason for Consultation Abdominal pain, concern for SBO Requesting Provider: YADIRA TORRES MD Date/Time of Note DATE: 12/26/18 TIME: 12:19 Hx of Present Illness Elvie Spring is a 88-year-old woman who presented with complaints of abdominal pain and vomiting. Currently, her abdominal pain is predominantly in the periumbilical region with noted tenderness on exam. No reports of fevers, chills, congested cough, chest pain, palpitations, labored breathing, recent vomiting, diarrhea, dysuria. Notably, patient is unable to recall her last bowel movement or flatus. CT of the abdomen was performed and she was noted to have long segment moderately distended fluid-filled small bowel with air-fluid levels with questionable obstruction periumbilical hernia. Laboratory findings significant for mild leukocytosis initially however now normalized. General surgery was asked to evaluate. 12 point review of systems reviewed and is negative except for as stated in HPI. Past Medical History Pneumonia Bronchitis Melanoma of left leg Breast cancer status post lumpectomy, bilateral mastectomy, radiation therapy Hypertension Hyperlipidemia Sleep apnea COPD Thoracic aortic aneurysm Left frontal hemorrhage while on anticoagulation therapy Thoracic aneurysm repair status post partial repair c with aortic valve repair/CABG Aortic valve replacement PE IVC filter placement Home Meds Active Scripts Acetaminophen* (Tylenol*) 325 Mg Tablet, 650 MG PO Q6H PRN for MILD PAIN(1-3)OR ELEVATED TEMP for 30 Days, TAB Prov:YADIRA TORRES MD 01/01/19 Reported Medications Quetiapine Fumarate* (Quetiapine Fumarate*) 50 Mg Tablet, 50 MG PO HS, TAB 12/25/18 Quetiapine Fumarate* (Quetiapine Fumarate*) 25 Mg Tablet, 25 MG PO QAM, TAB 12/25/18 Alprazolam* (Xanax*) 0.5 Mg Tab, 0.5 MG PO Q8H PRN for ANXIETY, TAB 12/25/18 Medications Current Medications Sodium Chloride 1,000 ml @ 70 mls/hr [id number] IV Last administered on 12/26/18at 11:31; Admin Dose 70 MLS/HR; Start 12/25/18 at 21:51 IV Flush (NS 3 ml) 3 ml PER PROTOCOL IV ; Start 12/25/18 at 22:00 Hydralazine HCl (Apresoline) 10 mg Q6H PRN IV HYPERTENSION; Start 12/25/18 at 22:00 Lorazepam (Ativan) 0.5 mg Q6H PRN IV AGITATION Last administered on 12/26/18at 11:08; Admin Dose 0.5 MG; Start 12/25/18 at 22:30 Allergies: Coded Allergies: Penicillins (Verified Allergy, Severe, ANAPHYLAXIS, 12/25/18) ALSO SEVER amoxicillin (Verified Allergy, Severe, ANAPHYLAXIS, 12/25/18) donepezil (Verified Allergy, Intermediate, 12/25/18) clavulanic acid (Verified Allergy, Unknown, 12/26/18) FROM ALLERGY TO AUMENTIN rabeprazole (Verified Allergy, Unknown, 12/25/18) Past Surgical History As above Family History Significant Family History: no pertinent family hx Social History Smoking Status: Former smoker Exam/Review of Systems Exam Vitals Vital Signs Date Temp Pulse Resp B/P (MAP) Pulse Ox O2 O2 Flow FiO2 Time Delivery Rate 12/26/18 Nasal 2.0 08:45 Cannula 12/26/18 98.2 72 16 134/61 95 07:51 (85) Intake and Output 12/25/18 12/25/18 12/26/18 1515:00 23:00 07:00 IntakeIntake Total 455 ml OutputOutput Total 350 ml BalanceBalance 105 ml Constitutional: alert, oriented (X1); No distress Psych: nl mood/affect, anxiety Head: normocephalic, atraumatic Eyes: nl conjunctiva, nl lids, nl sclera ENMT: nl external ears & nose, nl lips & teeth Neck: supple, non-tender; No jvd Respiratory: normal air movement; No congested cough Cardiovascular: regular rate and rhythm, nl pulses; No edema Gastrointestinal: soft, tender (Minimal periumbilical); No distended, No rebound or guarding Genitourinary - Female: nl external genitalia Musculoskeletal: nl extremities to inspection; No joint tenderness Extremities: normal pulses; No calf tenderness Neurological: nl speech, nl strength; No nl mental status Skin: No rash or lesions Lymph: nl lymph nodes Results Result Diagram: 12/26/18 0559 12/26/18 0559 Results 24hrs Laboratory Tests Test 12/25/18 17:36 12/25/18 18:18 12/26/18 05:59 White Blood Count 11.6 #H 9.8 Red Blood Count 5.66 #H 4.74 Hemoglobin 15.8 # 13.5 Hematocrit 49.0 #H 40.6 Mean Corpuscular Volume 86.6 85.7 Mean Corpuscular Hemoglobin 27.9 L 28.5 L Mean Corpuscular Hemoglobin Concent 32.2 33.3 Red Cell Distribution Width 14.1 14.4 Platelet Count 220 # 217 Mean Platelet Volume 9.8 10.3 Immature Granulocytes % 0.300 0.200 Neutrophils % 80.5 H 77.8 H Lymphocytes % 13.3 L 13.8 L Monocytes % 4.9 7.6 Eosinophils % 0.6 0.4 Basophils % 0.4 0.2 Nucleated Red Blood Cells % 0.0 0.0 Immature Granulocytes # 0.040 H 0.020 Neutrophils # 9.3 H 7.6 H Lymphocytes # 1.5 1.4 Monocytes # 0.6 0.8 Eosinophils # 0.1 0.0 Basophils # 0.1 0.0 Nucleated Red Blood Cells # 0.0 0.0 Prothrombin Time 12.1 Prothrombin Time Ratio 0.9 INR International Normalized Ratio 0.89 Activated Partial Thromboplast Time 26.8 Sodium Level 143 143 Potassium Level 4.5 4.7 Chloride Level 102 108 Carbon Dioxide Level 28 27 Anion Gap 13 8 Blood Urea Nitrogen 20 24 H Creatinine 0.86 0.80 Est Glomerular Filtrat Rate mL/min Glucose Level 139 105 Calcium Level 10.0 9.0 Total Bilirubin 0.7 Direct Bilirubin 0.00 Indirect Bilirubin 0.7 Aspartate Amino Transf (AST/SGOT) 24 Alanine Aminotransferase (ALT/SGPT) 18 Alkaline Phosphatase 89 Troponin I < 0.012 Total Protein 8.3 H Albumin 4.6 Globulin 3.70 H Albumin/Globulin Ratio 1.24 Lipase 85 Bedside Urine pH (LAB) 7.0 Bedside Urine Protein (LAB) 1+ H Bedside Urine Glucose (UA) Negative Bedside Urine Ketones (LAB) Negative Bedside Urine Blood Negative Bedside Urine Nitrite (LAB) Negative Bedside Urine Leukocyte Esterase (L Negative Hemoglobin A1c 4.7 Phosphorus Level 4.4 Magnesium Level 2.2 Thyroid Stimulating Hormone (TSH) 1.870 Medications Medication Current Medications Sodium Chloride 1,000 ml @ 70 mls/hr [id number] IV Last administered on 12/26/18at 11:31; Admin Dose 70 MLS/HR; Start 12/25/18 at 21:51 IV Flush (NS 3 ml) 3 ml PER PROTOCOL IV ; Start 12/25/18 at 22:00 Hydralazine HCl (Apresoline) 10 mg Q6H PRN IV HYPERTENSION; Start 12/25/18 at 22:00 Lorazepam (Ativan) 0.5 mg Q6H PRN IV AGITATION Last administered on 12/26/18at 11:08; Admin Dose 0.5 MG; Start 12/25/18 at 22:30 ANA M LEMUS NP Dec 26, 2018 12:34
[2018-12-26] MEDS ORDERED: IOHEXOL 300MG/ML 150 ML BTL ONE (13:29)
[2018-12-26] MEDS ORDERED: morphine 2 MG INJ IV PRN (17:00)
[2018-12-26] MEDS: morphine 2 MG INJ IV PRN (17:47)
[2018-12-26 20:00] VITALS: BP 150/72; PULSE 61; RESP 17
--- NOTE | 2018-12-26 21:50 | CONS ---
DATE OF ADMISSION: 12/25/2018 DATE OF CONSULTATION: 12/26/2018 TYPE OF CONSULTATION: Gastroenterology. Dear Dr. Torres: Thank you for asking me to see Mrs. Spring in GI consultation. HISTORY OF PRESENT ILLNESS: As you know, patient is an 88-year-old white female who was admitted to the hospital because of abdominal pain and vomiting. CAT scan of the abdomen shows evidence of parau mbilical hernia obstruction, and subsequently, patient underwent evaluation of upper GI and small bow el series which showed no evidence of a small-bowel obstruction. Upon discussing with the patient, the patient is an extremely poor historian. She is unable to give me any history because of probably dementia. She has multiple other medical problems including a his tory of pneumonia, breast cancer, bilateral breast surgery, history of hypertension, dyslipidemia, hi story of sleep apnea, COPD, history of a thoracic aortic aneurysm, repair of a thoracic aneurysm, aor tic valve replacement, history of pulmonary embolism. MEDICATIONS PRIOR TO THE ADMISSION: Includes: 1. Xanax 2. Seroquel. ALLERGIES: 1. PENICILLIN. 2. ACIPHEX. 3. AUGMENTIN 4. EXELON. 5. ARICEPT. PHYSICAL EXAMINATION: GENERAL: The patient is an 88-year-old white female, who at this time, she is alert and not in distr ess. VITAL SIGNS: Temperature 98.2, pulse is 72, blood pressure is 134/67. CARDIOVASCULAR: Heart sounds well heard. RESPIRATORY: Normal breath sounds. ABDOMEN: Showed no significant distention but upon palpation, she complains of pain. She says ouch for every location where I examined the abdomen. LABORATORY WORKUP: WBC count is 9800, it came down from 11,600; hemoglobin is 13.5. Potassium 4.7, BUN 24, creatinine 0.8, bilirubin 0.7, AST 24, ALT 18, alkaline phosphatase 89. TSH is 1.87. IMAGING STUDIES: On the 2nd which was yesterday, the CAT scan of the abdomen showed a left mastectom y, long segment of moderately distended fluid-filled small bowel with air-fluid levels, question of o bstruction of paraumbilical hernia considered. Hiatal hernia, hepatic cyst, cholelithiasis noted. The small bowel series showed no evidence of a bowel obstruction. Transit time is normal up to 45 mi nutes to the cecum. CLINICAL IMPRESSION: It is quite possible that we may be dealing with a partial intermittent umbilic al hernia. She may have come to the hospital with umbilical obstruction, hernia obstruction, but rig ht now there seems to be no obstruction; however, the reason for abdominal pain is not very clear. S he does have gallstones. I doubt if we are dealing with a cholecystitis. PLAN: At this time, recommend HIDA scan, recommend starting clear liquids and I will be happy to fol low this patient with you. Once again, doctor, thank you for this consultation. Dictated By: KAMI PAYNE MD NC/NTS Conf#: [id number] DID#: [id number] CC: JIN GONZALES MD; YADIRA TORRES MD;*[facility]*
[2018-12-27 02:00] VITALS: BP 149/67; PULSE 51; RESP 17
[2018-12-27] MEDS: SOD CHLORIDE 0.9% 1,000 ML IV SCH ×2 (02:27→06:01)
[2018-12-27] MEDS: LORAZEPAM 2 MG INJ IV PRN ×2 (03:39→13:58)
[2018-12-27 08:40] VITALS: BP 152/72; PULSE 78; RESP 20
--- NOTE | 2018-12-27 10:48 | PN ---
Date/Time of Note Date/Time of Note DATE: 12/27/18 TIME: 10:37 Assessment/Plan Lines/Catheters IV Catheter Type (from Nrs): Peripheral IV Chang in Place (from Nrs): Yes Assessment/Plan Chief Complaint/Hosp Course 1. Abdominal pain with ventral hernia, possible SBO per CT; recent abdominal x- ray noted with unremarkable bowel gas pattern. SBFT negative. 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 -Pain management -Discussed with Daughter plan to repair the ventral hernia > will plan to repair tomorrow 2. 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 Atherosclerosis -Med management 4. Breast ca hx s/p tx 5. Left kidney hyperdense nodule: -Per medical team 6. Mild leukocytosis: Resolved Thank you, Subjective 24 Hr Interval Summary Small bowel follow-through negative for obstruction. No nausea vomiting. No fevers chills. No chest pain. No shortness of breath. No cough. No seizure. Having bowel movement. She still reports pain at the bellybutton. Labs noted. Exam/Review of Systems Vital Signs Vitals Vital Signs Date Temp Pulse Resp B/P (MAP) Pulse Ox O2 O2 Flow FiO2 Time Delivery Rate 12/27/18 97.8 78 20 152/72 96 Room Air 08:40 (98) 12/26/18 2.0 20:10 Intake and Output 12/26/18 12/26/18 12/27/18 1515:00 23:00 07:00 IntakeIntake Total 545 ml 450 ml OutputOutput Total 425 ml 600 ml 200 ml BalanceBalance 120 ml -150 ml -200 ml Exam Free Text/Dictation Constitutional: alert, oriented (X1); No distress Psych: nl mood/affect, anxiety Head: normocephalic, atraumatic Eyes: nl conjunctiva, nl lids, nl sclera ENMT: nl external ears & nose, nl lips & teeth Neck: supple, non-tender; No jvd Respiratory: normal air movement; No congested cough Cardiovascular: regular rate and rhythm, nl pulses; No edema Gastrointestinal: soft, tender just at umbilical hernia No distended, No rebound or guarding Genitourinary - Female: nl external genitalia Musculoskeletal: nl extremities to inspection; No joint tenderness Extremities: normal pulses; No calf tenderness Neurological: nl speech, nl strength; No nl mental status Skin: No rash or lesions Lymph: nl lymph nodes Results Result Diagram: 12/27/18 0719 12/27/18 0719 YESI JEONG MD Dec 27, 2018 10:48
--- NOTE | 2018-12-27 12:55 | PN ---
Date/Time of Note Date/Time of Note DATE: 12/27/18 TIME: 12:43 Assessment/Plan VTE Prophylaxis Risk [place] [facility] [place] risk: 3 SCD applied (from [facility] [place]): Yes SCD contraindicated: other Pharmacological prophylaxis: NA/contraindicated Pharm contraindication: surgical contra Lines/Catheters IV C[facility] Type (from [facility]): Peripheral IV Urinary Cath still in place: Yes Reason Cath still needed: urinary retention Assessment/Plan Hospital Course 1. Abdominal pain , patient was admitted with abdominal pain and found to have a small bowel obstruction on CT scan. Although a upper GI with small bowel follow-through did not show obstruction. She does have a ventral hernia which is tender. She is now having a HIDA scan and so far the gallbladder lights up but no dye in the bowel. The patient was seen by GI , Dr. Pathak , and surgery Dr. Eaton. Dr. Eaton is anticipating taking the patient to surgery tomorrow for the hernia; however, will need to consider HIDA scan results. 2. COPD she does have some fine expiratory wheezes but is not symptomatic. 3. Dementia, this has been long-standing. She has been agitated and I will restart Seroquel. 4. Hypernatremia. I will adjust her IV fluids. Result Diagram: 12/27/18 0719 12/27/18 0719 Results 24hrs Laboratory Tests Test 12/27/18 07:19 White Blood Count 6.4 # Red Blood Count 4.10 L Hemoglobin 11.5 L Hematocrit 36.2 L Mean Corpuscular Volume 88.3 Mean Corpuscular Hemoglobin 28.0 L Mean Corpuscular Hemoglobin Concent 31.8 L Red Cell Distribution Width 14.6 H Platelet Count 149 # Mean Platelet Volume 10.3 Immature Granulocytes % 0.300 Neutrophils % 71.9 Lymphocytes % 20.1 Monocytes % 6.2 Eosinophils % 1.2 Basophils % 0.3 Nucleated Red Blood Cells % 0.0 Immature Granulocytes # 0.020 Neutrophils # 4.6 Lymphocytes # 1.3 Monocytes # 0.4 Eosinophils # 0.1 Basophils # 0.0 Nucleated Red Blood Cells # 0.0 Sodium Level 145 H Potassium Level 4.1 Chloride Level 115 H Carbon Dioxide Level 24 Anion Gap 6 Blood Urea Nitrogen 30 H Creatinine 0.72 Est Glomerular Filtrat Rate mL/min Glucose Level 83 Calcium Level 8.8 Phosphorus Level 3.4 Magnesium Level 2.2 Subjective 24 Hr Interval Summary Free Text/Dictation She is currently having a HIDA scan done in nuclear medicine. She is awake and talking but is confused. Constitutional: disoriented Respiratory: no complaints Cardiovascular: no complaints Gastrointestinal: pain Genitourinary: no complaints Musculoskeletal: no complaints Neurologic: confusion Exam/Review of Systems Exam Vitals Vital Signs Date Temp Pulse Resp B/P (MAP) Pulse Ox O2 O2 Flow FiO2 Time Delivery Rate 12/27/18 97.8 78 20 152/72 96 Room Air 08:40 (98) 12/27/18 2.0 08:20 Intake and Output 12/26/18 12/26/18 12/27/18 1515:00 23:00 07:00 IntakeIntake Total 545 ml 450 ml OutputOutput Total 425 ml 600 ml 200 ml BalanceBalance 120 ml -150 ml -200 ml Constitutional: alert, frail Psych: confusion Neck: supple Respiratory: wheezing Cardiovascular: regular rate and rhythm Gastrointestinal: soft, tender Musculoskeletal: nl extremities to inspection Results Results 24hrs Laboratory Tests Test 12/27/18 07:19 White Blood Count 6.4 # Red Blood Count 4.10 L Hemoglobin 11.5 L Hematocrit 36.2 L Mean Corpuscular Volume 88.3 Mean Corpuscular Hemoglobin 28.0 L Mean Corpuscular Hemoglobin Concent 31.8 L Red Cell Distribution Width 14.6 H Platelet Count 149 # Mean Platelet Volume 10.3 Immature Granulocytes % 0.300 Neutrophils % 71.9 Lymphocytes % 20.1 Monocytes % 6.2 Eosinophils % 1.2 Basophils % 0.3 Nucleated Red Blood Cells % 0.0 Immature Granulocytes # 0.020 Neutrophils # 4.6 Lymphocytes # 1.3 Monocytes # 0.4 Eosinophils # 0.1 Basophils # 0.0 Nucleated Red Blood Cells # 0.0 Sodium Level 145 H Potassium Level 4.1 Chloride Level 115 H Carbon Dioxide Level 24 Anion Gap 6 Blood Urea Nitrogen 30 H Creatinine 0.72 Est Glomerular Filtrat Rate mL/min Glucose Level 83 Calcium Level 8.8 Phosphorus Level 3.4 Magnesium Level 2.2 Medications Medication Current Medications Sodium Chloride 1,000 ml @ 70 mls/hr [id number] IV Last administered on 12/27/18at 06:01; Admin Dose 70 MLS/HR; Start 12/25/18 at 21:51 IV Flush (NS 3 ml) 3 ml PER PROTOCOL IV ; Start 12/25/18 at 22:00 Hydralazine HCl (Apresoline) 10 mg Q6H PRN IV HYPERTENSION; Start 12/25/18 at 22:00 Lorazepam (Ativan) 0.5 mg Q6H PRN IV AGITATION Last administered on 12/27/18at 03:39; Admin Dose 0.5 MG; Start 12/25/18 at 22:30 Morphine Sulfate (morphine) 1 mg Q6H PRN IV PAIN LEVEL 1-5 Last administered on 12/27/18at 09:23; Admin Dose 1 MG; Start 12/26/18 at 17:00 Morphine Sulfate (morphine) 2 mg Q6H PRN IV SEVERE PAIN LEVEL 7-10 Last administered on 12/26/18at 17:47; Admin Dose 2 MG; Start 12/26/18 at 17:00 Quetiapine Fumarate (Seroquel) 25 mg QAM PO ; Start 12/28/18 at 09:00 Quetiapine Fumarate (Seroquel) 50 mg HS PO ; Start 12/27/18 at 21:00 MINI CANTU MD Dec 27, 2018 12:55
[2018-12-27] MEDS: DEXTROSE 5%-0.45% NACL 1,000 ML IV SCH (13:40)
[2018-12-27 14:00] VITALS: BP 148/80; PULSE 76; RESP 18
[2018-12-27] MEDS: morphine 2 MG INJ IV PRN (19:30)
[2018-12-27 20:00] VITALS: BP 137/61; PULSE 42; RESP 15
[2018-12-27] MEDS: QUETIAPINE 25 MG TAB PO SCH (20:59)
[2018-12-28] VITALS (21 sets, daily range): BP systolic 123–168; BP diastolic 50–75; PULSE 43–67; RESP 13–22
[2018-12-28] MEDS: DEXTROSE 5%-0.45% NACL 1,000 ML IV SCH ×2 (02:20→05:53)
[2018-12-28] MEDS: LORAZEPAM 2 MG INJ IV PRN ×2 (08:00→18:37)
[2018-12-28] MEDS: QUETIAPINE 25 MG TAB PO SCH ×3 (08:02→21:20)
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
[2018-12-28] MEDS: ALBUTEROL/IPRATROPIUM (NEB) 3 ML AMP HHN SCH ×3 (11:00→20:04)
--- NOTE | 2018-12-28 12:38 | PN ---
Date/Time of Note Date/Time of Note DATE: 12/28/18 TIME: 12:32 Assessment/Plan Lines/Catheters IV Catheter Type (from Nrs): Peripheral IV Chang in Place (from Nrs): Yes Assessment/Plan Chief Complaint/Hosp Course 1. Abdominal pain with ventral hernia, possible SBO per CT; recent abdominal x- ray noted with unremarkable bowel gas pattern. SBFT negative. 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 -Pain management -Discussed with Daughter plan to repair the ventral hernia > repair today 2. 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 Atherosclerosis -Med management 4. Breast ca hx s/p tx 5. Left kidney hyperdense nodule: -Per medical team 6. Mild leukocytosis: Resolved Thank you. Patient seen and examined in collaboration with Dr. Ford Eaton. Subjective 24 Hr Interval Summary Abdominal discomfort ongoing. OR today. No fevers, chills, sob, congested cough, cp, palpitations, astudillo, dizziness, n/v/d/dysuria. Exam/Review of Systems Vital Signs Vitals Vital Signs Date Temp Pulse Resp B/P (MAP) Pulse Ox O2 O2 Flow FiO2 Time Delivery Rate 12/28/18 2.0 09:29 12/28/18 Nasal 08:37 Cannula 12/28/18 97.6 58 16 139/62 90 07:44 (87) Intake and Output 12/27/18 12/27/18 12/28/18 1515:00 23:00 07:00 IntakeIntake Total 710 ml 330 ml OutputOutput Total 450 ml BalanceBalance 710 ml -120 ml Exam Free Text/Dictation Constitutional: alert, oriented (X1); No distress Psych: nl mood/affect, anxiety Head: normocephalic, atraumatic Eyes: nl conjunctiva, nl lids, nl sclera ENMT: nl external ears & nose, nl lips & teeth Neck: supple, non-tender; No jvd Respiratory: normal air movement; No congested cough Cardiovascular: regular rate and rhythm, nl pulses; No edema Gastrointestinal: soft, tender just at umbilical hernia No distended, No rebound or guarding Genitourinary - Female: nl external genitalia Musculoskeletal: nl extremities to inspection; No joint tenderness Extremities: normal pulses; No calf tenderness Neurological: nl speech, nl strength; No nl mental status Skin: No rash or lesions Lymph: nl lymph nodes Results Result Diagram: 12/28/18 0507 12/28/18 0507 ANA M LEMUS NP Dec 28, 2018 12:38
[2018-12-28] MEDS ORDERED: CEFAZOLIN 1 GM INJ ONE (13:00)
--- NOTE | 2018-12-28 13:32 | PREAC ---
Date/Time of Note Date/Time of Note DATE: 12/28/18 TIME: 13:31 Anesthesia Eval and Record Evaluation Time Pre-Procedure Interview DATE: 12/28/18 TIME: 13:31 Age 88 Sex female NPO: 8 hrs Preoperative diagnosis ventral hernia Planned procedure ventral hernia repair Past Medical History Past Medical History: Includes Cardio: HTN, CAD, Other (thoracic aneurysm) Pulm: COPD, Sleep Apnea Renal: CKD Heme: Anemia Surgery & Anesthesia Issues Hx of delayed emergence Meds Anticoagulation: No Beta Kim within 24 hr: No Reason Beta Kim not given: Pt. not on B-Kim Reported Medications Quetiapine Fumarate* (Quetiapine Fumarate*) 50 Mg Tablet, 50 MG PO HS, TAB 12/25/18 Quetiapine Fumarate* (Quetiapine Fumarate*) 25 Mg Tablet, 25 MG PO QAM, TAB 12/25/18 Alprazolam* (Xanax*) 0.5 Mg Tab, 0.5 MG PO Q8H PRN for ANXIETY, TAB 12/25/18 Discontinued Reported Medications Citalopram Hydrobromide* (Citalopram Hydrobromide*) 20 Mg Tablet, 20 MG PO DAILY, #30 TAB 10/17/17 Quetiapine Fumarate* (Quetiapine Fumarate*) 50 Mg Tablet, 50 MG PO HS, TAB 10/17/17 Quetiapine Fumarate* (Quetiapine Fumarate*) 25 Mg Tablet, 25 MG PO QAM, TAB 10/17/17 Atorvastatin Calcium (Atorvastatin Calcium) 10 Mg Tablet, 10 MG PO QHS, #30 TAB 10/17/17 Alprazolam* (Alprazolam*) 0.25 Mg Tablet, 0.25 MG PO BID PRN for ANXIETY, TAB 10/17/17 Current Medications IV Flush (NS 3 ml) 3 ml PER PROTOCOL IV ; Start 12/25/18 at 22:00 Hydralazine HCl (Apresoline) 10 mg Q6H PRN IV HYPERTENSION; Start 12/25/18 at 22:00 Lorazepam (Ativan) 0.5 mg Q6H PRN IV AGITATION Last administered on 12/28/18at 08:00; Admin Dose 0.5 MG; Start 12/25/18 at 22:30 Morphine Sulfate (morphine) 1 mg Q6H PRN IV PAIN LEVEL 1-5 Last administered on 12/27/18at 09:23; Admin Dose 1 MG; Start 12/26/18 at 17:00 Morphine Sulfate (morphine) 2 mg Q6H PRN IV SEVERE PAIN LEVEL 7-10 Last administered on 12/27/18at 19:30; Admin Dose 2 MG; Start 12/26/18 at 17:00 Quetiapine Fumarate (Seroquel) 25 mg QAM PO Last administered on 12/28/18at 08:45; Admin Dose 25 MG; Start 12/28/18 at 09:00 Quetiapine Fumarate (Seroquel) 50 mg HS PO Last administered on 12/27/18at 20:59; Admin Dose 50 MG; Start 12/27/18 at 21:00 Dextrose/Sodium Chloride 1,000 ml @ 75 mls/hr [id number] IV Last administered on 12/28/18at 05:53; Admin Dose 75 MLS/HR; Start 12/27/18 at 13:00 Albuterol/ Ipratropium (Duoneb) 3 ml Q6H RESP THERAPY HHN ; Start 12/28/18 at 11:00 Meds reviewed: Yes Allergies Coded Allergies: Penicillins (Verified Allergy, Severe, ANAPHYLAXIS, 12/25/18) ALSO SEVER amoxicillin (Verified Allergy, Severe, ANAPHYLAXIS, 12/25/18) donepezil (Verified Allergy, Intermediate, 12/25/18) clavulanic acid (Verified Allergy, Unknown, 12/26/18) FROM ALLERGY TO AUMENTIN rabeprazole (Verified Allergy, Unknown, 12/25/18) Allergies Reviewed: Yes Labs/Studies Labs Reviewed: Reviewed by anesthesiologist Result Diagram: 12/28/18 0507 12/28/18 0507 Laboratory Tests 12/28/18 05:07 test: N/A Studies: ECG, CXR Pre-procedure Exam Last vitals Vital Signs Date Temp Pulse Resp B/P (MAP) Pulse Ox O2 O2 Flow FiO2 Time Delivery Rate 12/28/18 2.0 09:29 12/28/18 Nasal 08:37 Cannula 12/28/18 97.6 58 16 139/62 90 07:44 (87) Airway: Adequate mouth opening, Adequate thyromental dist Mallampati: Mallampati II Teeth: Normal Lung: Normal Heart: Normal ASA Physical Status ASA physical status: 4 Emergency: None Planned Anesthetic General/MAC: ETT Planned Pain Management Parenteral pain med Pre-operative Attestations Prior to commencing anesthesia and surgery, the patient was re-evaluated, there was verification of: *The patient's identity *The results of appropriate recent lab work and preoperative vital signs *The above evaluation not changing prior to induction *Anesthetic plan, risk benefits, alternative and complications discussed with patient/family; questions answered; patient/family understands, accepts and wishes to proceed. BASILIA WANG Dec 28, 2018 13:32
[2018-12-28] MEDS ORDERED: MIDAZOLAM 1 MG/ML 2 ML INJ ONE (13:39)
[2018-12-28] MEDS ORDERED: LIDOCAINE 2% (SDV) 5 ML INJ ONE (13:50)
[2018-12-28] MEDS ORDERED: ETOMIDATE 20 MG INJ ONE (13:50)
[2018-12-28] MEDS ORDERED: ROCURONIUM 50 MG INJ ONE (13:51)
[2018-12-28] MEDS ORDERED: FENTAnyl 50 MCG/ML VIAL ONE (13:51)
[2018-12-28] MEDS ORDERED: DEXAMETHASONE 4 MG/ML 5 ML INJ ONE (13:53)
[2018-12-28] MEDS ORDERED: ONDANSETRON 4 MG INJ ONE (13:53)
--- NOTE | 2018-12-28 13:55 | RADRPT ---
Vent Rate: 40 bpm RR Interval: 1504 msec MI Interval: 181 msec QRS Duration: 158 msec QT Interval: 584 msec QTC Interval: 476 msec P-R-T [place]: 60 - 24 - 38 degrees Sinus bradycardia...rate< 50 Right bundle branch block...QRSd>120, terminal axis(90,270) Electronically Signed By: Galdino Huddleston
[2018-12-28] MEDS ORDERED: POLYMYXIN/BACITRACIN 1L IRRIG IRR ONE (14:13)
[2018-12-28] MEDS ORDERED: LIDOCAINE 1% (MPF) 30 ML INJ ONE (14:13)
[2018-12-28] MEDS ORDERED: BUPIVACAINE 0.25%/EPI (SDV) 30 ML INJ ONE (14:13)
[2018-12-28] MEDS ORDERED: SUGAMMADEX SODIUM 200 MG/2 ML VIAL IV ONE (14:39)
--- NOTE | 2018-12-28 14:43 | OPR ---
Date/Time of Note Date/Time of Note DATE: 12/28/18 TIME: 14:36 Operative Report Procedure Date: Dec 28, 2018 Preoperative Diagnosis Ventral incisional hernia with intermittent small bowel obstruction due to intermittent incarceration Postoperative Diagnosis Same Operation/Procedure Performed 1. Laparoscopic ventral herniorrhaphy 2. Local anesthetic injection, [id number] 3. Laparoscopic guided bilateral transversus abdominis plane block Surgeon Yesi Jeong MD Service Support Representative Anny Real NP Anesthesia Type: general (Plus local and regional) Anesthesiologist: BASILIA WANG Estimated Blood Loss: 0 - 10 ml's Transfusion none Specimen Hernia sac content Grafts/Implants Ventral light ST 8.6 cm Tubes/Drains None Complications none Pt Condition Post Procedure: stable Disposition: PACU Indications Consult note. Patient with ventral hernia with obstruction and pain. Hernia reduced obstruction resolved she is here for hernia repair. Risks include but are not limited to bleeding, infection, abscess, seroma, hematoma, damage to intestines, damage to spermatic structures, loss of testicle, sensation loss to the thigh and scrotum, recurrence of hernia, chronic pain, need for re-operations or further surgeries, NH, stroke, PE, DVT, pneumonia, organ failures, or even . This was discussed with daughters and patient and caregiver and they all understand and agree to proceed with surgery. Procedure Description Patient was brought and placed supine on the operating table SCDs were placed, preoperative antibiotics were administered, all pressure points were well- padded, bilateral arms were tucked, and after induction of anesthesia patient was prepped and draped in usual sterile fashion and timeout was performed. I ncision was made in the left upper quadrant, and using Optiview port and a 5 mm 0 scope abdomen was entered and insufflated to 15mmHg. Laparoscopy was performed with a 5 mm 30 scope. No injuries were identified. Investigation identified a 2.5 centimeter ventral hernia. All port sites were injected with half percent Marcaine with epi and 1% lidocaine prior to any incisions. Bilateral transversus abdominis plane block was performed under laparoscopic visualization to aid with pain control intra-and postoperatively. Incision was made infraumbilically through her previous scar. Using Endo Close, #1 Vicryl sutures were placed across the defect to approximated in a [id number] manner x2. Mesh was placed through the incision intra- abdominally. 8.6 cm mesh was placed and secured to the fascia using 0 Vicryl. Previously placed Vicryl sutures were closed on top of the mesh to fully close the defect. Ports and CO2 were removed under direct visualization. There was complete hemostasis. Wounds were thoroughly irrigated skin was closed with 4-0 Monocryl in subcuticular fashion. Dermabond was applied. Patient was extubated and transf erred to recovery room in stable condition and all counts were correct and the end of the operation 2. Abdominal binder was applied. YESI JEONG MD Dec 28, 2018 14:43
--- NOTE | 2018-12-28 14:55 | PAC ---
Date/Time of Note Date/Time of Note DATE: 12/28/18 TIME: 14:54 Post-Anesthesia Notes Post-Anesthesia Note Last documented vital signs Vital Signs Date Temp Pulse Resp B/P (MAP) Pulse Ox O2 O2 Flow FiO2 Time Delivery Rate 12/28/18 98 67 151/78 99 2.0 1454 12/28/18 Nasal 08:37 Cannula 12/28/18 97.6 58 16 139/62 90 07:44 (87) Activity: WNL Respiratory function: WNL Cardiovascular function: WNL Mental status: Baseline Pain reasonably controlled: Yes Hydration appropriate: Yes Nausea/Vomiting absent: Yes BASILIA WANG Dec 28, 2018 14:55
--- NOTE | 2018-12-28 14:58 | CONS ---
DATE OF ADMISSION: 12/25/2018 DATE OF CONSULTATION: REASON FOR CONSULTATION: Shortness of breath. Preoperative evaluation. HISTORY OF PRESENT ILLNESS: This is an unfortunate 88-year-old lady with advanced dementia, likely h istory of COPD, who has been admitted on 12/26/2018 with abdominal pain, nausea, vomiting, found to h ave an umbilical hernia, now requiring surgical repair for possible bowel obstruction. The patient i s a poor historian, underlying history of dementia, breast cancer, probable underlying COPD. Chest x -ray demonstrated hyperinflation. She currently denies any shortness of breath. PAST MEDICAL HISTORY: As above. MEDICATIONS: Per chart. ALLERGIES INCLUDE: 1. PENICILLIN. 2. AMOXICILLIN. 3. CLAVULANIC ACID. 4. DONEPEZIL. 5. RABEPRAZOLE. PHYSICAL EXAMINATION: GENERAL: Elderly lady, appears comfortable at rest, in no acute distress. VITAL SIGNS: Temperature 98, pulse is 58, blood pressure 139/62, O2 saturation 96% on 2 liters. NECK: Supple. No JVD or lymphadenopathy. CARDIAC: S1, S2, no added sounds or murmurs. CHEST: Diminished air entry bilaterally. ABDOMEN: Soft, nontender. No guarding or rebound. EXTREMITIES: No cyanosis, clubbing, edema. NEUROLOGIC: Grossly intact. No focal deficits. LABORATORY DATA: White count 6.2, hemoglobin 10.9, platelets 138. BUN 31, creatinine 0.62. INR wit hin normal limits. IMPRESSION AND PLAN: Concern for possible obstructed bowel from the umbilical hernia. The patient i s requiring surgical repair. From a pulmonary standpoint, the patient can likely undergo operation w ithout dissipated respiratory issues. She should be safely extubated postoperatively and continue wi th bronchodilators and incentive spirometry. Dictated By: ABDULKADIR GORDILLO MD SV/NTS Conf#: [id number] DID#: [id number] CC: YADIRA TORRES MD; YESI JEONG MD;*End*
[2018-12-28] MEDS ORDERED: HYDROmorphONE 1 MG/5 ML IV SYRINGE IV PRN ×3 (15:00)
[2018-12-28] MEDS ORDERED: MEPERIDINE 25 MG INJ IV PRN (15:00)
[2018-12-28] MEDS ORDERED: LABETALOL HCL 20MG INJ IV PRN (15:00)
[2018-12-28] MEDS ORDERED: ONDANSETRON 4 MG INJ IV PRN (15:00)
[2018-12-28] MEDS ORDERED: hydrALAzine 20 MG INJ IV PRN (15:00)
[2018-12-28] MEDS ORDERED: ALBUTEROL 0.083% (NEB) 2.5 MG/3 ML AMP HHN PRN (15:00)
[2018-12-28] MEDS ORDERED: DIPHENHYDRAMINE 50 MG INJ IV PRN (15:00)
[2018-12-28] MEDS ORDERED: MIDAZOLAM 1 MG/ML 2 ML INJ IV PRN (15:00)
[2018-12-28] MEDS ORDERED: EPHEDrine 25 MG/5 ML SYG IV PRN (15:00)
[2018-12-28] MEDS ORDERED: METOCLOPRAMIDE 10 MG INJ IV PRN (15:00)
[2018-12-28] MEDS ORDERED: KETOROLAC 30 MG INJ IV PRN (15:00)
[2018-12-29] MEDS: DEXTROSE 5%-0.45% NACL 1,000 ML IV SCH ×2 (01:01→15:05)
[2018-12-29] MEDS: ALBUTEROL/IPRATROPIUM (NEB) 3 ML AMP HHN SCH ×4 (01:22→21:00)
[2018-12-29] MEDS: morphine 2 MG INJ IV PRN ×3 (01:34→15:01)
[2018-12-29 02:48] VITALS: BP 133/63; PULSE 70; RESP 20
[2018-12-29] MEDS: LORAZEPAM 2 MG INJ IV PRN ×3 (04:51→19:16)
[2018-12-29 08:00] VITALS: BP 197/74; PULSE 56; RESP 22
[2018-12-29] MEDS: QUETIAPINE 25 MG TAB PO SCH ×2 (08:38→20:34)
[2018-12-29 09:11] VITALS: BP 176/70; PULSE 56
[2018-12-29 09:44] VITALS: BP 151/69; PULSE 60; RESP 22
--- NOTE | 2018-12-29 10:57 | CONS ---
Consult Date/Type/Reason Admit Date/Time Dec 25, 2018 at 20:19 Initial Consult Date 12/26/18 Type of Consult Pulmonary Requesting Provider: YADIRA TORRES MD Date/Time of Note DATE: 12/29/18 TIME: 10:56 Subjective Patient comfortable following hernia repair. Objective Vital Signs Date Temp Pulse Resp B/P (MAP) Pulse Ox O2 O2 Flow FiO2 Time Delivery Rate 12/29/18 60 22 151/69 93 Nasal 2.0 09:44 (96) Cannula 12/29/18 98.9 08:00 Intake and Output 12/28/18 12/28/18 12/29/18 1414:59 22:59 06:59 IntakeIntake Total 450 ml 1050 ml 1300 ml OutputOutput Total 300 ml 85 ml 500 ml BalanceBalance 150 ml 965 ml 800 ml Exam PHYSICAL EXAMINATION: GENERAL: Elderly lady, appears comfortable at rest, in no acute distress. VITAL SIGNS: NECK: Supple. No JVD or lymphadenopathy. CARDIAC: S1, S2, no added sounds or murmurs. CHEST: Diminished air entry bilaterally. ABDOMEN: Soft, nontender. No guarding or rebound. EXTREMITIES: No cyanosis, clubbing, edema. NEUROLOGIC: Grossly intact. No focal deficits. Results/Medications Result Diagram: 12/29/18 0531 12/29/18 0531 Results 24 hrs Laboratory Tests Test 12/29/18 05:31 White Blood Count 7.2 Red Blood Count 4.27 Hemoglobin 12.1 Hematocrit 37.8 Mean Corpuscular Volume 88.5 Mean Corpuscular Hemoglobin 28.3 L Mean Corpuscular Hemoglobin Concent 32.0 Red Cell Distribution Width 14.1 Platelet Count 140 Mean Platelet Volume 10.6 H Immature Granulocytes % 0.300 Neutrophils % 84.8 H Lymphocytes % 8.4 L Monocytes % 6.3 Eosinophils % 0.1 Basophils % 0.1 Nucleated Red Blood Cells % 0.0 Immature Granulocytes # 0.020 Neutrophils # 6.1 Lymphocytes # 0.6 L Monocytes # 0.5 Eosinophils # 0.0 Basophils # 0.0 Nucleated Red Blood Cells # 0.0 Sodium Level 143 Potassium Level 3.6 Chloride Level 110 Carbon Dioxide Level 25 Anion Gap 8 Blood Urea Nitrogen 22 H Creatinine 0.63 Est Glomerular Filtrat Rate mL/min Glucose Level 141 # Calcium Level 8.9 Phosphorus Level 3.4 Magnesium Level 2.0 Vitamin B12 Level 488 Medications Current Medications IV Flush (NS 3 ml) 3 ml PER PROTOCOL IV ; Start 12/25/18 at 22:00 Hydralazine HCl (Apresoline) 10 mg Q6H PRN IV HYPERTENSION; Start 12/25/18 at 22:00 Lorazepam (Ativan) 0.5 mg Q6H PRN IV AGITATION Last administered on 12/29/18at 04:51; Admin Dose 0.5 MG; Start 12/25/18 at 22:30 Morphine Sulfate (morphine) 1 mg Q6H PRN IV PAIN LEVEL 1-5 Last administered on 12/27/18 09:23; Admin Dose 1 MG; Start 12/26/18 at 17:00 Morphine Sulfate (morphine) 2 mg Q6H PRN IV SEVERE PAIN LEVEL 7-10 Last administered on 12/29/18at 08:38; Admin Dose 2 MG; Start 12/26/18 at 17:00 Quetiapine Fumarate (Seroquel) 25 mg QAM PO Last administered on 12/29/18at 0 8:38; Admin Dose 25 MG; Start 12/28/18 at 09:00 Quetiapine Fumarate (Seroquel) 50 mg HS PO Last administered on 12/28/18at 21:20; Admin Dose 50 MG; Start 12/27/18 at 21:00 Dextrose/Sodium Chloride 1,000 ml @ 75 mls/hr [id number] IV Last administered on 12/29/18at 01:01; Admin Dose 75 MLS/HR; Start 12/27/18 at 13:00 Albuterol/ Ipratropium (Duoneb) 3 ml Q6H RESP THERAPY HHN Last administered on 12/29/18at 07:50; Admin Dose 3 ML; Start 12/28/18 at 11:00 Assessment/Plan Hospital Course (Demo Recall) Assessment 1. Status post ventral hernia repair 2. History of COPD 3. Advanced dementia Plan 1. Postop surgical recommendations 2. Bronchodilators as needed 3. Incentive spirometry if patient is able 4. Encourage out of bed if possible ABDULKADIR GORDILLO MD, [facility] Dec 29, 2018 10:57
[2018-12-29 14:00] VITALS: BP 138/64; PULSE 55; RESP 20
--- NOTE | 2018-12-29 15:58 | CONS ---
Assessment/Plan Assessment/Plan Hospital Course (Demo Recall) 1. Abdominal pain , patient was admitted with abdominal pain and found to have a small bowel obstruction on CT scan. She is now 1 day postop a laparoscopic ventral hernia repair. She seems comfortable but confused. 2. COPD, she has diminished breath sounds but no wheezes or rales. She is now being followed by pulmonary. 3. Dementia, this has been long-standing. She has been agitated and is requiring IV lorazepam to keep her under control. 4. Hypernatremia . This has resolved and her electrolytes are normal today. She will continue her current IV fluids. Consultation Date/Type/Reason Admit Date/Time Dec 25, 2018 at 20:19 Initial Consult Date 12/26/18 Requesting Provider: YADIRA TORRES MD Date/Time of Note DATE: 12/29/18 TIME: 15:53 24 HR Interval Summary Free Text/Dictation This patient is awake. She has a history of dementia and is confused. She is now 1 day postop a laparoscopic ventral hernia repair. Constitutional: disoriented Exam/Review of Systems Exam Vitals Vital Signs Date Temp Pulse Resp B/P (MAP) Pulse Ox O2 O2 Flow FiO2 Time Delivery Rate 12/29/18 98.0 55 20 138/64 98 Nasal 14:00 (88) Cannula 12/29/18 2.0 09:44 Intake and Output 12/28/18 12/28/18 12/29/18 1515:00 23:00 07:00 IntakeIntake Total 450 ml 1050 ml 1300 ml OutputOutput Total 300 ml 85 ml 500 ml BalanceBalance 150 ml 965 ml 800 ml Constitutional: alert Psych: confusion Respiratory: diminished breath sounds Cardiovascular: regular rate and rhythm Gastrointestinal: soft, tender Musculoskeletal: nl extremities to inspection Results Result Diagram: 12/29/18 0531 12/29/18 0531 Results 24hrs Laboratory Tests Test 12/29/18 05:31 White Blood Count 7.2 Red Blood Count 4.27 Hemoglobin 12.1 Hematocrit 37.8 Mean Corpuscular Volume 88.5 Mean Corpuscular Hemoglobin 28.3 L Mean Corpuscular Hemoglobin Concent 32.0 Red Cell Distribution Width 14.1 Platelet Count 140 Mean Platelet Volume 10.6 H Immature Granulocytes % 0.300 Neutrophils % 84.8 H Lymphocytes % 8.4 L Monocytes % 6.3 Eosinophils % 0.1 Basophils % 0.1 Nucleated Red Blood Cells % 0.0 Immature Granulocytes # 0.020 Neutrophils # 6.1 Lymphocytes # 0.6 L Monocytes # 0.5 Eosinophils # 0.0 Basophils # 0.0 Nucleated Red Blood Cells # 0.0 Sodium Level 143 Potassium Level 3.6 Chloride Level 110 Carbon Dioxide Level 25 Anion Gap 8 Blood Urea Nitrogen 22 H Creatinine 0.63 Est Glomerular Filtrat Rate mL/min Glucose Level 141 # Calcium Level 8.9 Phosphorus Level 3.4 Magnesium Level 2.0 Vitamin B12 Level 488 Medications Medication Current Medications IV Flush (NS 3 ml) 3 ml PER PROTOCOL IV ; Start 12/25/18 at 22:00 Hydralazine HCl (Apresoline) 10 mg Q6H PRN IV HYPERTENSION; Start 12/25/18 at 22:00 Morphine Sulfate (morphine) 1 mg Q6H PRN IV PAIN LEVEL 1-5 Last administered on 12/27/18 09:23; Admin Dose 1 MG; Start 12/26/18 at 17:00 Morphine Sulfate (morphine) 2 mg Q6H PRN IV SEVERE PAIN LEVEL 7-10 Last administered on 12/29/18at 15:01; Admin Dose 2 MG; Start 12/26/18 at 17:00 Quetiapine Fumarate (Seroquel) 25 mg QAM PO Last administered on 12/29/18 08:38; Admin Dose 25 MG; Start 12/28/18 at 09:00 Quetiapine Fumarate (Seroquel) 50 mg HS PO Last administered on 12/28/18 21:20; Admin Dose 50 MG; Start 12/27/18 at 21:00 Dextrose/Sodium Chloride 1,000 ml @ 75 mls/hr [id number] IV Last administered on 12/29/18 15:05; Admin Dose 75 MLS/HR; Start 12/27/18 at 13:00 Albuterol/ Ipratropium (Duoneb) 3 ml Q6H RESP THERAPY HHN Last administered on 12/29/18 07:50; Admin Dose 3 ML; Start 12/28/18 at 11:00 Lorazepam (Ativan) 0.5 mg Q4 PRN IV AGITATION; Start 12/29/18 at 16:00; Status UNMINI URRUTIA MD Dec 29, 2018 15:58
[2018-12-29 20:00] VITALS: BP 172/74; PULSE 67; RESP 17
[2018-12-30] MEDS: LORAZEPAM 2 MG INJ IV PRN ×3 (00:25→17:11)
[2018-12-30] MEDS: ALBUTEROL/IPRATROPIUM (NEB) 3 ML AMP HHN SCH ×4 (01:35→20:14)
--- NOTE | 2018-12-30 02:03 | PN ---
Date/Time of Note Date/Time of Note DATE: 12/29/18 TIME: 23:00 Assessment/Plan Lines/Catheters IV Catheter Type (from Nrs): Saline Lock Chang in Place (from Nrs): Yes Assessment/Plan Chief Complaint/Hosp Course 1. Abdominal pain with ventral hernia, possible SBO per CT; recent abdominal x- ray noted with unremarkable bowel gas pattern. SBFT negative. She is still cleaner tube at the umbilicus. s/p Lap repair 12/28. Doing well. -dc planning ok from surgical standpoint 2. 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 Atherosclerosis -Med management 4. Breast ca hx s/p tx 5. Left kidney hyperdense nodule: -Per medical team Thank you Late entry 12/29 Subjective 24 Hr Interval Summary s/p Lap repair ventral hernia 12/28. Min pain. No n/v. No fevers, chills, sob, congested cough, cp, palpitations, astudillo, dizziness, dysuria. Exam/Review of Systems Vital Signs Vitals Vital Signs Date Temp Pulse Resp B/P (MAP) Pulse Ox O2 O2 Flow FiO2 Time Delivery Rate 12/30/18 69 18 94 Nasal 2.0 01:36 Cannula 12/29/18 97.8 172/74 20:00 (106) Intake and Output 12/29/18 12/29/18 12/30/18 1414:59 22:59 06:59 IntakeIntake Total 1165 ml OutputOutput Total 600 ml BalanceBalance 565 ml Exam Free Text/Dictation Constitutional: alert, oriented to self No distress Psych: nl mood/affect, anxiety Head: normocephalic, atraumatic Eyes: nl conjunctiva, nl lids, nl sclera ENMT: nl external ears & nose, nl lips & teeth Neck: supple, non-tender; No jvd Respiratory: normal air movement; No congested cough Cardiovascular: regular rate and rhythm, nl pulses; No edema Gastrointestinal: soft, min tender No distended, No rebound or guarding Genitourinary - Female: nl external genitalia Musculoskeletal: nl extremities to inspection; No joint tenderness Extremities: normal pulses; No calf tenderness Neurological: nl speech, nl strength; No nl mental status Skin: No rash or lesions Lymph: nl lymph nodes Results Result Diagram: 12/29/18 0531 12/29/18 0531 YESI JEONG MD Dec 30, 2018 02:03
--- NOTE | 2018-12-30 02:04 | PN ---
Date/Time of Note Date/Time of Note DATE: 12/30/18 TIME: 02:04 Assessment/Plan Lines/Catheters IV Catheter Type (from Nrs): Saline Lock Chang in Place (from Nrs): Yes Assessment/Plan Chief Complaint/Hosp Course 1. Abdominal pain with ventral hernia, possible SBO per CT; recent abdominal x- ray noted with unremarkable bowel gas pattern. SBFT negative. 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 s/p Lap repair 12/28. Doing well. -dc planning ok from surgical standpoint 2. 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 Atherosclerosis -Med management 4. Breast ca hx s/p tx 5. Left kidney hyperdense nodule: -Per medical team Thank you Subjective 24 Hr Interval Summary Min pain. No n/v. No fevers, chills, sob, congested cough, cp, palpitations, astudillo, dizziness, dysuria. Exam/Review of Systems Vital Signs Vitals Vital Signs Date Temp Pulse Resp B/P (MAP) Pulse Ox O2 O2 Flow FiO2 Time Delivery Rate 12/30/18 69 18 94 Nasal 2.0 01:36 Cannula 12/29/18 97.8 172/74 20:00 (106) Intake and Output 12/29/18 12/29/18 12/30/18 1414:59 22:59 06:59 IntakeIntake Total 1165 ml OutputOutput Total 600 ml BalanceBalance 565 ml Exam Free Text/Dictation Constitutional: alert, oriented to self No distress Psych: nl mood/affect, anxiety Head: normocephalic, atraumatic Eyes: nl conjunctiva, nl lids, nl sclera ENMT: nl external ears & nose, nl lips & teeth Neck: supple, non-tender; No jvd Respiratory: normal air movement; No congested cough Cardiovascular: regular rate and rhythm, nl pulses; No edema Gastrointestinal: soft, min tender No distended, No rebound or guarding Genitourinary - Female: nl external genitalia Musculoskeletal: nl extremities to inspection; No joint tenderness Extremities: normal pulses; No calf tenderness Neurological: nl speech, nl strength; No nl mental status Skin: No rash or lesions Lymph: nl lymph nodes Results Result Diagram: 12/29/18 0531 12/29/18 0531 YESI JEONG MD Dec 30, 2018 02:04
[2018-12-30 02:20] VITALS: BP 169/76; PULSE 87; RESP 18
[2018-12-30] MEDS: morphine 2 MG INJ IV PRN (04:00)
[2018-12-30] MEDS: DEXTROSE 5%-0.45% NACL 1,000 ML IV SCH ×2 (04:59→13:40)
[2018-12-30 08:00] VITALS: BP 143/66; PULSE 72; RESP 18
[2018-12-30] MEDS: QUETIAPINE 25 MG TAB PO SCH ×2 (09:37→20:46)
--- NOTE | 2018-12-30 11:24 | CONS ---
Consult Date/Type/Reason Admit Date/Time Dec 25, 2018 at 20:19 Initial Consult Date 12/26/18 Type of Consult Pulmonary Requesting Provider: YADIRA TORRES MD Date/Time of Note DATE: 12/30/18 TIME: 11:24 Subjective Appears comfortable no respiratory distress. Objective Vital Signs Date Temp Pulse Resp B/P (MAP) Pulse Ox O2 O2 Flow FiO2 Time Delivery Rate 12/30/18 Nasal 2.0 08:30 Cannula 12/30/18 72 16 94 08:18 12/30/18 98.6 143/66 08:00 (91) Intake and Output 12/29/18 12/29/18 12/30/18 1515:00 23:00 07:00 IntakeIntake Total 1165 ml OutputOutput Total 600 ml 1200 ml BalanceBalance 565 ml -1200 ml Exam PHYSICAL EXAMINATION: GENERAL: Elderly lady, appears comfortable at rest, in no acute distress. VITAL SIGNS: NECK: Supple. No JVD or lymphadenopathy. CARDIAC: S1, S2, no added sounds or murmurs. CHEST: Diminished air entry bilaterally. ABDOMEN: Soft, nontender. No guarding or rebound. EXTREMITIES: No cyanosis, clubbing, edema. NEUROLOGIC: Grossly intact. No focal deficits. Results/Medications Result Diagram: 12/29/1853012/29/18530 Medications Current Medications IV Flush (NS 3 ml) 3 ml PER PROTOCOL IV ; Start 12/25/18 at 22:00 Hydralazine HCl (Apresoline) 10 mg Q6H PRN IV HYPERTENSION; Start 12/25/18 at 22:00 Morphine Sulfate (morphine) 1 mg Q6H PRN IV PAIN LEVEL 1-5 Last administered on 12/27/18at 09:23; Admin Dose 1 MG; Start 12/26/18 at 17:00 Morphine Sulfate (morphine) 2 mg Q6H PRN IV SEVERE PAIN LEVEL 7-10 Last administered on 12/30/18at 04:00; Admin Dose 2 MG; Start 12/26/18 at 17:00 Quetiapine Fumarate (Seroquel) 25 mg QAM PO Last administered on 12/30/18at 09:37; Admin Dose 25 MG; Start 12/28/18 at 09:00 Quetiapine Fumarate (Seroquel) 50 mg HS PO Last administered on 12/29/18at 20:34; Admin Dose 50 MG; Start 12/27/18 at 21:00 Dextrose/Sodium Chloride 1,000 ml @ 75 mls/hr [id number] IV Last administered on 12/30/18 04:59; Admin Dose 75 MLS/HR; Start 12/27/18 at 13:00 Albuterol/ Ipratropium (Duoneb) 3 ml Q6H RESP THERAPY HHN Last administered on 12/30/18 08:16; Admin Dose 3 ML; Start 12/28/18 at 11:00 Lorazepam (Ativan) 0.5 mg Q4H PRN IV AGITATION Last administered on 12/30/18 04:40; Admin Dose 0.5 MG; Start 12/29/18 at 16:00 Assessment/Plan Hospital Course (Demo Recall) Assessment 1. Status post ventral hernia repair 2. History of COPD 3. Advanced dementia Plan 1. Postop surgical recommendations advance diet per general surgery. 2. Bronchodilators as needed 3. Incentive spirometry if patient is able 4. Encourage out of bed if possible Will need fdc facility. ABDULKADIR GORDILLO MD, [facility] Dec 30, 2018 11:24
--- NOTE | 2018-12-30 13:37 | PN ---
Date/Time of Note Date/Time of Note DATE: 12/30/18 TIME: 13:29 Assessment/Plan VTE Prophylaxis Risk score (from Ns)>0 risk: 6 SCD applied (from Ns): Yes Pharmacological prophylaxis: NA/contraindicated Pharm contraindication: surgical contra Lines/Catheters [facility] Peripheral IV Urinary Cath still in place: Yes Reason Cath still needed: urinary retention Assessment/Plan Hospital Course 1. Abdominal pain , patient was admitted with abdominal pain and found to have a small bowel obstruction on CT scan. She is now 2 days postop a laparoscopic ventral hernia repair. She seems comfortable but confused. She has not been eating. She continues to get IV fluids. 2. COPD, she has diminished breath sounds but no wheezes or rales. She is now being followed by pulmonary. 3. Dementia, this has been long-standing. She has been agitated and is requiring IV lorazepam to keep her under control. Result Diagram: 12/29/1831 12/29/18530 Subjective 24 Hr Interval Summary Subjective hx not possible: pt non-verbal Constitutional: disoriented Respiratory: no complaints Cardiovascular: no complaints Gastrointestinal: no complaints Genitourinary: no complaints Neurologic: confusion Exam/Review of Systems Exam Vitals Vital Signs Date Temp Pulse Resp B/P (MAP) Pulse Ox O2 O2 Flow FiO2 Time Delivery Rate 12/30/18 79 16 94 Nasal 2.0 13:21 Cannula 12/30/18 98.6 143/66 08:00 (91) Intake and Output 12/29/18 12/29/18 12/30/18 1414:59 22:59 06:59 IntakeIntake Total 1165 ml OutputOutput Total 600 ml 1200 ml BalanceBalance 565 ml -1200 ml Constitutional: non-verbal Psych: confusion Respiratory: clear to auscultation Cardiovascular: regular rate and rhythm Gastrointestinal: soft, tender Musculoskeletal: nl extremities to inspection Medications Medication Current Medications IV Flush (NS 3 ml) 3 ml PER PROTOCOL IV ; Start 12/25/18 at 22:00 Hydralazine HCl (Apresoline) 10 mg Q6H PRN IV HYPERTENSION; Start 12/25/18 at 22:00 Morphine Sulfate (morphine) 1 mg Q6H PRN IV PAIN LEVEL 1-5 Last administered on 12/27/18at 09:23; Admin Dose 1 MG; Start 12/26/18 at 17:00 Morphine Sulfate (morphine) 2 mg Q6H PRN IV SEVERE PAIN LEVEL 7-10 Last administered on 12/30/18 04:00; Admin Dose 2 MG; Start 12/26/18 at 17:00 Quetiapine Fumarate (Seroquel) 25 mg QAM PO Last administered on 12/30/18 09:37; Admin Dose 25 MG; Start 12/28/18 at 09:00 Quetiapine Fumarate (Seroquel) 50 mg HS PO Last administered on 12/29/18at 20:34; Admin Dose 50 MG; Start 12/27/18 at 21:00 Albuterol/ Ipratropium (Duoneb) 3 ml Q6H RESP THERAPY HHN Last administered on 12/30/18 13:21; Admin Dose 3 ML; Start 12/28/18 at 11:00 Lorazepam (Ativan) 0.5 mg Q4H PRN IV AGITATION Last administered on 12/30/18 04:40; Admin Dose 0.5 MG; Start 12/29/18 at 16:00 MINI CANTU MD Dec 30, 2018 13:37
[2018-12-30 14:00] VITALS: BP 138/72; PULSE 72; RESP 18
[2018-12-30 20:37] VITALS: BP 186/84; PULSE 87; RESP 16
[2018-12-30 21:00] VITALS: BP 100/54; PULSE 91
[2018-12-31] MEDS: ALBUTEROL/IPRATROPIUM (NEB) 3 ML AMP HHN SCH ×4 (01:49→19:39)
[2018-12-31] MEDS: DEXTROSE 5%-0.45% NACL 1,000 ML IV SCH ×2 (02:56→16:46)
[2018-12-31 03:17] VITALS: BP 143/65; PULSE 56; RESP 16
[2018-12-31 08:00] VITALS: BP 164/72; PULSE 80; RESP 17
[2018-12-31] MEDS ORDERED: POTASSIUM CHLORIDE (SR) 10 MEQ TAB PO ONE (08:00)
--- NOTE | 2018-12-31 08:41 | PN ---
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 Post op repair of umbilical hernia, rev with surgery re-adv diet 2. COPD, will check abg and mobilize 3. 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 5. Will try to mobilize Result Diagram: 12/31/1854012/31/18540 Results 24hrs Laboratory Tests Test 12/31/18 05:41 White Blood Count 5.5 # Red Blood Count 3.93 L Hemoglobin 11.2 L Hematocrit 34.1 L Mean Corpuscular Volume 86.8 Mean Corpuscular Hemoglobin 28.5 L Mean Corpuscular Hemoglobin Concent 32.8 Red Cell Distribution Width 14.1 Platelet Count 145 Mean Platelet Volume 11.2 H Immature Granulocytes % 0.200 Neutrophils % 60.1 Lymphocytes % 24.7 Monocytes % 11.3 H Eosinophils % 3.3 Basophils % 0.4 Nucleated Red Blood Cells % 0.0 Immature Granulocytes # 0.010 Neutrophils # 3.3 Lymphocytes # 1.4 Monocytes # 0.6 Eosinophils # 0.2 Basophils # 0.0 Nucleated Red Blood Cells # 0.0 Sodium Level 143 Potassium Level 2.7 *L Chloride Level 109 Carbon Dioxide Level 30 Anion Gap 4 L Blood Urea Nitrogen 8 Creatinine 0.55 Est Glomerular Filtrat Rate mL/min Glucose Level 89 Calcium Level 8.2 L Phosphorus Level 2.7 Magnesium Level 1.8 Total Bilirubin 1.0 Direct Bilirubin 0.00 Indirect Bilirubin 1.0 Aspartate Amino Transf (AST/SGOT) 16 Alanine Aminotransferase (ALT/SGPT) 21 Alkaline Phosphatase 47 Total Protein 5.5 L Albumin 2.8 L Globulin 2.70 Albumin/Globulin Ratio 1.03 Subjective 24 Hr Interval Summary Respiratory: No cough, No shortness of breath Cardiovascular: No chest pain Gastrointestinal: no complaints Genitourinary: no complaints Exam/Review of Systems Exam Vitals Vital Signs Date Temp Pulse Resp B/P (MAP) Pulse Ox O2 O2 Flow FiO2 Time Delivery Rate 12/31/18 72 16 93 Nasal 2.0 08:27 Cannula 12/31/18 98.7 143/65 03:17 (91) Intake and Output 12/30/18 12/30/18 12/31/18 1515:00 23:00 07:00 IntakeIntake Total 870 ml 550 ml 850 ml OutputOutput Total 2100 ml 1100 ml BalanceBalance 870 ml -1550 ml -250 ml Neck: No jvd Respiratory: clear to auscultation Cardiovascular: regular rate and rhythm Extremities: tenderness; No edema Neurological: confused Results Results 24hrs Laboratory Tests Test 12/31/18 05:41 White Blood Count 5.5 # Red Blood Count 3.93 L Hemoglobin 11.2 L Hematocrit 34.1 L Mean Corpuscular Volume 86.8 Mean Corpuscular Hemoglobin 28.5 L Mean Corpuscular Hemoglobin Concent 32.8 Red Cell Distribution Width 14.1 Platelet Count 145 Mean Platelet Volume 11.2 H Immature Granulocytes % 0.200 Neutrophils % 60.1 Lymphocytes % 24.7 Monocytes % 11.3 H Eosinophils % 3.3 Basophils % 0.4 Nucleated Red Blood Cells % 0.0 Immature Granulocytes # 0.010 Neutrophils # 3.3 Lymphocytes # 1.4 Monocytes # 0.6 Eosinophils # 0.2 Basophils # 0.0 Nucleated Red Blood Cells # 0.0 Sodium Level 143 Potassium Level 2.7 *L Chloride Level 109 Carbon Dioxide Level 30 Anion Gap 4 L Blood Urea Nitrogen 8 Creatinine 0.55 Est Glomerular Filtrat Rate mL/min Glucose Level 89 Calcium Level 8.2 L Phosphorus Level 2.7 Magnesium Level 1.8 Total Bilirubin 1.0 Direct Bilirubin 0.00 Indirect Bilirubin 1.0 Aspartate Amino Transf (AST/SGOT) 16 Alanine Aminotransferase (ALT/SGPT) 21 Alkaline Phosphatase 47 Total Protein 5.5 L Albumin 2.8 L Globulin 2.70 Albumin/Globulin Ratio 1.03 Medications Medication Current Medications IV Flush (NS 3 ml) 3 ml PER PROTOCOL IV ; Start 12/25/18 at 22:00 Hydralazine HCl (Apresoline) 10 mg Q6H PRN IV HYPERTENSION; Start 12/25/18 at 22:00 Quetiapine Fumarate (Seroquel) 25 mg QAM PO Last administered on 12/30/18at 09:37; Admin Dose 25 MG; Start 12/28/18 at 09:00 Quetiapine Fumarate (Seroquel) 50 mg HS PO Last administered on 12/30/18at 20:46; Admin Dose 50 MG; Start 12/27/18 at 21:00 Albuterol/ Ipratropium (Duoneb) 3 ml Q6H RESP THERAPY HHN Last administered on 12/31/18 08:27; Admin Dose 3 ML; Start 12/28/18 at 11:00 Dextrose/Sodium Chloride 1,000 ml @ 50 mls/hr Q20H IV Last administered on 12/31/18at 02:56; Admin Dose 75 MLS/HR; Start 12/30/18 at 13:30 Potassium Chloride 100 ml @ 50 mls/hr Q2H IVPB ; Start 12/31/18 at 08:30; Stop 12/31/18 at 12:29 Alprazolam (Xanax) 0.25 mg TID PRN PO ANXIETY; Start 12/31/18 at 09:00; Status UNV YADIRA TORRES MD Dec 31, 2018 08:41
[2018-12-31] MEDS: QUETIAPINE 25 MG TAB PO SCH ×2 (08:58→20:05)
[2018-12-31] MEDS: POTASSIUM CHLORIDE 100 ML IVPB SCH ×2 (08:58→11:22)
[2018-12-31] MEDS: ASPIRIN (EC) 81 MG TAB PO SCH (08:58)
[2018-12-31] MEDS ORDERED: ACETAMINOPHEN 325 MG TAB PO PRN (11:00)
--- NOTE | 2018-12-31 11:59 | PN ---
Date/Time of Note Date/Time of Note DATE: 12/31/18 TIME: 11:58 Assessment/Plan Lines/Catheters IV Catheter Type (from [facility]): Peripheral IV Chang in Place (from [facility]): No Assessment/Plan Chief Complaint/Hosp Course 1. Abdominal pain with ventral hernia, possible SBO per CT; recent abdominal x- ray noted with unremarkable bowel gas pattern. SBFT negative. 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 s/p Lap repair 12/28. Doing well. -advance diet -dc planning ok from surgical standpoint 2. 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 Atherosclerosis -Med management 4. Breast ca hx s/p tx 5. Left kidney hyperdense nodule: -Per medical team 6. Hypokalemia -replete per primary team Thank you Subjective 24 Hr Interval Summary No n/v on clears. Passing gas. No BM. Min pain. No fevers, chills, sob, congested cough, cp, palpitations, astudillo, dizziness, dysuria. Labs noted with hypokalemia. Exam/Review of Systems Vital Signs Vitals Vital Signs Date Temp Pulse Resp B/P (MAP) Pulse Ox O2 O2 Flow FiO2 Time Delivery Rate 12/31/18 72 16 93 Nasal 2.0 08:27 Cannula 12/31/18 98.0 164/72 08:00 (102) Intake and Output 12/30/18 12/30/18 12/31/18 1515:00 23:00 07:00 IntakeIntake Total 870 ml 550 ml 850 ml OutputOutput Total 2100 ml 1100 ml BalanceBalance 870 ml -1550 ml -250 ml Exam Free Text/Dictation Constitutional: alert, oriented to self No distress Psych: nl mood/affect, anxiety Head: normocephalic, atraumatic Eyes: nl conjunctiva, nl lids, nl sclera ENMT: nl external ears & nose, nl lips & teeth Neck: supple, non-tender; No jvd Respiratory: normal air movement; No congested cough Cardiovascular: regular rate and rhythm, nl pulses; No edema Gastrointestinal: soft, min tender No distended, No rebound or guarding Genitourinary - Female: nl external genitalia Musculoskeletal: nl extremities to inspection; No joint tenderness Extremities: normal pulses; No calf tenderness Neurological: nl speech, nl strength; No nl mental status Skin: No rash or lesions Lymph: nl lymph nodes Results Result Diagram: 12/31/18 0541 12/31/18 0541 YESI JEONG MD Dec 31, 2018 11:59
[2018-12-31 14:00] VITALS: BP 142/69; PULSE 72; RESP 19
[2018-12-31] MEDS: POTASSIUM CHLORIDE (SR) 10 MEQ TAB PO SCH (17:07)
[2018-12-31] MEDS: ALPRAZOLAM 0.25 MG TAB PO PRN (18:23)
[2018-12-31 20:00] VITALS: BP 135/64; PULSE 70; RESP 18
[2019-01-01 02:00] VITALS: BP 164/72; PULSE 64; RESP 18
[2019-01-01] MEDS: ALBUTEROL/IPRATROPIUM (NEB) 3 ML AMP HHN SCH ×3 (02:56→15:12)
[2019-01-01] MEDS: ALPRAZOLAM 0.25 MG TAB PO PRN ×2 (04:30→16:00)
[2019-01-01 07:50] VITALS: BP 180/81; PULSE 71; RESP 18
[2019-01-01] MEDS: QUETIAPINE 25 MG TAB PO SCH (08:05)
[2019-01-01] MEDS: ASPIRIN (EC) 81 MG TAB PO SCH (08:05)
[2019-01-01] MEDS: POTASSIUM CHLORIDE (SR) 10 MEQ TAB PO SCH (08:05)
--- NOTE | 2019-01-01 08:34 | PN ---
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 Post op umbilical hernia repair 2. Dementia/agitation-always problematic 3. Urinary retention, in and out cath done last night, will try to mobilize and recheck post void residual 4. Case management has been asked to see pt re---dc home with daughter vs ecf, await their response Result Diagram: 01/01/19 0651 01/01/19 0651 Results 24hrs Laboratory Tests Test 12/31/18 09:00 12/31/18 15:40 12/31/18 15:57 01/01/19 06:51 Blood Gas Specimen Blood arterial Source Arterial Blood 12/31/2018 9:30:04 Date Drawn AM Arterial Blood pH 7.478 H (Temp corrected) Arterial Blood 39.3 pCO2 (Temp correct) Arterial Blood pO2 47.3 *L (Temp corrected) Arterial Blood 28.5 H HCO3 Arterial Blood 4.7 H Base Excess Arterial Blood 86.0 L Oxygen Saturation Paul Test ACCEPTAB Arterial Blood Gas Left Radial Puncture Site Arterial 0.4 Blood Carboxyhemog lobin Arterial Blood 0.3 Methemoglobin Blood Gas A-a O2 55.4 H Differential Oxyhemoglobin 85.4 L Percent Blood Gas 37.0 Temperature Blood Gas Modality ROOM AIR FiO2 21.0 Blood Gas Critical NEOMI PABLO Value Read Back Blood Gas Notified TM Whom Blood Gas Notified 12/31/2018 9:38:57 Time AM Urine Color STRAW Urine Clarity CLEAR Urine pH 8.0 Urine Specific 1.006 [place] Urine Ketones NEGATIVE Urine Nitrite NEGATIVE Urine Bilirubin NEGATIVE Urine Urobilinogen 1+ H Urine Leukocyte NEGATIVE Esterase Urine Microscopic 18 H RBC Urine Microscopic 1 WBC Urine Hemoglobin 1+ H Urine Glucose NEGATIVE Urine Total NEGATIVE Protein Potassium Level 3.2 L 3.4 L White Blood Count 6.1 Red Blood Count 4.56 Hemoglobin 12.7 Hematocrit 39.3 Mean Corpuscular 86.2 Volume Mean Corpuscular 27.9 L Hemoglobin Mean Corpuscular 32.3 Hemoglobin Concent Red Cell 14.5 Distribution Width Platelet Count 168 Mean Platelet 10.4 Volume Immature 0.300 Granulocytes % Neutrophils % 66.3 Lymphocytes % 18.9 Monocytes % 9.2 Eosinophils % 4.8 Basophils % 0.5 Nucleated Red 0.0 Blood Cells % Immature 0.020 Granulocytes # Neutrophils # 4.1 Lymphocytes # 1.2 Monocytes # 0.6 Eosinophils # 0.3 Basophils # 0.0 Nucleated Red 0.0 Blood Cells # Sodium Level 145 H Chloride Level 109 Carbon Dioxide 31 Level Anion Gap 5 Blood Urea 6 L Nitrogen Creatinine 0.56 Est Glomerular Filtrat Rate mL/min Glucose Level 85 Calcium Level 9.0 Phosphorus Level 2.7 Magnesium Level 1.8 Subjective 24 Hr Interval Summary Cardiovascular: No chest pain Gastrointestinal: no complaints Genitourinary: No dysuria Musculoskeletal: no complaints Exam/Review of Systems Exam Vitals Vital Signs Date Temp Pulse Resp B/P (MAP) Pulse Ox O2 O2 Flow FiO2 Time Delivery Rate 01/01/19 97.3 71 18 180/81 94 07:50 (114) 01/01/19 Nasal 2.0 02:56 Cannula Intake and Output 12/31/18 12/31/18 01/01/19 1515:00 23:00 07:00 IntakeIntake Total 680 ml 1065 ml OutputOutput Total 2000 ml 1000 ml BalanceBalance 680 ml -935 ml -1000 ml Neck: No jvd Respiratory: clear to auscultation Cardiovascular: regular rate and rhythm Gastrointestinal: soft Extremities: No edema Results Results 24hrs Laboratory Tests Test 12/31/18 09:00 12/31/18 15:40 12/31/18 15:57 01/01/19 06:51 Blood Gas Specimen Blood arterial Source Arterial Blood 12/31/2018 9:30:04 Date Drawn AM Arterial Blood pH 7.478 H (Temp corrected) Arterial Blood 39.3 pCO2 (Temp correct) Arterial Blood pO2 47.3 *L (Temp corrected) Arterial Blood 28.5 H HCO3 Arterial Blood 4.7 H Base Excess Arterial Blood 86.0 L Oxygen Saturation Paul Test ACCEPTAB Arterial Blood Gas Left Radial Puncture Site Arterial 0.4 Blood Carboxyhemog lobin Arterial Blood 0.3 Methemoglobin Blood Gas A-a O2 55.4 H Differential Oxyhemoglobin 85.4 L Percent Blood Gas 37.0 Temperature Blood Gas Modality ROOM AIR FiO2 21.0 Blood Gas Critical NOEMI RN Value Read Back Blood Gas Notified TM Whom Blood Gas Notified 12/31/2018 9:38:57 Time AM Urine Color STRAW Urine Clarity CLEAR Urine pH 8.0 Urine Specific 1.006 [place] Urine Ketones NEGATIVE Urine Nitrite NEGATIVE Urine Bilirubin NEGATIVE Urine Urobilinogen 1+ H Urine Leukocyte NEGATIVE Esterase Urine Microscopic 18 H RBC Urine Microscopic 1 WBC Urine Hemoglobin 1+ H Urine Glucose NEGATIVE Urine Total NEGATIVE Protein Potassium Level 3.2 L 3.4 L White Blood Count 6.1 Red Blood Count 4.56 Hemoglobin 12.7 Hematocrit 39.3 Mean Corpuscular 86.2 Volume Mean Corpuscular 27.9 L Hemoglobin Mean Corpuscular 32.3 Hemoglobin Concent Red Cell 14.5 Distribution Width Platelet Count 168 Mean Platelet 10.4 Volume Immature 0.300 Granulocytes % Neutrophils % 66.3 Lymphocytes % 18.9 Monocytes % 9.2 Eosinophils % 4.8 Basophils % 0.5 Nucleated Red 0.0 Blood Cells % Immature 0.020 Granulocytes # Neutrophils # 4.1 Lymphocytes # 1.2 Monocytes # 0.6 Eosinophils # 0.3 Basophils # 0.0 Nucleated Red 0.0 Blood Cells # Sodium Level 145 H Chloride Level 109 Carbon Dioxide 31 Level Anion Gap 5 Blood Urea 6 L Nitrogen Creatinine 0.56 Est Glomerular Filtrat Rate mL/min Glucose Level 85 Calcium Level 9.0 Phosphorus Level 2.7 Magnesium Level 1.8 Medications Medication Current Medications IV Flush (NS 3 ml) 3 ml PER PROTOCOL IV ; Start 12/25/18 at 22:00 Hydralazine HCl (Apresoline) 10 mg Q6H PRN IV HYPERTENSION; Start 12/25/18 at 22 :00 Quetiapine Fumarate (Seroquel) 25 mg QAM PO Last administered on 01/01/19at 08:05; Admin Dose 25 MG; Start 12/28/18 at 09:00 Quetiapine Fumarate (Seroquel) 50 mg HS PO Last administered on 12/31/18at 20:05; Admin Dose 50 MG; Start 12/27/18 at 21:00 Albuterol/ Ipratropium (Duoneb) 3 ml Q6H RESP THERAPY HHN Last administered on 01/01/19at 02:56; Admin Dose 3 ML; Start 12/28/18 at 11:00 Dextrose/Sodium Chloride 1,000 ml @ 50 mls/hr Q20H IV Last administered on 12/31/18 16:46; Admin Dose 50 MLS/HR; Start 12/30/18 at 13:30 Alprazolam (Xanax) 0.25 mg TID PRN PO ANXIETY Last administered on 01/01/19 04:30; Admin Dose 0.25 MG; Start 12/31/18 at 09:00 Aspirin (Halfprin) 81 mg DAILY PO Last administered on 01/01/19 08:05; Admin Dose 81 MG; Start 12/31/18 at 09:00 Acetaminophen (Tylenol Tab) 650 mg Q6H PRN PO MILD PAIN(1-3)OR ELEVATED TEMP; Start 12/31/18 at 11:00 Potassium Chloride (Klor-Con 10) 30 meq DAILY PO Last administered on 01/01/19 08:05; Admin Dose 30 MEQ; Start 12/31/18 at 17:00 YADIRA TORRES MD Jan 01, 2019 08:34
--- NOTE | 2019-01-01 10:39 | PN ---
Date/Time of Note Date/Time of Note DATE: 01/01/19 TIME: 10:36 Assessment/Plan Lines/Catheters IV Catheter Type (from [facility]): Peripheral IV Assessment/Plan Chief Complaint/Hosp Course 1. Abdominal pain with ventral hernia, possible SBO per CT; recent abdominal x- ray noted with unremarkable bowel gas pattern. SBFT negative. 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 s/p Lap repair 12/28. Doing well. -advance diet -dc planning ok from surgical standpoint 2. 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 Atherosclerosis -Med management 4. Breast ca hx s/p tx 5. Left kidney hyperdense nodule: -Per medical team 6. Hypokalemia -replete per primary team 7. Urinary retention: Status post straight cath -Per medical team Thank you. Patient seen and examined in collaboration with Dr. Ford Eaton. Subjective 24 Hr Interval Summary Feels okay. No acute abdominal pain. + Bowel function. Some urinary retention overnight. No fevers, chills, sob, congested cough, cp, palpitations, astudillo, dizziness, nausea, vomiting, diarrhea, dysuria. Exam/Review of Systems Vital Signs Vitals Vital Signs Date Temp Pulse Resp B/P (MAP) Pulse Ox O2 O2 Flow FiO2 Time Delivery Rate 01/01/19 97.3 71 18 180/81 94 07:50 (114) 01/01/19 Nasal 2.0 02:56 Cannula Intake and Output 12/31/18 12/31/18 01/01/19 1515:00 23:00 07:00 IntakeIntake Total 680 ml 1065 ml OutputOutput Total 2000 ml 1000 ml BalanceBalance 680 ml -935 ml -1000 ml Exam Free Text/Dictation Constitutional: alert, oriented to self No distress Psych: nl mood/affect, anxiety Head: normocephalic, atraumatic Eyes: nl conjunctiva, nl lids, nl sclera ENMT: nl external ears & nose, nl lips & teeth Neck: supple, non-tender; No jvd Respiratory: normal air movement; No congested cough Cardiovascular: regular rate and rhythm, nl pulses; No edema Gastrointestinal: soft, min tender (rachel-incisional, no bru ising/discoloration/drainage) No distended, No rebound or guarding Genitourinary - Female: nl external genitalia Musculoskeletal: nl extremities to inspection; No joint tenderness Extremities: normal pulses; No calf tenderness Neurological: nl speech, nl strength; No nl mental status Skin: No rash or lesions Lymph: nl lymph nodes Results Result Diagram: 01/01/19 0651 01/01/19 0651 ANA M LEMUS NP Jan 01, 2019 10:38
[2019-01-01] MEDS ORDERED: ACET325T33 PO (12:53)
[2019-01-01] MEDS ORDERED: POTASSIUM CHLORIDE (SR) 10 MEQ TAB PO SCH (21:00)
--- NOTE | 2019-01-03 09:12 | DS ---
DATE OF ADMISSION: 12/25/2018 DATE OF DISCHARGE: 01/01/2019 This 88-year-old female admitted to the hospital with abdominal pain. PERTINENT EXAMINATION: VITAL SIGNS: Normal. CARDIOPULMONARY: Exam was unrevealing. Left breast was absent. ABDOMEN: Revealed an umbilical hernia that was tender. Bowel sounds were present. LABORATORY AND DIAGNOSTIC STUDIES: On admission, hematocrit 49, white count 11,600. On discharge, w tati count 6100, platelet count 168,000, hematocrit 39.3. Chemistries unremarkable with a chem-18 be ing normal. TSH was normal. Mag and phos were normal. B12 was normal. IMAGING STUDIES: CT scan of the abdomen and pelvis on admission revealed a long segment of moderatel y distended fluid-filled small bowel with scattered air fluid levels, compatible with a small-bowel o bstruction. Small bowel x-ray revealed no evidence of a bowel obstruction obtain on the day after ad mission with a few nonspecific mildly prominent loops of bowel in the left abdomen. HIDA nuclear sca n was negative. Chest x-ray unremarkable, except prior sternotomy, and inferior vena filter in place . Plain x-ray of the abdomen on December 26 revealed unremarkable bowel gas pattern. HOSPITAL COURSE: There was extreme difficulty attempting to place a NG tube, so this was abandoned. The patient was made n.p.o. and given intravenous fluids. Serial abdominal study revealed spontaneo us resolution of her small-bowel obstruction. Importantly, she continued to have umbilical pain. It was felt her umbilical hernia was incarcerated and surgical intervention provided by Dr. Jeong. S he did very well postoperatively, except for agitation and confusion expected given her severe dementia. At the time of discharge, she was stable, but clearly agitated. She did have evidence of mild bladder dysfunction with residuals postvoid in the range of 300 to 500. At the time of discharg e, it was 320, but she was not symptomatic. DISCHARGE DIAGNOSES: 1. Incarcerated umbilical hernia. Postoperatively, doing well, now on a regular diet and continue t he same. 2. Severe dementia and agitation. This has been problematic in excess of 2 years, reasonably stable . 3. Aortic valve replacement along with prior coronary artery bypass, stable. PLAN: To be discharged on a regular diet, to see me in 1 week. DIET: Soft as tolerated. MEDICATIONS: Only to include Tylenol p.r.n. for pain, Xanax 0.5 b.i.d. p.r.n., quetiapine 25 mg in t he morning and 50 at night. Dictated By: YADIRA TORRES MD MR/NTS Conf#: [id number] DID#: [id number] CC: YESI JEONG MD;*EndCC*
== END 2019-01-01 17:11 | disposition home or self-care (01) | DRG 354 ==
LOC: E/R 16:11 → PP2 20:19
PROVIDERS: ADMIT Internal Medicine; ATTEND Internal Medicine
PROC: 0WUF4JZ Supplement Abdominal Wall with Synthetic Substitute, Percutaneous Endoscopic Approach (ICD-10-PCS; principal; 2018-12-28 13:00)
DX: K42.0 Umbilical hernia with obstruction, without gangrene (principal); D68.9 Coagulation defect, unspecified; J44.9 Chronic obstructive pulmonary disease, unspecified; I71.2 Thoracic aortic aneurysm, without rupture; I65.29 Occlusion and stenosis of unspecified carotid artery; F03.90 Unspecified dementia, unspecified severity, without behavioral disturbance, psychotic disturbance, mood disturbance, and anxiety; I35.1 Nonrheumatic aortic (valve) insufficiency; I73.9 Peripheral vascular disease, unspecified; E78.5 Hyperlipidemia, unspecified; I25.10 Atherosclerotic heart disease of native coronary artery without angina pectoris; I10 Essential (primary) hypertension; G47.33 Obstructive sleep apnea (adult) (pediatric); M19.90 Unspecified osteoarthritis, unspecified site; D72.829 Elevated white blood cell count, unspecified; G47.30 Sleep apnea, unspecified; R45.1 Restlessness and agitation; Z95.2 Presence of prosthetic heart valve; E87.6 Hypokalemia; R33.9 Retention of urine, unspecified; Z85.3 Personal history of malignant neoplasm of breast
CPT/HCPCS: 36415; 36600; 71045; 74018; 74176; 74250; 78226; 80048; 80053; 81001; 81003; 82607; 82803; 82962; 83036; 83690; 83735; 84100; 84132; 84443; 84484; 85025; 85610; 85730; 87086; 88302; 93005; 94640; 94664; 96374; 96375; 97110; 97116; 97162; 97167; 97530; 97535; A9537; C1781; J0690; J1100; J2060; J2250; J2270; J2405; J3010; J3480; J7030; J7042; Q9967

== ENCOUNTER 2019-03-22 16:09 | Emergency (ER) | payer BC ==
[~2019-03-22] VITALS: Ht 154.9 cm; Wt 60.0 kg
[~2019-03-22 16:09] MED LIST changes: +ACET325T33 PO; -ALPR0.254 PO; +ALPR0.5T PO; +CEPH-443 PO; -CITA20TA8 PO; +NAPR-985 PO
[2019-03-22] MEDS ORDERED: ONDANSETRON 4 MG INJ IV STA (16:18)
[2019-03-22] MEDS ORDERED: morphine 4 MG/ML VIAL IV STA (16:18)
[2019-03-22] MEDS ORDERED: SOD CHLORIDE 0.9% 1,000 ML IV STA (16:18)
[2019-03-22 16:19] VITALS: Ht 154.9 cm; Wt 60.0 kg
[2019-03-22] MEDS ORDERED: CEFTRIAXONE 1 GM/50 ML (PMX) 50 ML IVPB ONE (18:30)
[2019-03-22 20:06] VITALS: BP 166/63; PULSE 66; RESP 12
== END 2019-03-22 20:46 | disposition home or self-care (01) ==
LOC: E/R 16:09
DX: M79.81 Nontraumatic hematoma of soft tissue (principal); J44.9 Chronic obstructive pulmonary disease, unspecified; I25.10 Atherosclerotic heart disease of native coronary artery without angina pectoris; I10 Essential (primary) hypertension; Z85.3 Personal history of malignant neoplasm of breast; Z87.891 Personal history of nicotine dependence; Z96.643 Presence of artificial hip joint, bilateral
CPT/HCPCS: 36415; 71045; 73030; 73060; 73110; 80048; 81001; 85025; 85610; 85730; 87086; 96361; 96365; 96375; 99284; J0696; J2270; J2405; J7030